=== PATIENT | female | born 1945 | race Caucasian/White ===

== ENCOUNTER 2017-08-01 16:00 | Inpatient (IN) | payer MEDICARE, BC ==
[2017-08-01 16:59] LABS: PCO2 Arterial 38 mmHg (35-45)
[2017-08-01] MEDS ORDERED: Ondansetron TAB* 4 MG PO PRN (17:02)
[2017-08-01] MEDS ORDERED: Ciprofloxacin 400MG IVPREMIX(* 400 MG/200 ML BAG IVPB SCH (17:30)
[2017-08-01 17:34] LABS: Hematocrit 32 % (35-47); Hemoglobin 10.4 g/dl (12.0-16.0); Mean Corpuscular HGB Conc 33 g/dl (31-36); Mean Corpuscular Hemoglobin 29 pg (27-31); Mean Corpuscular Volume 89 fL (80-97); Mean Platelet Volume 9 um3 (7.4-10.4); Red Blood Count 3.53 10^6/ul (4.0-5.4); Red Cell Distribution Width 15 % (10.5-15); White Blood Count 15.6 10^3/ul (3.5-10.8)
[2017-08-01] MEDS: NS 0.9% 1000 ML* 2,000 ML IV ONE ×2 (17:49→21:55)
[2017-08-01 17:51] LABS: BUN/Creatinine Ratio 33.1 (8-20); EGFR African American 20.6 (>60); Magnesium 1.6 mg/dL (1.9-2.7); Phosphorus 3.4 mg/dL (2.5-5.0); Potassium 3.4 mmol/L (3.5-5.0)
[2017-08-01 17:52] LABS: Troponin I 0.03 ng/mL (<0.04)
[2017-08-01 18:11] LABS: TSH (Thyroid Stimulating Horm) 3.56 mcIU/mL (0.34-5.60)
--- NOTE | 2017-08-01 18:12 | RAD ---
Indication: Outside institution CT remarkable for low density lesions at the liver. Comparison: No prior exams available on the [facility] [place] for comparison. Technique: RIGHT upper quadrant ultrasound. Report: Appropriate direction flow documented in the portal and hepatic veins. 22 cm liver is mildly heterogeneous in echogenicity. Several focal hepatic lesions are visualized with dominant 4.7 x 4.6 x 5.4 cm lesion at the LEFT hepatic lobe with suggestion of a fluid fluid level. The smaller lesions appear solid and hyperechoic. No significant marginal vascularity evident on Doppler. The lesion demonstrates irregular margins. Negative for intrahepatic biliary dilatation. 11 mm common bile duct. Post cholecystectomy. The pancreatic tail is partially obscured due to bowel gas with the visualized pancreas unremarkable. Negative for ascites. 11.0 x 4.7 x 4.4 cm RIGHT kidney is remarkable for mild cortical atrophy. IMPRESSION: 1. Noted hepatic lesions may represent metastasis or potentially septic emboli with the dominant lesion at the LEFT hepatic lobe demonstrating central cavitation with probable fluid fluid level. Correlate with clinical assessment. Consider multiphasic contrast-enhanced CT for further assessment. 2. Post cholecystectomy. 3. Mild prominence of the common bile duct may be normal in setting of prior cholecystectomy. Negative for intrahepatic biliary dilatation. 4. Mild cortical atrophy of the RIGHT kidney. Negative for hydronephrosis. 5. Negative for ascites.
[2017-08-01] MEDS ORDERED: metroNIDAZOLE IV 500 MG/100ML* 500 MG/100 ML BAG IVPB SCH (18:30)
[2017-08-01] MEDS ORDERED: Magnesium Sulf 4 GM/100 ML IV* 4,000 MG/100 ML BAG IVPB ONE (19:05)
--- NOTE | 2017-08-01 19:31 | RAD ---
Indication: Altered mental status. Comparison: No relevant prior exams available on the [facility] [place] for comparison. Technique: Noncontrast CT vertex of skull through foramen magnum. Report: Mild prominence of the cerebral sulci and cerebellar fissures reflecting involutional change. Unremarkable basal cisterns. Gonzalez matter white matter differentiation is preserved without evidence for edema. No intra or extra axial hemorrhage, mass, or fluid collection detected. Unremarkable visualized orbital contents. Indolent thickening at the junction of the inner table of the LEFT frontal and temporal bones. No suspicious focal osseous lesions evident. Unremarkable scalp. The visualized paranasal sinuses and mastoid air spaces are clear. IMPRESSION: 1. No acute intracranial process evident. 2. Mild involutional change.
--- NOTE | 2017-08-01 19:36 | RAD ---
INDICATION: Assess for pulmonary nodules. Sepsis. COMPARISON: RIGHT upper quadrant ultrasound August 01, 2017. TECHNIQUE: Multidetector CT images were obtained from the lung apices to the upper abdomen. Evaluation of the viscera is limited without IV contrast. REPORT: Significant respiratory motion artifact limits image quality. Small dependent LEFT pleural effusion with associated basilar atelectasis. Mild nonspecific airspace consolidation with air bronchograms at the inferior lingula which may represent atelectasis or pneumonia. No suspicious focal pulmonary lesions. Negative for thoracic lymphadenopathy. Cardiomegaly. Negative for pericardial effusion. Limited images through the upper abdomen are remarkable for a 3.2 x 3.4 cm hypodense but denser than water lesion at the dome of the LEFT medial hepatic segment. Corresponding with complex cystic lesion on ultrasound of the same date. Negative for suspicious focal osseous lesions. IMPRESSION: 1. Consolidation at the inferior lingula which may represent atelectasis or pneumonia. Small dependent LEFT pleural effusion. 2. Cardiomegaly. Negative for pericardial effusion. 3. Complex cystic lesion at the dome of the LEFT medial hepatic segment suspicious for abscess given clinical context of sepsis.
[2017-08-01] MEDS ORDERED: Vancomycin(*) 1,500 MG in NS 0.9% 250 ML* 250 ML IVPB ONE (20:00)
--- NOTE | 2017-08-01 20:16 | PN ---
Critical Care Services: [facility] progress note 08/01/17 Pt was transferred this evening from [facility] for possible sepsis, renal failure, DKA. Pt was hemodynamically stable, alert and oriented upon arrival. Pt had non- contrast abdominal CT done at [facility] that showed multiple hepatic lesions wiht largest lesion in left lobe. She was given 2L IVF and 2o units total of Insulin prior to transfer. She was given Cipro and Flagyl as she was PCN allergic for possible GI source. These abx are continued and was Vancomycin was added for possible Staph abscess. See previously dictated H& P for further details. Pt underwent liver U/S that showed multiple hepatic lesions with dominant lesion in Left lobe of liver with central cavitation and air fluid levels. She continued to have elevated blood sugars and was started on Insulin drip for management of blood sugars in setting of sepsis. She was also continued with IVF boluses, potassium and magnesium were repleted. Her lactate remains elevated at 2.7, to be rpt in 4 hrs. She also has acute on chronic renal failure due to dehydration and possible sepsis. She has marginal UO currently. She had normal LFTs in January of 2017, LFTs done at [place] earlier today showed elevated AST, ALT. Brain CT was done as she was slow to answer questions eventhough she was alert and oriented, it was read as normal, ? metabolic/ septic encephalopathy. Ct chest showed left basal consolidation, small rt effusion. She is having PICC line placed, she has 2 peripheral IV lines. EKG at [place] showed no acute changes, troponin was slightly elevated Vital Signs: Temp Pulse Resp BP SpO2 FiO2 97.4 F 63 21 116/65 97 08/01/17 18:52 08/01/17 19:00 08/01/17 19:00 08/01/17 19:00 08/01/17 19:00 Physical Exam: Gen: Alert, oriented x3, answers appropriately, slow to respond and seems forgetful HEENT:PERRLA, No JVD Lungs: Diminished breath sounds at bases, No wheeze Cardiac: S1, S2+, no murmer Abdomen: Obese, BS+ Extremities: Non-pitting edema Neuro: No focal defecits Fluid Balance (Past 24 Hours): Intake & Output 07/30/17 07/31/17 08/01/17 08/02/17 06:59 06:59 06:59 06:59 Weight 226 lb 9.6 oz Labs: Laboratory Results - last 24 hr 08/01/17 08/01/17 08/01/17 16:45 16:50 17:23 WBC RBC Hgb Hct MCV MCH MCHC RDW Plt Count MPV Neut % (Auto) Lymph % (Auto) Calloway % (Auto) Eos % (Auto) Baso % (Auto) Absolute Neuts (auto) Absolute Lymphs (auto) Absolute Monos (auto) Absolute Eos (auto) Absolute Basos (auto) Absolute Nucleated RBC Nucleated RBC % INR (Anticoag Therapy) APTT ABG pH 7.36 ABG pCO2 38 ABG pO2 82 ABG HCO3 22.1 ABG O2 Saturation 98.2 H ABG Base Excess -3.6 L Sodium Potassium Chloride Carbon Dioxide Anion Gap BUN Creatinine Est GFR ( Amer) Est GFR (Non-Af Amer) BUN/Creatinine Ratio Glucose 437 H Hemoglobin A1c 7.9 H Lactic Acid Calcium Ionized Calcium Phosphorus Magnesium Troponin I TSH 08/01/17 08/01/17 08/01/17 17:23 17:23 17:23 WBC RBC Hgb Hct MCV MCH MCHC RDW Plt Count MPV Neut % (Auto) Lymph % (Auto) Calloway % (Auto) Eos % (Auto) Baso % (Auto) Absolute Neuts (auto) Absolute Lymphs (auto) Absolute Monos (auto) Absolute Eos (auto) Absolute Basos (auto) Absolute Nucleated RBC Nucleated RBC % INR (Anticoag Therapy) 1.34 H APTT 21.7 L ABG pH ABG pCO2 ABG pO2 ABG HCO3 ABG O2 Saturation ABG Base Excess Sodium 131 L Potassium 3.4 L Chloride 98 L Carbon Dioxide 23 Anion Gap 10 BUN 96 H Creatinine 2.90 H Est GFR ( Amer) 20.6 Est GFR (Non-Af Amer) 16.0 BUN/Creatinine Ratio 33.1 H Glucose 421 H Hemoglobin A1c Lactic Acid 2.7 H* Calcium 8.0 L Ionized Calcium Phosphorus 3.4 Magnesium 1.6 L Troponin I 0.03 TSH 3.56 08/01/17 08/01/17 08/01/17 17:23 17:58 18:44 WBC 15.6 H RBC 3.53 L Hgb 10.4 L Hct 32 L MCV 89 MCH 29 MCHC 33 RDW 15 Plt Count 153 MPV 9 Neut % (Auto) 90.0 H Lymph % (Auto) 4.0 L Calloway % (Auto) 5.7 Eos % (Auto) 0.1 Baso % (Auto) 0.2 Absolute Neuts (auto) 14.0 H Absolute Lymphs (auto) 0.6 L Absolute Monos (auto) 0.9 H Absolute Eos (auto) 0 Absolute Basos (auto) 0 Absolute Nucleated RBC 0 Nucleated RBC % 0 INR (Anticoag Therapy) APTT ABG pH ABG pCO2 ABG pO2 ABG HCO3 ABG O2 Saturation ABG Base Excess Sodium Potassium Chloride Carbon Dioxide Anion Gap BUN Creatinine Est GFR ( Amer) Est GFR (Non-Af Amer) BUN/Creatinine Ratio Glucose 500 H Hemoglobin A1c Lactic Acid Calcium Ionized Calcium 4.58 L Phosphorus Magnesium Troponin I TSH Impression: 1. Sepsis likely hepatic abscess 2.Possible hepatocellular carcinoma 3.? Septic emboli to liver, ? primary source 4. Acute on chronic renal failure 5. Non-ketotic hyperosmolar state 6. Leucocytosis 7. Electrolyte abnormalities 8. Encephalopathy due to sepsis versus hyperosmolar state Plan: Close monitoring in ICU C/w abx C/w Insulin drip C/w IVF, start pressors if hypotensive inspite of fluids D/w Radiology application packager Dr Lopez regarding drainage of dominant lesion in liver , IR Dr Greenberg will assess pt tomorrow Monitor electrolytes closely, replete as needed D/w Dr Moore, DIRECTOR OF COMMUNITY EDUCATION Prognosis guarded to poor Family at bedside
[2017-08-01 20:40] LABS: BUN/Creatinine Ratio 34.1 (8-20); C Reactive Protein 219.81 mg/L (< 5.00); Calcium 7.8 mg/dL (8.6-10.3); EGFR African American 20.8 (>60); EGFR Non-African American 16.2 (>60); Potassium 3.4 mmol/L (3.5-5.0)
[2017-08-01 20:42] LABS: Troponin I 0.03 ng/mL (<0.04)
[2017-08-01] MEDS: KCL 20 MEQ/100 ML IVPREMIX* 20 MEQ/100 ML BAG IV SCH ×2 (20:51→23:18)
[2017-08-01 20:58] LABS: Direct Bilirubin 0.9 mg/dL (0.03-0.18); Globulin 3.3 g/dL (2-4); Indirect Bilirubin 0.4 mg/dL (0.3-1.0); Magnesium 1.6 mg/dL (1.9-2.7); Total Bilirubin 1.3 mg/dL (0.2-1.0); Total Protein 5.3 g/dL (6.4-8.9)
[2017-08-01] MEDS: Heparin VIAL(*) 5000 UNITS/ML VIAL (FIVE THOUSAND) SUBCUT SCH (21:56)
--- NOTE | 2017-08-01 23:23 | HP ---
HISTORY AND PHYSICAL: DATE OF ADMISSION: 08/01/17. PRIMARY CARE PROVIDER: Dr. Eliel Vu. REASON FOR ADMISSION: Transferred from [place] ED for possible sepsis versus DKA. CHIEF COMPLAINT: Nausea, vomiting, abdominal pain, left shoulder pain. HISTORY OF PRESENT ILLNESS: 72-year-old female with history of diabetes, stage 2 chronic kidney disease, obesity, who was evaluated in [place] [facility] today for GI symptoms and left shoulder pain. The patient has no oral intake over the past 3 days. The patient has been taking care of her sick recently, has been in the hospital attending to her . The patient's recently had an MA and she has been in the hospital a lot this week.The patient had onset of nausea, vomiting, and abdominal pain, going on for the past few days. Symptoms have worsened gradually.Given shoulder pain and h/o DM EKG and troponins were done in [place]. EKG was negative for acute ST-T wave changes. Troponins were mildly elevated. The patient was hemodynamically stable in [place] [facility]. She was noted to have elevated lactate. The patient also noted to have significantly elevated BUN and creatinine. Her sodium has been low. The patient had developed worsening diarrhea over the past week, also had nausea and lack of appetite without vomiting. She had mild left lower quadrant abdominal tenderness worse after an episode of diarrhea. She also reported stool being foul smelling, however denied dark stools. The patient denied fevers, shortness of breath. She had denied dysuria or back pain. She has been having small amounts of dark urine. The patient also denied headache, dizziness, admitted to malaise and weakness. The patient has received 20 units of insulin, blood sugar last checked was still above 450. The patient was given 3 L of IV fluids. The patient had minimal urine output since this morning. She also received 8 mg of Zofran, 4 mg of morphine for her shoulder pain. PAST MEDICAL HISTORY: 1. Diabetes type 2. 2. Hypertension. 3. Chronic kidney disease. 4. Lupus. 5. Gout. 6. Raynaud's. PAST SURGICAL HISTORY: Cholecystectomy. ALLERGIES: PENICILLIN. FAMILY HISTORY: No history of MA or sudden cardiac event, family history was reviewed. 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 No alcohol or drug abuse. REVIEW OF SYSTEMS: All 14 systems reviewed and as per the HPI. Pertinent positives and negatives as per HPI. PHYSICAL EXAMINATION GENERAL: Patient lying in bed, in no apparent distress, alert, awake, and oriented. VITAL SIGNS: Temperature 95.4, pulse 72 beats per minute, respiratory rate 18 per minute, blood pressure 135/70, O2 sat 96% on room air, BMI of 38. HEENT: Pupils, equal, reactive to light. Mucous membranes moist, Mallampati class 4 airway. RESPIRATORY: Lungs clear to auscultation bilaterally, decreased breath sounds in the right base. No wheeze or crackles. CARDIOVASCULAR: S1, S2 present, regular. No murmurs, gallops or rubs. GASTROINTESTINAL: Obese. Bowel sounds present, tenderness over left lower quadrant. BACK: No CVA tenderness. No vertebral tenderness. MUSCULOSKELETAL: Normal range of motion, 2+ edema of lower extremities. NEUROLOGIC: Alert, awake, oriented x3. No focal deficits. SKIN: No rash or bruises. LYMPHATIC: No palpable cervical or supraclavicular adenopathy. DIAGNOSTIC STUDIES/LABORATORY DATA: EKG: No acute ST-T wave changes CT of abdomen and pelvis was done without contrast, which showed abnormal appearance of the liver with multiple lesions concerning for malignancy. Developing abscess also in the differential. Chest x-ray showed small right pleural effusion. Shoulder x-ray to be reviewed. ASSESSMENT AND PLAN: 1. Infectious Disease/GI: The patient with abdominal symptoms of unclear nature. Liver abscess in differential, Diverticulosis versus colitis also in differential. The patient with abnormal attenuation throughout the entire left lobe of liver and low attenuation lesions throughout the right hepatic lobe, largest measuring 4 cm concerning for metastatic process versus abscess in left lobe of liver. Will obtain ultrasound of liver for further evaluation. Renal function is elevated and CT with contrast is deferred. Patient started on Flagyl and Rocephin for enteric coverage as she is pencillin allergic. Will also dose Vancomycin as per levels. Will f/u lactate, procalcitonin, CRP. 2. Neuro: The patient is alert, awake, and oriented and in no apparent distress. She is slightly delirious. She also received Morphine for pain while at [place], might be having long half life in setting of liver and renal failure. 3. Endocrine: The patient with hyperglycemia and increased AG. Will start Insulin drip given sepsis and need for close monitoring. HbA1C is elevated. Blood gas showed mild metabolic acidosis. Will monitor electrolytes and anion gap closely. Will c/w IV fluids. 4. Renal: The patient with acute on chronic renal failure likely secondary to dehydration and prerenal failure. No evidence of hyperkalemia. Magnesium and potassium repleted. Patient had jerome placed. Will start the patient on fluids. Monitor electrolytes closely. 5. Respiratory: Stable, saturating well on room air. Not tachypneic. CT chest showed consolidation in left base and small rt effusion, no suspicious nodules or masses noted 6. Heme/Onc: Patient with leukocytosis secondary to sepsis. Lactate is also elevated. CT of the abdomen concerning for hepatic abscess versus malignancy, will order ultrasound for further evaluation, will also obtain CT of the chest. 7. Cardiovascular: The patient is hemodynamically stable currently. Will monitor hemodynamic status closely. Troponins were elevated, likely secondary to underlying renal failure. Will follow trend. Echocardiogram is ordered and is pending 8. Musculoskeletal: The patient with lower extremity non-pitting edema, likely secondary to obesity, will check TSH Supportive and preventive care as ordered. The patient is closely being monitored in the ICU for possible sepsis, DKA, and renal failure. TIME SPENT: More than 60 minutes spent and most of the time spent [id number] with the patient towards history and physical. [id number]/[facility] #: [id number] CARLOS
[2017-08-01] MEDS: NS 0.9% 1000 ML* 1,000 ML IV SCH (23:45)
[2017-08-02 00:29] LABS: BUN/Creatinine Ratio 35.9 (8-20); Calcium 7.4 mg/dL (8.6-10.3); EGFR African American 23.1 (>60); Potassium 3.7 mmol/L (3.5-5.0)
[2017-08-02] MEDS: Acetaminophen SUPP* 650 MG SUPP PR PRN ×2 (02:17→21:34)
[2017-08-02] MEDS ORDERED: Insulin GLARGINE(*) 1 UNITS UNIT SUBCUT ONE (03:00)
[2017-08-02] MEDS: metroNIDAZOLE IV 500 MG/100ML* 500 MG/100 ML BAG IVPB SCH ×3 (04:30→20:27)
[2017-08-02 04:36] LABS: Calcium 7.7 mg/dL (8.6-10.3); EGFR African American 22.6 (>60); EGFR Non-African American 17.6 (>60); Potassium 3.7 mmol/L (3.5-5.0)
[2017-08-02] MEDS ORDERED: Dextrose 50% Syringe 50 ML* 25 GM/50 ML SYRINGE IV PUSH PRN (05:31)
[2017-08-02 05:55] LABS: Add Diff/Slide Review? Slide Review Added; Comments Flag Yes; Hematocrit 35 % (35-47); Hemoglobin 11.6 g/dl (12.0-16.0); Mean Corpuscular HGB Conc 33 g/dl (31-36); Mean Corpuscular Hemoglobin 29 pg (27-31); Mean Corpuscular Volume 89 fL (80-97); Mean Platelet Volume 9 um3 (7.4-10.4); Red Blood Count 3.95 10^6/ul (4.0-5.4); Red Cell Distribution Width 15 % (10.5-15); White Blood Count 10.6 10^3/ul (3.5-10.8)
[2017-08-02] MEDS: Heparin VIAL(*) 5000 UNITS/ML VIAL (FIVE THOUSAND) SUBCUT SCH ×3 (06:13→21:55)
[2017-08-02] MEDS: Omeprazole CAP* 20 MG PO SCH (06:14)
[2017-08-02] MEDS: NS 0.9% 1000 ML* 1,000 ML IV SCH ×2 (07:35→18:34)
[2017-08-02] MEDS: Insulin LISPRO* 1 UNITS UNIT SUBCUT SCH ×4 (08:39→21:06)
[2017-08-02] MEDS: Insulin GLARGINE(*) 1 UNITS UNIT SUBCUT SCH (09:00)
[2017-08-02] MEDS ORDERED: Vancomycin(*) 1,500 MG in NS 0.9% 250 ML* 250 ML IVPB ONE (09:30)
--- NOTE | 2017-08-02 09:37 | PN ---
Progress Note - Progress Note Date of Service: 08/02/17 - [facility] progress note Note: In error. Pls see CCM progress note.
--- NOTE | 2017-08-02 09:44 | PN ---
Critical Care Services: [facility] progress note Date of service 08/02/17, Time: 9:30 am Pt seen and examined at bedside. Pt is 72 y o obese f with h/o DM, lupus, CRF who was seen in [facility] ED for GI symptoms, CT abdomen without contrast showed multiple hepatic lesions concerning for abscess versus malignancy. She was transferred for management of sepsis, possible DKA, acute on chronic renal failure. She has remained hypotensive overnight, responding to fluids. She is afebrile, not tachycardic. Leucocytosis, renal function improving. Has been off Insulin drip and received long acting Insulin. Mental status improved this am. Vital Signs: Temp Pulse Resp BP SpO2 FiO2 96.2 F 58 19 89/57 98 08/02/17 08:00 08/02/17 06:01 08/02/17 08:00 08/02/17 06:00 08/02/17 08:00 Physical Exam: Gen: Obese female, lying in bed in NAD HEENT: PERRLA, No JVD Lungs: Diminished air entry at bases Cardiac: S1, S2+, regular Abdomen: Obese, BS+, diminished, tenderness to palpation, no rebound Extremities: Normal ROM, non-pitting edema Neuro: Slight improvement in mental status this am, alert, oriented Fluid Balance (Past 24 Hours): Q=4768 O= 200 Net +4153 Intake & Output 07/31/17 08/01/17 08/02/17 08/03/17 06:59 06:59 06:59 06:59 Intake Total 4353 100 Output Total 200 Balance 4153 100 Weight 246 lb 7.629 oz Intake: IV Fluids 3518 Antibiotics 1524 NS (0.9%) 275 Normal Saline 1719 IVPB 393 ABX - VANCOMYCIN 121 Antibiotics 101 NS (0.9%) 62 Normal Saline 109 Medicated IV 342 CC - Insulin 98 KCl 134 Magnesium Sulfate 110 Oral 100 100 Output: Jerome 200 Other: Estimated Void Small Labs: Laboratory Results - last 24 hr 08/01/17 08/01/17 08/01/17 16:41 16:45 16:50 WBC RBC Hgb Hct MCV MCH MCHC RDW Plt Count MPV Neut % (Auto) Lymph % (Auto) [place] % (Auto) Eos % (Auto) Baso % (Auto) Absolute Neuts (auto) Absolute Lymphs (auto) Absolute Monos (auto) Absolute Eos (auto) Absolute Basos (auto) Absolute Nucleated RBC Nucleated RBC % INR (Anticoag Therapy) APTT ABG pH 7.36 ABG pCO2 38 ABG pO2 82 ABG HCO3 22.1 ABG O2 Saturation 98.2 H ABG Base Excess -3.6 L Sodium Potassium Chloride Carbon Dioxide Anion Gap BUN Creatinine Est GFR ( Amer) Est GFR (Non-Af Amer) BUN/Creatinine Ratio Glucose 437 H POC Glucose (mg/dL) > 444 H* Hemoglobin A1c Lactic Acid Calcium Ionized Calcium Phosphorus Magnesium Total Bilirubin Direct Bilirubin Indirect Bilirubin AST ALT Alkaline Phosphatase Troponin I C-Reactive Protein Total Protein Albumin Globulin Albumin/Globulin Ratio Procalcitonin TSH Urine Acetone 08/01/17 08/01/17 08/01/17 17:23 17:23 17:23 WBC RBC Hgb Hct MCV MCH MCHC RDW Plt Count MPV Neut % (Auto) Lymph % (Auto) [place] % (Auto) Eos % (Auto) Baso % (Auto) Absolute Neuts (auto) Absolute Lymphs (auto) Absolute Monos (auto) Absolute Eos (auto) Absolute Basos (auto) Absolute Nucleated RBC Nucleated RBC % INR (Anticoag Therapy) APTT ABG pH ABG pCO2 ABG pO2 ABG HCO3 ABG O2 Saturation ABG Base Excess Sodium 131 L Potassium 3.4 L Chloride 98 L Carbon Dioxide 23 Anion Gap 10 BUN 96 H Creatinine 2.90 H Est GFR ( Amer) 20.6 Est GFR (Non-Af Amer) 16.0 BUN/Creatinine Ratio 33.1 H Glucose 421 H POC Glucose (mg/dL) Hemoglobin A1c 7.9 H Lactic Acid 2.7 H* Calcium 8.0 L Ionized Calcium Phosphorus 3.4 Magnesium 1.6 L Total Bilirubin Direct Bilirubin Indirect Bilirubin AST ALT Alkaline Phosphatase Troponin I 0.03 C-Reactive Protein Total Protein Albumin Globulin Albumin/Globulin Ratio Procalcitonin TSH 3.56 Urine Acetone 08/01/17 08/01/17 08/01/17 17:23 17:23 17:58 WBC 15.6 H RBC 3.53 L Hgb 10.4 L Hct 32 L MCV 89 MCH 29 MCHC 33 RDW 15 Plt Count 153 MPV 9 Neut % (Auto) 90.0 H Lymph % (Auto) 4.0 L [place] % (Auto) 5.7 Eos % (Auto) 0.1 Baso % (Auto) 0.2 Absolute Neuts (auto) 14.0 H Absolute Lymphs (auto) 0.6 L Absolute Monos (auto) 0.9 H Absolute Eos (auto) 0 Absolute Basos (auto) 0 Absolute Nucleated RBC 0 Nucleated RBC % 0 INR (Anticoag Therapy) 1.34 H APTT 21.7 L ABG pH ABG pCO2 ABG pO2 ABG HCO3 ABG O2 Saturation ABG Base Excess Sodium Potassium Chloride Carbon Dioxide Anion Gap BUN Creatinine Est GFR ( Amer) Est GFR (Non-Af Amer) BUN/Creatinine Ratio Glucose POC Glucose (mg/dL) Hemoglobin A1c Lactic Acid Calcium Ionized Calcium 4.58 L Phosphorus Magnesium Total Bilirubin Direct Bilirubin Indirect Bilirubin AST ALT Alkaline Phosphatase Troponin I C-Reactive Protein Total Protein Albumin Globulin Albumin/Globulin Ratio Procalcitonin TSH Urine Acetone 08/01/17 08/01/17 08/01/17 18:34 18:44 20:05 WBC RBC Hgb Hct MCV MCH MCHC RDW Plt Count MPV Neut % (Auto) Lymph % (Auto) [place] % (Auto) Eos % (Auto) Baso % (Auto) Absolute Neuts (auto) Absolute Lymphs (auto) Absolute Monos (auto) Absolute Eos (auto) Absolute Basos (auto) Absolute Nucleated RBC Nucleated RBC % INR (Anticoag Therapy) APTT ABG pH ABG pCO2 ABG pO2 ABG HCO3 ABG O2 Saturation ABG Base Excess Sodium 132 L Potassium 3.4 L Chloride 99 L Carbon Dioxide 23 Anion Gap 10 BUN 98 H Creatinine 2.87 H Est GFR ( Amer) 20.8 Est GFR (Non-Af Amer) 16.2 BUN/Creatinine Ratio 34.1 H Glucose 500 H 392 H POC Glucose (mg/dL) > 444 H* Hemoglobin A1c Lactic Acid Calcium 7.8 L Ionized Calcium Phosphorus Magnesium 1.6 L Total Bilirubin 1.30 H Direct Bilirubin 0.90 H Indirect Bilirubin 0.4 AST 206 H ALT 92 H Alkaline Phosphatase 70 Troponin I 0.03 C-Reactive Protein 219.81 H Total Protein 5.3 L Albumin 2.0 L Globulin 3.3 Albumin/Globulin Ratio 0.6 L Procalcitonin TSH Urine Acetone 08/01/17 08/01/17 08/01/17 20:05 20:05 22:00 WBC RBC Hgb Hct MCV MCH MCHC RDW Plt Count MPV Neut % (Auto) Lymph % (Auto) [place] % (Auto) Eos % (Auto) Baso % (Auto) Absolute Neuts (auto) Absolute Lymphs (auto) Absolute Monos (auto) Absolute Eos (auto) Absolute Basos (auto) Absolute Nucleated RBC Nucleated RBC % INR (Anticoag Therapy) APTT ABG pH ABG pCO2 ABG pO2 ABG HCO3 ABG O2 Saturation ABG Base Excess Sodium Potassium Chloride Carbon Dioxide Anion Gap BUN Creatinine Est GFR ( Amer) Est GFR (Non-Af Amer) BUN/Creatinine Ratio Glucose POC Glucose (mg/dL) 380 H Hemoglobin A1c Lactic Acid 3.2 H* Calcium Ionized Calcium Phosphorus Magnesium Total Bilirubin Direct Bilirubin Indirect Bilirubin AST ALT Alkaline Phosphatase Troponin I C-Reactive Protein Total Protein Albumin Globulin Albumin/Globulin Ratio Procalcitonin 12.6 H TSH Urine Acetone 08/01/17 08/02/17 08/02/17 23:00 00:00 00:00 WBC RBC Hgb Hct MCV MCH MCHC RDW Plt Count MPV Neut % (Auto) Lymph % (Auto) [place] % (Auto) Eos % (Auto) Baso % (Auto) Absolute Neuts (auto) Absolute Lymphs (auto) Absolute Monos (auto) Absolute Eos (auto) Absolute Basos (auto) Absolute Nucleated RBC Nucleated RBC % INR (Anticoag Therapy) APTT ABG pH ABG pCO2 ABG pO2 ABG HCO3 ABG O2 Saturation ABG Base Excess Sodium 132 L Potassium 3.7 Chloride 103 Carbon Dioxide 21 L Anion Gap 8 BUN 94 H Creatinine 2.62 H Est GFR ( Amer) 23.1 Est GFR (Non-Af Amer) 18.0 BUN/Creatinine Ratio 35.9 H Glucose 292 H POC Glucose (mg/dL) 349 H Hemoglobin A1c Lactic Acid 2.3 H* Calcium 7.4 L Ionized Calcium Phosphorus Magnesium Total Bilirubin Direct Bilirubin Indirect Bilirubin AST ALT Alkaline Phosphatase Troponin I C-Reactive Protein Total Protein Albumin Globulin Albumin/Globulin Ratio Procalcitonin TSH Urine Acetone 08/02/17 08/02/17 08/02/17 00:07 01:00 02:14 WBC RBC Hgb Hct MCV MCH MCHC RDW Plt Count MPV Neut % (Auto) Lymph % (Auto) [place] % (Auto) Eos % (Auto) Baso % (Auto) Absolute Neuts (auto) Absolute Lymphs (auto) Absolute Monos (auto) Absolute Eos (auto) Absolute Basos (auto) Absolute Nucleated RBC Nucleated RBC % INR (Anticoag Therapy) APTT ABG pH ABG pCO2 ABG pO2 ABG HCO3 ABG O2 Saturation ABG Base Excess Sodium Potassium Chloride Carbon Dioxide Anion Gap BUN Creatinine Est GFR ( Amer) Est GFR (Non-Af Amer) BUN/Creatinine Ratio Glucose POC Glucose (mg/dL) 319 H 282 H 241 H Hemoglobin A1c Lactic Acid Calcium Ionized Calcium Phosphorus Magnesium Total Bilirubin Direct Bilirubin Indirect Bilirubin AST ALT Alkaline Phosphatase Troponin I C-Reactive Protein Total Protein Albumin Globulin Albumin/Globulin Ratio Procalcitonin TSH Urine Acetone 08/02/17 08/02/17 08/02/17 03:00 03:03 04:00 WBC RBC Hgb Hct MCV MCH MCHC RDW Plt Count MPV Neut % (Auto) Lymph % (Auto) [place] % (Auto) Eos % (Auto) Baso % (Auto) Absolute Neuts (auto) Absolute Lymphs (auto) Absolute Monos (auto) Absolute Eos (auto) Absolute Basos (auto) Absolute Nucleated RBC Nucleated RBC % INR (Anticoag Therapy) APTT ABG pH ABG pCO2 ABG pO2 ABG HCO3 ABG O2 Saturation ABG Base Excess Sodium 134 Potassium 3.7 Chloride 105 Carbon Dioxide 20 L Anion Gap 9 BUN 96 H Creatinine 2.67 H Est GFR ( Amer) 22.6 Est GFR (Non-Af Amer) 17.6 BUN/Creatinine Ratio 36.0 H Glucose 195 H POC Glucose (mg/dL) 221 H Hemoglobin A1c Lactic Acid Calcium 7.7 L Ionized Calcium Phosphorus Magnesium Total Bilirubin Direct Bilirubin Indirect Bilirubin AST ALT Alkaline Phosphatase Troponin I C-Reactive Protein Total Protein Albumin Globulin Albumin/Globulin Ratio Procalcitonin TSH Urine Acetone Negative 08/02/17 08/02/17 08/02/17 04:00 04:06 05:05 WBC 10.6 RBC 3.95 L Hgb 11.6 L Hct 35 MCV 89 MCH 29 MCHC 33 RDW 15 Plt Count 167 MPV 9 Neut % (Auto) 89.6 H Lymph % (Auto) 5.0 L [place] % (Auto) 4.9 Eos % (Auto) 0.4 Baso % (Auto) 0.1 Absolute Neuts (auto) 9.5 H Absolute Lymphs (auto) 0.5 L Absolute Monos (auto) 0.5 Absolute Eos (auto) 0 Absolute Basos (auto) 0 Absolute Nucleated RBC 0 Nucleated RBC % 0 INR (Anticoag Therapy) APTT ABG pH ABG pCO2 ABG pO2 ABG HCO3 ABG O2 Saturation ABG Base Excess Sodium Potassium Chloride Carbon Dioxide Anion Gap BUN Creatinine Est GFR ( Amer) Est GFR (Non-Af Amer) BUN/Creatinine Ratio Glucose POC Glucose (mg/dL) 192 H 157 H Hemoglobin A1c Lactic Acid Calcium Ionized Calcium Phosphorus Magnesium Total Bilirubin Direct Bilirubin Indirect Bilirubin AST ALT Alkaline Phosphatase Troponin I C-Reactive Protein Total Protein Albumin Globulin Albumin/Globulin Ratio Procalcitonin TSH Urine Acetone 08/02/17 08:19 WBC RBC Hgb Hct MCV MCH MCHC RDW Plt Count MPV Neut % (Auto) Lymph % (Auto) [place] % (Auto) Eos % (Auto) Baso % (Auto) Absolute Neuts (auto) Absolute Lymphs (auto) Absolute Monos (auto) Absolute Eos (auto) Absolute Basos (auto) Absolute Nucleated RBC Nucleated RBC % INR (Anticoag Therapy) APTT ABG pH ABG pCO2 ABG pO2 ABG HCO3 ABG O2 Saturation ABG Base Excess Sodium Potassium Chloride Carbon Dioxide Anion Gap BUN Creatinine Est GFR ( Amer) Est GFR (Non-Af Amer) BUN/Creatinine Ratio Glucose POC Glucose (mg/dL) 101 H Hemoglobin A1c Lactic Acid Calcium Ionized Calcium Phosphorus Magnesium Total Bilirubin Direct Bilirubin Indirect Bilirubin AST ALT Alkaline Phosphatase Troponin I C-Reactive Protein Total Protein Albumin Globulin Albumin/Globulin Ratio Procalcitonin TSH Urine Acetone Studies: U/S liver: Multiple hepatic lesions, dominant lesion in Left lobe with central cavitation and densities CT chest: Small rt pleural effusion, basal atelectasis on left base, no mass or nodules CT brain: No acute findings CT abdomen at outside facility: No acute abdomen, multiple hepatic lesions Nutrition: Minimal oral intake Impression: 1. Sepsis likely from hepatic abscess 2.Suspected hepatocellular carcinoma 3.? Septic emboli to liver, ? primary source 4. Acute on chronic renal failure 5. DM type-2 6. Leucocytosis- improving 7. Electrolyte abnormalities being repleted 8. Encephalopathy due to sepsis , slightly better this am 9. Lactic acidosis- not worsening 10. Hypotension secondary to sepsis, not requiring pressors 11. Sinus bradycardia Plan: 1. Infectious Disease/GI: The patient with abdominal symptoms of unclear nature. Liver abscess in differential, Diverticulosis versus colitis less likely. Bacterial source versus fungal, letitia and aspergillus possible given poorly controlled DM at baseline. The patient with abnormal attenuation throughout the entire left lobe of liver and low attenuation lesions throughout the right hepatic lobe, largest measuring 4 cm concerning for metastatic process versus abscess in left lobe of liver. Discussed with Dr Greenberg, patient to undergo ultrasound guided drainage of largest lesion for diagnostic and therapeutic benefit. Patient started on Flagyl and Rocephin for enteric coverage as she is pencillin allergic. Will dose Vancomycin as per levels. Will f/u lactate, procalcitonin, CRP. Bl cx from [facility] showed gram positive bacteria in clusters-? Staph 2. Neuro: The patient is alert, awake, and oriented and in no apparent distress. Mental status is slightly better this am. Is able to protect airway 3. Endocrine: The patient with hyperglycemia and increased AG, was on Insulin drip which was stopped this am. She has received long acting Insulin. Will monitor electrolytes and anion gap closely. Will c/w IV fluids and sliding scale insulin. 4. Renal: The patient with acute on chronic renal failure likely secondary to dehydration and prerenal failure. No evidence of hyperkalemia. Magnesium and potassium repleted. Patient had jerome placed. C/w IV fluids. Monitor electrolytes closely. renal output remains low 5. Respiratory: Stable, on 2L O2. Not tachypneic. CT chest showed consolidation in left base and small rt effusion, no suspicious nodules or masses noted. No need to drain Rt effusion 6. Heme/Onc: Patient with leukocytosis secondary to sepsis. Lactate is also elevated, will f/u today. 7. Cardiovascular: Remains hypotensive, not tachycardic. Responding to fluid boluses this time. Will monitor hemodynamic status closely. Troponins are within normal limits. Echocardiogram is ordered and is pending. Had PICC line palced, will start pressors if needed. I think she is still intravascularly depleted. 8. Musculoskeletal: The patient with lower extremity non-pitting edema, likely secondary to obesity, TSH within normal limits IV access: Rt forearm 20 gauge, Lt PICC line Supportive and preventive care as ordered. Psycho/Social: at bedside and was updated on patients condition SUP: on PPI VTE prophylaxis: Heparin sq Jerome catheter given critical illness, monitoring needs for accurate assessment of NENO and KDIGO criteria for critically ill patients and to avoid potential harms of urinary retention, skin breakdown/ulcers. Critical Care Time: 45 min
[2017-08-02 11:03] LABS: BUN/Creatinine Ratio 34.8 (8-20); EGFR African American 21.5 (>60); EGFR Non-African American 16.7 (>60); Potassium 3.8 mmol/L (3.5-5.0)
[2017-08-02] MEDS ORDERED: NS 0.9% 1000 ML* 1,000 ML IV ONE (12:07)
[2017-08-02] MEDS ORDERED: fentaNYL* 50 MCG/ML 2 ML VIAL (100 MCG VIAL) IV ONE (14:00)
[2017-08-02] MEDS ORDERED: fentaNYL* 50 MCG/ML 2 ML VIAL (100 MCG VIAL) IV SLOW PU ONE (14:00)
[2017-08-02] MEDS ORDERED: fentaNYL* 50 MCG/ML 5 ML VIAL (250 MCG VIAL) ONE (14:00)
[2017-08-02] MEDS ORDERED: Cefepime(*) 2 GM in NS 0.9% 50 ML* 50 ML IVPB SCH (15:00)
--- NOTE | 2017-08-02 15:19 | PN ---
Progress Note - Progress Note Date of Service: 08/02/17 - [facility] note Note: Pt had U/S guided drainage of liver abscess and drain placement by Dr Greenberg at bed side in ICU. Patient with drainage of thick creamy white fluid. Drain left in place. 60cc fluid was sent to lab for cultures, gram stain, cytology. Blood cx positive for gram positive cocci, resembling Strep, final cx pending. Will d/ c Cipro. Will order Cefepime(pt had allergy to PCN- rash, no anaphylaxis. She was treated with Rocephin in the past with no side effects) and c/w Flagyl and Vanco per levels. UO remains minimal. Has received another 1L bolus earlier today and is on maintainance fluid of 125mL/hr. Has not needed vasopressors. Will also start stress dose steroids. Drain to remain in place, to be flushed every 8 hrs with sterile saline. Will obtain surgical consult for possible laproscopic drainage of liver abscess as she has multiple other foci throughout the liver.
--- NOTE | 2017-08-02 16:15 | RAD ---
CPT II Codes: 6100F INDICATION: Left lobe liver abscess in a septic patient. COMPARISON: CT of the chest and liver ultrasound both dated August 01, 2017 ANESTHESIA: 1% lidocaine injected locally. The patient received intravenous fentanyl. Cardiopulmonary status was monitored by Dr. Greenberg and the ICU nurse. PROCEDURE NOTE: The following procedure was performed at the bedside in the intensive care unit with a portable ultrasound imaging machine. The benefits and risks of procedure explained to the patient and the patient signed informed consent. Multiple images of the left lobe of the liver including the left lobe heterogeneous fluid collection were obtained. The abscess in question was identified and a percutaneous tract was determined. A time out was performed before beginning the procedure. The patient was prepped and draped in the usual sterile fashion. The skin, subcutaneous tissue and perihepatic capsule overlying the left lateral liver abscess were anesthetized with 1% lidocaine. Percutaneously, a 10 Australian pigtail drain was inserted into the collection under sonographic guidance according to the trocar technique. A "pursestring" suture was tied around the tube exit site, the tube was then secured to the skin with a "Ino sandal" suture and the area was finally dressed with sterile gauze and Tegaderm. The tube was attached to a three-way stopcock valves and drainage bag. Immediately 60 mL of purulent fluid was aspirated and sent to the laboratory for analysis. The post procedure ultrasound demonstrates the drain in appropriate position and no evidence for hematoma. The patient tolerated procedure well without incident. IMPRESSION: Uncomplicated bedside ultrasound-guided placement of a 10 Australian pigtail drainage catheter into a left lobe liver abscess.
[2017-08-03] MEDS: metroNIDAZOLE IV 500 MG/100ML* 500 MG/100 ML BAG IVPB SCH ×3 (04:28→19:46)
[2017-08-03] MEDS ORDERED: Vancomycin Random Level* NOTE FOLLOW UP ONE (05:30)
[2017-08-03] MEDS: Heparin VIAL(*) 5000 UNITS/ML VIAL (FIVE THOUSAND) SUBCUT SCH (05:52)
[2017-08-03] MEDS: Omeprazole CAP* 20 MG PO SCH (05:52)
[2017-08-03] MEDS ORDERED: Diltiazem DRIP* 100 MG/100 ML ADDV.BAG IVPB ONE ×2 (08:06→08:07)
[2017-08-03] MEDS: NS 0.9% 1000 ML* 1,000 ML IV ONE ×2 (08:30→09:06)
[2017-08-03] MEDS: Insulin GLARGINE(*) 1 UNITS UNIT SUBCUT SCH (08:46)
[2017-08-03] MEDS: Insulin LISPRO* 1 UNITS UNIT SUBCUT SCH ×4 (08:46→21:21)
[2017-08-03] MEDS ORDERED: Perflutren Lipid Microsphere* 3 ML VIAL ONE (08:51)
--- NOTE | 2017-08-03 10:45 | ECHO ---
Patient: TALIA PACKER [facility] [place] Rec#: [id number] : 1945 Date: 08/03/2017 Age: 72y Height: 162.56 cm / 64.0 in Weight: 109.77 kg / 241.9 lbs Sex: F BSA: 2.12 Room#: ICU 1 Admit Date#: 08/01/2017 Type: Inpatient Referring: KEO SANTOS Reading: Sonia Grove MD [employer] Supervisor: Opal ZunigaRDCS,RDMS Transthoracic Echocardiogram Indication: Bacteremia, Hypotension, Afib BP: 102/62 HR: 147 Rhythm: A-Fib Findings History: DM, CKD, HTN, lupus, liver abscess Technical Comments: The study is technically limited due to poor acoustic windows. Completed 09 Left Ventricle: The left ventricular chamber size is decreased. Moderate concentric left ventricular hypertrophy is observed. The left ventricle appears hyperdynamic. The estimated ejection fraction is greater than 65%. The assessment of diastolic function is non-diagnostic. Left Atrium: The left atrial chamber size is normal. Right Ventricle: The right ventricle wall thickness is mildly increased. The right ventricular cavity size is normal. Right Atrium: The right atrium is slightly dilated. Aortic Valve: The aortic valve is trileaflet. There is no evidence of aortic valve thickening. Systolic excursion of the aortic valve is normal. There is no evidence of aortic regurgitation. There is no evidence of aortic stenosis. Mitral Valve: There is posterior mitral annular calcification. The mitral valve leaflets do not appear thickened. There is no evidence of mitral regurgitation. There is no evidence of mitral stenosis. Tricuspid Valve: The tricuspid valve leaflets are normal. There is trace tricuspid regurgitation. Unable to estimate the right ventricular systolic pressure. Pulmonic Valve: There is no evidence of pulmonic valve thickening. There is trace to mild pulmonic regurgitation. Pericardium: There is no significant pericardial effusion. Aorta: The aortic root appears normal. There is no dilatation of the aortic arch. Pulmonary Artery: The main pulmonary artery appears normal. Venous: The inferior vena cava is not visualized. Contrast: Definity was used to optimize study. A total of 3 ml was given by [employer]. Summary: There was not any prior study for comparison. Conclusions TDS. pt is a fib The left ventricular chamber size is decreased. Moderate concentric left ventricular hypertrophy is observed. The left ventricle appears hyperdynamic. The estimated ejection fraction is greater than 65%. The endocardium is not well visualized. The assessment of diastolic function is non-diagnostic. There is trace tricuspid regurgitation. Unable to estimate the right ventricular systolic pressure. There is trace to mild pulmonic regurgitation. No obvious masses or vegetation but the study is difficult and limited. If clinically indicated, JENS might be of further help in evaluation. Measurements Name Value Normal Range RVIDd (AP) 2D 1.8 cm (0.9 - 2.6) RAd ISD 4CH 5 cm (3.4 - 4.9) IVSd (2D) 1.5 cm (0.6 - 1) LVPWd (2D) 1.6 cm (0.6 - 1) LVIDd (2D) 2.8 cm (3.6 - 5.4) LVIDs (2D) 2 cm - LV FS (2D) 26 % (25 - 45) Aortic Annulus 1.8 cm (1.4 - 2.6) Ao root diameter (2D) 2.6 cm (2.1 - 3.5) Ascending Ao 2.9 cm (2.1 - 3.4) Aortic arch 3 cm (1.8 - 3.4) LA dimension (AP) 2D 3.8 cm (2.3 - 3.8) LAd ISD 4CH 5.1 cm (2.9 - 5.3) LA ISD 4CH W 4.9 cm (2.5 - 4.5) Name Value Normal Range LA ESV SP 4CH (A/L) 69.86 ml - LA ESV SP 2CH (A/L) 33.76 ml - LA ESV BP (A/L) 54.98 ml - LA ESV BP (A/L) index 26 ml/m2 - LA ESV SP 4CH (MOD) 66.36 ml - LA ESV SP 2CH (MOD) 32.52 ml - Name Value Normal Range MV E-wave Vmax 0.7 m/sec - MV deceleration time 133 msec - LV lateral e' Vmax 0.09 m/sec - LV E:e' lateral ratio 8 ratio - Name Value Normal Range AV Vmax 0.9 m/sec - AV peak gradient 3.2 mmHg - LVOT Vmax 0.8 m/sec - LVOT peak gradient 2.6 mmHg - Name Value Normal Range RAP 8 mmHg - Name Value Normal Range PV Vmax 0.8 m/sec - PV peak gradient 2.6 mmHg -
[2017-08-03 10:52] LABS: Comments Flag Yes; Hematocrit 34 % (35-47); Hemoglobin 10.9 g/dl (12.0-16.0); Mean Corpuscular HGB Conc 32 g/dl (31-36); Mean Corpuscular Hemoglobin 29 pg (27-31); Mean Corpuscular Volume 90 fL (80-97); Mean Platelet Volume 9 um3 (7.4-10.4); Red Blood Count 3.76 10^6/ul (4.0-5.4); Red Cell Distribution Width 16 % (10.5-15); White Blood Count 16.8 10^3/ul (3.5-10.8)
[2017-08-03 10:53] LABS: Add Diff/Slide Review? Slide Review Added
[2017-08-03 11:03] LABS: Albumin 1.5 g/dL (3.2-5.2); BUN/Creatinine Ratio 32.3 (8-20); Calcium 7.1 mg/dL (8.6-10.3); EGFR African American 18.4 (>60); EGFR Non-African American 14.3 (>60); Globulin 2.8 g/dL (2-4); Magnesium 2.4 mg/dL (1.9-2.7); Phosphorus 5.4 mg/dL (2.5-5.0); Potassium 3.8 mmol/L (3.5-5.0); Total Bilirubin 1.5 mg/dL (0.2-1.0); Total Protein 4.3 g/dL (6.4-8.9)
[2017-08-03] MEDS: Diltiazem DRIP* 100 MG/100 ML ADDV.BAG IVPB SCH ×2 (11:16→20:32)
--- NOTE | 2017-08-03 11:18 | PN ---
Progress Note - Progress Note Date of Service: 08/03/17 - Procedure note Note: Right Femoral Central Venous Catheter Placement Date: 08/03/17 Time: 11:00 am Indication: Intravenous access Procedure performed by:Galina Upton MD A time-out was completed verifying correct patient, procedure, site, positioning , and equipment. Strict aseptic precautions and necessary barrier techniques were utilized. The patient was placed in a dependent position appropriate for central line placement. The patients right groin was prepped and draped in sterile fashion. 1% Lidocaine was used to anesthetize the surrounding skin area. A triple lumen catheter was introduced into the right common femoral vein using the Seldinger technique and under ultrasound guidance. The catheter was threaded smoothly over the guide wire and appropriate blood return was obtained. Each lumen of the catheter was evacuated of air and flushed with sterile saline. The catheter was then sutured in place to the skin and a sterile dressing applied. Perfusion to the extremity distal to the point of catheter insertion was checked and found to be adequate. Estimated Blood Loss: minimal The patient tolerated the procedure well and there were no complications.
--- NOTE | 2017-08-03 11:21 | PN ---
Progress Note - Progress Note Date of Service: 08/03/17 - Left radial femoral line palcement Note: LEFT ARTERIAL LINE (A-Line) PLACEMENT Date: 08/03/17 Time: 11:10 am Indication: Hemodynamic monitoring Performed by: Gailna Upton MD A time-out was completed verifying correct patient, procedure, site, positioning , and equipment . Strict aseptic precautions and necessary barrier techniques were utilized. Allens test was performed to ensure adequate perfusion. The patients left wrist was prepped and draped in sterile fashion. 1% Lidocaine was used to anesthetize the area. An Arrow arterial line was introduced into the left radial artery. The catheter was threaded over the guide wire and the needle was removed with appropriate pulsatile blood return. The catheter was then sutured in place to the skin and a sterile dressing applied. Perfusion to the extremity distal to the point of catheter insertion was checked and found to be adequate. Estimated Blood Loss: Minimal The patient tolerated the procedure well and there were no complications.
[2017-08-03] MEDS ORDERED: Heparin DRIP 25,000 UNITS(*) 25,000 UNITS/500 ML BAG IV SCH (11:30)
--- NOTE | 2017-08-03 11:33 | PN ---
Critical Care Services: [facility] progress note Date of service 08/03/17 Time: 11:20 am Pt was seen and examined at bedside. Pt has remained stable overnight. Had onset of A.fib with RVR this am, started on Cardizem drip, she concerted to sinus rhythm however continues to drip back to A.fib. Has received 4L IVF so far. Urine output has been low. Mental status is much improved. Drain was placed into hepatic abscess in left lobe of liver yesterday, has put out 60+50+ 20 cc so far. Scheduled for rpt U/S today. She had maintained BP yesterday however has been more hypotensive this am. She has received fluid boluses. EKG showed A.Fib and she is currently on Cardizem drip. Heparin drip was also started. Vital Signs: Temp Pulse Resp BP SpO2 FiO2 97.4 F 83 28 80/64 96 08/03/17 04:00 08/03/17 10:45 08/03/17 10:45 08/03/17 10:45 08/03/17 10:45 Physical Exam: Gen:Pt in NAD, alert, awake HEENT:PERRLA, No JVD, mucus membranes dry Lungs:Diminished air entry at bases Cardiac: S1, S2+, irregular, tachycardic Abdomen:Obese, BS+, abd drain in place Extremities: Normal ROM Neuro: No focal defecits Fluid Balance (Past 24 Hours): I= 5140 O=350 Net 4790 Intake & Output 08/01/17 08/02/17 08/03/17 08/04/17 06:59 06:59 06:59 06:59 Intake Total 4353 5140 Output Total 200 350 Balance 4153 4790 Weight 246 lb 7.629 oz 242 lb 11.663 oz Intake: IV Fluids 3518 1954 Antibiotics 1524 296 NS (0.9%) 275 Normal Saline 1719 1658 IVPB 393 2606 ABX - VANCOMYCIN 121 250 Antibiotics 101 2356 NS (0.9%) 62 Normal Saline 109 Medicated IV 342 CC - Insulin 98 KCl 134 Magnesium Sulfate 110 Oral 100 560 Pigtail Drain 20 Output: Pigtail Drain 70 Jerome 200 220 Other 60 Other: Estimated Void Small Other Amount Description Hepatic drain Labs: Laboratory Results - last 24 hr 08/02/17 08/02/17 08/02/17 12:25 12:40 16:58 WBC RBC Hgb Hct MCV MCH MCHC RDW Plt Count MPV Neut % (Auto) Lymph % (Auto) Dubois % (Auto) Eos % (Auto) Baso % (Auto) Absolute Neuts (auto) Absolute Lymphs (auto) Absolute Monos (auto) Absolute Eos (auto) Absolute Basos (auto) Absolute Nucleated RBC Nucleated RBC % Sodium Potassium Chloride Carbon Dioxide Anion Gap BUN Creatinine Est GFR ( Amer) Est GFR (Non-Af Amer) BUN/Creatinine Ratio Glucose POC Glucose (mg/dL) 115 H 93 Lactic Acid 2.0 Calcium Phosphorus Magnesium Total Bilirubin AST ALT Alkaline Phosphatase Total Protein Albumin Globulin Albumin/Globulin Ratio Random Vancomycin 08/02/17 08/03/17 08/03/17 20:59 06:00 08:34 WBC RBC Hgb Hct MCV MCH MCHC RDW Plt Count MPV Neut % (Auto) Lymph % (Auto) Dubois % (Auto) Eos % (Auto) Baso % (Auto) Absolute Neuts (auto) Absolute Lymphs (auto) Absolute Monos (auto) Absolute Eos (auto) Absolute Basos (auto) Absolute Nucleated RBC Nucleated RBC % Sodium Potassium Chloride Carbon Dioxide Anion Gap BUN Creatinine Est GFR ( Amer) Est GFR (Non-Af Amer) BUN/Creatinine Ratio Glucose POC Glucose (mg/dL) 132 H 191 H Lactic Acid Calcium Phosphorus Magnesium Total Bilirubin AST ALT Alkaline Phosphatase Total Protein Albumin Globulin Albumin/Globulin Ratio Random Vancomycin 18.3 08/03/17 08/03/17 10:20 10:20 WBC 16.8 H RBC 3.76 L Hgb 10.9 L Hct 34 L MCV 90 MCH 29 MCHC 32 RDW 16 H Plt Count 178 MPV 9 Neut % (Auto) 93.6 H Lymph % (Auto) 3.5 L Dubois % (Auto) 2.7 Eos % (Auto) 0.1 Baso % (Auto) 0.1 Absolute Neuts (auto) 15.7 H Absolute Lymphs (auto) 0.6 L Absolute Monos (auto) 0.5 Absolute Eos (auto) 0 Absolute Basos (auto) 0 Absolute Nucleated RBC 0.01 Nucleated RBC % 0 Sodium 134 Potassium 3.8 Chloride 109 Carbon Dioxide 15 L Anion Gap 10 BUN 103 H Creatinine 3.19 H Est GFR ( Amer) 18.4 Est GFR (Non-Af Amer) 14.3 BUN/Creatinine Ratio 32.3 H Glucose 171 H POC Glucose (mg/dL) Lactic Acid Calcium 7.1 L Phosphorus 5.4 H Magnesium 2.4 Total Bilirubin 1.50 H AST 107 H ALT 62 H Alkaline Phosphatase 48 Total Protein 4.3 L Albumin 1.5 L Globulin 2.8 Albumin/Globulin Ratio 0.5 L Random Vancomycin Studies: U/S liver: Multiple hepatic lesions, dominant lesion in Left lobe with central cavitation and densities CT chest: Small rt pleural effusion, basal atelectasis on left base, no mass or nodules CT brain: No acute findings CT abdomen at outside facility: No acute abdomen, multiple hepatic lesions ECHO; Done, reprot pending Nutrition: Oral feeds- diabetic diet Impression: Impression: 1. Sepsis and septic shock from hepatic abscess with Strep intermedius 2. Bactremia with Strep intermedius 3. New onset A.fib due to sepsis 4. Acute on chronic renal failure 5. DM type-2 6. Leucocytosis 7. Hepatic abscess s/p drain placement 8. Encephalopathy due to sepsis , resolved 9. Lactic acidosis- resolved 10. Morbid obesity Plan: 1. Infectious Disease/GI: Bacteremia and hepatic abscess from Strep intermedius. Has multiple abscesses in liver, s/p drain placement in larger abscess in left lobe of liver. Patient had dental procedure recently, she has been having periodentitis and abscess. She was treated with Clindamycin in April. Dental source for hepatic abscess. Patient is currently on Flagyl and Rocephin as she is pencillin allergic. D/c Vancomycin. Will c/w Flagyl for now until abdominal drain could be removed and susceptibilities are back. Will f/u procalcitonin, CRP. ECHO negative for endocarditis and no murmer was noted. Might consider JENS tomorrow 2. Neuro: The patient is alert, awake, and oriented and in no apparent distress. Mental status is improving. Is able to protect airway. Has not been needing pain meds 3. Endocrine: The patient with hyperglycemia and increased AG, was on Insulin drip which was stopped. She has received long acting Insulin and is on SS insulin. She was started on stress dose steroids for septic shock. Will monitor Bl sugars closely 4. Renal: The patient with acute on chronic renal failure likely secondary to dehydration and prerenal failure. No evidence of hyperkalemia. Magnesium and potassium repleted. Patient had jerome placed. C/w IV fluids. Monitor electrolytes closely. Renal output remains low, likely secondary to decreased perfusion in setting of septic shock 5. Respiratory: Stable, on 2L O2. Not tachypneic. CT chest showed consolidation in left base and small rt effusion, no suspicious nodules or masses noted. No need to drain Rt effusion. Watch closely for fluid overload 6. Heme/Onc: Patient with leukocytosis secondary to sepsis. Albumin low, repleted. Anemia of chronic disease, stable 7. Cardiovascular: Septic shock responding to fluid boluses. Had A-line and CVC placed. Will consider pressors if remains hypotensive. Will monitor hemodynamic status closely. Troponins are within normal limits. Echocardiogram showed no vegetations however was limited study. Cardiology consult appreciated. Started on cardizem drip for new onset A.fib in setting of sepsis. I think she is still intravascularly depleted and will c/w IVF. 8. Musculoskeletal: The patient with lower extremity non-pitting edema, likely secondary to obesity, TSH within normal limits IV access: Rt forearm 20 gauge, Lt PICC line, Rt femoral line 08/03/17, Lt radial A-line 08/03/17 Supportive and preventive care as ordered. Psycho/Social: and daughter at bedside and was updated on patients condition SUP: on PPI VTE prophylaxis: On Heparin drip for A.fib, will d/c heparin Sq Jerome catheter given critical illness, monitoring needs for accurate assessment of NENO and KDIGO criteria for critically ill patients and to avoid potential harms of urinary retention, skin breakdown/ulcers. Critical Care Time: 60 min excluding procedures
[2017-08-03] MEDS: Hydrocortisone INJ* 100 MG VIAL IV SCH ×2 (11:40→16:18)
[2017-08-03] MEDS ORDERED: Heparin VIAL(*) 5000 UNITS/ML VIAL (FIVE THOUSAND) IV SCH ×2 (12:00→15:00)
[2017-08-03] MEDS ORDERED: Albumin Human 25%* 100 ML in PREMIX* 0 ML IV SCH (12:00)
[2017-08-03] MEDS ORDERED: Albumin Human 25%* 100 ML in PREMIX* 0 ML IV ONE (12:15)
[2017-08-03] MEDS: NS 0.9% 1000 ML* 2,000 ML IV ONE ×2 (12:43→14:12)
--- NOTE | 2017-08-03 12:59 | RAD ---
Indication: Follow-up abscess drainage site at the LEFT hepatic lobe from August 02, 2017. Comparison: August 02, [address] Technique: Ultrasound of the LEFT hepatic lobe. REPORT AND IMPRESSION: Trace fluid and gas visualized at the site of the pigtail of the percutaneous drain. No new adjacent abscess collection or parenchymal hematoma evident. No perihepatic ascites visualized within the [id number].
[2017-08-03] MEDS ORDERED: NS 0.9% 1000 ML* 1,000 ML IV SCH (14:44)
[2017-08-03] MEDS: Simethicone TAB* 80 MG TAB.CHEW PO PRN (16:18)
[2017-08-03] MEDS ORDERED: Furosemide IV* 10 MG/ML VIAL (40 MG) IV SLOW PU ONE (16:27)
--- NOTE | 2017-08-03 16:51 | CONS ---
CC: Dr. Upton; Dr. Grove; Dr. Eliel Vu CARDIOLOGY CONSULTATION: DATE OF CONSULT: 08/03/17 HISTORY OF PRESENT ILLNESS: I was asked by Dr. Upton to see this 72-year-old female patient, who w as transferred from [facility] on 08/01/17 with nausea, vomiting, abdominal pain, and left sh oulder pain. Apparently, the patient was found to have liver abscess and she had a drainage. I was called because of rapid atrial fibrillation. She goes in and out of atrial fibrillation. She conv erts on her own to normal sinus rhythm and then she goes into AFib with heart rate about 120. The lexii evans is currently in the ICU, room 1 for IV antibiotics treatment and fluid. An echocardiogram wa s done today, and showed the patient to have hyperdynamic left ventricle systolic function with EF a bout 65%. There is no obvious vegetations and there is no obvious valvular disease, although the te st was limited and technically difficult study. I have discussed this with Dr. Upton today. The lexii evans is currently awake, alert, and oriented. She gives no symptoms of chest pain. No orthopnea. No PNDs. She does have history of diabetes mellitus and hypertension on medical treatment, histor y of lupus, gout disease, Raynaud's, chronic kidney disease. She follows up for her medical conditi ons with Dr. Vu. She gives no fever, no chills. No orthopnea is appreciated. She gives no histor y of congestive heart failure. No history of atrial fibrillation and no history of myocardial infar ction in the past. PAST MEDICAL HISTORY: Includes systemic arterial hypertension, chronic kidney disease, lupus, gout, Raynaud's, and diabetes mellitus. PAST SURGICAL HISTORY: Cholecystectomy. MEDICATIONS: Her medications as an inpatient include: 1. Tylenol 650 mg p.o. q.6 hours p.r.n. for fever. 2. She is on albumin solution. 3. She is on ceftriaxone 2 g IV piggyback q.24 hours. 4. She is on diltiazem IV 5 mL per hour for rate control. 5. She is on heparin adjusted to her PTT as per protocol. 6. She is also on Solu-Cortef 100 mg IV q.8 hours. 7. Lantus insulin coverage. 8. She is on Flagyl 500 mg IV piggyback as directed by Dr. Upton. 9. Prilosec 20 mg p.o. daily. 10. Zofran 4 mg p.o. q.4 hours p.r.n. for nausea. ALLERGIES: She is allergic to PENICILLIN. FAMILY HISTORY: No family history of coronary artery disease. SOCIAL HISTORY: No history of smoking, drinking, or illicit drug use. REVIEW OF SYSTEMS: Her review of all other systems is essentially negative. PHYSICAL EXAM: On exam, she is awake, alert, and oriented. She had no symptoms of chest pain. Her vitals, blood pressure is 88/55, pulse goes from sinus in the 70s to rapid AFib to 120. Her temper ature is 97.4 at 4 o'clock this morning, respiratory rate 20. Head and Neck Exam: Normocephalic an d atraumatic head. Ears, Nose, and Throat: Essentially benign. Neck: Supple. JVP is not elevated . No carotid bruits. No masses in the neck is appreciated. Chest: Diminished air entry bilaterall y. No rales, no wheezes. Heart: Normal S1, S2. No added sounds. No gallops, no rubs. Abdomen: Obese. Positive bowel sounds. Extremities: No edema, no cyanosis, no clubbing. Skin exam is norm al. Psych: Normal affect and mood. RADIO FREQUENCY ENGINEER: No focal deficits are appreciated. DIAGNOSTIC STUDIES/LAB DATA: Her labs showed her white blood cells 16.8, hemoglobin 10.9, hematocri t 34, and platelets 178. Chemistry, sodium 134, potassium 3.8, chloride 109, total CO2 15, BUN 103, creatinine is 3.19, glucose 171, calcium 7.1. AST 107, ALT 62. Her echo as described above. Her EKG from today at 8 o'clock this morning showed the patient to be in rapid atrial fibrillation with the heart rate 169 beats per minute, nonspecific T abnormality. OTHER RADIOLOGY: CT, liver ultrasound, showed the patient to have hepatic lesions may represent met astasis. Her brain CT, no acute intracranial process. Her CT of the chest, consolidation in the in ferior lingula, possible atelectasis or pneumonia. IMPRESSION: The patient is a 72-year-old female who was transferred from [facility] with: 1. Liver abscess, source possibilities as discussed with Dr. Upton. 2. Rapid atrial fibrillation paroxysmal, converted to sinus rhythm, probably related to her current situation of sepsis. 3. Systemic arterial hypertension. 4. Obesity. 5. Diabetes mellitus. 6. Hyperdynamic left ventricle systolic function. 7. No obvious vegetations on the transthoracic echo done today, although the study was limited and technically difficult study. 8. Abnormal EKG as described. PLAN: I have discussed this patient with Dr. Upton. At the present time, I agree with rate contro l as they already initiating Cardizem treatment, keep a very close eye on her electrolytes, kidney f unction, she does have a history of chronic renal insufficiency with significantly elevated BUN and creatinine and follow up this as per Dr. Upton. She is not in heart failure on physical exam and gage galindo does not suggest that. I think her atrial fibrillation is a secondary response to her renal krysta lure and her sepsis. Especially, she goes in and out of atrial fibrillation. If clinically indicate d, a transesophageal echocardiography will be helpful to evaluate her valvular disease for any evide nce of vegetations or clots in the left atrium or in the atrial appendage. I agree with the IV hydr ation and IV antibiotics treatment as you already doing. I answered all their concerns and question s up to their satisfaction. TIME SPENT: More than half of at least 30 to 35 plus minutes was on the education and counseling mo de [id number] explaining this to the patient and the family and discussing care further with Dr. Daisy melendrez. [id number]/[facility] #: [id number]
[2017-08-03] MEDS ORDERED: Metoprolol Tartrate IV* 1 MG/ML 5 ML VIAL IV ONE (20:00)
[2017-08-04] MEDS: Hydrocortisone INJ* 100 MG VIAL IV SCH ×2 (01:26→08:19)
[2017-08-04 04:10] LABS: Hematocrit 33 % (35-47); Hemoglobin 10.7 g/dl (12.0-16.0); Mean Corpuscular HGB Conc 33 g/dl (31-36); Mean Corpuscular Hemoglobin 29 pg (27-31); Mean Corpuscular Volume 89 fL (80-97); Mean Platelet Volume 9 um3 (7.4-10.4); Red Blood Count 3.66 10^6/ul (4.0-5.4); Red Cell Distribution Width 16 % (10.5-15)
[2017-08-04 04:11] LABS: Add Diff/Slide Review? Slide Review Added; Comments Flag Yes
[2017-08-04] MEDS: Omeprazole CAP* 20 MG PO SCH (05:00)
[2017-08-04] MEDS: metroNIDAZOLE IV 500 MG/100ML* 500 MG/100 ML BAG IVPB SCH ×3 (05:12→21:05)
[2017-08-04] MEDS ORDERED: Digoxin IV* 0.5 MG/2 ML AMP (0.25 MG/ML) ONE (08:13)
[2017-08-04] MEDS: Insulin GLARGINE(*) 1 UNITS UNIT SUBCUT SCH (08:19)
[2017-08-04] MEDS: Insulin LISPRO* 1 UNITS UNIT SUBCUT SCH ×4 (08:19→21:02)
[2017-08-04] MEDS ORDERED: Digoxin IV* 0.5 MG/2 ML AMP (0.25 MG/ML) IV ONE (09:00)
[2017-08-04] MEDS ORDERED: Amiodarone 150 MG IVPREMIX* 150 MG/100 ML BAG IV ONE (09:29)
[2017-08-04] MEDS ORDERED: Amiodarone IV VIAL* 0 ML ONE (09:33)
[2017-08-04] MEDS ORDERED: Albumin Human 5%* 250 ML BTL IV ONE (10:06)
[2017-08-04] MEDS ORDERED: Insulin GLARGINE(*) 1 UNITS UNIT SUBCUT ONE (10:43)
[2017-08-04 11:03] LABS: BUN/Creatinine Ratio 34.5 (8-20); Calcium 7.8 mg/dL (8.6-10.3); EGFR African American 19.3 (>60); Potassium 4.3 mmol/L (3.5-5.0)
[2017-08-04] MEDS: Heparin DRIP 25,000 UNITS(*) 25,000 UNITS/500 ML BAG IV SCH (11:21)
[2017-08-04] MEDS: Amiodarone TAB* 400 MG PO SCH ×2 (11:21→21:03)
--- NOTE | 2017-08-04 11:41 | PN ---
Progress Note - Progress Note Date of Service: 08/04/17 Note: CRITICAL CARE MEDICINE Date: 08/04/17 Time: 1010 SUBJECTIVE: Patient seen and examined. pleasant, states she knows she is mildly "off" but she then tells me she is weird at baseline and is a talker. 48 years. Her mother passed of liver ca at 72years. has had recent heart issues. PHYSICAL EXAM: Vital Signs: Reviewed. Neurologic: nonfocal HEENT: pupils equal. Sclera anicteric. Trachea midline. Cardiovascular: S1 S2 Respiratory: clear but slightly rapid and shallow Abdomen: Soft, obese, drain, less tender per her. Extremities: Warm. 3+ edema Access: right femoral cvc intact, left radial jacob intact LABS: Reviewed. IMAGING: Reviewed. MEDICATIONS: Reviewed. ASSESSMENT: 72 F Severe sepsis sec to liver abscess strept intermedius Acute hypoxic resp failure sec to above Mild septic encephalopathy Acute on chronic renal failure Afib with RVR Uncontrolled DM Moderate malnutrition PLAN: Neurologic: tolerable and improving. pain is dissipated per pt. prns. Cardiovascular: Perfusing but metabolics still high. Intravasc a bit low and still on Ebb curve; interstial overload. see if colloid loading can augment towards flow phase and fluid mobilization. Likely becoming diuretics dependent but can wait on diuretics until better flow phase. p afib with rvr not helping and driven but catecholamines. amio bolus and po load for a bit to improve status with NSR maintained. hold off on ccb and bb combo. echo ok. no need for manoj at this juncture. Respiratory: tolerating but again metabolic demands up and will increase flow to dec wob and allow better flow states. could have some micro-ali but tolerable and avoid further inflamm insults. is. Gastrointestinal: tolerating some diet. IR f/u drain. may need repeat imaging at some point to re-define. sup. Renal/Metabolic: acute on chronic. buffer today and ensure intravasc vol. see if able to mobilize and then may need diuretics. ask nephro to f/u. Infectious Disease: on C3 and flagyl. strept intermedius post drainage. ask ID to follow up rather then start adjustments now. low innoculum of ecoli in urine cx but did see a ua nor sx but concomitantly covered anyway. Hematology: on hep gtt for paf. see if she can maintain nsr today. may be able to dc soon as this is sepsis/catechlamine induced afib with relatively normal structure. given her dm she can remain on asa. Endocrine: received stress dose steroids and glu remain high. dc steroids. inc long acting today and see if she can vome down in time. renal dysfx should help insulin linger. ssi. Musculoskeletal: oob today but can take it easy today. would anticipate pushing her more tomorrow. Psych/Social: pt otherwise expresses understanding and appreciation. Supportive and preventative care as ordered. SUP: on ppi VTE prophylaxis: on heparin Corona catheter given critical illness, monitoring needs for accurate assessment of NENO and KDIGO criteria for critically ill patients and to avoid potential harms of urinary retention, skin breakdown/ulcers. Disposition: ICU Code Status: Full Critical Care Time: 45min Sg Hernandez DO
[2017-08-04] MEDS ORDERED: Metoprolol Tartrate TAB* 25 MG PO ONE (14:29)
[2017-08-04] MEDS: Simethicone TAB* 80 MG TAB.CHEW PO PRN (14:42)
[2017-08-04] MEDS: Sodium Citrate/Citric Acid* 15 ML UDC PO SCH ×2 (14:42→21:03)
[2017-08-04] MEDS: Albumin Human 25%* 100 ML in PREMIX* 0 ML IV SCH ×2 (16:11→21:03)
[2017-08-04] MEDS ORDERED: Insulin REGULAR(*) 1 UNITS UNIT SUBCUT ONE (17:22)
[2017-08-04] MEDS ORDERED: Insulin REGULAR(*) 1 UNITS UNIT IV PUSH ONE (17:22)
[2017-08-04] MEDS ORDERED: Insulin REGULAR(*) 1 UNITS UNIT ONE (18:11)
[2017-08-04] MEDS ORDERED: Albumin Human 25%* 25 GM/100 ML IV ONE ×2 (18:30)
[2017-08-04] MEDS: Acetaminophen SUPP* 650 MG SUPP PR PRN (19:58)
[2017-08-04] MEDS ORDERED: PREMIX* 0 ML ONE (20:58)
[2017-08-04] MEDS: Metoprolol Tartrate TAB* 50 mg PO SCH (21:03)
[2017-08-05] MEDS ORDERED: PREMIX* 0 ML ONE (04:12)
[2017-08-05] MEDS: Albumin Human 25%* 100 ML in PREMIX* 0 ML IV SCH ×2 (04:15→09:59)
[2017-08-05] MEDS: metroNIDAZOLE IV 500 MG/100ML* 500 MG/100 ML BAG IVPB SCH ×3 (04:17→21:28)
[2017-08-05] MEDS: Heparin DRIP 25,000 UNITS(*) 25,000 UNITS/500 ML BAG IV SCH (04:24)
[2017-08-05] MEDS: Omeprazole CAP* 20 MG PO SCH (05:57)
[2017-08-05 06:32] LABS: Add Diff/Slide Review? Slide Review Added; Comments Flag Yes; Hematocrit 26 % (35-47); Hemoglobin 8.4 g/dl (12.0-16.0); Mean Corpuscular HGB Conc 33 g/dl (31-36); Mean Corpuscular Hemoglobin 29 pg (27-31); Mean Corpuscular Volume 89 fL (80-97); Mean Platelet Volume 8 um3 (7.4-10.4); Red Blood Count 2.92 10^6/ul (4.0-5.4); Red Cell Distribution Width 16 % (10.5-15); White Blood Count 12.9 10^3/ul (3.5-10.8)
[2017-08-05 06:46] LABS: Albumin 3.3 g/dL (3.2-5.2); BUN/Creatinine Ratio 37.2 (8-20); Calcium 8.3 mg/dL (8.6-10.3); EGFR African American 20.1 (>60); EGFR Non-African American 15.6 (>60); Globulin 2.1 g/dL (2-4); Magnesium 2.8 mg/dL (1.9-2.7); Potassium 3.7 mmol/L (3.5-5.0); Total Bilirubin 0.9 mg/dL (0.2-1.0); Total Protein 5.4 g/dL (6.4-8.9)
[2017-08-05] MEDS ORDERED: Insulin GLARGINE(*) 1 UNITS UNIT SUBCUT SCH (09:13)
[2017-08-05] MEDS: Amiodarone TAB* 400 MG PO SCH ×2 (09:20→21:29)
[2017-08-05] MEDS: Metoprolol Tartrate TAB* 50 mg PO SCH ×2 (09:21→21:29)
[2017-08-05] MEDS ORDERED: Furosemide IV* 10 MG/ML 10 ML VIAL (100 MG) IV ONE (09:25)
[2017-08-05] MEDS ORDERED: Insulin LISPRO* 1 UNITS UNIT SUBCUT ONE (09:26)
[2017-08-05] MEDS: Insulin LISPRO* 1 UNITS UNIT SUBCUT SCH ×4 (09:35→21:18)
[2017-08-05] MEDS: Sodium Citrate/Citric Acid* 15 ML UDC PO SCH ×3 (09:39→21:29)
--- NOTE | 2017-08-05 09:43 | PN ---
Progress Note - Progress Note Date of Service: 08/05/17 Note: CRITICAL CARE MEDICINE Date: 08/05/17 Time: 910 SUBJECTIVE: Patient seen and examined. slept. PHYSICAL EXAM: Vital Signs: Reviewed. NSR >24hr Neurologic: nonfocal, communicating; less delirium/enceph HEENT: pupils equal. Sclera anicteric. Trachea midline. Cardiovascular: S1 S2 reg Respiratory: clear but dec at bases Abdomen: Soft, obese, drain intact Extremities: Warm. 3+ edema Access: midline LABS: Reviewed. IMAGING: Reviewed. MEDICATIONS: Reviewed. ASSESSMENT: 72 F Severe sepsis sec to liver abscess strept intermedius Acute hypoxic resp failure sec to above Mild septic encephalopathy Acute on chronic renal failure Afib with RVR Uncontrolled DM Moderate malnutrition PLAN: Neurologic: tstable. Cardiovascular: Perfusing better. intravasc vol stable. interstial remains up. can try to spur mobility with one dose diuretic otherwise watchful waiting. back on bb. off hctz/arb home combo Respiratory: tolerating on 10L and use IS, and can wean O2 today slowly. oob Gastrointestinal: tolerating diet and inc appetite. IR f/u drain and ID eval today and consider need for repeat imaging. Renal/Metabolic: acute on chronic but still with poor clearance. see if she can mobilize today. bicitrate buffer. albumin loading completing. ask nephro to f/ u. Infectious Disease: on C3 and flagyl for strept intermedius. Adjustments per ID today. Hematology: dc hep gtt as afib sec to sepsis and good strucutre. needs asa daily. hsq Endocrine: off steroids. adjust lantus and ssi continued. Musculoskeletal: oob today and pt eval. inc activity Psych/Social: pt expresses understanding. Supportive and preventative care as ordered. SUP: on ppi from outpt regimen VTE prophylaxis: hsq Corona catheter given critical illness, monitoring needs for accurate assessment of NENO and KDIGO criteria for critically ill patients and to avoid potential harms of urinary retention, skin breakdown/ulcers. Disposition: ICU likely today but almost floor ready Code Status: Full Critical Care Time: 35min Sg Hernandez DO
[2017-08-05] MEDS: Aspirin EC Low Dose* 81 MG TAB.EC PO SCH (10:34)
[2017-08-05] MEDS: Insulin GLARGINE(*) 1 UNITS UNIT SUBCUT SCH ×2 (10:37→18:30)
[2017-08-05] MEDS: Heparin VIAL(*) 5000 UNITS/ML VIAL (FIVE THOUSAND) SUBCUT SCH ×2 (14:17→21:28)
[2017-08-05] MEDS: Calcium Acetate CAP* 667 MG PO SCH ×2 (14:17→21:29)
--- NOTE | 2017-08-05 17:08 | CONS ---
CONSULTATION REPORT: DATE OF CONSULT: 08/05/17 REQUESTING PHYSICIAN: Dr. Hernandez. REASON FOR CONSULT: Liver abscess. IMPRESSION: 1. Sepsis due to a left lobe of the liver abscess, status post IR drain placement. The fluid is growing strep intermedius. Two of four blood culture bottles growing the same organism, bravo sensitive. 2. Obesity. 3. Type 2 diabetes. 4. Chronic kidney disease. 5. Lupus. RECOMMENDATIONS: Agree with ceftriaxone 2 g daily. We will eventually change her over to Flagyl 500 mg twice daily by mouth instead of IV Flagyl. Will plan on 6 weeks of IV antibiotics and a followup CT scan to ensure resolution. HISTORY OF PRESENT ILLNESS: This is a 72-year-old diabetic woman admitted with nausea, loose stools, seen by Dr. Vu and then made her way to the ER here on 08/01/17 after seeing him. She had had loose stools and nausea as well as some left shoulder pain. She was in the ER at [place], had a cardiac workup but had an elevated lactate and elevated creatinine. She was transferred to [facility]. She was admitted on the . She had a white count at that time of 15,000. A CT scan was done that showed left lobe of the liver lesion which was 5 x 5 x 5 cm with a fluid level. She had an IR-guided drain placed on 08/02/17, 60 cc of purulent fluid removed. Gram stain showed gram-positive cocci with strong strep intermedius. Two of the four blood culture bottles grew strep intermedius as well. She had a transthoracic echocardiogram on admission, showed no vegetation. She had some left shoulder pain that is resolved. She has had no other joint pain. No spine pain. She has no prosthetic material present. PAST MEDICAL HISTORY: 1. Lupus. 2. Chronic kidney disease. 3. Type 2 diabetes. 4. Hypertension. 5. Gout. 6. Raynaud's. 7. Status post cholecystectomy. MEDICATIONS: 1. Amiodarone. 2. Aspirin. 3. Escitalopram. 4. Insulin glargine. 5. Insulin regular. 6. Metoprolol. 7. Omeprazole. 8. Ceftriaxone 2 g a day. 9. Flagyl 500 mg IV every 8 hours. ALLERGIES: PENICILLIN. FAMILY HISTORY: No recurrent infections. SOCIAL HISTORY: She lives with her . She is a nurse practitioner. She has no travel or sick contacts. REVIEW OF SYSTEMS: All negative to full review of systems except as noted above. PHYSICAL EXAM: Vital Signs: Temperature 37, heart rate 65, respiratory rate 20 , blood pressure 116/42, O2 sat 97% on 10 L. General: She is awake, not in distress. Neurological: She is oriented x3. Follows all commands. Moves all 4 extremities. HEENT: There is no conjunctival hemorrhage. Oropharynx without lesions. Neck is supple without nuchal rigidity. Lymph Nodes: There is no inguinal, axillary, or epitrochlear lymphadenopathy. Heart: Regular rate and rhythm without murmurs, rubs or gallops. Lungs: Decreased breath sounds at the left base without wheeze, rales, or rhonchi. Abdomen: Soft, nontender, nondistended. There are bowel sounds present. There is a mid upper abdominal drain with some serous fluid. Musculoskeletal: There is no spine tenderness to palpation or joint synovitis. DIAGNOSTIC STUDIES/LAB DATA: White blood cell count 12.9, hemoglobin 8, platelets 149,000. Creatinine 3, down from 3.2 on the 10th. C-reactive protein was 220 on the 8th. Please see impressions and recommendations outlined above, which I have discussed with Dr. Hernandez. Also of note, her procalcitonin was 12.6. Thanks for asking me to see Ms. Marshall in consultation. [id number]/[facility] #: [id number] MTDD
[2017-08-05] MEDS: CMC:Escitalopram (NF) 10 MG TAB PO SCH (21:29)
[2017-08-06] MEDS: Simethicone TAB* 80 MG TAB.CHEW PO PRN (02:35)
[2017-08-06] MEDS: Acetaminophen TAB* 325 MG PO PRN (02:35)
[2017-08-06] MEDS: metroNIDAZOLE IV 500 MG/100ML* 500 MG/100 ML BAG IVPB SCH (04:41)
[2017-08-06] MEDS: Omeprazole CAP* 20 MG PO SCH (05:15)
[2017-08-06] MEDS: Heparin VIAL(*) 5000 UNITS/ML VIAL (FIVE THOUSAND) SUBCUT SCH ×3 (05:15→21:07)
[2017-08-06 05:55] LABS: Hematocrit 30 % (35-47); Hemoglobin 9.8 g/dl (12.0-16.0); Mean Corpuscular HGB Conc 33 g/dl (31-36); Mean Corpuscular Hemoglobin 29 pg (27-31); Mean Corpuscular Volume 87 fL (80-97); Mean Platelet Volume 9 um3 (7.4-10.4); Red Blood Count 3.38 10^6/ul (4.0-5.4); Red Cell Distribution Width 16 % (10.5-15); White Blood Count 11.6 10^3/ul (3.5-10.8)
[2017-08-06 08:56] LABS: BUN/Creatinine Ratio 41.7 (8-20); Blood Urea Nitrogen 105 mg/dL (6-24); CO2 Carbon Dioxide 18 mmol/L (22-32); Calcium 8.3 mg/dL (8.6-10.3); Chloride 112 mmol/L (101-111); EGFR African American 24.2 (>60); EGFR Non-African American 18.8 (>60); Glucose 59 mg/dL (70-100); Magnesium 2.3 mg/dL (1.9-2.7); Phosphorus 5.4 mg/dL (2.5-5.0); Sodium 140 mmol/L (133-145)
[2017-08-06 09:16] LABS: Anion Gap 10 mmol/L (2-11)
[2017-08-06] MEDS ORDERED: Furosemide IV* 10 MG/ML VIAL (40 MG) IV SLOW PU ONE (09:27)
[2017-08-06] MEDS: Metoprolol Tartrate TAB* 50 mg PO SCH ×2 (09:33→21:07)
[2017-08-06] MEDS: Sodium Citrate/Citric Acid* 15 ML UDC PO SCH ×3 (09:34→21:07)
[2017-08-06] MEDS: Calcium Acetate CAP* 667 MG PO SCH ×3 (09:34→21:07)
[2017-08-06] MEDS: Insulin LISPRO* 1 UNITS UNIT SUBCUT SCH ×4 (09:34→21:09)
[2017-08-06] MEDS: Aspirin EC Low Dose* 81 MG TAB.EC PO SCH (09:36)
[2017-08-06] MEDS: Amiodarone TAB* 400 MG PO SCH (09:36)
[2017-08-06] MEDS: Insulin GLARGINE(*) 1 UNITS UNIT SUBCUT SCH ×2 (09:45→09:47)
--- NOTE | 2017-08-06 09:57 | PN ---
Progress Note - Progress Note Date of Service: 08/06/17 Note: CRITICAL CARE MEDICINE Date: 08/06/17 Time: 910 SUBJECTIVE: Patient seen and examined. PHYSICAL EXAM: Vital Signs: Reviewed. NSR Neurologic: communicating; @ baseline. HEENT: pupils equal. Sclera anicteric. Trachea midline. Cardiovascular: S1 S2 reg Respiratory: clear but few rales at bases Abdomen: Soft, obese, drain intact with minimal out Extremities: Warm. 3+ edema Access: midline LABS: Reviewed. IMAGING: Reviewed. MEDICATIONS: Reviewed. ASSESSMENT: 72 F Severe sepsis sec to liver abscess strept intermedius Acute hypoxic resp failure sec to above Mild septic encephalopathy Acute on chronic renal failure Afib with RVR Uncontrolled DM Moderate malnutrition PLAN: Neurologic: stable. Cardiovascular: Perfusing. intravasc vol stable, interstial remains up but mobilized yesterday. juancarlosix antione today and then allow her some time to see if diuretic dependant. on bb. Respiratory: wean O2. Now 4L. IS. Gastrointestinal: tolerating diet and encourage water intake. IR f/u for dc drain timing. Renal/Metabolic: acute on chronic and improving. diuretics today. Na may inc further and may need to keep up with water losses or promote Na clearance with thiazide. Infectious Disease: C3 and po flagyl. ID following. IR can dc drain at their discretion. Hematology: asa daily. hsq Endocrine: dec lantus, ssi continued. Musculoskeletal: oob today and pt. inc activity Psych/Social: pt expresses understanding. Supportive and preventative care as ordered. SUP: on ppi from outpt regimen VTE prophylaxis: hsq Corona catheter given critical illness but look to dc in another day or so if well. Disposition: to floor with tele Code Status: Full Critical Care Time: 25min Sg Hernandez DO
--- NOTE | 2017-08-06 13:54 | PN ---
Progress Note - Progress Note Date of Service: 08/06/17 Note: CRITICAL CARE MEDICINE Date: 08/06/17 Time: 1345 D/w radiology, and ok with pulling drain. suture cut, drain cut and removed otherwise intact. Tegaderm cover. Pt tolerated well. Critical Care Time: 5min FMello Hernandez DO
[2017-08-06] MEDS: metroNIDAZOLE TAB* 250 MG PO SCH (21:07)
[2017-08-06] MEDS: CMC:Escitalopram (NF) 10 MG TAB PO SCH (21:10)
[2017-08-07 04:32] LABS: Calcium 8.7 mg/dL (8.6-10.3); EGFR African American 29.7 (>60); EGFR Non-African American 23.1 (>60); Potassium 3.3 mmol/L (3.5-5.0)
[2017-08-07] MEDS: Omeprazole CAP* 20 MG PO SCH (05:58)
[2017-08-07] MEDS: Heparin VIAL(*) 5000 UNITS/ML VIAL (FIVE THOUSAND) SUBCUT SCH ×3 (05:58→21:36)
[2017-08-07] MEDS: Insulin LISPRO* 1 UNITS UNIT SUBCUT SCH ×4 (09:05→21:38)
[2017-08-07] MEDS: Aspirin EC Low Dose* 81 MG TAB.EC PO SCH (09:14)
[2017-08-07] MEDS: Metoprolol Tartrate TAB* 50 mg PO SCH ×2 (09:14→21:38)
[2017-08-07] MEDS: metroNIDAZOLE TAB* 250 MG PO SCH ×2 (09:15→21:37)
[2017-08-07] MEDS: Insulin GLARGINE(*) 1 UNITS UNIT SUBCUT SCH (09:15)
[2017-08-07] MEDS: Sodium Citrate/Citric Acid* 15 ML UDC PO SCH (09:16)
--- NOTE | 2017-08-07 10:26 | PN ---
Progress Note - Progress Note Date of Service: 08/07/17 SOAP: Subjective: CC: liver abscess HPI: 72 year old woman admitted with sepsis and abd pain, CT showed left lobe liver abscess IR placed drain; removed 08/06. Abd pain improved, no fever, rash , diarrhea, or nausea. Objective: [] Vital Signs Temp 36.9 C 08/07/17 08:03 Pulse 67 08/07/17 08:03 Resp 20 08/07/17 00:13 BP 161/71 08/07/17 08:03 Pulse Ox 98 08/07/17 08:03 Intake & Output 08/06/17 08/07/17 08/07/17 18:59 06:59 18:59 Intake Total 965.3 400 Output Total 860 1350 Balance 105.3 -950 Intake: IV Fluids 61.3 NS and IV ABX 61.3 IVPB 214 NS and IV ABX 214 Oral 690 400 Output: Corona 860 1350 Other: Date of Last Bowel [id number] Movement # Bowel Movements 1 0 Estimated Stool Amount Small Medium Gen:awake, no distress HEENT:PERRL, MMM Neck:Supple Heart:RRR no murmur Lungs:CTA BL Abd:+BS NTND soft Skin: no rash MSK: no spine tenderness; BL LE edema Laboratory Results - last 24 hr 08/06/17 08/06/17 08/06/17 09:06 12:16 18:06 Sodium Potassium Chloride Carbon Dioxide Anion Gap BUN Creatinine Est GFR ( Amer) Est GFR (Non-Af Amer) BUN/Creatinine Ratio Glucose POC Glucose (mg/dL) 92 124 H 144 H Calcium 08/06/17 08/07/17 08/07/17 20:31 04:07 08:19 Sodium 142 Potassium 3.3 L Chloride 112 H Carbon Dioxide 23 Anion Gap 7 BUN 95 H Creatinine 2.11 H Est GFR ( Amer) 29.7 Est GFR (Non-Af Amer) 23.1 BUN/Creatinine Ratio 45.0 H Glucose 81 POC Glucose (mg/dL) 119 H 88 Calcium 8.7 Assessment: 1. Strep intermedius liver abscess, partial drainage 2. Hyponatremia and acidosis, improving 3. diabetes 4. CKD 5. lupus Plan: 1. Day ceftriaxone 2 gm daily and flagyl 500 mg PO BID; CT near end of treatment 2. Will discuss Na citrate with Dr Hernandez 35 minutes floor time >50% face to face discussing next steps in antibiotic treatment, all questions answered.
[2017-08-07] MEDS: Acetaminophen TAB* 325 MG PO PRN (16:50)
--- NOTE | 2017-08-07 18:07 | PN ---
Subjective Date of Service: 08/07/17 Interval History: Fair appetite. Mild pain, doesn't need any analgesics. Objective Active Medications: Acetaminophen (Tylenol Tab*) 650 mg PO Q6H PRN PRN Reason: FEVER/PAIN Last Admin: 08/07/17 16:50 Dose: 650 mg Aspirin (Aspirin Ec Low Dose*) 81 mg PO DAILY [facility] Last Admin: 08/07/17 09:14 Dose: 81 mg Dextrose (D50w Syringe 50 Ml*) 12.5 gm IV PUSH .FOR FS < 60 - SS PRN PRN Reason: FS < 60 Escitalopram Oxalate (Lexapro (Nf)) 10 mg PO BEDTIME [facility] Last Admin: 08/06/17 21:10 Dose: 10 mg Heparin Sodium (Porcine) (Heparin Flush Picc/Ml/Cvc(*)) 1 - 3 ml FLUSH 0600, 1800 [facility] PRN Reason: Protocol Last Admin: 08/07/17 17:41 Dose: 1 ml Heparin Sodium (Porcine) (Heparin Vial(*)) 5,000 units SUBCUT Q8HR [facility] Last Admin: 08/07/17 13:53 Dose: 5,000 units Ceftriaxone Sodium 2 gm/ (Sodium Chloride) 100 mls @ 200 mls/hr IVPB Q24H [facility] Last Admin: 08/07/17 09:34 Dose: 200 mls/hr Insulin Glargine (Lantus(*)) 34 units SUBCUT 0900 [facility] Insulin Human Lispro (Humalog*) 0 units SUBCUT ACHS [facility] PRN Reason: Protocol Last Admin: 08/07/17 16:58 Dose: Not Given Metoprolol Tartrate (Lopressor Tab*) 50 mg PO Q12HR [facility] Last Admin: 08/07/17 09:14 Dose: 50 mg Metronidazole (Flagyl Tab*) 500 mg PO BID [facility] Last Admin: 08/07/17 09:15 Dose: 500 mg Ondansetron HCl (Zofran Tab*) 4 mg PO Q8H PRN PRN Reason: NAUSEA Simethicone (Mylicon*) 80 mg PO Q6H PRN PRN Reason: INDIGESTION Last Admin: 08/06/17 02:35 Dose: 80 mg Vital Signs 08/06/17 08/06/17 08/06/17 18:51 19:57 20:02 Temperature 97.4 F 98.2 F Pulse Rate 62 64 Respiratory 18 18 22 Rate Blood Pressure 129/47 160/63 (mmHg) O2 Sat by Pulse 99 99 98 Oximetry 08/07/17 08/07/17 08/07/17 00:13 03:40 08:00 Temperature 97.6 F Pulse Rate 69 68 Respiratory 20 22 Rate Blood Pressure 155/64 163/59 (mmHg) O2 Sat by Pulse 98 Oximetry 08/07/17 08/07/17 08/07/17 08:03 08:10 11:36 Temperature 98.4 F 97.4 F Pulse Rate 67 66 Respiratory 22 20 Rate Blood Pressure 161/71 151/62 (mmHg) O2 Sat by Pulse 98 99 Oximetry 08/07/17 15:27 Temperature 97.4 F Pulse Rate 63 Respiratory 22 Rate Blood Pressure 150/62 (mmHg) O2 Sat by Pulse 100 Oximetry Oxygen Devices in Use Now: None Appearance: Alert, slightly up in bed. In good spirits. Looks comfortable but weak. Eyes: No Scleral Icterus Neck: NL Appearance and Movements; NL JVP, No Thyroid Enlargement, Masses Respiratory: Symmetrical Chest Expansion and Respiratory Effort, Clear to Auscultation, Clear to Percussion Cardiovascular: NL Sounds; No Murmurs; No JVD, RRR, No Edema, - Extremities: No Edema, No Clubbing, Cyanosis, - Skin: No Rash or Ulcers, No Nodules or Sclerosis, - Neurological: Alert and Oriented x 3, NL Sensation Result Diagrams: 08/06/17 05:45 08/07/17 04:07 Microbiology and Other Data: Microbiology 08/02/17 12:34 Aerobic Blood Culture - Final Blood Venous No Growth Day 5 Anaerobic Blood Culture - Final No Growth Day 5 Blood Culture - Final 08/03/17 14:30 Skin and Soft Tissue MRSA/MSSA (PCR - Final Misc Source (See Comment) - Abscess Mrsa Negative S.aureus Negative Gram Stain - Final Wound Culture - Final Streptococcus Intermedius 08/02/17 13:40 Urine Culture - Final Urine Escherichia Coli 08/01/17 17:58 Aerobic Blood Culture - Final Blood Venous Streptococcus Intermedius Anaerobic Blood Culture - Final Streptococcus Intermedius Blood Culture - Final 08/01/17 16:45 Nasal Screen MRSA (PCR)(MILES) - Final Nasal Mrsa Negative Assess/Plan/Problems-Billing Assessment: - Patient Problems (1) Liver abscess Current Visit: Yes Status: Acute Code(s): K75.0 - ABSCESS OF LIVER SNOMED Code(s): 82780153 Comment: With strep bacteremia. Continue ceftriaxone and metro. Plan long course antibiotics per Dr. Rudolph. (2) Diabetes Current Visit: Yes Status: Acute Code(s): E11.9 - TYPE 2 DIABETES MELLITUS WITHOUT COMPLICATIONS SNOMED Code(s): 63652101 Comment: Reduce Lantus to 34 U start 9 AM 08/08. Only used 26-20 at home. (3) Atrial fibrillation Current Visit: Yes Status: Acute Code(s): I48.91 - UNSPECIFIED ATRIAL FIBRILLATION SNOMED Code(s): 40531444 Comment: PAF, likely related to sepsis, can be monitored as outpt to see if it recurs. (4) CKD (chronic kidney disease) Current Visit: Yes Status: Acute Code(s): N18.9 - CHRONIC KIDNEY DISEASE, UNSPECIFIED SNOMED Code(s): 832283462 Comment: Improved as of 08/07. Re-check in a few days. 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
[2017-08-07] MEDS: CMC:Escitalopram (NF) 10 MG TAB PO SCH (21:37)
[2017-08-08] MEDS: Heparin VIAL(*) 5000 UNITS/ML VIAL (FIVE THOUSAND) SUBCUT SCH ×3 (05:45→22:14)
[2017-08-08] MEDS: Insulin LISPRO* 1 UNITS UNIT SUBCUT SCH ×4 (07:52→22:13)
[2017-08-08] MEDS: Aspirin EC Low Dose* 81 MG TAB.EC PO SCH (07:58)
[2017-08-08] MEDS: Metoprolol Tartrate TAB* 50 mg PO SCH ×2 (07:58→22:11)
[2017-08-08] MEDS: metroNIDAZOLE TAB* 250 MG PO SCH ×2 (07:58→22:10)
[2017-08-08] MEDS: Insulin GLARGINE(*) 1 UNITS UNIT SUBCUT SCH (07:58)
--- NOTE | 2017-08-08 11:08 | PN ---
Progress Note - Progress Note Date of Service: 08/08/17 SOAP: Subjective: CC: liver abscess HPI: 72 year old woman admitted with sepsis and abd pain, CT showed left lobe liver abscess IR placed drain; removed 08/06. Abd pain continues to improve, no fever, rash, diarrhea, or nausea. No problems with LUE access. Objective: [] Vital Signs Temp 36.6 C 08/08/17 07:36 Pulse 67 08/08/17 07:36 Resp 24 08/08/17 08:00 BP 153/61 08/08/17 07:36 Pulse Ox 99 08/08/17 07:36 Intake & Output 08/07/17 08/08/17 08/08/17 18:59 06:59 18:59 Intake Total 260 550 Output Total 775 1450 Balance -515 -900 Intake: Oral 260 550 Output: Corona 775 1450 Other: # Bowel Movements 1 0 Estimated Stool Amount Medium Small HEENT:PERRL, MMM Neck:Supple Heart:RRR no murmur Lungs:CTA BL Abd:+BS NTND soft Skin: no rash MSK: no spine tenderness; BL LE edema Assessment: 1. Strep intermedius liver abscess, partial drainage 2. diabetes 3. CKD 4. obesity 5. lupus Plan: 1. Day ceftriaxone 2 gm daily and flagyl 500 mg PO BID; CT near end of treatment PICC for home 35 minutes floor time >50% face to face discussing next steps in antibiotic treatment, all questions answered.
[2017-08-08] MEDS: Simethicone TAB* 80 MG TAB.CHEW PO PRN ×2 (13:22→19:52)
--- NOTE | 2017-08-08 13:37 | PN ---
Subjective Date of Service: 08/08/17 Interval History: No new c/o. Still depressed appetite. Ate some yogurt and some fruit for lunch today. Objective Active Medications: Acetaminophen (Tylenol Tab*) 650 mg PO Q6H PRN PRN Reason: FEVER/PAIN Last Admin: 08/07/17 16:50 Dose: 650 mg Aspirin (Aspirin Ec Low Dose*) 81 mg PO DAILY [facility] Last Admin: 08/08/17 07:58 Dose: 81 mg Dextrose (D50w Syringe 50 Ml*) 12.5 gm IV PUSH .FOR FS < 60 - SS PRN PRN Reason: FS < 60 Escitalopram Oxalate (Lexapro (Nf)) 10 mg PO BEDTIME [facility] Last Admin: 08/07/17 21:37 Dose: 10 mg Heparin Sodium (Porcine) (Heparin Flush Picc/Ml/Cvc(*)) 1 - 3 ml FLUSH 0600, 1800 [facility] PRN Reason: Protocol Last Admin: 08/08/17 05:47 Dose: 1 ml Heparin Sodium (Porcine) (Heparin Vial(*)) 5,000 units SUBCUT Q8HR [facility] Last Admin: 08/08/17 13:22 Dose: 5,000 units Ceftriaxone Sodium 2 gm/ (Sodium Chloride) 100 mls @ 200 mls/hr IVPB Q24H [facility] Last Admin: 08/08/17 07:59 Dose: 200 mls/hr Insulin Glargine (Lantus(*)) 34 units SUBCUT 0900 [facility] Last Admin: 08/08/17 07:58 Dose: 34 units Insulin Human Lispro (Humalog*) 0 units SUBCUT ACHS [facility] PRN Reason: Protocol Last Admin: 08/08/17 11:46 Dose: 3 units Metoprolol Tartrate (Lopressor Tab*) 50 mg PO Q12HR [facility] Last Admin: 08/08/17 07:58 Dose: 50 mg Metronidazole (Flagyl Tab*) 500 mg PO BID [facility] Last Admin: 08/08/17 07:58 Dose: 500 mg Ondansetron HCl (Zofran Tab*) 4 mg PO Q8H PRN PRN Reason: NAUSEA Simethicone (Mylicon*) 80 mg PO Q6H PRN PRN Reason: INDIGESTION Last Admin: 08/08/17 13:22 Dose: 80 mg Vital Signs 08/07/17 08/07/1708/07/17 15:27 19:41 20:00 Temperature 97.4 F 97.5 F Pulse Rate 63 65 Respiratory 22 20 20 Rate Blood Pressure 150/62 143/61 (mmHg) O2 Sat by Pulse 100 99 99 Oximetry 08/07/17 08/08/17 08/08/17 23:54 02:44 07:36 Temperature 97.6 F 97.7 F 97.8 F Pulse Rate 69 71 67 Respiratory 16 18 24 Rate Blood Pressure 145/58 154/58 153/61 (mmHg) O2 Sat by Pulse 99 100 99 Oximetry 08/08/17 08:00 Temperature Pulse Rate Respiratory 24 Rate Blood Pressure (mmHg) O2 Sat by Pulse Oximetry Oxygen Devices in Use Now: Nasal Cannula Appearance: Alert, partly up in bed. In good spirits. Looks comfortable but weak. Extremities: No Edema, No Clubbing, Cyanosis, - Skin: No Rash or Ulcers, No Nodules or Sclerosis, - Neurological: Alert and Oriented x 3, NL Sensation Result Diagrams: 08/06/17 05:45 08/07/17 04:07 Microbiology and Other Data: Microbiology 08/02/17 12:34 Aerobic Blood Culture - Final Blood Venous No Growth Day 5 Anaerobic Blood Culture - Final No Growth Day 5 Blood Culture - Final 08/03/17 14:30 Skin and Soft Tissue MRSA/MSSA (PCR - Final Misc Source (See Comment) - Abscess Mrsa Negative S.aureus Negative Gram Stain - Final Wound Culture - Final Streptococcus Intermedius 08/02/17 13:40 Urine Culture - Final Urine Escherichia Coli 08/01/17 17:58 Aerobic Blood Culture - Final Blood Venous Streptococcus Intermedius Anaerobic Blood Culture - Final Streptococcus Intermedius Blood Culture - Final 08/01/17 16:45 Nasal Screen MRSA (PCR)(MILES) - Final Nasal Mrsa Negative Assess/Plan/Problems-Billing Assessment: - Patient Problems (1) Liver abscess Current Visit: Yes Status: Acute Code(s): K75.0 - ABSCESS OF LIVER SNOMED Code(s): 97708130 Comment: With strep bacteremia. Continue ceftriaxone and metro. Plan long course ceftriaxone and metro per Dr. Rudolph. (2) Diabetes Current Visit: Yes Status: Acute Code(s): E11.9 - TYPE 2 DIABETES MELLITUS WITHOUT COMPLICATIONS SNOMED Code(s): 41673487 Comment: Good glycemic control as of 08/08. Continue Lantus to 34 U started 9 AM 08/08. Only used 16-20 units at home. (3) Atrial fibrillation Current Visit: Yes Status: Acute Code(s): I48.91 - UNSPECIFIED ATRIAL FIBRILLATION SNOMED Code(s): 20095590 Comment: PAF, likely related to sepsis, can be monitored as outpt to see if it recurs. Still in NSR as of 08/08. (4) CKD (chronic kidney disease) Current Visit: Yes Status: Acute Code(s): N18.9 - CHRONIC KIDNEY DISEASE, UNSPECIFIED SNOMED Code(s): 010135293 Comment: Improved as of 08/07. Re-check 08/09. (5) Intensive care (ICU) myopathy Current Visit: Yes Status: Acute Code(s): G72.81 - CRITICAL ILLNESS MYOPATHY SNOMED Code(s): 447254830 Comment: [facility], rehab eval.
[2017-08-08] MEDS: CMC:Escitalopram (NF) 10 MG TAB PO SCH (22:11)
[2017-08-08] MEDS: Acetaminophen TAB* 325 MG PO PRN (22:19)
[2017-08-09] MEDS: Heparin VIAL(*) 5000 UNITS/ML VIAL (FIVE THOUSAND) SUBCUT SCH ×3 (05:51→21:03)
[2017-08-09] MEDS: Insulin LISPRO* 1 UNITS UNIT SUBCUT SCH ×4 (09:55→21:01)
[2017-08-09] MEDS: metroNIDAZOLE TAB* 250 MG PO SCH ×2 (10:17→21:04)
[2017-08-09] MEDS: Aspirin EC Low Dose* 81 MG TAB.EC PO SCH (10:17)
[2017-08-09] MEDS: Insulin GLARGINE(*) 1 UNITS UNIT SUBCUT SCH (10:18)
[2017-08-09] MEDS: Metoprolol Tartrate TAB* 50 mg PO SCH ×2 (10:18→21:03)
[2017-08-09] MEDS: Simethicone TAB* 80 MG TAB.CHEW PO PRN ×2 (10:36→21:04)
[2017-08-09 11:48] LABS: BUN/Creatinine Ratio 52.9 (8-20); Calcium 8.2 mg/dL (8.6-10.3); EGFR African American 57.5 (>60); EGFR Non-African American 44.7 (>60); Potassium 3.6 mmol/L (3.5-5.0)
--- NOTE | 2017-08-09 16:21 | PN ---
Subjective Date of Service: 08/09/17 Interval History: Little subj change, somewhat better today. No new c/o. Objective Active Medications: Acetaminophen (Tylenol Tab*) 650 mg PO Q6H PRN PRN Reason: FEVER/PAIN Last Admin: 08/08/17 22:19 Dose: 650 mg Aspirin (Aspirin Ec Low Dose*) 81 mg PO DAILY [facility] Last Admin: 08/09/17 10:17 Dose: 81 mg Dextrose (D50w Syringe 50 Ml*) 12.5 gm IV PUSH .FOR FS < 60 - SS PRN PRN Reason: FS < 60 Escitalopram Oxalate (Lexapro (Nf)) 10 mg PO BEDTIME [facility] Last Admin: 08/08/17 22:11 Dose: 10 mg Heparin Sodium (Porcine) (Heparin Flush Picc/Ml/Cvc(*)) 1 - 3 ml FLUSH 0600, 1800 [facility] PRN Reason: Protocol Last Admin: 08/09/17 05:52 Dose: 1 ml Heparin Sodium (Porcine) (Heparin Vial(*)) 5,000 units SUBCUT Q8HR [facility] Last Admin: 08/09/17 14:13 Dose: 5,000 units Ceftriaxone Sodium 2 gm/ (Sodium Chloride) 100 mls @ 200 mls/hr IVPB Q24H [facility] Last Admin: 08/09/17 10:27 Dose: 200 mls/hr Insulin Glargine (Lantus(*)) 34 units SUBCUT 0900 [facility] Last Admin: 08/09/17 10:18 Dose: 34 units Insulin Human Lispro (Humalog*) 0 units SUBCUT ACHS [facility] PRN Reason: Protocol Last Admin: 08/09/17 12:18 Dose: Not Given Metoprolol Tartrate (Lopressor Tab*) 50 mg PO Q12HR [facility] Last Admin: 08/09/17 10:18 Dose: 50 mg Metronidazole (Flagyl Tab*) 500 mg PO BID [facility] Last Admin: 08/09/17 10:17 Dose: 500 mg Ondansetron HCl (Zofran Tab*) 4 mg PO Q8H PRN PRN Reason: NAUSEA Vital Signs 08/08/17 08/08/17 08/08/17 20:00 21:00 23:28 Temperature 98.1 F Pulse Rate 68 66 Respiratory 18 18 Rate Blood Pressure 165/71 171/66 (mmHg) O2 Sat by Pulse 100 99 Oximetry 08/08/17 08/08/17 08/08/17 23:43 23:45 23:48 Temperature 98.1 F Pulse Rate 56 66 Respiratory 18 18 Rate Blood Pressure 158/72 171/66 (mmHg) O2 Sat by Pulse 99 Oximetry 08/09/17 08/09/17 08/09/17 04:10 04:12 08:00 Temperature 97.4 F Pulse Rate 63 Respiratory 16 18 Rate Blood Pressure 158/65 (mmHg) O2 Sat by Pulse 99 100 96 Oximetry 08/09/17 08/09/17 08/09/17 08:01 11:21 15:43 Temperature 98.1 F 98.6 F Pulse Rate 64 68 66 Respiratory 18 16 16 Rate Blood Pressure 157/57 146/51 150/63 (mmHg) O2 Sat by Pulse 99 96 99 Oximetry Oxygen Devices in Use Now: Nasal Cannula Appearance: Alert, supine in bed. In good spirits. Looks comfortable. Eyes: No Scleral Icterus Neurological: Alert and Oriented x 3, NL Sensation Result Diagrams: 08/06/17 05:45 08/09/17 11:15 Microbiology and Other Data: Microbiology 08/02/17 12:34 Aerobic Blood Culture - Final Blood Venous No Growth Day 5 Anaerobic Blood Culture - Final No Growth Day 5 Blood Culture - Final 08/03/17 14:30 Skin and Soft Tissue MRSA/MSSA (PCR - Final Misc Source (See Comment) - Abscess Mrsa Negative S.aureus Negative Gram Stain - Final Wound Culture - Final Streptococcus Intermedius 08/02/17 13:40 Urine Culture - Final Urine Escherichia Coli 08/01/17 17:58 Aerobic Blood Culture - Final Blood Venous Streptococcus Intermedius Anaerobic Blood Culture - Final Streptococcus Intermedius Blood Culture - Final 08/01/17 16:45 Nasal Screen MRSA (PCR)(MILES) - Final Nasal Mrsa Negative Assess/Plan/Problems-Billing Assessment: - Patient Problems (1) Liver abscess Current Visit: Yes Status: Acute Code(s): K75.0 - ABSCESS OF LIVER SNOMED Code(s): 28953563 Comment: With strep bacteremia. Continue ceftriaxone and metro. Plan long course ceftriaxone and metro per Dr. Rudolph. (2) Diabetes Current Visit: Yes Status: Acute Code(s): E11.9 - TYPE 2 DIABETES MELLITUS WITHOUT COMPLICATIONS SNOMED Code(s): 16296903 Comment: Good glycemic control as of 08/09. Continue Lantus to 34 U started 9 AM 08/08. Only used 16-20 units at home. (3) Atrial fibrillation Current Visit: Yes Status: Acute Code(s): I48.91 - UNSPECIFIED ATRIAL FIBRILLATION SNOMED Code(s): 25863009 Comment: PAF, likely related to sepsis, can be monitored as outpt to see if it recurs. Still in NSR as of 08/08. (4) CKD (chronic kidney disease) Current Visit: Yes Status: Acute Code(s): N18.9 - CHRONIC KIDNEY DISEASE, UNSPECIFIED SNOMED Code(s): 542480352 Comment: Creatinine 1.19 on 08/09. (5) Intensive care (ICU) myopathy Current Visit: Yes Status: Acute Code(s): G72.81 - CRITICAL ILLNESS MYOPATHY SNOMED Code(s): 869734254 Comment: [facility] accepted her. Plan transfer 08/10.
[2017-08-09] MEDS: Acetaminophen TAB* 325 MG PO PRN (21:04)
[2017-08-09] MEDS: CMC:Escitalopram (NF) 10 MG TAB PO SCH (21:04)
[2017-08-10] MEDS: Heparin VIAL(*) 5000 UNITS/ML VIAL (FIVE THOUSAND) SUBCUT SCH (06:02)
[2017-08-10] MEDS: Insulin LISPRO* 1 UNITS UNIT SUBCUT SCH ×2 (08:06→12:09)
--- NOTE | 2017-08-10 08:33 | DCNOTE ---
Subjective Date of Service: 08/10/17 Interval History: Appetite a little better today. No new c/o. Objective Active Medications: Acetaminophen (Tylenol Tab*) 650 mg PO Q6H PRN PRN Reason: FEVER/PAIN Last Admin: 08/09/17 21:04 Dose: 650 mg Aspirin (Aspirin Ec Low Dose*) 81 mg PO DAILY [facility] Last Admin: 08/09/17 10:17 Dose: 81 mg Dextrose (D50w Syringe 50 Ml*) 12.5 gm IV PUSH .FOR FS < 60 - SS PRN PRN Reason: FS < 60 Escitalopram Oxalate (Lexapro (Nf)) 10 mg PO BEDTIME [facility] Last Admin: 08/09/17 21:04 Dose: 10 mg Heparin Sodium (Porcine) (Heparin Flush Picc/Ml/Cvc(*)) 1 - 3 ml FLUSH 0600, 1800 [facility] PRN Reason: Protocol Last Admin: 08/10/17 06:05 Dose: 1 ml Heparin Sodium (Porcine) (Heparin Vial(*)) 5,000 units SUBCUT Q8HR [facility] Last Admin: 08/10/17 06:02 Dose: 5,000 units Ceftriaxone Sodium 2 gm/ (Sodium Chloride) 100 mls @ 200 mls/hr IVPB Q24H [facility] Last Admin: 08/09/17 10:27 Dose: 200 mls/hr Insulin Glargine (Lantus(*)) 34 units SUBCUT 0900 [facility] Last Admin: 08/09/17 10:18 Dose: 34 units Insulin Human Lispro (Humalog*) 0 units SUBCUT ACHS [facility] PRN Reason: Protocol Last Admin: 08/10/17 08:06 Dose: Not Given Metoprolol Tartrate (Lopressor Tab*) 50 mg PO Q12HR [facility] Last Admin: 08/09/17 21:03 Dose: 50 mg Metronidazole (Flagyl Tab*) 500 mg PO BID [facility] Last Admin: 08/09/17 21:04 Dose: 500 mg Ondansetron HCl (Zofran Tab*) 4 mg PO Q8H PRN PRN Reason: NAUSEA Simethicone (Mylicon*) 80 mg PO Q4H PRN PRN Reason: INDIGESTION Last Admin: 08/09/17 21:04 Dose: 80 mg Vital Signs 08/09/17 08/09/17 08/09/17 11:21 15:43 20:09 Temperature 98.1 F 98.6 F 98.4 F Pulse Rate 68 66 69 Respiratory 16 16 18 Rate Blood Pressure 146/51 150/63 159/62 (mmHg) O2 Sat by Pulse 96 99 99 Oximetry 08/09/17 08/10/17 08/10/17 23:09 03:31 07:30 Temperature 98.2 F 97.7 F 97.9 F Pulse Rate 70 63 66 Respiratory 16 16 26 Rate Blood Pressure 160/74 175/65 173/64 (mmHg) O2 Sat by Pulse 97 96 97 Oximetry Oxygen Devices in Use Now: None Appearance: Alert, supine in bed. In good spirits. Looks comfortable. Eyes: No Scleral Icterus Neck: NL Appearance and Movements; NL JVP, No Thyroid Enlargement, Masses Extremities: No Clubbing, Cyanosis, - - 1-2+ pedal edema BL Skin: No Rash or Ulcers, No Nodules or Sclerosis Neurological: Alert and Oriented x 3, NL Sensation Result Diagrams: 08/06/17 05:45 08/09/17 11:15 Microbiology and Other Data: Microbiology 08/02/17 12:34 Aerobic Blood Culture - Final Blood Venous No Growth Day 5 Anaerobic Blood Culture - Final No Growth Day 5 Blood Culture - Final 08/03/17 14:30 Skin and Soft Tissue MRSA/MSSA (PCR - Final Misc Source (See Comment) - Abscess Mrsa Negative S.aureus Negative Gram Stain - Final Wound Culture - Final Streptococcus Intermedius 08/02/17 13:40 Urine Culture - Final Urine Escherichia Coli 08/01/17 17:58 Aerobic Blood Culture - Final Blood Venous Streptococcus Intermedius Anaerobic Blood Culture - Final Streptococcus Intermedius Blood Culture - Final 08/01/17 16:45 Nasal Screen MRSA (PCR)(MILES) - Final Nasal Mrsa Negative Assess/Plan/Problems-Billing Assessment: - Patient Problems (1) Liver abscess Current Visit: Yes Status: Acute Code(s): K75.0 - ABSCESS OF LIVER SNOMED Code(s): 65189154 Comment: With strep bacteremia. Continue ceftriaxone and metro. Plan long course ceftriaxone and metro per Dr. Rudolph. (2) Diabetes Current Visit: Yes Status: Acute Code(s): E11.9 - TYPE 2 DIABETES MELLITUS WITHOUT COMPLICATIONS SNOMED Code(s): 22525463 Comment: Good glycemic control as of 08/10. Continue Lantus to 34 U started 9 AM 08/08. Only used 16-20 units at home. (3) Atrial fibrillation Current Visit: Yes Status: Acute Code(s): I48.91 - UNSPECIFIED ATRIAL FIBRILLATION SNOMED Code(s): 82094680 Comment: PAF, likely related to sepsis, can be monitored as outpt to see if it recurs. Still in NSR as of 08/08. (4) CKD (chronic kidney disease) Current Visit: Yes Status: Acute Code(s): N18.9 - CHRONIC KIDNEY DISEASE, UNSPECIFIED SNOMED Code(s): 000960169 Comment: Creatinine 1.19 on 08/09. BMP 08/11. (5) Intensive care (ICU) myopathy Current Visit: Yes Status: Acute Code(s): G72.81 - CRITICAL ILLNESS MYOPATHY SNOMED Code(s): 686571800 Comment: [facility] accepted her. Transfer 08/10. (6) Anemia Current Visit: Yes Status: Acute Code(s): D64.9 - ANEMIA, UNSPECIFIED SNOMED Code(s): 200512365 Comment: CBC 08/11. Status and Disposition: Discharge to [facility]
--- NOTE | 2017-08-10 08:38 | PN ---
Progress Note - Progress Note Date of Service: 08/10/17 Note: Time spent on discharge 40 minutes.
[2017-08-10] MEDS: Insulin GLARGINE(*) 1 UNITS UNIT SUBCUT SCH (09:01)
[2017-08-10] MEDS: metroNIDAZOLE TAB* 250 MG PO SCH (09:02)
[2017-08-10] MEDS: Aspirin EC Low Dose* 81 MG TAB.EC PO SCH (09:02)
[2017-08-10] MEDS: Metoprolol Tartrate TAB* 50 mg PO SCH (09:02)
[2017-08-10] MEDS: Simethicone TAB* 80 MG TAB.CHEW PO PRN (09:13)
--- NOTE | 2017-08-10 12:18 | TRS ---
TRANSFER SUMMARY: DATE OF ADMISSION: 08/01/17 DATE OF TRANSFER: 08/10/17 HOSPITAL COURSE: This 72-year-old woman was admitted with nausea, vomiting, abdominal pain, left shoulder pain. The patient was found to have a liver abscess. She had percutaneous drainage of her liver abscess. Six bottles of blood cultures in 3 sets, all grew out Streptococcus intermedius. The drainage fluid also grew out the same organism. She was MRSA negative. Currently, her antibiotic regimen is metronidazole and ceftriaxone. She had acute kidney injury, which is nearly completely resolved as of this time. She does have some residual edema from the IV fluids used during her intensive care stay. Her diabetes is well regulated with Lantus and lispro by sliding scale. The patient is transferred to the [facility]. FINAL DIAGNOSES: 1. Liver abscess with Streptococcal bacteremia. 2. Diabetes. 3. Paroxysmal atrial fibrillation, resolved. 4. Chronic kidney disease. 5. Intensive care myopathy. DISCHARGE MEDICATIONS: 1. Acetaminophen 650 mg every 6 hours p.r.n. 2. Aspirin 81 mg daily. 3. Escitalopram 10 mg h.s. 4. Heparin 5000 units subcu every 8 hours. 5. Glargine insulin 34 units daily at 9 a.m. 6. Lispro insulin a.c. and h.s. by sliding scale. 7. Metoprolol tartrate 50 mg every 12 hours. 8. Ceftriaxone 2 g every 24 hours IV. 9. Metronidazole 500 mg p.o. b.i.d. 10. Simethicone 80 mg every 4 hours p.r.n. [id number]/[facility] #: [id number] [facility]
[2017-08-10 13:01] VITALS: BP 159/66
== END 2017-08-10 13:04 | DRG 871 ==
LOC: ICU 16:38 → MEDTELE 08-06 15:34 → SSU 08-08 23:21 → PMRU 08-10 13:10
PROVIDERS: ADMIT Internal Medicine; ATTEND Internal Medicine
PROC: 06HM33Z Insertion of Infusion Device into Right Femoral Vein, Percutaneous Approach (ICD-10-PCS; principal; 2017-08-03)
PROC: 03HY32Z Insertion of Monitoring Device into Upper Artery, Percutaneous Approach (ICD-10-PCS; 2017-08-03)
DX: A41.9 Sepsis, unspecified organism (principal); K75.0 Abscess of liver; J96.01 Acute respiratory failure with hypoxia; R65.21 Severe sepsis with septic shock; E11.00 Type 2 diabetes mellitus with hyperosmolarity without nonketotic hyperglycemic-hyperosmolar coma (NKHHC); G93.41 Metabolic encephalopathy; G72.81 Critical illness myopathy; N17.9 Acute kidney failure, unspecified; E87.2 Acidosis; M32.9 Systemic lupus erythematosus, unspecified; E87.1 Hypo-osmolality and hyponatremia; E44.0 Moderate protein-calorie malnutrition; Z68.41 Body mass index [BMI] 40.0-44.9, adult; E11.22 Type 2 diabetes mellitus with diabetic chronic kidney disease; E11.65 Type 2 diabetes mellitus with hyperglycemia; E86.0 Dehydration; D64.9 Anemia, unspecified; N18.2 Chronic kidney disease, stage 2 (mild); M10.9 Gout, unspecified; Z88.0 Allergy status to penicillin; R00.1 Bradycardia, unspecified; I48.0 Paroxysmal atrial fibrillation; Z79.82 Long term (current) use of aspirin; Z79.4 Long term (current) use of insulin; E66.01 Morbid (severe) obesity due to excess calories
CPT/HCPCS: 36415; 36600; 49406; 70450; 71250; 76705; 80048; 80053; 80076; 80202; 82009; 82105; 82330; 82803; 82947; 83036; 83605; 83735; 84100; 84145; 84443; 84484; 85025; 85027; 85610; 85730; 86140; 87040; 87070; 87077; 87086; 87102; 87186; 87205; 87640; 87641; 88112; 93005; 93306; 94760; A9270-GY; C8929; J0282; J0692; J0696; J0744; J1160; J1644; J1720; J1940; J3010; J3370; J3475; J3480; P9045; P9047

== ENCOUNTER 2017-08-01 16:38 | Inpatient (IN) | payer MEDICARE, BC ==
[2017-08-10] MEDS ORDERED: Senna TAB PO PRN (15:18)
[2017-08-10] MEDS ORDERED: Docusate CAP* 100 MG PO PRN (15:18)
[2017-08-10] MEDS ORDERED: Dextrose 50% Syringe 50 ML* 25 GM/50 ML SYRINGE IV PUSH PRN (15:26)
[2017-08-10] MEDS: Insulin LISPRO* 1 UNITS UNIT SUBCUT SCH ×2 (16:40→21:59)
[2017-08-10] MEDS: Nystatin SUSPENSION* 100000 UNITS/ML 5 ML UDC PO SCH ×2 (16:55→22:03)
[2017-08-10] MEDS ORDERED: Simethicone TAB* 80 MG TAB.CHEW PO PRN (17:30)
--- NOTE | 2017-08-10 18:34 | HP ---
ADMISSION HISTORY AND PHYSICAL: DATE OF ADMISSION: 08/10/17 REASON FOR ADMISSION: Critical care myopathy. HISTORY OF PRESENT ILLNESS: Chrissie Marshall is a 72-year-old female. She has a medical history significant for lupus and diabetes mellitus. She never took any medications for her lupus; however. Normally, she would take metformin as well as Januvia for her diabetes. The patient did not feel well in July. By 08/01/17, she had significant GI symptoms and left shoulder pain. She had not been eating over 3 days prior to that because of her GI symptoms. Prior to that, she had been taking care of her , who was getting over a myocardial infarct. The patient was feeling exceedingly weak. She was brought to see Dr. Vu, who sent her to the emergency room at [facility]. In [place] [facility], it was notable that she had slightly elevated troponins. Her EKG was at baseline and she was hemodynamically stable. She was put on IV fluids and given 20 units of insulin because her blood sugar was over 450. The patient had a CAT scan of her abdomen done at [facility], which showed abnormal appearance of the liver with multiple lesions. She was transferred to [facility]. At [facility], she was admitted. She had a liver ultrasound done. It was felt that she had multiple hepatic lesions, which might represent septic emboli or metastatic cancer or perhaps infectious causes. She also had a CAT scan of her brain, CAT scan of her chest and echocardiogram. Echo showed that she was in atrial fibrillation with an ejection fraction of 65%. CAT scan of her brain was unrevealing. CAT scan of her chest showed a small dependent left pleural effusion. She had a cystic lesion in her left liver, suspicious for an abscess. The patient was admitted to the intensive care unit. She was also noted to have acute on chronic renal failure. That was felt to be due to the dehydration. With Interventional Radiology, she had ultrasound-guided drainage of her abscess. She received a lot of IV fluids. Initial fluid was positive for gram-positive cocci resembling strep. Her Cipro was discontinued and she was put on cefepime. The patient went back into rapid AFib, but converted back to sinus with a Cardizem drip. Her mental status slowly improved. She was seen by Dr. Grove from Cardiology as well as Dr. Rudolph from Infectious Disease. Dr. Grove felt that her AFib was secondary to renal failure and sepsis. He did not feel like she needed to be anticoagulated at the present time. Dr. Rudolph evaluated the patient. He agreed with changing her to ceftriaxone 2 g daily and Flagyl 500 mg twice a day. He said eventually she could be changed over to oral Flagyl. The patient slowly improved. The patient was evaluated by Physical Therapy and Occupational Therapy and was noted to be profoundly weak. It was felt that she had critical care myopathy. The patient was felt to have physical therapy and occupational therapy needs. She is now being admitted for inpatient rehab so that she might return to independent living. PAST MEDICAL HISTORY: Significant for the aforementioned diabetes as well as sepsis. In addition, she has a history of hypertension, chronic kidney disease, and gout. CURRENT MEDICATIONS: Include: 1. Baby aspirin once a day. 2. She is on ceftriaxone as well as Flagyl. 3. She is on heparin for DVT prophylaxis. 4. Lexapro. 5. Lantus insulin. 6. Lopressor. 7. Flagyl. 8. Zofran. ALLERGIES: PENICILLIN. SOCIAL HISTORY: She is a nonsmoker, nondrinker. Lives with her in a 2 - sonia house but stays largely in the first floor. She has 1 step to enter. She is a retired nurse. REVIEW OF SYSTEMS: The patient reports some difficulty with diarrhea and lack of appetite. PHYSICAL EXAMINATION VITAL SIGNS: The patient's temperature is 98.0, blood pressure is 159/66, pulse is 66, respirations 18. HEENT: Her extraocular movements are intact. Tongue is midline. NECK: Supple with no left lymphadenopathy. LUNGS: Sound clear to auscultation bilaterally. HEART: Sounds are regular. S1 and S2 audible. ABDOMEN: Soft and nontender. EXTREMITIES: Her feet have 2+ edema. Peripheral pulses are intact. No contractures are noted. NEUROLOGIC: She is awake, alert and oriented. Muscle strength is about 4/5 in her upper extremities and 4-/5 in her lower extremities. Her sensation appears to be intact. FUNCTIONAL EXAM: The patient transfers with minimum amount of assistance. ASSESSMENT: Critical care myopathy. PLAN: We are going to integrate her into a comprehensive and therapeutic rehab program with the following goals: 1. Physical Therapy will work with the patient, they are going to work on functional transfer training, ambulation training with a walker. 2. Occupational Therapy will see the patient and work on her activities of daily living including toileting and toilet transfers. 3. Heparin for DVT prophylaxis. 4. For her diabetes, we will do fingersticks 4 times a day with appropriate insulin coverage. We will continue her on Lantus 34 units a day. 5. The patient appears to have thrush in her mouth. We are going to add nystatin swish and swallow. 6. For her diarrhea, we are going to add a probiotic, Culturelle twice a day. 7. Adequate analgesia. 8. Family training as appropriate. 9. technical services assistant will be closely involved to make sure that any services and equipment the patient requires are in place prior to discharge. 10. Advance directives: The patient is a full code. Her is her surrogate discussion maker. ESTIMATED LENGTH OF STAY: 10 to 14 days. [id number]/[facility] #: [id number] [facility]
[2017-08-10] MEDS: Metoprolol Tartrate TAB* 50 mg PO SCH (21:57)
[2017-08-10] MEDS: CMC:Escitalopram (NF) 10 MG TAB PO SCH (21:57)
[2017-08-10] MEDS: Lactobacillus Acidophilu (GG)* 1 CAP CAP PO SCH (21:57)
[2017-08-10] MEDS: metroNIDAZOLE TAB* 250 MG PO SCH (21:58)
[2017-08-10] MEDS: Acetaminophen TAB* 325 MG PO PRN (21:58)
[2017-08-10] MEDS: Heparin VIAL(*) 5000 UNITS/ML VIAL (FIVE THOUSAND) SUBCUT SCH (22:01)
[2017-08-10] MEDS: Simethicone TAB* 80 MG TAB.CHEW PO PRN (22:46)
[2017-08-11] MEDS: Heparin VIAL(*) 5000 UNITS/ML VIAL (FIVE THOUSAND) SUBCUT SCH ×3 (06:05→21:22)
[2017-08-11 08:03] LABS: Hematocrit 29 % (35-47); Hemoglobin 9.5 g/dl (12.0-16.0); Mean Corpuscular HGB Conc 33 g/dl (31-36); Mean Corpuscular Hemoglobin 29 pg (27-31); Mean Corpuscular Volume 88 fL (80-97); Mean Platelet Volume 8 um3 (7.4-10.4); Red Cell Distribution Width 15 % (10.5-15); White Blood Count 13.1 10^3/ul (3.5-10.8)
[2017-08-11 08:32] LABS: Albumin 2.1 g/dL (3.2-5.2); BUN/Creatinine Ratio 48.6 (8-20); Calcium 8.8 mg/dL (8.6-10.3); EGFR African American 63.6 (>60); EGFR Non-African American 49.5 (>60); Globulin 3.3 g/dL (2-4); Potassium 3.8 mmol/L (3.5-5.0); Total Bilirubin 0.6 mg/dL (0.2-1.0); Total Protein 5.4 g/dL (6.4-8.9)
[2017-08-11] MEDS: Lactobacillus Acidophilu (GG)* 1 CAP CAP PO SCH ×2 (09:45→21:13)
[2017-08-11] MEDS: metroNIDAZOLE TAB* 250 MG PO SCH ×2 (09:45→21:13)
[2017-08-11] MEDS: Simethicone TAB* 80 MG TAB.CHEW PO PRN ×3 (09:45→21:10)
[2017-08-11] MEDS: Aspirin EC Low Dose* 81 MG TAB.EC PO SCH (09:45)
[2017-08-11] MEDS: Metoprolol Tartrate TAB* 50 mg PO SCH ×2 (09:45→21:12)
[2017-08-11] MEDS: Insulin GLARGINE(*) 1 UNITS UNIT SUBCUT SCH (09:48)
[2017-08-11] MEDS: Insulin LISPRO* 1 UNITS UNIT SUBCUT SCH ×4 (09:49→21:15)
[2017-08-11] MEDS: cefTRIAXone(*) 2 GM in NS 0.9% 100 ML* 100 ML IVPB SCH (09:56)
[2017-08-11] MEDS: Nystatin SUSPENSION* 100000 UNITS/ML 5 ML UDC PO SCH ×4 (10:00→21:18)
[2017-08-11] MEDS: Acetaminophen TAB* 325 MG PO PRN ×2 (10:02→21:12)
[2017-08-11] MEDS ORDERED: Furosemide TAB* 40 MG PO ONE (12:28)
[2017-08-11] MEDS: CMC:Escitalopram (NF) 10 MG TAB PO SCH (21:13)
[2017-08-12] MEDS: Heparin VIAL(*) 5000 UNITS/ML VIAL (FIVE THOUSAND) SUBCUT SCH ×3 (06:12→22:01)
[2017-08-12] MEDS: metroNIDAZOLE TAB* 250 MG PO SCH ×2 (08:14→19:56)
[2017-08-12] MEDS: Furosemide TAB* 20 MG PO SCH (08:14)
[2017-08-12] MEDS: Lactobacillus Acidophilu (GG)* 1 CAP CAP PO SCH ×2 (08:14→19:57)
[2017-08-12] MEDS: Aspirin EC Low Dose* 81 MG TAB.EC PO SCH (08:14)
[2017-08-12] MEDS: Metoprolol Tartrate TAB* 50 mg PO SCH ×2 (08:14→20:04)
[2017-08-12] MEDS: Insulin GLARGINE(*) 1 UNITS UNIT SUBCUT SCH (08:16)
[2017-08-12] MEDS: Insulin LISPRO* 1 UNITS UNIT SUBCUT SCH ×4 (08:18→21:08)
[2017-08-12] MEDS: Nystatin SUSPENSION* 100000 UNITS/ML 5 ML UDC PO SCH ×5 (10:18→23:27)
--- NOTE | 2017-08-12 12:38 | PMRUTEAM ---
PMRU: Goals Current Status: Nursing: Current Status Skin Deviations [Bilateral Arm Bruise ] Skin Deviations [Bilateral Other Buttocks] Skin Deviations [Midline Previous Access Point Abdomen] Skin Deviations [Right Groin] Previous Access Point Skin Deviation Description [ from blood draws; especially to right AC Bilateral Arm] Skin Deviation Description [ red and excoriated, protective cream applied, pt Bilateral Buttocks] denies itchy feeling Skin Deviation Description [ s/p abscess drain removal Midline Abdomen] Skin Deviation Description [ healed Right Groin] Physical Therapy: Current Status Bed Mobility Assistance Min Assist,Mod Assist Transfer Moblility Assistance Supervision,Contact Guard Assist Transfer/Bed Mobility Rolling Walker Recommended Devices Ambulation Assistance Contact Guard Assist Ambulation Assistive Devices Rolling Walker Number of Feet Patient 10' Ambulated Stairs Assistance Not Tested Stairs Recommended Devices Two Rails Number of Stairs 3 Occupational Therapy: Current Status Upper Body Dressing Min Assist Lower Body Dressing Total Assist Bathing Mod Assist Toileting Total Assist Toilet Transfer Contact Guard Assist,2 Person Assist Eating Ind with Adaptive Equip Social Work: Current Status Discharge Plan return home with home care svs and family support Potential for Family Training pt's is involved and supportive Anticipated Discharge Home Destination Discharge With home care svs and family support Nutrition: Current Status Monitoring new adm. Hx DM2; consistent carb diet. Ate 100% dinner last evening, but appetite fluctuates. Gassy, achey stomach distress w/liquid BMs. Full assessment to follow 08/14. Goals: Physical Therapy: Initial Goals Bed Mobility Assistance Independent Transfer Mobility Assistance Independent Transfer/Bed Mobility Rolling Walker Recommended Devices Ambulation Independent Ambulation Recommended Devices Rolling Walker Ambulation Distance 125 Stair Recommended Devices One Rail,Two Rails Number of Stairs 3 Physical Therapy: Updated Goals Bed Mobility Assistance Independent Transfer Mobility Assistance Independent Transfer/Bed Mobility Rolling Walker,Railings Recommended Devices Ambulation Assistance Independent Ambulation Assistive Devices Rolling Walker Ambulation Distance (ft) 125 Stairs Assistance Independent Stairs Recommended Devices One Rail,Two Rails Number of Stairs 3 Home Exercise Program Independent Assistance Occupational Therapy: Initial Goals Goals to be Completed in (Days 7-14 ) Upper Body Bathing Routine Independent Lower Body Bathing Routine Modified Independent with Upper Body Dressing Routine Independent Lower Body Dressing Routine Modified Independent with Toilet Hygeine and Clothing Modified Independent with Management Routine Toilet Transfer Routine Modified Independent with Tub Transfer Routine Modified Independent with Functional Transfers for ADL Modified Independent with Grooming Routine Independent Feeding Routine Modified Independent with Nutrition: Goals Intervention Goals TBD Social Work: Goals Discharge Plan return home with home care svs and family support Potential for Family Training pt's is involved and supportive Anticipated Discharge Home Destination Discharge With home care svs and family support Care Plan: Care Plan Cardiovascular- Improve/Maintain Start: 08/10/17 18:40 Freq: QSHIFT Status: Active Target: Activity Type Activity Date Activity User E-Sign Co-Sign Detail Recorded Client Recorded Date Recorded By Document 08/12/17 11:53 [id number] 08/12/17 11:53 [id number] 08/12/17 11:53 PMRU Outcome: Cardiovascular Vital Signs q Shift for 48hrs Then BID Yes Daily Weight Ordered No Current Cardiovascular Outcome/Goal Maintain/ Achieve Baseline HR, BP , Perfusion Improve HR Within Prescribed Parameters Maintain/ Improve Perfusion Maintain/ Achieve Hemodynamic Stability Progression Toward Outcome/Goal Progressing DVT Prophylaxis- Improve/Maintain Start: 08/10/17 18:40 Freq: QSHIFT Status: Active Target: Activity Type Activity Date Activity User E-Sign Co-Sign Detail Recorded Client Recorded Date Recorded By Document 08/12/17 11:53 [id number] 08/12/17 11:53 [id number] 08/12/17 11:53 PMRU Outcome: DVT Prophylaxis Outcome/Goals Remains Free of DVT Free of complications from current DVT TEDS Stockings on Every AM, Off at HS Progression Toward Outcome/Goals Progressing Discharge Planning - Improve/Maintain Start: 08/10/17 18:40 Freq: QSHIFT Status: Active Target: Activity Type Activity Date Activity User E-Sign Co-Sign Detail Recorded Client Recorded Date Recorded By Document 08/12/17 11:53 [id number] 08/12/17 11:53 [id number] 08/12/17 11:53 PMRU Outcome: Discharge Planning Identify Patient Needs yes Update Patient Family No Outcome/Goals Demonstrates Understanding of Discharge Plan Progression Toward Outcome/Goals Progressing /GI-Improve/Maintain Start: 08/10/17 18:40 Freq: QSHIFT Status: Active Target: Activity Type Activity Date Activity User E-Sign Co-Sign Detail Recorded Client Recorded Date Recorded By Document 08/12/17 11:53 [id number] 08/12/17 11:53 [id number] 08/12/17 11:53 PMRU Outcome: Genitourinary/ Gastrointestinal Genitourinary- Outcome/Goals Maintain/ Achieve Urinary Continence Maintain/ Achieve Adequate Urinary Output Remain Free of Hospital- Acquired UTI Gastrointestinal-Outcome/Goals Maintain/ Achieve Bowel Regularity in Accordance with Pt's Baseline Remain Free of Emesis Bowel Program Progression Toward Outcome/Goals - Not Progressing Progression Toward Outcome/Goals - GI Not Progressing Metabolic Status- Improve/Maintain Start: 08/10/17 18:40 Freq: QSHIFT Status: Active Target: Activity Type Activity Date Activity User E-Sign Co-Sign Detail Recorded Client Recorded Date Recorded By Document 08/12/17 11:53 [id number] 08/12/17 11:53 [id number] 08/12/17 11:53 PMRU Outcome: Metabolic Status Have Fingersticks Been Ordered Yes Fingerstick Order Frequency AC & HS Outcome/Goals Maintain/ Improve Metabolic Status Demonstrate Knowledge of Prevention/ Treatment of Metabolic Imbalances Progression Toward Outcome/Goals Progressing Safety- Improve/Maintain Start: 08/10/17 18:40 Freq: QSHIFT Status: Active Target: Activity Type Activity Date Activity User E-Sign Co-Sign Detail Recorded Client Recorded Date Recorded By Document 08/12/17 11:53 [id number] 08/12/17 11:53 [id number] 08/12/17 11:53 PMRU Outcome: Safety Outcome/Goals Remain Free of Injury or Harm Cooperates with Safety Measures for Least Restrictive Environment Prevent Falls/ Injury Progression Toward Outcome/Goals Progressing Skin- Improve/Maintain Start: 08/10/17 18:40 Freq: QSHIFT Status: Active Target: Activity Type Activity Date Activity User E-Sign Co-Sign Detail Recorded Client Recorded Date Recorded By Document 08/12/17 11:53 [id number] 08/12/17 11:53 [id number] 08/12/17 11:53 PMRU Outcome: Skin Skin Risk Level Medium Skin Orders Air Mattress Turn/Position q2hr While in Bed Outcome/Goals Maintain/ Improve Skin Intergrity Progression Toward Outcome/Goals Progressing Medicine Note: Length of Stay: 2 weeks Anticipated Discharge Destination: Home Tentative Discharge Date: 08/26/17 Discharged to: home
[2017-08-12] MEDS: cefTRIAXone(*) 2 GM in NS 0.9% 100 ML* 100 ML IVPB SCH (13:17)
[2017-08-12] MEDS: Acetaminophen TAB* 325 MG PO PRN ×2 (13:23→20:04)
[2017-08-12] MEDS: Simethicone TAB* 80 MG TAB.CHEW PO PRN ×2 (13:26→19:56)
--- NOTE | 2017-08-12 16:14 | PN ---
Progress Note - Progress Note Date of Service: 08/12/17 SOAP: Subjective: CC: liver abscess HPI: 72 year old woman with liver abscess s/p IR drain, on IV abx. PT going well. Still wiped out. No fever, rash or diarrhea. Had PICC placed. Objective: [] Vital Signs Temp 36.7 C 08/12/17 06:10 Pulse 68 08/12/17 06:10 Resp 24 08/12/17 06:10 BP 176/65 08/12/17 06:10 Pulse Ox 97 08/12/17 08:40 Intake & Output 08/11/17 08/12/17 08/12/17 18:59 06:59 18:59 Intake Total 470 480 Output Total 350 525 450 Balance 120 -45 -450 Intake: Oral 470 480 Output: [place] 350 525 450 Other: Estimated Void Small # Bowel Movements 1 Estimated Stool Amount Small # Voids 1 Gen:awake, no distress HEENT:PERRL, MMM Neck:Supple Heart:RRR no murmur Lungs:CTA BL Abd:+BS NTND soft Skin: No rash MSK: no spine tenderness; RUE PICC Laboratory Results - last 24 hr 08/11/17 08/11/17 08/11/17 11:57 16:22 20:23 POC Glucose (mg/dL) 204 H 261 H 203 H 08/12/17 08/12/17 07:39 12:02 POC Glucose (mg/dL) 159 H 204 H Assessment: 1. Strep liver abscess 2. senior living abx 3. diabetes 4. PCN allergy Plan: 1. ceftriaxone/flagyl day with weekly cbc, cmp, crp and CT abd near end of treatment to ensure resolution. 35 minutes floor time>50% face to face in counseling regarding antibiotic plans.
[2017-08-12] MEDS: CMC:Escitalopram (NF) 10 MG TAB PO SCH (19:57)
[2017-08-13] MEDS: Heparin VIAL(*) 5000 UNITS/ML VIAL (FIVE THOUSAND) SUBCUT SCH ×3 (05:54→21:13)
[2017-08-13 06:33] LABS: BUN/Creatinine Ratio 48.9 (8-20); Calcium 8.4 mg/dL (8.6-10.3); EGFR African American 81.5 (>60); EGFR Non-African American 63.3 (>60); Potassium 3.4 mmol/L (3.5-5.0)
[2017-08-13] MEDS: Insulin LISPRO* 1 UNITS UNIT SUBCUT SCH ×4 (07:34→21:11)
[2017-08-13] MEDS: Metoprolol Tartrate TAB* 50 mg PO SCH ×2 (08:20→21:09)
[2017-08-13] MEDS: Aspirin EC Low Dose* 81 MG TAB.EC PO SCH (08:20)
[2017-08-13] MEDS: Lactobacillus Acidophilu (GG)* 1 CAP CAP PO SCH ×2 (08:20→21:08)
[2017-08-13] MEDS: Furosemide TAB* 20 MG PO SCH (08:20)
[2017-08-13] MEDS: metroNIDAZOLE TAB* 250 MG PO SCH ×2 (08:20→21:08)
[2017-08-13] MEDS: Insulin GLARGINE(*) 1 UNITS UNIT SUBCUT SCH (08:21)
[2017-08-13] MEDS: Nystatin SUSPENSION* 100000 UNITS/ML 5 ML UDC PO SCH ×4 (11:05→21:09)
[2017-08-13] MEDS: cefTRIAXone(*) 2 GM in NS 0.9% 100 ML* 100 ML IVPB SCH (12:04)
[2017-08-13] MEDS: Simethicone TAB* 80 MG TAB.CHEW PO PRN ×2 (12:58→18:18)
[2017-08-13] MEDS: Acetaminophen TAB* 325 MG PO PRN (21:09)
[2017-08-13] MEDS: CMC:Escitalopram (NF) 10 MG TAB PO SCH (21:16)
[2017-08-14] MEDS: Heparin VIAL(*) 5000 UNITS/ML VIAL (FIVE THOUSAND) SUBCUT SCH ×3 (04:57→21:25)
[2017-08-14] MEDS: Furosemide TAB* 20 MG PO SCH (08:15)
[2017-08-14] MEDS: metroNIDAZOLE TAB* 250 MG PO SCH ×2 (08:51→20:12)
[2017-08-14] MEDS: Metoprolol Tartrate TAB* 50 mg PO SCH ×2 (08:51→20:12)
[2017-08-14] MEDS: Aspirin EC Low Dose* 81 MG TAB.EC PO SCH (08:51)
[2017-08-14] MEDS: Potassium Chlor TAB* 20 MEQ TAB.ER PO SCH (08:51)
[2017-08-14] MEDS: Lactobacillus Acidophilu (GG)* 1 CAP CAP PO SCH ×2 (08:51→20:12)
[2017-08-14] MEDS: Insulin LISPRO* 1 UNITS UNIT SUBCUT SCH ×4 (08:52→21:25)
[2017-08-14] MEDS: Insulin GLARGINE(*) 1 UNITS UNIT SUBCUT SCH (08:53)
[2017-08-14] MEDS: Nystatin SUSPENSION* 100000 UNITS/ML 5 ML UDC PO SCH ×4 (08:54→21:27)
[2017-08-14] MEDS: cefTRIAXone(*) 2 GM in NS 0.9% 100 ML* 100 ML IVPB SCH (09:31)
[2017-08-14] MEDS: Ibuprofen TAB* 400 MG PO PRN (13:07)
[2017-08-14] MEDS: Simethicone TAB* 80 MG TAB.CHEW PO PRN ×2 (16:55→20:12)
[2017-08-14] MEDS: CMC:Escitalopram (NF) 10 MG TAB PO SCH (20:11)
[2017-08-15] MEDS: Ibuprofen TAB* 400 MG PO PRN (01:09)
[2017-08-15] MEDS: Heparin VIAL(*) 5000 UNITS/ML VIAL (FIVE THOUSAND) SUBCUT SCH ×3 (06:37→20:54)
[2017-08-15 07:40] LABS: BUN/Creatinine Ratio 38.7 (8-20); Calcium 8.2 mg/dL (8.6-10.3); EGFR African American 76.4 (>60); EGFR Non-African American 59.4 (>60); Potassium 3.5 mmol/L (3.5-5.0)
[2017-08-15] MEDS: Insulin GLARGINE(*) 1 UNITS UNIT SUBCUT SCH (09:30)
[2017-08-15] MEDS: Simethicone TAB* 80 MG TAB.CHEW PO PRN (09:31)
[2017-08-15] MEDS: Lactobacillus Acidophilu (GG)* 1 CAP CAP PO SCH ×2 (09:31→20:47)
[2017-08-15] MEDS: Furosemide TAB* 20 MG PO SCH (09:31)
[2017-08-15] MEDS: metroNIDAZOLE TAB* 250 MG PO SCH ×2 (09:32→20:48)
[2017-08-15] MEDS: Aspirin EC Low Dose* 81 MG TAB.EC PO SCH (09:32)
[2017-08-15] MEDS: Metoprolol Tartrate TAB* 50 mg PO SCH ×2 (09:32→20:47)
[2017-08-15] MEDS: Insulin LISPRO* 1 UNITS UNIT SUBCUT SCH ×4 (09:33→21:22)
[2017-08-15] MEDS: Nystatin SUSPENSION* 100000 UNITS/ML 5 ML UDC PO SCH ×4 (09:34→20:54)
[2017-08-15] MEDS: cefTRIAXone(*) 2 GM in NS 0.9% 100 ML* 100 ML IVPB SCH (10:06)
[2017-08-15] MEDS: Potassium Chlor TAB* 20 MEQ TAB.ER PO SCH (11:59)
[2017-08-15] MEDS: Omeprazole CAP* 20 MG PO SCH (11:59)
[2017-08-15] MEDS: CMC:Escitalopram (NF) 10 MG TAB PO SCH (20:47)
[2017-08-16] MEDS: Omeprazole CAP* 20 MG PO SCH (06:16)
[2017-08-16] MEDS: Heparin VIAL(*) 5000 UNITS/ML VIAL (FIVE THOUSAND) SUBCUT SCH ×3 (06:16→21:43)
[2017-08-16] MEDS: Insulin LISPRO* 1 UNITS UNIT SUBCUT SCH ×4 (08:06→21:43)
[2017-08-16] MEDS: Metoprolol Tartrate TAB* 50 mg PO SCH ×2 (09:12→21:44)
[2017-08-16] MEDS: Aspirin EC Low Dose* 81 MG TAB.EC PO SCH (09:12)
[2017-08-16] MEDS: Furosemide TAB* 20 MG PO SCH (09:12)
[2017-08-16] MEDS: Lactobacillus Acidophilu (GG)* 1 CAP CAP PO SCH ×2 (09:12→21:44)
[2017-08-16] MEDS: metroNIDAZOLE TAB* 250 MG PO SCH ×2 (09:12→21:44)
[2017-08-16] MEDS: Insulin GLARGINE(*) 1 UNITS UNIT SUBCUT SCH (09:13)
[2017-08-16] MEDS: cefTRIAXone(*) 2 GM in NS 0.9% 100 ML* 100 ML IVPB SCH (09:17)
[2017-08-16] MEDS: Losartan TAB* 25 MG PO SCH (10:17)
[2017-08-16] MEDS: Potassium Chlor TAB* 20 MEQ TAB.ER PO SCH (12:20)
[2017-08-16] MEDS: Nystatin SUSPENSION* 100000 UNITS/ML 5 ML UDC PO SCH ×4 (12:21→21:44)
[2017-08-16] MEDS: Simethicone TAB* 80 MG TAB.CHEW PO PRN (18:54)
[2017-08-16] MEDS: CMC:Escitalopram (NF) 10 MG TAB PO SCH (21:44)
[2017-08-17] MEDS: Omeprazole CAP* 20 MG PO SCH (05:42)
[2017-08-17] MEDS: Heparin VIAL(*) 5000 UNITS/ML VIAL (FIVE THOUSAND) SUBCUT SCH ×3 (05:43→21:41)
[2017-08-17] MEDS: Insulin LISPRO* 1 UNITS UNIT SUBCUT SCH ×4 (07:47→21:40)
[2017-08-17] MEDS: Nystatin SUSPENSION* 100000 UNITS/ML 5 ML UDC PO SCH ×2 (08:55→11:38)
[2017-08-17] MEDS: Aspirin EC Low Dose* 81 MG TAB.EC PO SCH (08:57)
[2017-08-17] MEDS: Metoprolol Tartrate TAB* 50 mg PO SCH ×2 (08:57→21:41)
[2017-08-17] MEDS: Losartan TAB* 25 MG PO SCH (08:57)
[2017-08-17] MEDS: Furosemide TAB* 20 MG PO SCH (08:57)
[2017-08-17] MEDS: metroNIDAZOLE TAB* 250 MG PO SCH ×2 (08:57→21:41)
[2017-08-17] MEDS: Lactobacillus Acidophilu (GG)* 1 CAP CAP PO SCH ×2 (08:57→21:41)
[2017-08-17] MEDS: Insulin GLARGINE(*) 1 UNITS UNIT SUBCUT SCH (08:59)
[2017-08-17] MEDS: cefTRIAXone(*) 2 GM in NS 0.9% 100 ML* 100 ML IVPB SCH (09:00)
[2017-08-17] MEDS: Potassium Chlor TAB* 20 MEQ TAB.ER PO SCH (11:39)
[2017-08-17] MEDS: Simethicone TAB* 80 MG TAB.CHEW PO PRN (17:01)
[2017-08-17] MEDS: CMC:Escitalopram (NF) 10 MG TAB PO SCH (21:41)
[2017-08-18] MEDS: Heparin VIAL(*) 5000 UNITS/ML VIAL (FIVE THOUSAND) SUBCUT SCH ×3 (06:26→22:13)
[2017-08-18] MEDS: Omeprazole CAP* 20 MG PO SCH (06:28)
[2017-08-18 07:07] LABS: Hematocrit 24 % (35-47); Mean Corpuscular HGB Conc 33 g/dl (31-36); Mean Corpuscular Hemoglobin 30 pg (27-31); Mean Corpuscular Volume 89 fL (80-97); Mean Platelet Volume 7 um3 (7.4-10.4); Red Blood Count 2.73 10^6/ul (4.0-5.4); Red Cell Distribution Width 16 % (10.5-15); White Blood Count 8.4 10^3/ul (3.5-10.8)
[2017-08-18 07:17] LABS: Albumin 1.9 g/dL (3.2-5.2); BUN/Creatinine Ratio 29.1 (8-20); Calcium 7.9 mg/dL (8.6-10.3); EGFR African American 83.7 (>60); Globulin 3.2 g/dL (2-4); Potassium 3.6 mmol/L (3.5-5.0); Total Bilirubin 0.4 mg/dL (0.2-1.0); Total Protein 5.1 g/dL (6.4-8.9)
[2017-08-18] MEDS ORDERED: diPHENhydraMINE PO* 25 MG PO PRN (08:41)
[2017-08-18] MEDS: Insulin GLARGINE(*) 1 UNITS UNIT SUBCUT SCH (09:14)
[2017-08-18] MEDS: Aspirin EC Low Dose* 81 MG TAB.EC PO SCH (09:15)
[2017-08-18] MEDS: Losartan TAB* 25 MG PO SCH (09:16)
[2017-08-18] MEDS: Potassium Chlor TAB* 20 MEQ TAB.ER PO SCH (09:16)
[2017-08-18] MEDS: Metoprolol Tartrate TAB* 50 mg PO SCH ×2 (09:16→22:11)
[2017-08-18] MEDS: Furosemide TAB* 20 MG PO SCH (09:16)
[2017-08-18] MEDS: Lactobacillus Acidophilu (GG)* 1 CAP CAP PO SCH ×2 (09:16→22:10)
[2017-08-18] MEDS: metroNIDAZOLE TAB* 250 MG PO SCH ×2 (09:19→22:10)
[2017-08-18] MEDS: cefTRIAXone(*) 2 GM in NS 0.9% 100 ML* 100 ML IVPB SCH (09:22)
[2017-08-18] MEDS: Insulin LISPRO* 1 UNITS UNIT SUBCUT SCH ×4 (09:28→21:03)
[2017-08-18] MEDS: Hydrocortisone 1% CREAM* 30 GM TUBE TOPICAL SCH ×3 (09:30→21:52)
[2017-08-18] MEDS: Simethicone TAB* 80 MG TAB.CHEW PO PRN ×2 (17:20→21:22)
--- NOTE | 2017-08-18 17:28 | PN ---
Progress Note - Progress Note Date of Service: 08/18/17 SOAP: Subjective: CC: liver abscess HPI: 72 year old woman with liver abscess s/p IR drain, on IV abx. No fever or diarrhea. Rash developed yesterday on arms and trunk, itchy, has resolved with benadryl. Objective: [] Vital Signs Temp 36.8 C 08/18/17 16:17 Pulse 89 08/18/17 16:17 Resp 22 08/18/17 16:17 BP 160/64 08/18/17 16:17 Pulse Ox 100 08/18/17 17:24 Intake & Output 08/17/17 08/18/17 08/18/17 18:59 06:59 18:59 Intake Total 596.2 100 400 Output Total 303 51 100 Balance 293.2 49 300 Weight 242 lb 14.4 oz Intake: IV Fluids 20.2 NS (0.9%) 20.2 IVPB 96 ABX - CEFTRIAXONE 96 Oral 480 100 400 Output: Urine 200 50 100 Liquid Stool 100 # Incontinent Voids 3 1 Other: Estimated Void Large Medium Medium # Bowel Movements 1 1 Estimated Stool Amount Large Small # Voids 2 3 1 Gen:awake, no distress HEENT:PERRL, MMM Neck:Supple Heart:RRR no murmur Lungs:CTA BL Abd:+BS NTND soft Skin: No rash MSK: no spine tenderness; RUE PICC Laboratory Results - last 24 hr 08/17/17 08/18/17 08/18/17 20:13 06:25 06:25 WBC 8.4 RBC 2.73 L Hgb 8.0 L Hct 24 L MCV 89 MCH 30 MCHC 33 RDW 16 H Plt Count 419 MPV 7 L Neut % (Auto) 72.0 Lymph % (Auto) 15.1 L Rhea % (Auto) 9.7 H Eos % (Auto) 2.7 Baso % (Auto) 0.5 Absolute Neuts (auto) 6.1 Absolute Lymphs (auto) 1.3 Absolute Monos (auto) 0.8 Absolute Eos (auto) 0.2 Absolute Basos (auto) 0 Absolute Nucleated RBC 0 Nucleated RBC % 0 Sodium 139 Potassium 3.6 Chloride 106 Carbon Dioxide 28 Anion Gap 5 BUN 25 H Creatinine 0.86 Est GFR ( Amer) 83.7 Est GFR (Non-Af Amer) 65.0 BUN/Creatinine Ratio 29.1 H Glucose 115 H POC Glucose (mg/dL) 189 H Calcium 7.9 L Total Bilirubin 0.40 AST 13 ALT 9 Alkaline Phosphatase 88 Total Protein 5.1 L Albumin 1.9 L Globulin 3.2 Albumin/Globulin Ratio 0.6 L 08/18/17 08/18/17 08/18/17 07:39 11:32 16:38 WBC RBC Hgb Hct MCV MCH MCHC RDW Plt Count MPV Neut % (Auto) Lymph % (Auto) Rhea % (Auto) Eos % (Auto) Baso % (Auto) Absolute Neuts (auto) Absolute Lymphs (auto) Absolute Monos (auto) Absolute Eos (auto) Absolute Basos (auto) Absolute Nucleated RBC Nucleated RBC % Sodium Potassium Chloride Carbon Dioxide Anion Gap BUN Creatinine Est GFR ( Amer) Est GFR (Non-Af Amer) BUN/Creatinine Ratio Glucose POC Glucose (mg/dL) 127 H 132 H 112 H Calcium Total Bilirubin AST ALT Alkaline Phosphatase Total Protein Albumin Globulin Albumin/Globulin Ratio Assessment: 1. Strep liver abscess 2. senior care abx 3. diabetes 4. PCN allergy 5. rash, resolved ?drug rash including ceftriaxone though unusual to have such a quick response to benadryl Plan: 1. ceftriaxone/flagyl day with weekly cbc, cmp, crp and CT abd near end of treatment to ensure resolution. She prefers to continue ceftriaxone, will monitor for further rash, can use levaquin if it returns. 35 minutes floor time>50% face to face in counseling regarding antibiotic plans in setting of rash.
[2017-08-18] MEDS: CMC:Escitalopram (NF) 10 MG TAB PO SCH (22:14)
[2017-08-19] MEDS: Omeprazole CAP* 20 MG PO SCH (06:25)
[2017-08-19] MEDS: Heparin VIAL(*) 5000 UNITS/ML VIAL (FIVE THOUSAND) SUBCUT SCH ×3 (06:26→21:29)
[2017-08-19] MEDS: Furosemide TAB* 20 MG PO SCH (09:09)
[2017-08-19] MEDS: Potassium Chlor TAB* 20 MEQ TAB.ER PO SCH (09:09)
[2017-08-19] MEDS: Lactobacillus Acidophilu (GG)* 1 CAP CAP PO SCH ×2 (09:09→21:25)
[2017-08-19] MEDS: Aspirin EC Low Dose* 81 MG TAB.EC PO SCH (09:09)
[2017-08-19] MEDS: Metoprolol Tartrate TAB* 50 mg PO SCH ×2 (09:09→21:25)
[2017-08-19] MEDS: Losartan TAB* 25 MG PO SCH (09:09)
[2017-08-19] MEDS: Hydrocortisone 1% CREAM* 30 GM TUBE TOPICAL SCH ×3 (09:10→21:29)
[2017-08-19] MEDS: Insulin LISPRO* 1 UNITS UNIT SUBCUT SCH ×4 (09:10→21:28)
[2017-08-19] MEDS: metroNIDAZOLE TAB* 250 MG PO SCH ×2 (09:11→21:27)
[2017-08-19] MEDS: Insulin GLARGINE(*) 1 UNITS UNIT SUBCUT SCH (09:12)
[2017-08-19] MEDS: cefTRIAXone(*) 2 GM in NS 0.9% 100 ML* 100 ML IVPB SCH (09:20)
--- NOTE | 2017-08-19 12:41 | PMRUTEAM ---
PMRU: Goals Current Status: Nursing: Current Status Skin Deviations [Bilateral Rash Axilla] Skin Deviations [Bilateral Arm Bruise ] Skin Deviations [Bilateral Other Buttocks] Skin Deviations [Midline Previous Access Point Abdomen] Skin Deviations [Right Groin] Other Skin Deviation Description [ rash improved to upper torso Bilateral Axilla] Skin Deviation Description [ healing Bilateral Arm] Skin Deviation Description [ red Bilateral Buttocks] Skin Deviation Description [ healed Midline Abdomen] Skin Deviation Description [ red, excoriated Right Groin] Bladder Current Status voids, also incontinent. needs to be encouraged to wipe herself Bowel Current Status loose bm. Nutrition Current Status appetite good Medication Current Status declined to take flagyl this am Physical Therapy: Current Status Bed Mobility Assistance Mod Assist Transfer Moblility Assistance Supervision Transfer/Bed Mobility Rolling Walker Recommended Devices Ambulation Assistance Supervision Ambulation Assistive Devices Rolling Walker Number of Feet Patient 1210' Ambulated Stairs Assistance Contact Guard Assist Stairs Recommended Devices Two Rails Number of Stairs 3 Occupational Therapy: Current Status Upper Body Dressing Supervision Upper Body Dressing Progress setupA Lower Body Dressing Contact Guard Assist,Min Assist Lower Body Dressing Progress min assist to hike pants 2* fatigue, CGA for balance in standing Bathing Contact Guard Assist,Min Assist Bathing Progress assist for lower legs/feet, CGA for balance in standing Toileting Contact Guard Assist Toileting Progress CGA for balance in standing Toilet Transfer Supervision,Contact Guard Assist Toilet Transfer Progress +OTC, gait belt, FWW Shower Transfer Contact Guard Assist Shower Transfer Progress SPT w/c to/from shower bench +grab bar/gait belt Eating Independent Rec Therapy: Current Status Summary of Assessment and RT assessment complete and pt. is aware of Clinical Impression services. Pt. has visitors during RT time but is open to visits. Treatment Goals Pt. will engage in leisure activities while on the unit. Treatment Plan Provide RT services and encourage involvement. Social Work: Current Status Discharge Plan return home with home care svs and family support Potential for Family Training pt's is attentive and involved Anticipated Discharge Home Destination Discharge With home care svs and family support Nutrition: Current Status Monitoring appetite continues to fluctuate; avg intake approx 60% of meals. Adequate to meet est needs and allow for some wt control (BMI 41). Glucerna Shakes offered, but pt is not wanting them anymore , so d/c'd. Day for IV abx; having daily BMs, some loose (and somtimes incontinent). FS controlled 112-132. Goals: Physical Therapy: Initial Goals Bed Mobility Assistance Independent Transfer Mobility Assistance Independent Transfer/Bed Mobility Rolling Walker Recommended Devices Ambulation Independent Ambulation Recommended Devices Rolling Walker Ambulation Distance 125 Stair Recommended Devices One Rail,Two Rails Number of Stairs 3 Home Exercise Program Not Tested Assistance Physical Therapy: Updated Goals Bed Mobility Assistance Independent Transfer Mobility Assistance Independent Transfer/Bed Mobility Rolling Walker,Railings Recommended Devices Ambulation Assistance Independent Ambulation Assistive Devices Rolling Walker Ambulation Distance (ft) 125 Stairs Assistance Independent Stairs Recommended Devices One Rail,Two Rails Number of Stairs 3 Home Exercise Program Independent Assistance Occupational Therapy: Initial Goals Goals to be Completed in (Days 7-14 ) Upper Body Bathing Routine Independent Lower Body Bathing Routine Modified Independent with Upper Body Dressing Routine Independent Lower Body Dressing Routine Modified Independent with Toilet Hygeine and Clothing Modified Independent with Management Routine Toilet Transfer Routine Modified Independent with Tub Transfer Routine Modified Independent with Functional Transfers for ADL Modified Independent with Grooming Routine Independent Feeding Routine Modified Independent with Nursing: Goals Bladder Goal independent Bowel Goal independent Nutrition Goal 100% of all meals eaten Medication Goal independent Nutrition: Goals Intervention Goals 1. Intake will remain adequate to meet needs to preserve lean body mass 2. BG will be adequately controlled without s/sx hypo- or hyperglycemia 3. Pt will maintain regular bowel pattern Social Work: Goals Discharge Plan return home with home care svs and family support Potential for Family Training pt's is attentive and involved Anticipated Discharge Home Destination Discharge With home care svs and family support Care Plan: Care Plan ADL's - Improve/Maintain Start: 08/10/17 18:40 Freq: DAILY Status: Active Target: Activity Type Activity Date Activity User E-Sign Co-Sign Detail Recorded Client Recorded Date Recorded By Document 08/18/17 14:44 [id number] 08/18/17 14:44 [id number] 08/18/17 14:44 PMRU Outcome: ADL's/ADL Transfers Orders/Interventions Occupational Therapy Evaluation & Treatment Communication Tool in Patient Room Device Yes Address Deficits Secondary To: critical care myopathy Patient to receive OT 5x/wk for 60-120 Therex min/day Self Care Management Group Therapy UE/LE ADL's with Assist Yes: May ADL Transfers with Assist Yes: May Toileting: Transfers,Clothing Management Yes: May ,Hygeine w/Assist Light Kitchen/Laundry w/Assist No Progression Toward Outcome/Goals Progressing Outcome/Goals Met Pt continues to require pacing of activities 2* fatigue, but slowly improving. Cardiovascular- Improve/Maintain Start: 08/10/17 18:40 Freq: DAILY Status: Active Target: Activity Type Activity Date Activity User E-Sign Co-Sign Detail Recorded Client Recorded Date Recorded By Document 08/19/17 07:41 [id number] 08/19/17 07:42 [id number] 08/19/17 07:41 PMRU Outcome: Cardiovascular Vital Signs q Shift for 48hrs Then BID Yes Daily Weight Ordered No Current Cardiovascular Outcome/Goal Maintain/ Achieve Baseline HR, BP , Perfusion Improve HR Within Prescribed Parameters Maintain/ Improve Perfusion Maintain/ Achieve Hemodynamic Stability Progression Toward Outcome/Goal Progressing Outcome/Goals Met Comment compliant with cardiac meds DVT Prophylaxis- Improve/Maintain Start: 08/10/17 18:40 Freq: DAILY Status: Active Target: Activity Type Activity Date Activity User E-Sign Co-Sign Detail Recorded Client Recorded Date Recorded By Document 08/19/17 07:41 [id number] 08/19/17 07:42 [id number] 08/19/17 07:41 PMRU Outcome: DVT Prophylaxis Outcome/Goals Remains Free of DVT Complies with DVT Prophylaxis /Treatment Demonstrates Knowledge of DVT Prevention/ Treatment TEDS Stockings on Every AM, Off at HS Progression Toward Outcome/Goals Progressing Outcome/Goals Met Complies with DVT Prophylaxis /Treatment Outcome/Goals Met Comment wolf wraps bilaterally Discharge Planning - Improve/Maintain Start: 08/10/17 18:40 Freq: DAILY Status: Active Target: Activity Type Activity Date Activity User E-Sign Co-Sign Detail Recorded Client Recorded Date Recorded By Document 08/19/17 02:53 [id number] 08/19/17 02:53 [id number] 08/19/17 02:53 PMRU Outcome: Discharge Planning Identify Patient Needs yes Update Patient Family No Outcome/Goals Demonstrates Understanding of Discharge Plan Progression Toward Outcome/Goals Progressing /GI-Improve/Maintain Start: 08/10/17 18:40 Freq: DAILY Status: Active Target: Activity Type Activity Date Activity User E-Sign Co-Sign Detail Recorded Client Recorded Date Recorded By Document 08/19/17 07:41 [id number] [email or web address] 08/19/17 07:42 [id number] 08/19/17 07:41 PMRU Outcome: Genitourinary/ Gastrointestinal Genitourinary- Outcome/Goals Maintain/ Achieve Urinary Continence Maintain/ Achieve Adequate Urinary Output Remain Free of Hospital- Acquired UTI Gastrointestinal-Outcome/Goals Maintain/ Achieve Bowel Regularity in Accordance with Pt's Baseline Remain Free of Emesis Bowel Program Progression Toward Outcome/Goals - Not Progressing Progression Toward Outcome/Goals - GI Progressing Metabolic Status- Improve/Maintain Start: 08/10/17 18:40 Freq: DAILY Status: Active Target: Activity Type Activity Date Activity User E-Sign Co-Sign Detail Recorded Client Recorded Date Recorded By Document 08/19/17 07:41 [id number] [email or web address]-C14 08/19/17 07:42 [id number] 08/19/17 07:41 PMRU Outcome: Metabolic Status Have Fingersticks Been Ordered Yes Fingerstick Order Frequency AC & HS Outcome/Goals Maintain/ Improve Metabolic Status Demonstrate Knowledge of Prevention/ Treatment of Metabolic Imbalances Progression Toward Outcome/Goals Progressing Mobility- Improve/Maintain Start: 08/10/17 18:40 Freq: DAILY Status: Active Target: Activity Type Activity Date Activity User E-Sign Co-Sign Detail Recorded Client Recorded Date Recorded By Document 08/18/17 12:12 [id number] 08/18/17 12:12 [id number] 08/18/17 12:12 PMRU Outcome: Mobility Physical Therapy Evaluation and Yes Treatment Activity OOB with Assistance Yes WBAT Yes Device Yes Assistance Yes Patient to be seen 5x/wk for 60-120 min/ Therex day for: Mobility Training Gait Training Outcome/Goals Maintain/ Achieve Baseline Mobility Status Improve Mobility Status Demonstrates Proper Use of Assistive Devices Progression Toward Outcome/Goals Progressing Bed Mobility Yes Transfers Yes Gait x ft Yes Up/Down Stairs Yes With HEP No Safety- Improve/Maintain Start: 08/10/17 18:40 Freq: DAILY Status: Active Target: Activity Type Activity Date Activity User E-Sign Co-Sign Detail Recorded Client Recorded Date Recorded By Document 08/19/17 07:41 [id number] [facility]-C14 08/19/17 07:42 [id number] 08/19/17 07:41 PMRU Outcome: Safety Outcome/Goals Remain Free of Injury or Harm Cooperates with Safety Measures for Least Restrictive Environment Prevent Falls/ Injury Progression Toward Outcome/Goals Progressing Outcome/Goals Met Cooperates with Safety Measures for Least Restrictive Environment Skin- Improve/Maintain Start: 08/10/17 18:40 Freq: DAILY Status: Active Target: Activity Type Activity Date Activity User E-Sign Co-Sign Detail Recorded Client Recorded Date Recorded By Document 08/19/17 07:41 [id number] 08/19/17 07:42 [id number] 08/19/17 07:41 PMRU Outcome: Skin Skin Risk Level Medium Skin Orders Air Mattress Turn/Position q2hr While in Bed Outcome/Goals Maintain/ Improve Skin Intergrity Outcome/Goals Comment rash to upper torso this am improved Progression Toward Outcome/Goals Progressing Medicine Note: Length of Stay: 1 week Anticipated Discharge Destination: Home Tentative Discharge Date: 08/26/17 Discharged to: Home
[2017-08-19] MEDS: Simethicone TAB* 80 MG TAB.CHEW PO PRN (17:54)
[2017-08-19 18:47] LABS: Hematocrit 26 % (35-47); Hemoglobin 8.7 g/dl (12.0-16.0); Mean Corpuscular HGB Conc 34 g/dl (31-36); Mean Corpuscular Hemoglobin 30 pg (27-31); Mean Corpuscular Volume 89 fL (80-97); Mean Platelet Volume 7 um3 (7.4-10.4); Red Blood Count 2.94 10^6/ul (4.0-5.4); Red Cell Distribution Width 16 % (10.5-15); White Blood Count 7.4 10^3/ul (3.5-10.8)
[2017-08-19 19:03] LABS: BUN/Creatinine Ratio 22.4 (8-20); Calcium 8.3 mg/dL (8.6-10.3); EGFR African American 71.9 (>60); EGFR Non-African American 55.9 (>60); Potassium 3.5 mmol/L (3.5-5.0)
[2017-08-19] MEDS: CMC:Escitalopram (NF) 10 MG TAB PO SCH (21:25)
[2017-08-20] MEDS: Omeprazole CAP* 20 MG PO SCH (06:00)
[2017-08-20] MEDS: Heparin VIAL(*) 5000 UNITS/ML VIAL (FIVE THOUSAND) SUBCUT SCH ×3 (06:04→20:55)
[2017-08-20 06:30] LABS: Hematocrit 26 % (35-47); Hemoglobin 8.6 g/dl (12.0-16.0); Mean Corpuscular HGB Conc 33 g/dl (31-36); Mean Corpuscular Hemoglobin 29 pg (27-31); Mean Corpuscular Volume 88 fL (80-97); Mean Platelet Volume 7 um3 (7.4-10.4); Red Blood Count 2.92 10^6/ul (4.0-5.4); Red Cell Distribution Width 16 % (10.5-15); White Blood Count 7.6 10^3/ul (3.5-10.8)
[2017-08-20] MEDS: Insulin LISPRO* 1 UNITS UNIT SUBCUT SCH ×4 (08:01→20:54)
[2017-08-20] MEDS: Aspirin EC Low Dose* 81 MG TAB.EC PO SCH (09:14)
[2017-08-20] MEDS: metroNIDAZOLE TAB* 250 MG PO SCH ×2 (09:14→20:01)
[2017-08-20] MEDS: Lactobacillus Acidophilu (GG)* 1 CAP CAP PO SCH ×2 (09:14→20:48)
[2017-08-20] MEDS: Losartan TAB* 25 MG PO SCH (09:14)
[2017-08-20] MEDS: Metoprolol Tartrate TAB* 50 mg PO SCH ×2 (09:14→20:48)
[2017-08-20] MEDS: Furosemide TAB* 20 MG PO SCH (09:14)
[2017-08-20] MEDS: Hydrocortisone 1% CREAM* 30 GM TUBE TOPICAL SCH ×3 (09:16→20:48)
[2017-08-20] MEDS: Insulin GLARGINE(*) 1 UNITS UNIT SUBCUT SCH (09:17)
[2017-08-20] MEDS: cefTRIAXone(*) 2 GM in NS 0.9% 100 ML* 100 ML IVPB SCH (09:17)
[2017-08-20] MEDS: Potassium Chlor TAB* 20 MEQ TAB.ER PO SCH (12:16)
[2017-08-20] MEDS: Loperamide CAP* 2 MG PO PRN (19:12)
[2017-08-20] MEDS: CMC:Escitalopram (NF) 10 MG TAB PO SCH (20:48)
[2017-08-21] MEDS: Heparin VIAL(*) 5000 UNITS/ML VIAL (FIVE THOUSAND) SUBCUT SCH ×2 (05:08→12:21)
[2017-08-21] MEDS: Omeprazole CAP* 20 MG PO SCH (05:10)
[2017-08-21] MEDS: Insulin LISPRO* 1 UNITS UNIT SUBCUT SCH ×4 (07:37→22:16)
[2017-08-21] MEDS: Aspirin EC Low Dose* 81 MG TAB.EC PO SCH (08:05)
[2017-08-21] MEDS: Losartan TAB* 25 MG PO SCH (08:05)
[2017-08-21] MEDS: Furosemide TAB* 20 MG PO SCH (08:05)
[2017-08-21] MEDS: Lactobacillus Acidophilu (GG)* 1 CAP CAP PO SCH ×2 (08:05→22:09)
[2017-08-21] MEDS: Metoprolol Tartrate TAB* 50 mg PO SCH ×2 (08:06→21:01)
[2017-08-21] MEDS: Insulin GLARGINE(*) 1 UNITS UNIT SUBCUT SCH (08:09)
[2017-08-21] MEDS: cefTRIAXone(*) 2 GM in NS 0.9% 100 ML* 100 ML IVPB SCH (08:11)
[2017-08-21] MEDS: Hydrocortisone 1% CREAM* 30 GM TUBE TOPICAL SCH ×3 (08:14→22:15)
[2017-08-21] MEDS: metroNIDAZOLE TAB* 250 MG PO SCH ×2 (08:14→22:10)
[2017-08-21] MEDS: Potassium Chlor TAB* 20 MEQ TAB.ER PO SCH (12:19)
[2017-08-21] MEDS: Loperamide CAP* 2 MG PO PRN (16:14)
[2017-08-21] MEDS: Simethicone TAB* 80 MG TAB.CHEW PO PRN (19:49)
[2017-08-21] MEDS ORDERED: Enoxaparin(*) 80 MG/0.8 ML SYR SUBCUT SCH (22:00)
[2017-08-21] MEDS ORDERED: Rivaroxaban TAB(*) 20 MG TAB PO SCH (23:00)
[2017-08-21] MEDS: CMC:Escitalopram (NF) 10 MG TAB PO SCH (23:25)
--- NOTE | 2017-08-22 00:21 | CONS ---
CC: Dr. Garcia* MEDICAL CONSULTATION: DATE OF CONSULT: 08/21/2017. PRIMARY CARE PROVIDER: Not listed. REQUESTING PROVIDER: Dr. Jose Garcia. CONSULTING PROVIDER: ERENDIRA Longoria SUPERVISING PHYSICIAN: Dr. Cayden Moore. CHIEF COMPLAINT: Palpitations with rapid AFib. HISTORY OF PRESENT ILLNESS: This is a 72-year-old female, who is currently in our inpatient rehab unit recovering from a liver abscess and strep bacteremia, who the hospitalist group was asked to evaluate this evening due to complaints of palpitations and rapid atrial fibrillation that was seen on EKG. At the time of evaluation, the patient states that her palpitations have resolved and she denies any complaints of chest pain, shortness of breath, abdominal pain, nausea, or vomiting. The patient noted that she started feeling a few palpitations at dinner. She denied any chest pain or shortness of breath at that time. She had a similar sensation a couple of days ago and her symptoms resolved spontaneously. This evening, her palpitations lasted approximately 30 minutes and on EKG, atrial fibrillation with a rate of 180 beats per minute was captured. The patient has not run any recent fevers. She denies any worsening abdominal pain, nausea, or vomiting. She has had frequent bouts of diarrhea ever since her acute illness has started and is being diuresed with Lasix and is still very much fluid positive after her ICU stay. She states that her strength has been improving and her ambulatory status is improving on a daily basis. She denies any other acute complaints. The patient did experience paroxysmal atrial fibrillation during her recent hospitalization, this was in the setting of sepsis and she spontaneously converted back to a sinus rhythm and remained in sinus the remainder of her hospital stay. Anticoagulation was not recommended at that time as she was acutely ill and spontaneously converted. PAST MEDICAL HISTORY: 1. Insulin-dependent diabetes. 2. Lupus. 3. Recent hospitalization for a liver abscess and strep septicemia. 4. Paroxysmal atrial fibrillation in the setting of sepsis. CURRENT MEDICATIONS: 1. Acetaminophen 650 mg p.o. q.6 hours as needed for pain or fever. 2. Aspirin 81 mg p.o. daily. 3. Ceftriaxone 2 g q.24 hours. 4. Diphenhydramine 25 mg p.o. q.6 hours as needed for itching. 5. Colace 100 mg p.o. twice daily as needed for constipation. 6. Lexapro 10 mg p.o. at bedtime. 7. Lasix 40 mg p.o. daily. 8. Hydrocortisone cream 1% applied topically 3 times daily. 9. Ibuprofen 400 mg p.o. q.8 hours as needed for pain. 10. Lantus 34 units subcu daily. 11. Humalog on a sliding scale with meal time as needed for hyperglycemia. 12. Lactobacillus 1 capsule p.o. twice daily. 13. Imodium 2 mg p.o. daily as needed for diarrhea. 14. Losartan 100 mg p.o. daily. 15. Metoprolol 50 mg p.o. twice daily. 16. Flagyl 500 mg p.o. twice daily. 17. Omeprazole 20 mg p.o. daily. 18. Potassium chloride 20 mEq p.o. daily. 19. Senna 2 tablets p.o. at bedtime as needed for constipation. 20. Simethicone 80 mg p.o. q.4 hours as needed for indigestion. SOCIAL HISTORY: The patient has no history of smoking, no regular alcohol consumption. 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 REVIEW OF SYSTEMS: As listed above in the HPI. All other systems reviewed and otherwise negative. PHYSICAL EXAM: Vitals from 8 o'clock this evening showed a heart rate of 112 beats per minute, manual heart rate check was at 124; respiratory rate of 18; oxygen saturation 98% on room air; blood pressure 131/70 mmHg. Repeat vitals from 10:30 this evening shows a pulse of 88 beats per minute, respiratory rate 22, oxygen saturation 99% on room air, and a blood pressure of 127/58 mmHg. General: This is a pleasant, obese female lying in her hospital bed, in no acute distress. She is able to provide an accurate history. HEENT: Head is normocephalic, atraumatic. Mucous membranes are pink and moist. Cardiovascular : Heart has a regular rate and rhythm without murmurs, rubs, or gallops. Respiratory: Lungs are clear to auscultation without wheezes, crackles, or rhonchi. Abdomen: Abdomen is soft and nontender to palpation. Extremities: The patient has 2 to 3+ pitting edema at her feet and lower legs bilaterally. DIAGNOSTIC STUDIES/LAB DATA: Recent labs: CBC from 08/20/17 shows a white blood cell count of 7600, hemoglobin of 8.6 g/dL, and a platelet count of 491, 000. Basic metabolic panel from 08/19/17 shows a sodium of 137, potassium 3.5 mmol/L , serum bicarb of 26, BUN 22, creatinine of 0.98, and random glucose of 132 mg/ dL. Imaging: EKG shows atrial fibrillation with a rate of about 180 beats per minute. ASSESSMENT AND PLAN: This is a 72-year-old female and a current patient of [facility] recovering from hospitalization for a liver abscess and streptococcus septicemia with paroxysmal atrial fibrillation, who experienced palpitations this evening, was noted to be in rapid atrial fibrillation. Hospitalist group has been asked to evaluate. 1. Rapid atrial fibrillation - based on physical exam, the patient seems to have spontaneously converted. I will plan to repeat an EKG at this point to confirm that she is back to a sinus rhythm, but she gives a history of similar symptoms a couple of days ago. She has no signs of other acute illness that would potentially increase the likelihood of her reentering atrial fibrillation and due to the recurrent nature of this anticoagulation, it is recommended at this time. Discussed risks and benefits of various anticoagulant medications and the patient decided to start the Xarelto. We will plan to repeat labs at this time including a basic metabolic panel and magnesium. She is being diuresed with Lasix and also reports frequent diarrhea and hypokalemia or hypomagnesemia may be contributing to her atrial fibrillation. We will also increase her metoprolol to 100 mg twice a day for additional AV block in hopes of preventing further rapid rate from occurring. The patient is agreeable with this plan. 2. Insulin-dependent diabetes. 3. Lupus. 4. Streptococcus septicemia with liver abscess. 5. Morbid obesity with a BMI of 44. 6. Edema. 7. Code status. The patient is a full code. 8. DVT prophylaxis. As mentioned above, she will be started on Xarelto. DISPOSITION: Hospitalist group will plan to follow up with this patient tomorrow and on an as needed basis. There is no need for transfer at this time. ERENDIRA LONGORIA [id number]/[facility] #: [id number] [facility]ENTER[facility]ain
[2017-08-22 00:32] LABS: BUN/Creatinine Ratio 22.2 (8-20); EGFR African American 79.4 (>60); EGFR Non-African American 61.7 (>60); Magnesium 1.4 mg/dL (1.9-2.7); Potassium 3.5 mmol/L (3.5-5.0)
[2017-08-22] MEDS ORDERED: Potassium Chlor TAB* 20 MEQ TAB.ER PO ONE (01:09)
[2017-08-22] MEDS ORDERED: Magnesium Sulfate IV* 3 GM in NS 0.9% 100 ML* 100 ML IVPB ONE (01:10)
[2017-08-22] MEDS: Omeprazole CAP* 20 MG PO SCH (05:26)
[2017-08-22 06:43] LABS: BUN/Creatinine Ratio 22.4 (8-20); Calcium 8.1 mg/dL (8.6-10.3); EGFR African American 84.8 (>60); EGFR Non-African American 65.9 (>60); Magnesium 1.9 mg/dL (1.9-2.7); Potassium 3.8 mmol/L (3.5-5.0)
[2017-08-22] MEDS: Insulin LISPRO* 1 UNITS UNIT SUBCUT SCH ×4 (08:15→20:30)
[2017-08-22] MEDS: cefTRIAXone(*) 2 GM in NS 0.9% 100 ML* 100 ML IVPB SCH (08:27)
[2017-08-22] MEDS: Aspirin EC Low Dose* 81 MG TAB.EC PO SCH (08:44)
[2017-08-22] MEDS: Potassium Chlor TAB* 20 MEQ TAB.ER PO SCH (08:44)
[2017-08-22] MEDS: Lactobacillus Acidophilu (GG)* 1 CAP CAP PO SCH ×2 (08:44→21:31)
[2017-08-22] MEDS: Furosemide TAB* 20 MG PO SCH (08:44)
[2017-08-22] MEDS: Losartan TAB* 25 MG PO SCH (08:45)
[2017-08-22] MEDS: Metoprolol Tartrate TAB* 100 MG TAB PO SCH ×2 (08:45→21:30)
[2017-08-22] MEDS: Insulin GLARGINE(*) 1 UNITS UNIT SUBCUT SCH (08:48)
[2017-08-22] MEDS: metroNIDAZOLE TAB* 250 MG PO SCH ×2 (08:52→21:28)
[2017-08-22] MEDS: Hydrocortisone 1% CREAM* 30 GM TUBE TOPICAL SCH ×3 (10:15→21:32)
[2017-08-22] MEDS: Loperamide CAP* 2 MG PO PRN (16:35)
--- NOTE | 2017-08-22 16:59 | PN ---
Hospitalist Progress Note HOSPITALIST BRIEF FOLLOW-UP. Patient has been in regular rhythm today and electrolytes repleted. Plan: Maintain KCl > 4.0 and Mg > 2.0. Continue Xarelto; Hospitalists will sign off; Please call with further questions. Crys Martinez NP
[2017-08-22] MEDS: CMC:Escitalopram (NF) 10 MG TAB PO SCH (21:30)
[2017-08-22] MEDS: Simethicone TAB* 80 MG TAB.CHEW PO PRN (21:30)
[2017-08-22] MEDS: Rivaroxaban TAB(*) 20 MG TAB PO SCH (21:30)
[2017-08-23] MEDS: Omeprazole CAP* 20 MG PO SCH (06:29)
[2017-08-23] MEDS: metroNIDAZOLE TAB* 250 MG PO SCH ×2 (07:50→21:31)
[2017-08-23] MEDS: Furosemide TAB* 20 MG PO SCH (08:19)
[2017-08-23] MEDS: Losartan TAB* 25 MG PO SCH (08:19)
[2017-08-23] MEDS: Metoprolol Tartrate TAB* 100 MG TAB PO SCH ×2 (08:19→21:33)
[2017-08-23] MEDS: Aspirin EC Low Dose* 81 MG TAB.EC PO SCH (08:19)
[2017-08-23] MEDS: Potassium Chlor TAB* 20 MEQ TAB.ER PO SCH (08:20)
[2017-08-23] MEDS: Lactobacillus Acidophilu (GG)* 1 CAP CAP PO SCH ×2 (08:21→21:33)
[2017-08-23] MEDS: Insulin LISPRO* 1 UNITS UNIT SUBCUT SCH ×4 (08:22→22:18)
[2017-08-23] MEDS: Insulin GLARGINE(*) 1 UNITS UNIT SUBCUT SCH (08:23)
[2017-08-23] MEDS: cefTRIAXone(*) 2 GM in NS 0.9% 100 ML* 100 ML IVPB SCH (08:34)
[2017-08-23] MEDS: Loperamide CAP* 2 MG PO PRN (09:40)
[2017-08-23] MEDS: Hydrocortisone 1% CREAM* 30 GM TUBE TOPICAL SCH ×3 (10:57→21:35)
[2017-08-23] MEDS: CMC:Escitalopram (NF) 10 MG TAB PO SCH (21:33)
[2017-08-23] MEDS: Rivaroxaban TAB(*) 20 MG TAB PO SCH (21:33)
[2017-08-24] MEDS: Loperamide CAP* 2 MG PO PRN ×3 (02:07→10:11)
[2017-08-24] MEDS: Omeprazole CAP* 20 MG PO SCH (05:55)
[2017-08-24] MEDS: Insulin LISPRO* 1 UNITS UNIT SUBCUT SCH ×4 (07:33→21:06)
[2017-08-24] MEDS ORDERED: Insulin GLARGINE(*) 1 UNITS UNIT SUBCUT SCH (09:00)
[2017-08-24] MEDS: cefTRIAXone(*) 2 GM in NS 0.9% 100 ML* 100 ML IVPB SCH (09:19)
[2017-08-24] MEDS: Potassium Chlor TAB* 20 MEQ TAB.ER PO SCH (09:21)
[2017-08-24] MEDS: Aspirin EC Low Dose* 81 MG TAB.EC PO SCH (09:22)
[2017-08-24] MEDS: Furosemide TAB* 20 MG PO SCH (09:22)
[2017-08-24] MEDS: Metoprolol Tartrate TAB* 100 MG TAB PO SCH ×2 (09:22→20:26)
[2017-08-24] MEDS: Losartan TAB* 25 MG PO SCH (09:22)
[2017-08-24] MEDS: Lactobacillus Acidophilu (GG)* 1 CAP CAP PO SCH ×2 (09:23→20:26)
[2017-08-24] MEDS: metroNIDAZOLE TAB* 250 MG PO SCH ×2 (09:23→21:04)
[2017-08-24] MEDS: Hydrocortisone 1% CREAM* 30 GM TUBE TOPICAL SCH ×3 (10:16→21:04)
[2017-08-24] MEDS: Rivaroxaban TAB(*) 20 MG TAB PO SCH (20:26)
[2017-08-24] MEDS: CMC:Escitalopram (NF) 10 MG TAB PO SCH (20:26)
[2017-08-24] MEDS: Acetaminophen TAB* 325 MG PO PRN (20:26)
[2017-08-25] MEDS: Loperamide CAP* 2 MG PO PRN ×4 (01:21→23:32)
[2017-08-25] MEDS: Omeprazole CAP* 20 MG PO SCH (06:17)
[2017-08-25 06:42] LABS: Hematocrit 28 % (35-47); Hemoglobin 9.2 g/dl (12.0-16.0); Mean Corpuscular HGB Conc 33 g/dl (31-36); Mean Corpuscular Hemoglobin 30 pg (27-31); Mean Corpuscular Volume 88 fL (80-97); Mean Platelet Volume 6 um3 (7.4-10.4); Red Blood Count 3.12 10^6/ul (4.0-5.4); Red Cell Distribution Width 16 % (10.5-15); White Blood Count 16.3 10^3/ul (3.5-10.8)
[2017-08-25 06:58] LABS: BUN/Creatinine Ratio 22.2 (8-20); Calcium 8.4 mg/dL (8.6-10.3); EGFR African American 64.3 (>60); Globulin 3.8 g/dL (2-4); Potassium 4.3 mmol/L (3.5-5.0); Total Bilirubin 0.6 mg/dL (0.2-1.0); Total Protein 5.8 g/dL (6.4-8.9)
[2017-08-25] MEDS: cefTRIAXone(*) 2 GM in NS 0.9% 100 ML* 100 ML IVPB SCH (08:10)
[2017-08-25] MEDS: Insulin LISPRO* 1 UNITS UNIT SUBCUT SCH ×4 (08:29→21:23)
[2017-08-25] MEDS: Insulin GLARGINE(*) 1 UNITS UNIT SUBCUT SCH (08:31)
[2017-08-25] MEDS: Hydrocortisone 1% CREAM* 30 GM TUBE TOPICAL SCH ×3 (09:00→21:22)
[2017-08-25] MEDS ORDERED: Metoprolol Tartrate TAB* 50 mg PO ONE (09:00)
[2017-08-25] MEDS: Losartan TAB* 25 MG PO SCH (09:28)
[2017-08-25] MEDS: Metoprolol Tartrate TAB* 100 MG TAB PO SCH ×2 (09:28→21:23)
[2017-08-25] MEDS: Furosemide TAB* 20 MG PO SCH (12:21)
[2017-08-25] MEDS: Aspirin EC Low Dose* 81 MG TAB.EC PO SCH (12:21)
[2017-08-25] MEDS: Lactobacillus Acidophilu (GG)* 1 CAP CAP PO SCH ×2 (12:21→21:23)
[2017-08-25] MEDS: metFORMIN* 500 MG TAB PO SCH ×2 (12:22→17:53)
[2017-08-25] MEDS: Potassium Chlor TAB* 20 MEQ TAB.ER PO SCH (12:22)
--- NOTE | 2017-08-25 12:22 | PN ---
Progress Note - Progress Note Date of Service: 08/25/17 SOAP: Subjective: CC: leukocytosis HPI: 72 year old woman with liver abscess s/p IR drain, on IV abx. Afib with RVR overnight. Sweats no chills or fever. Using imodium, soft stools. No cough, abd pain, dysuria or frequency, no problems with PICC. RLQ pain relieved with bowel movement. Objective: [] Vital Signs Temp 36.7 C 08/25/17 09:49 Pulse 161 08/25/17 09:49 Resp 18 08/25/17 09:49 BP 112/59 08/25/17 09:49 Pulse Ox 98 08/25/17 09:49 Intake & Output 08/24/17 08/25/17 08/25/17 18:59 06:59 18:59 Intake Total 440 240 Output Total 1 Balance 440 -1 240 Weight 245 lb 12.8 oz Intake: Oral 440 240 Output: # Incontinent Voids 1 Other: Estimated Void Medium Medium Medium # Bowel Movements 1 1 Estimated Stool Amount Medium Medium Small # Voids 1 1 Gen:awake, no distress HEENT:PERRL, MMM Neck:Supple Heart:RRR no murmur Lungs:CTA BL Abd:decr BS NTND soft, no RLQ tenderness Skin: No rash MSK: no spine tenderness; RUE PICC Laboratory Results - last 24 hr 08/24/17 08/24/17 08/25/17 16:24 20:16 06:25 WBC 16.3 H RBC 3.12 L Hgb 9.2 L Hct 28 L MCV 88 MCH 30 MCHC 33 RDW 16 H Plt Count 637 H D MPV 6 L Neut % (Auto) 75.0 Lymph % (Auto) 14.2 L Nelson % (Auto) 9.3 H Eos % (Auto) 1.0 Baso % (Auto) 0.5 Absolute Neuts (auto) 12.2 H Absolute Lymphs (auto) 2.3 Absolute Monos (auto) 1.5 H Absolute Eos (auto) 0.2 Absolute Basos (auto) 0.1 Absolute Nucleated RBC 0.01 Nucleated RBC % 0 Sodium Potassium Chloride Carbon Dioxide Anion Gap BUN Creatinine Est GFR ( Amer) Est GFR (Non-Af Amer) BUN/Creatinine Ratio Glucose POC Glucose (mg/dL) 137 H 195 H Calcium Total Bilirubin AST ALT Alkaline Phosphatase Total Protein Albumin Globulin Albumin/Globulin Ratio 08/25/17 08/25/17 06:25 07:31 WBC RBC Hgb Hct MCV MCH MCHC RDW Plt Count MPV Neut % (Auto) Lymph % (Auto) Nelson % (Auto) Eos % (Auto) Baso % (Auto) Absolute Neuts (auto) Absolute Lymphs (auto) Absolute Monos (auto) Absolute Eos (auto) Absolute Basos (auto) Absolute Nucleated RBC Nucleated RBC % Sodium 136 Potassium 4.3 Chloride 102 Carbon Dioxide 28 Anion Gap 6 BUN 24 Creatinine 1.08 H Est GFR ( Amer) 64.3 Est GFR (Non-Af Amer) 50.0 BUN/Creatinine Ratio 22.2 H Glucose 139 H POC Glucose (mg/dL) 178 H Calcium 8.4 L Total Bilirubin 0.60 AST 24 ALT 11 Alkaline Phosphatase 375 H Total Protein 5.8 L Albumin 2.0 L Globulin 3.8 Albumin/Globulin Ratio 0.5 L Assessment: 1. Strep liver abscess 2. longterm abx 3. diabetes 4. PCN allergy 5. leukocytosis; w sweats 6. atrial fibrillation Plan: 1. ceftriaxone/flagyl day 2. BC, UC, CXR, KUB; follow symptoms and temp Discussed with Dr Garcia 35 minutes floor time>50% face to face in counseling regarding workup for sweats and malaise
[2017-08-25] MEDS: metroNIDAZOLE TAB* 250 MG PO SCH ×2 (12:23→21:23)
--- NOTE | 2017-08-25 14:53 | RAD ---
HISTORY: ELEVATED WHITE BLOOD CELL COUNT, COUGH COMPARISONS: NONE VIEWS: 4: FRONTAL DUAL-ENERGY AND LATERAL VIEWS OF THE CHEST. FINDINGS: CARDIOMEDIASTINAL SILHOUETTE: THE CARDIOMEDIASTINAL SILHOUETTE IS NORMAL. EMERSON: THE EMERSON ARE NORMAL. PLEURA: THE COSTOPHRENIC ANGLES ARE SHARP. NO PLEURAL ABNORMALITIES ARE NOTED. LUNG PARENCHYMA: THERE IS ELEVATION LEFT HEMIDIAPHRAGM. ABDOMEN: THE UPPER ABDOMEN IS CLEAR. THERE IS NO SUBPHRENIC GAS. BONES AND SOFT TISSUES: NO BONE OR SOFT TISSUE ABNORMALITIES ARE NOTED. OTHER: NONE. IMPRESSION: LIMITATION OF THE LEFT HEMIDIAPHRAGM. NO ACTIVE CARDIOPULMONARY DISEASE.
--- NOTE | 2017-08-25 14:59 | RAD ---
INDICATION: History of liver abscess. COMPARISON: CT August 01, 2017 TECHNIQUE: Erect and supine views of the abdomen are submitted. FINDINGS: Bones: There are no acute bony findings. Soft tissues: The psoas margins are not well delineated. Bowel gas pattern: There is an abnormal bowel gas pattern with a prominent gas in left upper quadrant. The location of this gas cannot be ascertained. This could be extraluminal. There is a paucity of gas within the visualized portions of the colon which is decompressed. There are several mildly prominent loops of small bowel with scattered air-fluid levels suggesting a partial obstructive process. CT imaging is recommended. Calcifications: There are no abnormal calcifications. Other: None IMPRESSION: ABNORMAL BOWEL GAS PATTERN. SUGGEST CT IMAGING. FINDINGS CALLED TO REFERRING CLINICIANS OFFICE AT 2:55 PM ON AUGUST 25, 2017.
[2017-08-25] MEDS ORDERED: Iodixanol* (CONTRAST) 320 MG/ML 100 ML SDV IV ONE (16:11)
--- NOTE | 2017-08-25 17:28 | RAD ---
CLINICAL HISTORY: Abdominal pain. Suspicion of free air on radiograph. COMPARISON: CT abdomen pelvis dated August 01, 2017 TECHNIQUE: Contrast enhanced CT examination of the abdomen and pelvis from the lung bases through the initial tuberosities. The patient received 127 mL Visipaque 320 intravenously prior to imaging.The patient received oral contrast as well prior to imaging. FINDINGS: VISUALIZED LUNG BASES: The visualized lung bases are grossly clear. There is no pleural effusion. ABDOMEN AND PELVIS: Within the liver there are 3 fluid density collections, one in the left lobe measuring 3.6 cm and 2 and the right measuring 2.7 and 1.8 cm in maximum dimension. There is varying degrees of hypoattenuation surrounding these fluid density collections in the liver. Along the lateral margin of the spleen there is fluid that appears to be contained within the splenic capsule exhibiting air-fluid levels. This extends inferiorly into a large peritoneal abscess containing air-fluid levels. At its maximum axial dimension this measures 13.6 x 23.5 cm. The pancreas and adrenal glands are grossly normal in appearance. The gallbladder is surgically absent. The kidneys are normal in appearance without focal mass, calcification or signs of hydronephrosis. The oral contrast has progressed as far as the transverse colon. There are air-fluid levels throughout the small bowel and colon. There is no gross retroperitoneal or mesenteric lymphadenopathy. The abdominal aorta and iliac arteries are normal in course and diameter. Degenerative changes include multilevel loss of intervertebral disc height involving the lower thoracic and lumbar spine.There are no sinister bone lesions. IMPRESSION: 1. Multifocal lesions in the liver are similar in appearance to the August 01, 2017 CT examination. 2. New since the prior CT examination is a peritoneal abscess that extends from the lateral margin of the spleen inferiorly into a large air-fluid collection in the peritoneal cavity. 3. Additional chronic and degenerative changes described in body the report.
[2017-08-25] MEDS: Rivaroxaban TAB(*) 20 MG TAB PO SCH (21:23)
[2017-08-25] MEDS: CMC:Escitalopram (NF) 10 MG TAB PO SCH (21:23)
[2017-08-26] MEDS: Omeprazole CAP* 20 MG PO SCH (05:22)
[2017-08-26 05:30] VITALS: BP 144/49
[2017-08-26 05:46] LABS: Budding Yeast Present (Absent); Urine Bacteria Absent (Absent); Urine Bilirubin Negative (Negative); Urine Glucose Negative (Negative); Urine Nitrite Negative (Negative)
[2017-08-26] MEDS: Insulin LISPRO* 1 UNITS UNIT SUBCUT SCH ×2 (07:29→12:08)
[2017-08-26] MEDS: cefTRIAXone(*) 2 GM in NS 0.9% 100 ML* 100 ML IVPB SCH (08:22)
[2017-08-26] MEDS: Hydrocortisone 1% CREAM* 30 GM TUBE TOPICAL SCH (08:22)
[2017-08-26] MEDS: Furosemide TAB* 20 MG PO SCH (08:23)
[2017-08-26] MEDS: metroNIDAZOLE TAB* 250 MG PO SCH (08:23)
[2017-08-26] MEDS: Metoprolol Tartrate TAB* 100 MG TAB PO SCH (08:23)
[2017-08-26] MEDS: metFORMIN* 500 MG TAB PO SCH (08:23)
[2017-08-26] MEDS: Potassium Chlor TAB* 20 MEQ TAB.ER PO SCH (08:23)
[2017-08-26] MEDS: Lactobacillus Acidophilu (GG)* 1 CAP CAP PO SCH (08:23)
[2017-08-26] MEDS: Aspirin EC Low Dose* 81 MG TAB.EC PO SCH (08:23)
[2017-08-26] MEDS ORDERED: Losartan TAB* 25 MG PO SCH (09:00)
[2017-08-26] MEDS: Insulin GLARGINE(*) 1 UNITS UNIT SUBCUT SCH (09:00)
[2017-08-26] MEDS ORDERED: Meropenem(*) 2 GM in NS 0.9% 100 ML* 100 ML IVPB SCH (14:00)
--- NOTE | 2017-08-30 00:45 | DS ---
DISCHARGE SUMMARY: DATE OF ADMISSION: 08/10/17 DATE OF DISCHARGE: 08/26/17 DISCHARGE DIAGNOSES: 1. Intraperitoneal abscess. 2. Hepatic abscess. 3. Lupus. 4. Diabetes mellitus. 5. Sepsis. 6. Hypertension. 7. Chronic kidney disease. 8. Volume overload. 9. Atrial fibrillation. HISTORY OF PRESENT ILLNESS AND HOSPITAL COURSE: For complete history of the events leading up to her rehab stay, please see the history and physical dictated by me on 08/10/17. While on the rehab unit, the patient was seen in follow up by Dr. Chip Rudolph from Infectious Disease services. She was continued on IV ceftriaxone and oral Flagyl. Her blood work appeared stable. The patient was noted to be anemic, but this seemed to be chronic. The patient was gently diuresed with oral Lasix. As she lost some of her fluid rate, the patient was gradually becoming more mobile. On 08/21/17 at 8 o'clock at night the patient felt clammy and her heart rate was irregular. An EKG was done, which showed atrial fibrillation with a rapid ventricular response. I ordered a dose of metoprolol to be given early. When I came into the hospital to see her at 8:50, she had converted back to normal sinus rhythm. I ordered Lovenox and asked the hospitalist to consult. The hospitalist changed her to Xarelto and increased her metoprolol dose. They also gave her 1 dose of IV magnesium. The patient's BUN and creatinine had normalized. She was started back on oral metformin for her diabetes. On the morning of 07/26/17, her white blood cell count was elevated to 16,000 on a routine blood draw. She was largely asymptomatic, but her abdomen was distended and somewhat tender. After consulting with her Infectious Disease doctor, we ordered an abdominal x-ray and a chest x-ray. The chest x-ray was benign, but the abdominal x-ray suggested there might be free air. It was suggested to get a CAT scan. The CAT scan of the spine was ordered and showed a large intraperitoneal abscess starting at the level of the spleen and then entering into the midline. It was recommended that the patient see Surgery and Interventional Radiology to see if the abscess could be drained. The patient was discharged to the acute medical service on August 26 to the hospitalist service, so that the medical workup could go on and the patient could be taken to Surgery as needed. Please note while on the rehab unit, the patient did receive physical therapy and occupational therapy gains. She was making gains with both disciplines and becoming more mobile. DISCHARGE DIET: Consistent carbohydrate. DISCHARGE MEDICATIONS: Included: 1. Aspirin 81 mg daily. 2. Lexapro 10 mg daily. 3. Lasix 40 mg daily. 4. Lantus insulin 20 units every 24 hours in the morning. 5. Lispro 0 to 10 units as needed before meals. 6. She was on Culturelle 1 capsule twice daily. 7. Imodium 2 mg every 4 hours as needed. 8. Cozaar 100 mg daily. 9. Lopressor 100 mg twice daily. 10. Omeprazole 20 mg daily. 11. Potassium chloride 40 mEq daily. 12. Xarelto 20 mg daily. 13. Mylicon 80 mg every 4 hours as needed. 14. Her metformin had just been resumed prior to her being discharged. The patient was transferred to the acute medical service under the care of Dr. Marquez. This case was discussed with Dr. Marquez. [id number]/[facility] #: [id number] [facility]ENTERIain
== END 2017-08-26 13:45 | disposition short-term general hospital (02) | DRG 91 ==
LOC: UNDOADMIN 16:38 → PMRU 16:38 → UNDOADMIN 08-10 13:05 → PMRU 08-10 15:18 → UNDODISIN 08-26 13:45
PROVIDERS: ADMIT Physical Medicine & Rehabilitation; ATTEND Physical Medicine & Rehabilitation
PROC: F07Z5ZZ Bed Mobility Treatment (ICD-10-PCS; principal; 2017-08-10)
PROC: F07Z8ZZ Transfer Training Treatment (ICD-10-PCS; 2017-08-10)
PROC: F07Z9ZZ Gait Training/Functional Ambulation Treatment (ICD-10-PCS; 2017-08-10)
PROC: F08Z0ZZ Bathing/Showering Techniques Treatment (ICD-10-PCS; 2017-08-10)
PROC: F08Z1ZZ Dressing Techniques Treatment (ICD-10-PCS; 2017-08-10)
PROC: F08Z3ZZ Feeding/Eating Treatment (ICD-10-PCS; 2017-08-10)
PROC: 02HV33Z Insertion of Infusion Device into Superior Vena Cava, Percutaneous Approach (ICD-10-PCS; 2017-08-10)
DX: G72.89 Other specified myopathies (principal); K75.0 Abscess of liver; B37.0 Candidal stomatitis; I48.91 Unspecified atrial fibrillation; E11.22 Type 2 diabetes mellitus with diabetic chronic kidney disease; K52.1 Toxic gastroenteritis and colitis; I12.9 Hypertensive chronic kidney disease with stage 1 through stage 4 chronic kidney disease, or unspecified chronic kidney disease; N18.9 Chronic kidney disease, unspecified; M10.9 Gout, unspecified; D72.829 Elevated white blood cell count, unspecified; R60.9 Edema, unspecified; T37.3X5A Adverse effect of other antiprotozoal drugs, initial encounter; Y92.239 Unspecified place in hospital as the place of occurrence of the external cause; X58.XXXA Exposure to other specified factors, initial encounter; L27.1 Localized skin eruption due to drugs and medicaments taken internally; Z88.0 Allergy status to penicillin; Z79.4 Long term (current) use of insulin; Z79.899 Other long term (current) drug therapy; Z79.84 Long term (current) use of oral hypoglycemic drugs; Z79.82 Long term (current) use of aspirin
CPT/HCPCS: 36415; 36600; 49406; 70450; 71020; 71250; 74020; 74177; 76705; 80048; 80053; 80076; 80202; 81003; 81015; 82009; 82105; 82330; 82803; 82947; 83036; 83605; 83735; 84100; 84145; 84443; 84484; 85025; 85027; 85610; 85730; 86140; 87040; 87070; 87077; 87086; 87102; 87106; 87186; 87205; 87640; 87641; 88112; 93005; 93306; 94760; A9270-GY; C1751; C8929; J0282; J0692; J0696; J0744; J1160; J1644; J1720; J1815; J1940; J2270; J3010; J3370; J3475; J3480; J3490; P9045; P9047; Q9967

== ENCOUNTER 2018-07-09 07:43 | Inpatient (IN) | payer MEDICARE, BC ==
--- NOTE | 2018-07-02 21:31 | HP ---
CC: Dr. Eliel Vu; Dr. Chip Rudolph * ADMISSION HISTORY AND PHYSICAL: DATE OF ADMISSION: 07/09/18 ATTENDING SURGEON: Dr. Roger Moeller.* (DICTATED BY ERENDIRA NEVAREZ) CHIEF COMPLAINT: Chronic draining abdominal wound. HISTORY OF PRESENT ILLNESS: This is a 73-year-old female with a somewhat complicated history. She was first admitted to [facility] in early July 2017, at which time she was treated with IV antibiotics for what appeared to be multiple liver abscesses. She then progressed to develop a large intraabdominal abscess and was taken to the OR on 08/28/[address] Moeller for drainage. Drainage tubes were left in place. She also underwent percutaneous drainage of a parasplenic collection by IR during that admission. She completed a course of IV antibiotics. Eventually, drainage tubes were removed and she states that the wounds had actually closed and healed. However, approximately 6 weeks later, she experienced significant drainage from the right side of her abdomen (from a former drainage tube site). Since that time, she has had intermittent and/or ongoing drainage of cloudy foul-smelling material. She generally denies pain or fevers, chills, though she does feel "fluish." She has had intervals where there has been no drainage, but within a week or 2, drainage will again commence. Her last course of antibiotics she finished in early May. She also complains of generalized anorexia and weakness , though she has regained the weight that she had lost during her hospital stay last year. She did have a CT scan in March and then a repeat scan more recently in May. The scan from March indicated a large left lower quadrant collection with air fluid level measuring 8 x 3 x 12 cm. In addition was a collection lateral to the spleen measuring 7.7 x 1.1 x 9.4 cm, which was in communication with the larger collection. Also, noted in the report was right lateral pelvic ostomy postsurgical changes. She has known diverticular disease, but no history of diverticulitis per se. She has been followed regularly by both her PCP (Dr. Vu) and Dr. Moeller. Most recently, she was seen by Dr. Moeller on . His exam at that time showed 2 openings in the right mid abdomen, each about a centimeter across with granulation tissue. He probed these, but was unable to find a direct communication into the abdominal cavity. She was nontender in the left abdomen. He had reviewed her most recent CT (from [facility] around 06/02/18) (that study is not immediately available to me). Dr. Moeller discussed with her his recommendations. She understands the indications for surgery, the risks, benefits, and alternatives and would like to proceed as scheduled with exploration of abdominal wound. The patient has never undergone colonoscopy and has refused recommendation for same. Plans also will potentially include interventional radiology drainage of parasplenic collection. PAST MEDICAL HISTORY: Type 2 diabetes, hypertension, hyperlipidemia, chronic kidney disease (her history includes anywhere from stage 2 to stage 4 kidney disease. She has lab work pending from today), gout, Raynaud's disease, lupus ( versus other connective tissue disorder). She did have atrial fibrillation during her last hospital stay, but this has apparently resolved and she is not currently under any anticoagulation. She has no history of inflammatory bowel disease. PAST SURGICAL HISTORY: Previous surgeries include the aforementioned laparotomy with drainage of intraabdominal abscess and repair of umbilical hernia. She has also undergone prior open cholecystectomy via upper midline incision and tubal ligation. CURRENT MEDICATIONS: 1. Metoprolol succinate 50 mg once daily. 2. Metformin 500 mg b.i.d. 3. Lantus 5 units subcutaneously q.p.m. 4. Omeprazole 20 mg q. day. 5. Januvia 50 mg once daily. 6. Losartan 100 mg once daily. 7. Lexapro 100 mg once daily. 8. Fenofibrate 160 mg once daily. 9. Aleve 2 tablets once daily. 10. CoQ10 of 100 mg once daily. 11. Multivitamin once daily. DRUG ALLERGIES: PENICILLIN (rash and swelling) (she has tolerated cephalosporins and meropenem), FLAGYL (diarrhea), TAPE (local reaction; she prefers microderm tape). FAMILY HISTORY: Noncontributory in terms of anesthesia problems, bleeding, or clotting disorders. SOCIAL HISTORY: The patient is . She is a retired RN. She denies use of tobacco, alcohol, or other recreational drugs. REVIEW OF SYSTEMS: General: No recent constitutional symptoms or other acute illnesses other than described in the HPI. Eyes, Ears, Nose, Throat: No recent problems reported. Cardiovascular: No chest pain, palpitations, history of PA or angina. Respiratory: No history of asthma, chronic cough, or shortness of breath. GI: As above per HPI. She states that stools have been normal of late. : No problems reported. MILK PICKUP DRIVER: Her last pelvic exam and Pap smear were approximately 3 years ago and normal by report with no further recommended screening. Breast exam and mammogram have been within the last 1 to 2 years and normal by her report. Endocrine: No thyroid dysfunction. Her fingersticks typically run well below 150 and her most recent A1c was 6.2. Neuro/Psych: She takes Lexapro primarily for anxiety and anger management. PHYSICAL EXAMINATION GENERAL: Well-nourished, obese female, in no acute distress. VITAL SIGNS: Height 65 inches, weight 200 pounds. Temperature 96.9, blood pressure 152/80, pulse 92, respirations 16. HEENT: Pupils equal and round, reactive. EOMs intact. Conjunctivae, mild pallor. Oropharynx: No intraoral lesions. Mucous membranes are moist. Teeth in fairly good repair. NECK: No thyromegaly or masses. She does have some asymmetry of the heads of the clavicles bilaterally, but she states that this is a chronic finding. LUNGS: Clear to auscultation. No rales or wheezes. HEART: Regular rate and rhythm. No murmur appreciated. BREASTS: Not examined. ABDOMEN: Well-healed midline incision. She has a dressing placed over the right- sided draining wounds as described by Dr. Moeller. Abdomen is soft without significant tenderness. No palpable masses or organomegaly, though exam is limited. GENITALIA: Not done. RECTAL: Not done. BACK: No spinous process or CVA tenderness. EXTREMITIES: She does have some swelling of the right lower extremity versus the left. No tenderness. No pitting edema. She states that the swelling is chronic and unchanged. NEUROLOGICAL: Grossly intact. SKIN: Warm and dry. No suspicious rashes or lesions noted other than the draining wounds in the right abdomen. IMPRESSION: Chronic draining abdominal wound. PLAN: Exploration of abdominal wound. ERENDIRA NEVAREZ [id number]/[facility] #: [id number] [facility]PITALIain
[~2018-07-09 07:43] MED LIST: Buffered Lidocaine 0.9% SYRIN* 5 ML/SYR SYRINGE INTRADERM ONE; DiMENhydriNATE IV* 50 MG/ML VIAL IV PUSH ONE; DiMENhydriNATE IV* 50 MG/ML VIAL IV PUSH PRN; Famotidine IV* 10 MG/ML 2 ML (20 mg) IV ONE; Gentamicin ADULT (*) 300 MG in NS 0.9% 250 ML* 250 ML IVPB ONE; Morphine INJ* 2 MG/ML 1 ML SYRINGE (TWO MG - NEW SYRINGE VERSION) IV PRN; Naloxone* 0.4 MG/ML 1 ML VIAL IV PRN; Ondansetron TAB* 4 MG PO ONE; PROCHLORPERAZINE INJ 5 MG/ML 2 ML VIAL IV PRN; fentaNYL* 50 MCG/ML 2 ML VIAL (100 MCG VIAL) IV PRN; oxyCODONE/Acetamin 5/325 MG* TAB PO PRN
[2018-07-09] MEDS ORDERED: Famotidine IV* 10 MG/ML 2 ML (20 mg) ONE (08:11)
[2018-07-09] MEDS ORDERED: DiMENhydriNATE IV* 50 MG/ML VIAL ONE (08:11)
[2018-07-09] MEDS ORDERED: Clindamycin 900 MG IVPREMIX(* 900 MG/50 ML SDV IV ONE (08:11)
[2018-07-09] MEDS ORDERED: Heparin VIAL(*) 5000 UNITS/ML VIAL (FIVE THOUSAND) ONE (08:11)
[2018-07-09] MEDS ORDERED: Ondansetron ODT TAB* 4 MG ONE (08:11)
[2018-07-09] MEDS ORDERED: Insulin REGULAR(*) 1 UNITS UNIT ONE (09:22)
[2018-07-09] MEDS ORDERED: Atracurium* 10 MG/ML 10 ML VIAL ONE (09:43)
[2018-07-09] MEDS ORDERED: fentaNYL* 50 MCG/ML 2 ML VIAL (100 MCG VIAL) ONE (09:43)
[2018-07-09] MEDS ORDERED: Midazolam* 1 MG/ML 5 ML VIAL (5 MG) ONE (09:43)
[2018-07-09] MEDS ORDERED: KETAMINE HCL* 50 MG/ML 10 ML VIAL ONE (09:43)
[2018-07-09] MEDS ORDERED: Lidocaine 1% INJ* 10 MG/ML 30 ML SDV ONE (11:07)
[2018-07-09] MEDS ORDERED: PROCHLORPERAZINE INJ 5 MG/ML 2 ML VIAL ONE (11:57)
[2018-07-09] MEDS ORDERED: Glycopyrrolate IV* 0.2 MG/ML 1 ML VIAL ONE (11:57)
[2018-07-09] MEDS ORDERED: Propofol* 10 MG/ML 20 ML BTL IV PUSH ONE (11:57)
[2018-07-09] MEDS ORDERED: Morphine VIAL* 10 MG/ML 1 ML VIAL ONE (12:08)
[2018-07-09] MEDS ORDERED: HYDROmorphone INJ* 0.5 MG/0.5 ML SYRINGE IV PRN (13:17)
[2018-07-09] MEDS ORDERED: Ondansetron INJ* 2 MG/ML VIAL IV PRN (13:17)
[2018-07-09] MEDS ORDERED: Morphine INJ* 2 MG/ML 1 ML SYRINGE (TWO MG - NEW SYRINGE VERSION) ONE (13:59)
[2018-07-09 14:08] LABS: Urine Appearance Cloudy; Urine Blood 1+ (Negative); Urine Color Yellow; Urine Ketones Negative (Negative); Urine Protein 1+(30 mg/dL) (Negative); Urine Red Blood Cell 3+(>10/hpf) (Absent); Urine Specific Gravity 1.039 (1.010-1.030); Urine Urobilinogen Negative (Negative); Urine White Blood Cell 3+(>20/hpf) (Absent)
[2018-07-09] MEDS: NS 0.9% 1000 ML* 1,000 ML IV SCH ×2 (15:11→23:18)
[2018-07-09] MEDS ORDERED: Dextrose 50% Syringe 50 ML* 25 GM/50 ML SYRINGE IV PUSH PRN (15:44)
[2018-07-09] MEDS: Heparin VIAL(*) 5000 UNITS/ML VIAL (FIVE THOUSAND) SUBCUT SCH ×2 (16:36→21:38)
[2018-07-09] MEDS: Insulin LISPRO* 1 UNITS UNIT SUBCUT SCH ×2 (17:26→21:37)
[2018-07-09] MEDS: Insulin GLARGINE(*) 1 UNITS UNIT SUBCUT SCH (17:50)
[2018-07-09] MEDS: Meropenem(*) 2 GM in NS 0.9% 100 ML* 100 ML IVPB SCH (18:15)
[2018-07-09] MEDS: Acetaminophen TAB* 325 MG PO PRN (18:29)
--- NOTE | 2018-07-09 20:18 | CONS ---
CC: Dr. Moeller; Dr. Vu; Dr. Rudolph* CONSULTATION REPORT: DATE OF CONSULT: 07/09/18 PATIENT OF: Dr. Roger Moeller. REFERRED TO: Dr. Nick Quintana. CHIEF COMPLAINT: Chronic draining abdominal wound. PRIMARY CARE PHYSICIAN: Dr. Eliel Vu. REASON FOR CONSULT: Medical co-management. HISTORY OF PRESENT ILLNESS: Ms. Marshall is a pleasant 73-year-old female with past medical history significant for hypertension, hyperlipidemia, chronic kidney disease, type 2 diabetes mellitus as well as history of gout and remotely history of connective tissue disorder as well as atrial fibrillation for which she was briefly on Xarelto years ago, who was taken to the operating room earlier today by Dr. Moeller for abdominal exploration of a chronic drainage from an abdominal wound. The patient has been dealing with multiple intraabdominal abscesses on and off for the past 10 months. She was initially seen in July of last year and was treated with IV antibiotics for what appeared to be multiple liver abscesses. She progressed to develop a large intraabdominal abscess and was taken to the OR back in August of last year for abdominal drainage and irrigation. Drainage tubes were left in place and then the patient underwent percutaneous drainage of parasplenic collection during the same admission in August. She completed multiple courses of IV antibiotics ; however, she continued to have recurrent abdominal abscesses with drainage from abdominal wound for which she was seen multiple times by her primary care physician and her surgeon for further evaluation. The patient also had multiple CT scans, most recently last May prior to seeing Dr. Moeller with a prominent parasplenic collection for which she was taken to the operating room today for exploration and evacuation of abscess. Given her multiple medical histories aside, we were asked to see the patient to consider medical co- management of her hypertension and diabetes. The patient was seen in consultation at her room in surgical stay unit. She reports minimal abdominal discomfort at her incision site, but denied any chest pain, shortness of breath , or any associated symptoms. PAST MEDICAL HISTORY: Significant for: 1. Hypertension. 2. Type 2 insulin-dependent diabetes mellitus. 3. Hyperlipidemia. 4. Chronic kidney disease ranging from stage 2 to stage 4 per the patient. 5. Gout. 6. Raynaud's disease. 7. History of lupus remotely versus unknown connective tissue disorder. 8. History of atrial fibrillation with no current use of any anticoagulation. 9. Anxiety and depression. 10. GERD. PAST SURGICAL HISTORY: Include, laparotomy with drainage of intraabdominal abscess and repair of umbilical hernia in August of last year. She also has a history of open cholecystectomy and tubal ligation. CURRENT MEDICATIONS: Her medications at home include: 1. Triglide 160 mg p.o. q. day. 2. Insulin Lantus 5 units subcu q.p.m. 3. Probiotic 1 tablet p.o. daily. 4. Losartan 100 mg p.o. daily. 5. Metformin 500 mg p.o. b.i.d. 6. Metoprolol 50 mg p.o. daily. 7. Multivitamins 1 tablet daily. 8. Aleve 220 mg capsules p.o. q.6 hours as needed for pain. 9. Omeprazole 20 mg p.o. daily. 10. Januvia 50 mg p.o. b.i.d. 11. CoQ10 100 mg p.o. daily. 12. Lexapro 10 mg p.o. daily. 13. Mylicon 80 mg p.o. q.4 hours. ALLERGIES: Include PENICILLIN and METRONIDAZOLE. FAMILY HISTORY: She denies any family history of diabetes or hypertension. SOCIAL HISTORY: The patient is a nonsmoker who denies drinking alcohol. 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 REVIEW OF SYSTEMS: See HPI; otherwise, 14-point review of systems was examined and was essentially negative. PHYSICAL EXAM: General: She is a pleasant, obese, older female, appears comfortable and in no acute distress or discomfort at the time of consultation. Vitals revealed temperature of 97.3, blood pressure of 113/42, pulse of 75, respirations of 16 with O2 sat of 97% on room air. HEENT: Head is normocephalic, atraumatic. Sclerae anicteric. PERRLA. EOMs intact. Oropharynx is dry. Neck: Supple. Trachea midline. No cervical adenopathy or thyromegaly. Lungs: Clear to auscultation bilaterally. Heart: Regular rate and rhythm. Normal S1 and S2 without rubs, murmurs, or gallops. Back: With normal curvature and no CVA tenderness. Breast Exam: Deferred at this time. Abdomen: Soft and nondistended. There is a large dressing over her mid abdomen , which appears to be clean and dry and there are 2 ENEDINA drains noted with minimal serosanguineous fluid in place. Extremities: Without cyanosis, clubbing , or edema. Neurologic: Grossly intact. Rectal Exam: Deferred at this time. LABORATORY DATA: Urinalysis done after a placement of her Corona shows 3+ leukocytes and 3+ white blood cells. We will await culture findings, more than likely a contaminated specimen in the setting of absence of any symptoms. Her glucose checked was 216 fasting and 130 immediately postop. IMPRESSION: A 73-year-old female with multiple medical comorbidities including hypertension, insulin-dependent diabetes as well as history of multiple intraabdominal abscesses, who is postop day #0 status post exploration of abdominal wound and drainage of parasplenic abscess, who is clinically stable. ASSESSMENT AND PLAN: 1. Chronic draining abdominal wound, status post exploration of abdominal wound and intraabdominal abscess. Management is per Surgery. The patient appears to be well controlled for her pain. We will continue to monitor her pain status as well as her drain output. There are multiple pending cultures for swabs performed around her wound and intraabdominal abscesses. Right now, she is covered per Surgery with broad-spectrum antibiotics and we will await the finalized culture and sensitivity for any needed adjustment. 2. Hypertension. We will continue her losartan and metoprolol. Her blood pressure appears to be under control. 3. Type 2 diabetes mellitus. We will continue covering her Lantus every night as well as sliding scale coverage with Humalog. The patient's diet will be per surgical team, will be carbohydrate consistent diet given her history of diabetes. 4. Acid reflux disease. We will continue her PPI coverage with omeprazole. 5. History of lupus versus other connective tissue disease, appears to be remote history. The patient denies any recent use of prednisone or any immunosuppressant medication. 6. Anxiety and depression. We will continue her Lexapro. 7. DVT prophylaxis. She is high risk and will continue her subcu heparin. 8. Code status. She is a full code. TIME SPENT: Approximately 50 minutes was spent for consultation with this patient with greater than 50% on getting history and performing physical exam. I went on and discussed the case with my attending, Dr. Quintana, who agreed to the plan of care. ERENDIRA GARCIA [id number]/[facility] #: [id number] CARLOS
[2018-07-09] MEDS: Docusate CAP* 100 MG PO SCH (21:22)
[2018-07-09] MEDS: Citalopram TAB* 20 MG PO SCH (21:37)
[2018-07-09] MEDS ORDERED: NS 0.9% 500 ML* 500 ML IV ONE (23:42)
--- NOTE | 2018-07-10 02:12 | OP ---
CC: Dr. Marcelino Vu; Dr. Roger Moeller OPERATIVE REPORT: DATE OF OPERATION: 07/09/18 DATE OF : 47 SURGEON: Dr. Moeller. CAR GROOMER: Amaris. ANESTHESIOLOGIST: Dr. Centeno. ANESTHESIA: General anesthetic. PRE-OP DIAGNOSES: Abdominal abscesses, one with a draining sinus tract as well as left pleural effusion. POST-OP DIAGNOSES: Abdominal abscesses, one with a draining sinus tract as well as left pleural effusion. OPERATIVE PROCEDURE: Left posterior thoracentesis and drainage of abdominal abscesses. DESCRIPTION OF PROCEDURE: The patient was placed on the operative table. After adequate intravenous sedation, she was placed in the sitting position leaning over the bedside table. Left posterior chest is examined and prepped with antiseptic and draped in a sterile fashion. Local infiltrative anesthesia was administered and approximately the 9th interspace was entered using a skinny needle, which identified clear fluid. Suction bottle was then utilized and just about a liter of fluid was obtained. The fluid was sent for Gram stain and fungal cultures. The catheter was removed. Band-Aid was placed. She was returned to the supine position and general anesthetic was administered. She had compression stockings, Nathalia Hugger warmer, Corona catheterization and the abdomen was then prepped with antiseptic and draped in a sterile fashion. The left mid abdomen was addressed. First a transverse incision of approximately 8 to 10 cm length was created and dissection carried down to the musculature, which was entered gradually until the abscess cavity was identified. The opening of the muscularis expanded to about 4 cm and the cavity was well irrigated out. A suction trap was used to collect sample of the purulent drainage for the laboratory. Irrigation and suctioning was carried out. There was a communication between this left mid abdominal collection and the left perisplenic collection. I was able to slide the Yankauer suction up into the upper collection and irrigate that out as well. Red rubber catheter was placed up there for irrigation. Then, a 20-Maltese chest tube was tunnelled in through the sidewall and up in to the upper collection and sutured at the skin with Prolene. A ENEDINA drain was brought out through an inferior stab wound and placed in the midabdominal cavity and sutured to the skin with Prolene. The muscle was closed en devorah using interrupted [id number] sutures of #1 Vicryl and the adipose was irrigated. Skin was loosely approximated with just a couple of stitches and then packing gauze was placed between each of the stitches. Attention was turned to the right abdomen with a chronic draining sinus tract at 2 openings. These were opened up and connected to each other creating an opening that was may be 4 cm across and a probe was used to identify the abscess cavity and again trap was used to obtain some of the purulent fluid for culture. This was then irrigated out and 2 [place] drains were placed, 1 extending medially and 1 extending laterally from the site and these were sutured to the skin using Prolene. Gauze dressing was placed. She was awakened, extubated and brought to Recovery in good condition. There are no complications. Drains as enumerated above. Sponge and instrument counts correct. Multiple cultures were taken of the abscess cavity and of the pleural fluid and of the urine. [id number]/[facility] #: [id number] CARLOS
[2018-07-10] MEDS: Meropenem(*) 2 GM in NS 0.9% 100 ML* 100 ML IVPB SCH ×2 (05:25→17:43)
[2018-07-10] MEDS: Heparin VIAL(*) 5000 UNITS/ML VIAL (FIVE THOUSAND) SUBCUT SCH ×3 (05:29→21:50)
[2018-07-10 05:45] LABS: ABS Basophils 0 10^3/ul (0-0.2); ABS Eosinophils 0.1 10^3/ul (0-0.6); ABS Lymphocytes 0.7 10^3/ul (1.0-4.8); ABS Neutrophils 9.3 10^3/ul (1.5-7.7); ABS Nucleated RBC 0 10^3/ul; Hematocrit 25 % (35-47); Hemoglobin 7.9 g/dl (12.0-16.0); Mean Corpuscular HGB Conc 32 g/dl (31-36); Mean Corpuscular Hemoglobin 27 pg (27-31); Mean Corpuscular Volume 84 fL (80-97); Mean Platelet Volume 6.3 um3 (7.4-10.4); Nucleated Red Blood Cells % 0; Platelet Count 354 10^3/ul (150-450); Red Blood Count 2.94 10^6/ul (4.00-5.40); Red Cell Distribution Width 15 % (10.5-15); White Blood Count 11.1 10^3/ul (3.5-10.8)
[2018-07-10 06:02] LABS: EGFR Non-African American 35.2 (>60)
[2018-07-10] MEDS ORDERED: NS 0.9% 500 ML* 500 ML IV ONE (08:09)
--- NOTE | 2018-07-10 08:19 | PN ---
Progress Note - Progress Note Date of Service: 07/10/18 Note: POD#1 drainage mult abscesses Afeb, VS noted Mild pain, doing OK w/ pain meds UO 125 ENEDINA moderate, S/S Penroses-purulent drng Abd obese, soft, sore Packing changed LUQ tube flushed with 30 ml NS Bill's placed right side Impr: s/p absces drainage On merepenem, await Dr Rudolph's input Change left side packing daily Flush left upper drain 30 ml NS daily med management per hospitalist
[2018-07-10] MEDS ORDERED: CMC:Fenofibrate(NF) 160 MG TAB PO SCH (09:00)
[2018-07-10] MEDS: Docusate CAP* 100 MG PO SCH ×2 (09:26→21:00)
[2018-07-10] MEDS: Omeprazole CAP* 20 MG PO SCH (09:27)
[2018-07-10] MEDS: oxyCODONE/Acetamin 5/325 MG* TAB PO PRN ×4 (09:27→21:54)
[2018-07-10] MEDS: Metoprolol Succinate XL TAB* 50 MG PO SCH (09:28)
[2018-07-10] MEDS: Losartan TAB* 25 MG PO SCH (09:28)
[2018-07-10] MEDS: Insulin LISPRO* 1 UNITS UNIT SUBCUT SCH ×4 (09:29→21:01)
[2018-07-10] MEDS ORDERED: Potassium Chlor TAB* 20 MEQ TAB.ER PO ONE (15:57)
--- NOTE | 2018-07-10 16:18 | PN ---
Subjective Date of Service: 07/10/18 Interval History: Mrs. Marshall reports doing very well today. Denies chest pain, palpitations or SOB. Reports occasional abdominal pain, tolerated with narcotics. Tolerating diet, denies nausea or vomiting. No fever or chills. Ambulatory. No flatus yet. Family History: Unchanged from Admission Social History: Unchanged from Admission Past Medical History: Unchanged from Admission Objective Active Medications: Acetaminophen (Tylenol Tab*) 650 mg PO Q4H PRN PRN Reason: Pain Or Temperature >101 F Last Admin: 07/09/18 18:29 Dose: 650 mg Citalopram Hydrobromide (Celexa Tab*) 20 mg PO BEDTIME [facility] Last Admin: 07/09/18 21:37 Dose: 20 mg Dextrose (D50w Syringe 50 Ml*) 12.5 gm IV PUSH .FOR FS < 60 - SS PRN PRN Reason: FS < 60 Docusate Sodium (Colace Cap*) 100 mg PO BID [facility] Last Admin: 07/10/18 09:26 Dose: Not Given Fenofibrate (Tricor(Nf)) 160 mg PO QAM [facility] Heparin Sodium (Porcine) (Heparin Vial(*)) 5,000 units SUBCUT Q8HR [facility] Last Admin: 07/10/18 13:33 Dose: 5,000 units Hydromorphone HCl (Dilaudid Inj*) 0.5 mg IV Q1H PRN PRN Reason: Pain - severe Last Admin: 07/09/18 23:23 Dose: 0.5 mg Sodium Chloride (Ns 0.9% 1000 Ml*) 1,000 mls @ 125 mls/hr IV PER RATE [facility] Last Admin: 07/09/18 23:18 Dose: 125 mls/hr Meropenem 2 gm/ Sodium (Chloride) 140 mls @ 280 mls/hr IVPB Q12H [facility] Last Admin: 07/10/18 05:25 Dose: 280 mls/hr Insulin Glargine (Lantus(*)) 5 units SUBCUT QPM [facility] Last Admin: 07/09/18 17:50 Dose: Not Given Insulin Human Lispro (Humalog*) 0 units SUBCUT ACHS [facility]; Protocol Last Admin: 07/10/18 13:34 Dose: 6 unit Losartan Potassium (Cozaar Tab*) 100 mg PO QAM [facility] Last Admin: 07/10/18 09:28 Dose: 100 mg Metoprolol Succinate (Toprol Xl Tab*) 50 mg PO QAM [facility] Last Admin: 07/10/18 09:28 Dose: 50 mg Omeprazole (Prilosec Cap*) 20 mg PO QAM [facility] Last Admin: 07/10/18 09:27 Dose: 20 mg Ondansetron HCl (Zofran Inj*) 4 mg IV Q4H PRN PRN Reason: NAUSEA/VOMITING Oxycodone/Acetaminophen (Percocet 5/325 Tab*) 1 tab PO Q4H PRN PRN Reason: PAIN Last Admin: 07/10/18 13:32 Dose: 1 tab Vital Signs - 8 hr 07/10/18 07/10/18 07/10/18 09:27 09:40 11:30 Temperature Pulse Rate Respiratory 16 16 20 Rate Blood Pressure (mmHg) O2 Sat by Pulse Oximetry 07/10/18 07/10/18 11:45 13:32 Temperature 96.9 F Pulse Rate 90 Respiratory 18 16 Rate Blood Pressure 114/52 (mmHg) O2 Sat by Pulse 98 Oximetry Oxygen Devices in Use Now: None Appearance: Appears comfortable in her bed, eating lunch, in NAD. Eyes: No Scleral Icterus, PERRLA Ears/Nose/Mouth/Throat: Clear Oropharnyx, Mucous Membranes Moist Neck: NL Appearance and Movements; NL JVP, Trachea Midline Respiratory: Symmetrical Chest Expansion and Respiratory Effort, Clear to Auscultation Cardiovascular: NL Sounds; No Murmurs; No JVD, RRR Abdominal: NL Sounds; No Tenderness; No Distention, - - Dressing clean and dry. J-vac drains with gtts derous output. Extremities: No Edema Neurological: Alert and Oriented x 3 Nutrition: Taking PO's Result Diagrams: 07/10/18 05:03 07/10/18 05:03 Additional Lab and Data: . Microbiology and Other Data: Microbiology 07/09/18 11:21 Sterile Body Fluid Culture - Preliminary Pleural Fluid No Growth Day 1 Sterile Body Fluid Culture - Preliminary No Growth Day 1 07/09/18 12:45 Gram Stain - Final Misc Fluid (See Comment) - Abscess Body Fluid Culture - Preliminary Escherichia Coli Proteus Mirabilis Enterococcus Faecalis Bacteroides Ovatus 07/09/18 12:01 Gram Stain - Final Misc Fluid (See Comment) - Abscess Body Fluid Culture - Preliminary Escherichia Coli Proteus Mirabilis Enterococcus Faecalis Bacteroides Ovatus 07/09/18 11:35 Urine Culture - Preliminary Urine Escherichia Coli 07/09/18 11:21 Gram Stain - Final Body Fluid - Pleura Diagnostic Imaging: . EKG Data: . Assess/Plan/Problems-Billing Assessment: A 73 y/o female with PMH of HTN, DM and multiple intra-abdominal abscesses, who is POD#1 s/p left posterior thoracocentesis with drainage of intra-abdominal abscess, clinically stable. - Patient Problems (1) Intra-abdominal abscess Current Visit: No Status: Acute Comment: - Management per surgery - Continue borad spectrum antibiotics, await sensitivity report - Ambulate as tolerated - Continue diet, bowel regimen (2) Diabetes Current Visit: No Status: Acute Comment: - Will resume evening Lantus dose (5 units) - Continue Lispro per SS (3) HTN (hypertension) Current Visit: No Status: Acute Comment: - Continue Losartan and Metoprolol (4) GERD (gastroesophageal reflux disease) Current Visit: Yes Status: Acute Comment: - Continue PPI coverage with Omeprazole (5) Anxiety Current Visit: Yes Status: Acute Comment: - Continue Lexapro (6) DVT prophylaxis Current Visit: No Status: Acute Comment: - SQ Heparin (7) Full code status Current Visit: Yes Status: Acute Status and Disposition: Inpatient. Anticipate discharge when medically stable.
[2018-07-10] MEDS: Insulin GLARGINE(*) 1 UNITS UNIT SUBCUT SCH (17:46)
[2018-07-10] MEDS: Citalopram TAB* 20 MG PO SCH (20:29)
[2018-07-10] MEDS: NS 0.9% 1000 ML* 1,000 ML IV SCH (22:59)
[2018-07-11] MEDS: Heparin VIAL(*) 5000 UNITS/ML VIAL (FIVE THOUSAND) SUBCUT SCH ×3 (05:41→21:57)
[2018-07-11] MEDS: Meropenem(*) 2 GM in NS 0.9% 100 ML* 100 ML IVPB SCH ×2 (05:42→18:15)
[2018-07-11 06:03] LABS: Hematocrit 25 % (35-47); Hemoglobin 8.2 g/dl (12.0-16.0); Mean Corpuscular HGB Conc 33 g/dl (31-36); Mean Corpuscular Hemoglobin 28 pg (27-31); Mean Corpuscular Volume 84 fL (80-97); Mean Platelet Volume 6.6 um3 (7.4-10.4); Platelet Count 352 10^3/ul (150-450); Red Blood Count 2.92 10^6/ul (4.00-5.40); Red Cell Distribution Width 15 % (10.5-15); White Blood Count 10.6 10^3/ul (3.5-10.8)
[2018-07-11 06:20] LABS: EGFR Non-African American 36.4 (>60)
[2018-07-11] MEDS: NS 0.9% 1000 ML* 1,000 ML IV SCH (07:55)
[2018-07-11] MEDS: oxyCODONE/Acetamin 5/325 MG* TAB PO PRN ×3 (08:23→18:15)
[2018-07-11] MEDS: Insulin LISPRO* 1 UNITS UNIT SUBCUT SCH ×4 (08:33→21:58)
[2018-07-11] MEDS: Docusate CAP* 100 MG PO SCH ×2 (09:08→21:57)
[2018-07-11] MEDS: Losartan TAB* 25 MG PO SCH (09:08)
[2018-07-11] MEDS: Omeprazole CAP* 20 MG PO SCH (09:08)
[2018-07-11] MEDS: Metoprolol Succinate XL TAB* 50 MG PO SCH (09:08)
[2018-07-11] MEDS: FENOFIBRATE 160 MG PO SCH (09:09)
--- NOTE | 2018-07-11 09:39 | PN ---
Progress Note - Progress Note Date of Service: 07/11/18 Note: Surgery Ms. Marshall says she feels much better. She still has some pain in the abd., but says it is manageable. She is tolerating diet and ambulating with a walker. Vital Signs 07/10/18 07/10/18 07/10/18 09:40 11:30 11:45 Temperature 96.9 F Pulse Rate 90 Respiratory 16 20 18 Rate Blood Pressure 114/52 (mmHg) O2 Sat by Pulse 98 Oximetry 07/10/18 07/10/18 07/10/18 13:32 16:29 16:36 Temperature 97.9 F Pulse Rate 85 Respiratory 16 16 18 Rate Blood Pressure 137/51 (mmHg) O2 Sat by Pulse 95 Oximetry 07/10/18 07/10/18 07/10/18 17:09 17:45 19:37 Temperature 97.9 F Pulse Rate 85 Respiratory 18 16 17 Rate Blood Pressure 137/51 (mmHg) O2 Sat by Pulse 95 Oximetry 07/10/18 07/10/18 07/10/18 20:01 20:21 21:54 Temperature Pulse Rate 87 Respiratory 16 17 16 Rate Blood Pressure 133/58 (mmHg) O2 Sat by Pulse 100 Oximetry 07/10/18 07/11/18 07/11/18 23:41 00:06 04:14 Temperature 97.3 F 97.8 F Pulse Rate 85 82 Respiratory 16 16 16 Rate Blood Pressure 124/49 139/56 (mmHg) O2 Sat by Pulse 97 98 Oximetry 07/11/18 07/11/18 07:27 08:23 Temperature 97.2 F Pulse Rate 79 Respiratory 20 16 Rate Blood Pressure 143/46 (mmHg) O2 Sat by Pulse 97 Oximetry Abd: soft, tender near drainage sites; some excoriation of skin around ant abd. carla drain area. The carla drains have creamy tapia drainage. The ENEDINA bulbs have serous drainage. I flushed the superior left flank drain with 40 cc sterile saline and there was immediate increase in the drainage from the inferior left flank drain. Intake & Output 07/10/18 07/11/18 07/11/18 22:59 06:59 14:59 Intake Total 360 980 720 Output Total 240 335 Balance 120 645 720 Intake: IV Fluids 980 NS 980 Oral 360 720 Output: ENEDINA #1 20 15 ENEDINA #2 20 20 Jerome 200 300 Other: # Bowel Movements 0 Laboratory Results - last 24 hr 07/09/18 07/10/18 07/10/18 21:21 12:28 16:31 WBC RBC Hgb Hct MCV MCH MCHC RDW Plt Count MPV Sodium Potassium Chloride Carbon Dioxide Anion Gap BUN Creatinine Est GFR ( Amer) Est GFR (Non-Af Amer) BUN/Creatinine Ratio Glucose POC Glucose (mg/dL) 208 H 229 H 232 H Calcium 07/11/18 07/11/18 05:04 05:04 WBC 10.6 RBC 2.92 L Hgb 8.2 L Hct 25 L MCV 84 MCH 28 MCHC 33 RDW 15 Plt Count 352 MPV 6.6 L Sodium 139 Potassium 3.4 L Chloride 109 Carbon Dioxide 25 Anion Gap 5 BUN 23 Creatinine 1.42 H Est GFR ( Amer) 44.0 Est GFR (Non-Af Amer) 36.4 BUN/Creatinine Ratio 16.2 Glucose 105 H POC Glucose (mg/dL) Calcium 7.5 L A/P: Improving. Will d/c jerome today; encourage increased activity. Will replete potassium. CLFoster
[2018-07-11] MEDS ORDERED: NS 0.9% 1000 ML* 1,000 ML IV SCH (13:09)
--- NOTE | 2018-07-11 13:17 | PN ---
Subjective Date of Service: 07/11/18 Interval History: Patient was seen and examined at bedside. Reports feeling better, abdominal pain relieved with pain meds. Ambulatory, denies weakness, chest pain or SOB. Tolerating diet, denies nausea or vomiting. Family History: Unchanged from Admission Social History: Unchanged from Admission Past Medical History: Unchanged from Admission Objective Active Medications: Acetaminophen (Tylenol Tab*) 650 mg PO Q4H PRN PRN Reason: Pain Or Temperature >101 F Last Admin: 07/09/18 18:29 Dose: 650 mg Citalopram Hydrobromide (Celexa Tab*) 20 mg PO BEDTIME [facility] Last Admin: 07/10/18 20:29 Dose: 20 mg Dextrose (D50w Syringe 50 Ml*) 12.5 gm IV PUSH .FOR FS < 60 - SS PRN PRN Reason: FS < 60 Docusate Sodium (Colace Cap*) 100 mg PO BID [facility] Last Admin: 07/11/18 09:08 Dose: 100 mg Fenofibrate (Tricor(Nf)) [facility] Last Admin: 07/11/18 09:09 Dose: 160 mg Heparin Sodium (Porcine) (Heparin Vial(*)) 5,000 units SUBCUT Q8HR [facility] Last Admin: 07/11/18 05:41 Dose: 5,000 units Hydromorphone HCl (Dilaudid Inj*) 0.5 mg IV Q1H PRN PRN Reason: Pain - severe Last Admin: 07/09/18 23:23 Dose: 0.5 mg Meropenem 2 gm/ Sodium (Chloride) 140 mls @ 280 mls/hr IVPB Q12H [facility] Last Admin: 07/11/18 05:42 Dose: 280 mls/hr Insulin Glargine (Lantus(*)) 5 units SUBCUT QPM [facility] Last Admin: 07/10/18 17:46 Dose: 5 unit Insulin Human Lispro (Humalog*) 0 units SUBCUT ACHS [facility]; Protocol Last Admin: 07/11/18 12:49 Dose: 15 unit Losartan Potassium (Cozaar Tab*) 100 mg PO QAM [facility] Last Admin: 07/11/18 09:08 Dose: 100 mg Metoprolol Succinate (Toprol Xl Tab*) [facility] Last Admin: 07/11/18 09:08 Dose: 50 mg Omeprazole (Prilosec Cap*) 20 mg PO QAM [facility] Last Admin: 07/11/18 09:08 Dose: 20 mg Ondansetron HCl (Zofran Inj*) 4 mg IV Q4H PRN PRN Reason: NAUSEA/VOMITING Oxycodone/Acetaminophen (Percocet 5/325 Tab*) 1 tab PO Q4H PRN PRN Reason: PAIN Last Admin: 07/11/18 08:23 Dose: 1 tab Potassium Chloride (Klor Con Er Tab*) 20 meq PO BID [facility] Vital Signs - 8 hr 07/11/18 07/11/18 07/11/18 07:27 08:00 08:23 Temperature 97.2 F Pulse Rate 79 Respiratory 20 18 16 Rate Blood Pressure 143/46 (mmHg) O2 Sat by Pulse 97 Oximetry 07/11/18 07/11/18 07/11/18 11:40 12:07 12:54 Temperature Pulse Rate 83 Respiratory 16 18 16 Rate Blood Pressure 134/60 (mmHg) O2 Sat by Pulse 99 Oximetry 07/11/18 13:06 Temperature 97.2 F Pulse Rate Respiratory Rate Blood Pressure (mmHg) O2 Sat by Pulse Oximetry Oxygen Devices in Use Now: None Appearance: Sitting on her chair, eating lunch. Appears comfortable and in NAD Eyes: No Scleral Icterus, PERRLA Ears/Nose/Mouth/Throat: Clear Oropharnyx, Mucous Membranes Moist Neck: NL Appearance and Movements; NL JVP, Trachea Midline Respiratory: Symmetrical Chest Expansion and Respiratory Effort, Clear to Auscultation Cardiovascular: NL Sounds; No Murmurs; No JVD, RRR Abdominal: NL Sounds; No Tenderness; No Distention Extremities: - - 1+ lower extremities edema bilat. Skin: No Rash or Ulcers Neurological: Alert and Oriented x 3 Nutrition: Taking PO's Result Diagrams: 07/11/18 05:04 07/11/18 05:04 Additional Lab and Data: . Microbiology and Other Data: Microbiology 07/09/18 11:21 Sterile Body Fluid Culture - Preliminary Pleural Fluid No Growth Day 1 Sterile Body Fluid Culture - Preliminary No Growth Day 1 07/09/18 12:45 Gram Stain - Final Misc Fluid (See Comment) - Abscess Body Fluid Culture - Preliminary Escherichia Coli Proteus Mirabilis Enterococcus Faecalis Bacteroides Ovatus 07/09/18 12:01 Gram Stain - Final Misc Fluid (See Comment) - Abscess Body Fluid Culture - Preliminary Escherichia Coli Proteus Mirabilis Enterococcus Faecalis Bacteroides Ovatus 07/09/18 11:35 Urine Culture - Preliminary Urine Escherichia Coli 07/09/18 11:21 Gram Stain - Final Body Fluid - Pleura Diagnostic Imaging: . EKG Data: . Assess/Plan/Problems-Billing Assessment: A 73 y/o female with PMH of HTN, DM and multiple intra-abdominal abscesses, who is POD#1 s/p left posterior thoracocentesis with drainage of intra-abdominal abscess, clinically stable. - Patient Problems (1) Intra-abdominal abscess Current Visit: No Status: Acute Comment: - Management per surgery - Continue borad spectrum antibiotics, C&S reviewed, appropriate coverage with Meropenem - Ambulate as tolerated - Continue diet, bowel regimen (2) Diabetes Current Visit: No Status: Acute Comment: - Will resume evening Lantus dose (5 units) - Continue Lispro per SS (3) HTN (hypertension) Current Visit: No Status: Acute Comment: - Continue Losartan and Metoprolol (4) GERD (gastroesophageal reflux disease) Current Visit: Yes Status: Acute Comment: - Continue PPI coverage with Omeprazole (5) Anxiety Current Visit: Yes Status: Acute Comment: - Continue Lexapro (6) DVT prophylaxis Current Visit: No Status: Acute Comment: - SQ Heparin (7) Full code status Current Visit: Yes Status: Acute Status and Disposition: Inpatient. Anticipate discharge when medically stable.
--- NOTE | 2018-07-11 17:30 | PN ---
Progress Note - Progress Note Date of Service: 07/11/18 Note: Surgery 22 guage IV catheter placed in left volar forearm after 2 other attempts. Pt. tolerated procedure well. Catheter flushes without difficulty. CLFoster
[2018-07-11] MEDS: Insulin GLARGINE(*) 1 UNITS UNIT SUBCUT SCH ×2 (18:24→21:58)
[2018-07-11] MEDS: Citalopram TAB* 20 MG PO SCH (21:57)
[2018-07-11] MEDS: Potassium Chlor TAB* 20 MEQ TAB.ER PO SCH (21:57)
[2018-07-12] MEDS: Meropenem(*) 2 GM in NS 0.9% 100 ML* 100 ML IVPB SCH ×2 (05:21→17:37)
[2018-07-12] MEDS: Heparin VIAL(*) 5000 UNITS/ML VIAL (FIVE THOUSAND) SUBCUT SCH ×3 (05:22→21:48)
[2018-07-12] MEDS: oxyCODONE/Acetamin 5/325 MG* TAB PO PRN ×3 (05:22→15:35)
[2018-07-12 05:56] LABS: Hematocrit 25 % (35-47); Hemoglobin 7.9 g/dl (12.0-16.0); Mean Corpuscular HGB Conc 32 g/dl (31-36); Mean Corpuscular Hemoglobin 27 pg (27-31); Mean Corpuscular Volume 84 fL (80-97); Mean Platelet Volume 6.2 um3 (7.4-10.4); Platelet Count 375 10^3/ul (150-450); Red Blood Count 2.93 10^6/ul (4.00-5.40); Red Cell Distribution Width 15 % (10.5-15); White Blood Count 7.9 10^3/ul (3.5-10.8)
[2018-07-12 06:09] LABS: EGFR Non-African American 42.1 (>60)
[2018-07-12 06:16] LABS: ABS Basophils 0 10^3/ul (0-0.2); ABS Eosinophils 0.2 10^3/ul (0-0.6); ABS Lymphocytes 1.4 10^3/ul (1.0-4.8); ABS Monocytes 1.1 10^3/ul (0-0.8); ABS Neutrophils 5.4 10^3/ul (1.5-7.7); ABS Nucleated RBC 0 10^3/ul
[2018-07-12 06:55] LABS: Lymphocyte % 16.8 % (25-47); Nucleated Red Blood Cells % 0.4
[2018-07-12] MEDS: Insulin LISPRO* 1 UNITS UNIT SUBCUT SCH ×4 (07:49→21:49)
[2018-07-12] MEDS: Metoprolol Succinate XL TAB* 50 MG PO SCH (08:59)
[2018-07-12] MEDS: FENOFIBRATE 160 MG PO SCH (08:59)
[2018-07-12] MEDS: Omeprazole CAP* 20 MG PO SCH (08:59)
[2018-07-12] MEDS: Losartan TAB* 25 MG PO SCH (08:59)
[2018-07-12] MEDS: Potassium Chlor TAB* 20 MEQ TAB.ER PO SCH ×2 (08:59→21:48)
[2018-07-12] MEDS: Docusate CAP* 100 MG PO SCH ×2 (09:00→21:47)
[2018-07-12] MEDS: HYDROmorphone INJ1* 1 MG/ML SYRINGE IV PRN ×2 (10:12→22:02)
--- NOTE | 2018-07-12 13:45 | PN ---
Progress Note - Progress Note Date of Service: 07/12/18 Note: Surgery Ms Rolando noticed some pain at the CT site today and subsequently noticed some purulent drainage from the other left side drain, the ENEDINA, She says there is less from the mid abdominal drains (carla). Vital Signs - On Arrival Temp Pulse Resp BP Pulse Ox 98.6 F 80 16 127/72 98 07/02/18 16:09 07/02/18 16:09 07/02/18 16:09 07/02/18 16:09 07/02/18 16:09 Vital Signs - Most Recent Temp Pulse Resp BP Pulse Ox 98.4 F 77 18 131/60 98 07/12/18 11:37 07/12/18 11:37 07/12/18 12:59 07/12/18 11:37 07/12/18 11:[address] is flushed it no longer emerges from the ENEDINA. The ENEDINA drainage is tapia and creamy. The CT drainage is serous; the dressing over the mid abd wound is intact. Intake & Output 07/11/18 07/12/18 07/12/18 22:59 06:59 14:59 Intake Total 2400 280 Output Total 165 220 500 Balance 2235 -220 -220 Intake: IV Fluids 1140 NS 1140 IVPB 140 meropenem 140 Oral 1120 280 Output: ENEDINA #1 10 ENEDINA #2 5 Urine 150 220 500 A/P: Shifting communications between the collections, but still adequate drainage. Continue current management. CLFoster Laboratory Results - last 24 hr 07/10/18 07/11/18 07/11/18 20:32 08:29 11:55 WBC RBC Hgb Hct MCV MCH MCHC RDW Plt Count MPV Neut % (Auto) Lymph % (Auto) Childress % (Auto) Eos % (Auto) Baso % (Auto) Absolute Neuts (auto) Absolute Lymphs (auto) Absolute Monos (auto) Absolute Eos (auto) Absolute Basos (auto) Absolute Nucleated RBC Nucleated RBC % Sodium Potassium Chloride Carbon Dioxide Anion Gap BUN Creatinine Est GFR ( Amer) Est GFR (Non-Af Amer) BUN/Creatinine Ratio Glucose POC Glucose (mg/dL) 186 H 120 H 342 H Calcium 07/11/18 07/11/18 07/12/18 16:34 21:38 05:42 WBC 7.9 RBC 2.93 L Hgb 7.9 L Hct 25 L MCV 84 MCH 27 MCHC 32 RDW 15 Plt Count 375 MPV 6.2 L Neut % (Auto) 66.1 Lymph % (Auto) 16.8 L Childress % (Auto) 13.7 H Eos % (Auto) 3.0 Baso % (Auto) 0.4 Absolute Neuts (auto) 5.4 Absolute Lymphs (auto) 1.4 Absolute Monos (auto) 1.1 H Absolute Eos (auto) 0.2 Absolute Basos (auto) 0 Absolute Nucleated RBC 0 Nucleated RBC % 0.4 Sodium Potassium Chloride Carbon Dioxide Anion Gap BUN Creatinine Est GFR ( Amer) Est GFR (Non-Af Amer) BUN/Creatinine Ratio Glucose POC Glucose (mg/dL) 198 H 210 H Calcium 07/12/18 07/12/18 05:42 11:31 WBC RBC Hgb Hct MCV MCH MCHC RDW Plt Count MPV Neut % (Auto) Lymph % (Auto) Childress % (Auto) Eos % (Auto) Baso % (Auto) Absolute Neuts (auto) Absolute Lymphs (auto) Absolute Monos (auto) Absolute Eos (auto) Absolute Basos (auto) Absolute Nucleated RBC Nucleated RBC % Sodium 140 Potassium 3.7 Chloride 108 Carbon Dioxide 26 Anion Gap 6 BUN 24 Creatinine 1.25 H Est GFR ( Amer) 51.0 Est GFR (Non-Af Amer) 42.1 BUN/Creatinine Ratio 19.2 Glucose 121 H POC Glucose (mg/dL) 213 H Calcium 7.8 L
--- NOTE | 2018-07-12 14:26 | PN ---
Subjective Date of Service: 07/12/18 Interval History: Patient was seen and examined at bedside. Report abdominal pain while in bathroom earlier today, then noticed increasing purulent discharge in her J-vac drain. Issue addressed with surgery, seen my Dr. Martinez today. Denies fever or chills. No chest pain, palpitations or SOB. Labs noted, potassium normalized. Family History: Unchanged from Admission Social History: Unchanged from Admission Past Medical History: Unchanged from Admission Objective Active Medications: Acetaminophen (Tylenol Tab*) 650 mg PO Q4H PRN PRN Reason: Pain Or Temperature >101 F Last Admin: 07/09/18 18:29 Dose: 650 mg Citalopram Hydrobromide (Celexa Tab*) 20 mg PO BEDTIME [facility] Last Admin: 07/11/18 21:57 Dose: 20 mg Dextrose (D50w Syringe 50 Ml*) 12.5 gm IV PUSH .FOR FS < 60 - SS PRN PRN Reason: FS < 60 Docusate Sodium (Colace Cap*) 100 mg PO BID [facility] Last Admin: 07/12/18 09:00 Dose: Not Given Fenofibrate (Tricor(Nf)) 160 mg PO QAM [facility] Last Admin: 07/12/18 08:59 Dose: 160 mg Heparin Sodium (Porcine) (Heparin Vial(*)) 5,000 units SUBCUT Q8HR [facility] Last Admin: 07/12/18 13:42 Dose: 5,000 units Hydromorphone HCl (Dilaudid Inj1s*) 0.5 mg IV Q1H PRN PRN Reason: Pain - severe Last Admin: 07/12/18 10:12 Dose: 0.5 mg Meropenem 2 gm/ Sodium (Chloride) 140 mls @ 280 mls/hr IVPB Q12H [facility] Last Admin: 07/12/18 05:21 Dose: 280 mls/hr Insulin Glargine (Lantus(*)) 5 units SUBCUT BEDTIME [facility] Last Admin: 07/11/18 21:58 Dose: 5 unit Insulin Human Lispro (Humalog*) 0 units SUBCUT ACHS [facility]; Protocol Last Admin: 07/12/18 12:32 Dose: 6 unit Losartan Potassium (Cozaar Tab*) 100 mg PO QAM [facility] Last Admin: 07/12/18 08:59 Dose: 100 mg Metoprolol Succinate (Toprol Xl Tab*) 50 mg PO QAM [facility] Last Admin: 07/12/18 08:59 Dose: 50 mg Omeprazole (Prilosec Cap*) 20 mg PO QAM [facility] Last Admin: 07/12/18 08:59 Dose: 20 mg Ondansetron HCl (Zofran Inj*) 4 mg IV Q4H PRN PRN Reason: NAUSEA/VOMITING Oxycodone/Acetaminophen (Percocet 5/325 Tab*) 1 tab PO Q4H PRN PRN Reason: PAIN Last Admin: 07/12/18 09:25 Dose: 1 tab Potassium Chloride (Klor Con Er Tab*) 20 meq PO BID [facility] Last Admin: 07/12/18 08:59 Dose: 20 meq Vital Signs - 8 hr 07/12/18 07/12/18 07/12/18 07:46 07:56 08:06 Temperature 98.0 F Pulse Rate 74 Respiratory 16 18 18 Rate Blood Pressure 145/66 (mmHg) O2 Sat by Pulse 100 Oximetry 07/12/18 07/12/18 07/12/18 09:25 10:12 11:37 Temperature 98.4 F Pulse Rate 77 Respiratory 16 18 16 Rate Blood Pressure 131/60 (mmHg) O2 Sat by Pulse 98 Oximetry 07/12/18 07/12/18 07/12/18 12:07 12:33 12:59 Temperature Pulse Rate Respiratory 18 16 18 Rate Blood Pressure (mmHg) O2 Sat by Pulse Oximetry Oxygen Devices in Use Now: None Appearance: Appears comfortable and in NAD Eyes: No Scleral Icterus, PERRLA Ears/Nose/Mouth/Throat: Clear Oropharnyx, Mucous Membranes Moist Neck: NL Appearance and Movements; NL JVP, Trachea Midline Respiratory: Symmetrical Chest Expansion and Respiratory Effort, Clear to Auscultation Cardiovascular: NL Sounds; No Murmurs; No JVD, RRR Abdominal: - - Abdomen soft and non-distended. ENEDINA drain with purulent discharge noted. Other drain with serosangious output. Extremities: No Edema Neurological: Alert and Oriented x 3 Nutrition: Taking PO's Result Diagrams: 07/12/18 05:42 07/12/18 05:42 Additional Lab and Data: . Microbiology and Other Data: Microbiology 07/09/18 11:21 Sterile Body Fluid Culture - Preliminary Pleural Fluid No Growth Day 1 Sterile Body Fluid Culture - Preliminary No Growth Day 1 07/09/18 12:45 Gram Stain - Final Misc Fluid (See Comment) - Abscess Body Fluid Culture - Preliminary Escherichia Coli Proteus Mirabilis Enterococcus Faecalis Bacteroides Ovatus 07/09/18 12:01 Gram Stain - Final Misc Fluid (See Comment) - Abscess Body Fluid Culture - Preliminary Escherichia Coli Proteus Mirabilis Enterococcus Faecalis Bacteroides Ovatus 07/09/18 11:35 Urine Culture - Preliminary Urine Escherichia Coli 07/09/18 11:21 Gram Stain - Final Body Fluid - Pleura Diagnostic Imaging: . EKG Data: . Assess/Plan/Problems-Billing Assessment: A 73 y/o female with PMH of HTN, DM and multiple intra-abdominal abscesses, who is POD#1 s/p left posterior thoracocentesis with drainage of intra-abdominal abscess, clinically stable. - Patient Problems (1) Intra-abdominal abscess Current Visit: No Status: Acute Comment: - Management per surgery - Continue borad spectrum antibiotics, C&S reviewed, appropriate coverage with Meropenem - Ambulate as tolerated - Continue diet, bowel regimen (2) Diabetes Current Visit: No Status: Acute Comment: - Will resume evening Lantus dose (5 units) - Continue Lispro per SS (3) HTN (hypertension) Current Visit: No Status: Acute Comment: - Continue Losartan and Metoprolol (4) GERD (gastroesophageal reflux disease) Current Visit: Yes Status: Acute Comment: - Continue PPI coverage with Omeprazole (5) Anxiety Current Visit: Yes Status: Acute Comment: - Continue Lexapro (6) DVT prophylaxis Current Visit: No Status: Acute Comment: - SQ Heparin (7) Full code status Current Visit: Yes Status: Acute Status and Disposition: Inpatient. Anticipate discharge when medically stable.
[2018-07-12] MEDS: Citalopram TAB* 20 MG PO SCH (21:48)
[2018-07-12] MEDS: Insulin GLARGINE(*) 1 UNITS UNIT SUBCUT SCH (21:49)
[2018-07-13] MEDS: Heparin VIAL(*) 5000 UNITS/ML VIAL (FIVE THOUSAND) SUBCUT SCH ×3 (05:32→21:18)
[2018-07-13] MEDS: Meropenem(*) 2 GM in NS 0.9% 100 ML* 100 ML IVPB SCH ×2 (05:33→18:02)
[2018-07-13 05:35] LABS: ABS Basophils 0.1 10^3/ul (0-0.2); ABS Eosinophils 0.2 10^3/ul (0-0.6); ABS Lymphocytes 1.5 10^3/ul (1.0-4.8); ABS Monocytes 0.9 10^3/ul (0-0.8); ABS Neutrophils 5.4 10^3/ul (1.5-7.7); ABS Nucleated RBC 0 10^3/ul; Hematocrit 25 % (35-47); Hemoglobin 8.2 g/dl (12.0-16.0); Lymphocyte % 18.3 % (25-47); Mean Corpuscular HGB Conc 33 g/dl (31-36); Mean Corpuscular Hemoglobin 27 pg (27-31); Mean Corpuscular Volume 83 fL (80-97); Mean Platelet Volume 6.5 um3 (7.4-10.4); Nucleated Red Blood Cells % 0.1; Platelet Count 367 10^3/ul (150-450); Red Blood Count 3.02 10^6/ul (4.00-5.40); Red Cell Distribution Width 15 % (10.5-15); White Blood Count 8.2 10^3/ul (3.5-10.8)
[2018-07-13] MEDS: Docusate CAP* 100 MG PO SCH ×2 (08:38→21:20)
[2018-07-13] MEDS: Insulin LISPRO* 1 UNITS UNIT SUBCUT SCH ×4 (08:38→21:39)
[2018-07-13] MEDS: FENOFIBRATE 160 MG PO SCH (08:41)
[2018-07-13] MEDS: Metoprolol Succinate XL TAB* 50 MG PO SCH (08:42)
[2018-07-13] MEDS: oxyCODONE/Acetamin 5/325 MG* TAB PO PRN ×3 (08:42→18:57)
[2018-07-13] MEDS: Omeprazole CAP* 20 MG PO SCH (08:43)
[2018-07-13] MEDS: Losartan TAB* 25 MG PO SCH (08:43)
[2018-07-13] MEDS: Potassium Chlor TAB* 20 MEQ TAB.ER PO SCH ×2 (08:43→21:17)
--- NOTE | 2018-07-13 12:12 | CONS ---
CONSULTATION REPORT: DATE OF CONSULT: 07/13/18. REQUESTING PHYSICIAN: Dr. Moeller. CONSULTING SERVICE: Infectious Disease. REASON FOR CONSULTATION: Intraabdominal abscess. IMPRESSION: 1. Large parasplenic and right lower quadrant abscess containing bowel liz. She had had multifocal abdominal abscess in fall 2016 as well. I am concerned for underlying enteric or colonic fistula. 2. Type 2 diabetes. 3. Chronic kidney disease. 4. Connective tissue disorder. RECOMMENDATION: I agree with meropenem. We will continue at 2 g every 12 hours as it is ordered currently. GFR continues to improve, but we may modify that. I told her we should plan on 4 to 6 weeks' of IV antibiotics and eventual colonoscopy consideration for further studies to evaluate for fistulous connection. HISTORY OF PRESENT ILLNESS: This is a 73-year-old woman with right lower quadrant abscess and parasplenic abscess both large seen on CT scan and is followed by Dr. Moeller as an outpatient, she had had surgical procedure and drainage with long course of antibiotics for both in July and August 2017 and then had done well until early 2017 when an area opened back up again. She had had intermittent drainage from the area with the few courses of oral antibiotics. Has the progression of pain, fever, sweats and persistent severe abscesses. She had open drainage on 07/09/18, of both collections. CT imaging at that time also showed a left pleural effusion. She denies cough or chest pain. Operative cultures are growing E. coli, proteus, enterococcus, bacteroides, strep mitis oralis. She is on meropenem, tolerating it well. She continued to have some serous drainage from each incision. She is not having fever, chills or sweats. She is feeling hungry from time to time. PAST MEDICAL HISTORY: 1. Multiple intraabdominal abscesses, drained July 2017. 2. Type 2 diabetes. 3. Hypertension. 4. Hyperlipidemia. 5. Chronic kidney disease. 6. Gout. 7. Raynaud's phenomenon. 8. Connective tissue disorder. 9. Atrial fibrillation. 10. Umbilical hernia repair. 11. Status post open cholecystectomy. ALLERGIES: PENICILLIN caused rash. FLAGYL caused diarrhea. TAPE caused local irritation. MEDICATIONS: 1. Tylenol. 2. Celexa. 3. Fenofibrate. 4. Heparin subcutaneous injection. 5. Dilaudid as needed. 6. Insulin glargine. 7. Losartan. 8. Metoprolol 500 mg every 12 hours. 9. Oxycodone. 10. Potassium. SOCIAL HISTORY: She lives in [place]. She is a retired nurse. FAMILY HISTORY: No current infections. REVIEW OF SYSTEMS: All negative to a 14-point of review of systems except as noted above in the history of present illness. PHYSICAL EXAM: Vital Signs: Temperature 36.6, heart rate 70, respiratory rate 16, blood pressure 150/60, oxygen saturation 99% on room air. In general, she is awake, not in any distress. Neurologic: She is oriented x3, follows all commands. HEENT: There is no thrush or oropharyngeal lesions. Neck is supple without mass. Lymph Nodes: There is no cervical, supraclavicular, inguinal, axillary or epitrochlear lymphadenopathy. Heart is regular rate and rhythm without murmurs, rubs, or gallops. Lungs: Clear to auscultation bilaterally. Abdomen: Soft, nontender, nondistended. Bowel sounds present. There is a right midline incision with some serous drainage. Left upper quadrant incision with serous drainage. No surrounding erythema. Skin: There are no rashes or splinter hemorrhages. Musculoskeletal: There is no spinal tenderness to palpation. LABORATORY DATA: White blood cell count 18, hemoglobin 8, platelet 367. Creatinine is 1.2. Please see impressions and recommendations outlined above. [id number]/[facility] #: [id number] MTDD
--- NOTE | 2018-07-13 13:44 | SURGPN ---
Subjective - Introduction -: Mrs. Marshall reports feeling better today. Pain has improved, no fever or chills. Seen by Dr. Draper for ID consult earlier today. Appetite improving, denies nausea or vomiting. She has no new complaints today. - Medications -: Active Medications Generic Name Dose Route Start Last Admin Trade Name Freq PRN Reason Stop Dose Admin Acetaminophen 650 mg 07/09/18 13:17 07/09/18 18:29 Tylenol Tab* PO 650 mg Q4H PRN Administration Pain Or Temperature >101 F Citalopram Hydrobromide 20 mg 07/09/18 21:00 07/12/18 21:48 Celexa Tab* PO 20 mg BEDTIME [facility]ERRY Administration Dextrose 12.5 gm 07/09/18 15:44 D50w Syringe 50 Ml* IV PUSH .FOR FS < 60 - SS PRN FS < 60 Docusate Sodium 100 mg 07/09/18 21:00 07/13/18 08:38 Colace Cap* PO Not Given BID CHERRY Fenofibrate 160 mg 07/11/18 09:00 07/13/18 08:41 Tricor(Nf) PO 160 mg QAM CH[facility]Y Administration Heparin Sodium (Porcine) 5,000 units 07/09/18 14:00 07/13/18 05:32 Heparin Vial(*) SUBCUT 5,000 units Q8HR [facility]Y Administration Hydromorphone HCl 0.5 mg 07/11/18 22:00 07/12/18 22:02 Dilaudid Inj1s* IV 0.5 mg Q1H PRN Administration Pain - severe Meropenem 2 gm/ Sodium 140 mls @ 280 mls/hr 07/09/18 18:00 07/13/18 05:33 Chloride IVPB 100 mls/hr Q12H CH[facility]Y Administration Insulin Glargine 5 units 07/11/18 21:00 07/12/18 21:49 Lantus(*) SUBCUT 5 unit BEDTIME CH[facility]Y Administration Insulin Human Lispro 0 units 07/09/18 16:30 07/13/18 08:38 Humalog* SUBCUT Not Given ACHS [facility] Protocol Losartan Potassium 100 mg 07/10/18 09:00 07/13/18 08:43 Cozaar Tab* PO 100 mg QAM CHERRY Administration Metoprolol Succinate 50 mg 07/10/18 09:00 07/13/18 08:42 Toprol Xl Tab* PO 50 mg QAM CHERRY Administration Omeprazole 20 mg 07/10/18 09:00 07/13/18 08:43 Prilosec Cap* PO 20 mg QAM CHERRY Administration Ondansetron HCl 4 mg 07/09/18 13:17 Zofran Inj* IV Q4H PRN NAUSEA/VOMITING Oxycodone/Acetaminophen 1 tab 07/09/18 13:17 07/13/18 08:42 Percocet 5/325 Tab* PO 1 tab Q4H PRN Administration PAIN Potassium Chloride 20 meq 07/11/18 21:00 07/13/18 08:43 Klor Con Er Tab* PO 20 meq BID CHERRY Administration - Comments Comments: . Objective - Objective -: Awake and alert, finishing her lunch, appears comfortable and in NAD - Intake and Output -: Intake & Output 07/11/18 07/12/18 07/13/18 07/14/18 06:59 06:59 06:59 06:59 Intake Total 2140 3600 1100 360 Output Total 073 516 7003 300 Balance 1275 2892 -125 60 Intake: IV Fluids 1480 1140 170 NS 1480 1140 30 meropenem 140 IVPB 140 meropenem 140 Oral 660 2320 930 360 Output: ENEDINA #1 100 33 107 ENEDINA #2 65 55 68 Urine 420 1050 300 [place] 700 200 Other: Estimated Void Small Small Date of Last Bowel 07/12/2018 Movement # Bowel Movements 0 1 Estimated Stool Amount Medium # Voids 1 Surgical Physical Exam - Comments -: Vitals reviewed, afebrile Lungs CTA bilat. Heart RRR, no murmurs Abdomen soft, NT and ND. Dressing changed. Wen drain at right abdomen intact , minimal discharge. 1/2 inch packing gauze removed, no bleeding or purulent drainage noted. ENEDINA drains with gtts purulent output. New packing inserted, new dressing applied. BS active in all quadrant. Ext. no edema Assessment and Plan - Assessment -: POD#4, doing well - Plan Additional Comments: Continue Abx Appreciate ID consult Patient refusing any ideas for short term rehab Ambulate Wound care GI and DVT prophylaxis, continue Heparin and PPI
--- NOTE | 2018-07-13 17:11 | PN ---
Subjective Date of Service: 07/13/18 Interval History: Patient seen and examined at bedside. Denies fever, shortness of breath, chest discomfort, N/V/D. Pt states that her appetite is improving. Pt reports chills. ABD pain is improving. Pt states that she is feeling much better since she has moved her bowels. She reports passing flatus. Family History: Unchanged from Admission Social History: Unchanged from Admission Past Medical History: Unchanged from Admission Objective Active Medications: Acetaminophen (Tylenol Tab*) 650 mg PO Q4H PRN Reason: Pain Or Temperature > 101 F Citalopram Hydrobromide (Celexa Tab*) 20 mg PO BEDTIME CHERRY Dextrose (D50w Syringe 50 Ml*) 12.5 gm IV PUSH .FOR FS < 60 - SS PRN Reason: FS < 60 Docusate Sodium (Colace Cap*) 100 mg PO BID CHERRY Fenofibrate (Tricor(Nf)) 160 mg PO QAM [facility] Heparin Sodium (Porcine) (Heparin Vial(*)) 5,000 units SUBCUT Q8HR [facility]Y Hydromorphone HCl (Dilaudid Inj1s*) 0.5 mg IV Q1H PRN Reason: Pain - severe Meropenem 2 gm/ Sodium (Chloride) 140 mls @ 280 mls/hr IVPB Q12H [facility]Y Insulin Glargine (Lantus(*)) 5 units SUBCUT BEDTIME [facility]Y Insulin Human Lispro (Humalog*) 0 units SUBCUT ACHS [facility]Y; Protocol Losartan Potassium (Cozaar Tab*) 100 mg PO QAM CH[facility]Y Metoprolol Succinate (Toprol Xl Tab*) 50 mg PO QAM [facility] Omeprazole (Prilosec Cap*) 20 mg PO QAM [facility] Ondansetron HCl (Zofran Inj*) 4 mg IV Q4H PRN Reason: NAUSEA/VOMITING Oxycodone/Acetaminophen (Percocet 5/325 Tab*) 1 tab PO Q4H PRN Reason: PAIN Potassium Chloride (Klor Con Er Tab*) 20 meq PO BID [facility] Vital Signs - 8 hr 07/13/18 07/13/18 07/13/18 11:23 11:27 13:50 Temperature 98.1 F Pulse Rate 80 Respiratory 16 18 18 Rate Blood Pressure 114/46 (mmHg) O2 Sat by Pulse 98 Oximetry 07/13/18 07/13/18 14:02 16:57 Temperature Pulse Rate Respiratory 20 18 Rate Blood Pressure (mmHg) O2 Sat by Pulse Oximetry Oxygen Devices in Use Now: None Appearance: NAD, laying in bed Ears/Nose/Mouth/Throat: Mucous Membranes Moist Respiratory: Symmetrical Chest Expansion and Respiratory Effort, Clear to Auscultation Cardiovascular: NL Sounds; No Murmurs; No JVD, RRR Abdominal: NL Sounds; No Tenderness; No Distention Extremities: No Edema Skin: - - Dressing to ABD clean and intact Neurological: Alert and Oriented x 3, NL Muscle Strength and Tone Lines/Tubes/Other Access: Clean, Dry and Intact PICC Line - site benign, Clean, Dry and Intact Other Access - ENEDINA x 2 to left ABD Nutrition: Taking PO's Result Diagrams: 07/13/18 05:08 07/12/18 05:42 Additional Lab and Data: . Microbiology and Other Data: Microbiology 07/09/18 11:21 Sterile Body Fluid Culture - Preliminary Pleural Fluid No Growth Day 1 Sterile Body Fluid Culture - Preliminary No Growth Day 1 07/09/18 12:45 Gram Stain - Final Misc Fluid (See Comment) - Abscess Body Fluid Culture - Preliminary Escherichia Coli Proteus Mirabilis Enterococcus Faecalis Bacteroides Ovatus 07/09/18 12:01 Gram Stain - Final Misc Fluid (See Comment) - Abscess Body Fluid Culture - Preliminary Escherichia Coli Proteus Mirabilis Enterococcus Faecalis Bacteroides Ovatus 07/09/18 11:35 Urine Culture - Preliminary Urine Escherichia Coli 07/09/18 11:21 Gram Stain - Final Body Fluid - Pleura Diagnostic Imaging: . EKG Data: . Assess/Plan/Problems-Billing Assessment: Ms. Marshall is a 73 y/o female with PMH of HTN, DM and multiple intra-abdominal abscesses, who is POD#1 s/p left posterior thoracocentesis with drainage of intra-abdominal abscess, clinically stable. - Patient Problems (1) Intra-abdominal abscess Code(s): K65.1 - PERITONEAL ABSCESS SNOMED Code(s): 62003403 Comment: - Afebrile and no leukocytosis - Management per surgery - ID consult, input appreciated - Continue Meropenem, diet as tolerated and bowel regimen (2) Anxiety Code(s): F41.9 - ANXIETY DISORDER, UNSPECIFIED SNOMED Code(s): 80263197 Comment: - Continue Lexapro (3) Anemia Current Visit: No Status: Acute Code(s): D64.9 - ANEMIA, UNSPECIFIED SNOMED Code(s): 220348146 Comment: - Chronic, consistent with ACD (4) GERD (gastroesophageal reflux disease) Code(s): K21.9 - GASTRO-ESOPHAGEAL REFLUX DISEASE WITHOUT ESOPHAGITIS SNOMED Code(s): 748366156 Comment: - Continue PPI coverage with Omeprazole (5) Atrial fibrillation Code(s): I48.91 - UNSPECIFIED ATRIAL FIBRILLATION SNOMED Code(s): 25301936 Comment: - PAF (in setting of these recent infection, no prior hx) , NSR now on exam - Continue Metoprolol - Previously on Xarelto (CHADSVASC 4), not currently anticoagulated (6) Diabetes Code(s): E11.9 - TYPE 2 DIABETES MELLITUS WITHOUT COMPLICATIONS SNOMED Code(s) : 13647481 Comment: - Glucose 110-220's - Continue Lispro per SS and Lantus - Continue hold home oral agents, resume at discharge (7) HTN (hypertension) Current Visit: No Status: Acute Code(s): I10 - ESSENTIAL (PRIMARY) HYPERTENSION SNOMED Code(s): 89608332 Comment: - Mostly normotensive, SBP 110-150's - Continue Losartan and Metoprolol (8) DVT prophylaxis Code(s): FOC4142 - SNOMED Code(s): 778762824 Comment: - SQ heparin (9) Full code status Code(s): Z78.9 - OTHER SPECIFIED HEALTH STATUS SNOMED Code(s): 921557714 Status and Disposition: Inpatient. Disposition per General Surgery. Thank you for this consultation, we will continue to follow along. Attending: Simone Quintana
[2018-07-13] MEDS: Citalopram TAB* 20 MG PO SCH (21:17)
[2018-07-13] MEDS: Insulin GLARGINE(*) 1 UNITS UNIT SUBCUT SCH (21:39)
[2018-07-14] MEDS: oxyCODONE/Acetamin 5/325 MG* TAB PO PRN ×5 (01:27→21:44)
[2018-07-14] MEDS: Heparin VIAL(*) 5000 UNITS/ML VIAL (FIVE THOUSAND) SUBCUT SCH ×3 (05:28→21:47)
[2018-07-14] MEDS: Meropenem(*) 2 GM in NS 0.9% 100 ML* 100 ML IVPB SCH ×2 (05:32→17:45)
[2018-07-14] MEDS: Insulin LISPRO* 1 UNITS UNIT SUBCUT SCH ×4 (07:47→21:46)
[2018-07-14] MEDS: FENOFIBRATE 160 MG PO SCH (08:27)
[2018-07-14] MEDS: Omeprazole CAP* 20 MG PO SCH (08:27)
[2018-07-14] MEDS: Potassium Chlor TAB* 20 MEQ TAB.ER PO SCH ×2 (08:27→21:44)
[2018-07-14] MEDS: Losartan TAB* 25 MG PO SCH (08:27)
[2018-07-14] MEDS: Metoprolol Succinate XL TAB* 50 MG PO SCH (08:27)
[2018-07-14] MEDS: Docusate CAP* 100 MG PO SCH ×2 (08:27→21:49)
--- NOTE | 2018-07-14 08:37 | PN ---
Progress Note - Progress Note Date of Service: 07/14/18 Note: POD#5 s/p drainage abd abscesses Afeb, VS OK Voiding Gina po's Pain better Dressings changed Re-packed Drain flushed Abd benign Discharge home on abx (per Dr Rudolph) when medically able wont wound care and drains Nutrition
--- NOTE | 2018-07-14 17:18 | PN ---
Subjective Date of Service: 07/14/18 Interval History: Patient seen and examined at bedside. Denies fever, chills, shortness of breath , chest discomfort, N/V/D. Pt states that she continues to pass flatus. She is eating ok and feels like she is progressing well. Family History: Unchanged from Admission Social History: Unchanged from Admission Past Medical History: Unchanged from Admission Objective Active Medications: Acetaminophen (Tylenol Tab*) 650 mg PO Q4H PRN Reason: Pain Or Temperature > 101 F Citalopram Hydrobromide (Celexa Tab*) 20 mg PO BEDTIME CHERRY Dextrose (D50w Syringe 50 Ml*) 12.5 gm IV PUSH .FOR FS < 60 - SS PRN Reason: FS < 60 Docusate Sodium (Colace Cap*) 100 mg PO BID CH[facility]Y Fenofibrate (Tricor(Nf)) 160 mg PO QAM [facility] Heparin Sodium (Porcine) (Heparin Vial(*)) 5,000 units SUBCUT Q8HR [facility] Heparin Sodium (Porcine) (Heparin Flush Picc/Ml/Cvc(*)) 0 ml IV FLUSH 0600, 1800 CH[facility]Y; Protocol Hydromorphone HCl (Dilaudid Inj1s*) 0.5 mg IV Q1H PRN Reason: Pain - severe Meropenem 2 gm/ Sodium (Chloride) 140 mls @ 280 mls/hr IVPB Q12H [facility]Y Insulin Glargine (Lantus(*)) 5 units SUBCUT BEDTIME CH[facility]Y Insulin Human Lispro (Humalog*) 0 units SUBCUT ACHS CH[facility]Y; Protocol Losartan Potassium (Cozaar Tab*) 100 mg PO QAM [facility]Y Metoprolol Succinate (Toprol Xl Tab*) 50 mg PO QAM [facility] Omeprazole (Prilosec Cap*) 20 mg PO QAM [facility]Y Ondansetron HCl (Zofran Inj*) 4 mg IV Q4H PRN Reason: NAUSEA/VOMITING Oxycodone/Acetaminophen (Percocet 5/325 Tab*) 1 tab PO Q4H PRN Reason: PAIN Potassium Chloride (Klor Con Er Tab*) 20 meq PO BID [facility] Vital Signs - 8 hr 07/14/18 07/14/18 07/14/18 11:36 11:55 14:09 Temperature 97.5 F Pulse Rate 77 Respiratory 16 18 20 Rate Blood Pressure 148/68 (mmHg) O2 Sat by Pulse 98 Oximetry 07/14/18 07/14/18 15:35 16:00 Temperature 98.2 F Pulse Rate 81 Respiratory Rate Blood Pressure 131/47 (mmHg) O2 Sat by Pulse 98 98 Oximetry Oxygen Devices in Use Now: None Result Diagrams: 07/13/18 05:08 07/12/18 05:42 Additional Lab and Data: . Microbiology and Other Data: Microbiology 07/09/18 11:21 Sterile Body Fluid Culture - Preliminary Pleural Fluid No Growth Day 1 Sterile Body Fluid Culture - Preliminary No Growth Day 1 07/09/18 12:45 Gram Stain - Final Misc Fluid (See Comment) - Abscess Body Fluid Culture - Preliminary Escherichia Coli Proteus Mirabilis Enterococcus Faecalis Bacteroides Ovatus 07/09/18 12:01 Gram Stain - Final Misc Fluid (See Comment) - Abscess Body Fluid Culture - Preliminary Escherichia Coli Proteus Mirabilis Enterococcus Faecalis Bacteroides Ovatus 07/09/18 11:35 Urine Culture - Preliminary Urine Escherichia Coli 07/09/18 11:21 Gram Stain - Final Body Fluid - Pleura Diagnostic Imaging: . EKG Data: . Assess/Plan/Problems-Billing Assessment: Ms. Marshall is a 73 y/o female with PMH of HTN, DM and multiple intra-abdominal abscesses, who is POD#1 s/p left posterior thoracocentesis with drainage of intra-abdominal abscess, clinically stable. - Patient Problems (1) Intra-abdominal abscess Code(s): K65.1 - PERITONEAL ABSCESS SNOMED Code(s): 87571928 Comment: - Afebrile and no leukocytosis - Management per surgery - ID consult, input appreciated - Continue Meropenem, diet as tolerated and bowel regimen (2) Asymptomatic bacteriuria Code(s): R82.71 - BACTERIURIA SNOMED Code(s): 276336009 Comment: - E coli 50-75K - Suspect Pt is colonized - She has been on Meropenem, which the e coli is sensitive to (3) Anxiety Code(s): F41.9 - ANXIETY DISORDER, UNSPECIFIED SNOMED Code(s): 46001566 Comment: - Continue Lexapro (4) Anemia Current Visit: No Status: Acute Code(s): D64.9 - ANEMIA, UNSPECIFIED SNOMED Code(s): 825991915 Comment: - Chronic, consistent with ACD (5) GERD (gastroesophageal reflux disease) Code(s): K21.9 - GASTRO-ESOPHAGEAL REFLUX DISEASE WITHOUT ESOPHAGITIS SNOMED Code(s): 090090824 Comment: - Continue PPI coverage with Omeprazole (6) Atrial fibrillation Code(s): I48.91 - UNSPECIFIED ATRIAL FIBRILLATION SNOMED Code(s): 26494822 Comment: - PAF (in setting of these recent infection, no prior hx) , NSR now on exam - Continue Metoprolol - Previously on Xarelto (CHADSVASC 4), not currently anticoagulated (7) Diabetes Code(s): E11.9 - TYPE 2 DIABETES MELLITUS WITHOUT COMPLICATIONS SNOMED Code(s) : 77524501 Comment: - Glucose 110-220's - Continue Lispro per SS and Lantus - Continue hold home oral agents, resume at discharge (8) HTN (hypertension) Current Visit: No Status: Acute Code(s): I10 - ESSENTIAL (PRIMARY) HYPERTENSION SNOMED Code(s): 09228912 Comment: - Mostly normotensive, SBP 110-150's - Continue Losartan and Metoprolol (9) CKD (chronic kidney disease) Code(s): N18.9 - CHRONIC KIDNEY DISEASE, UNSPECIFIED SNOMED Code(s): 723569252 Comment: - Creatinine has been elevated since 10/2017 - Suspect stage 3 at baseline - Creatinine appears to be near baseline, continue to monitor (10) DVT prophylaxis Code(s): AJB1344 - SNOMED Code(s): 194267548 Comment: - SQ heparin (11) Full code status Code(s): Z78.9 - OTHER SPECIFIED HEALTH STATUS SNOMED Code(s): 691280580 Status and Disposition: Inpatient. Disposition per General Surgery. Thank you for this consultation, we will continue to follow along. Attending: Simone Quintana
[2018-07-14] MEDS: Citalopram TAB* 20 MG PO SCH (21:44)
[2018-07-14] MEDS: Insulin GLARGINE(*) 1 UNITS UNIT SUBCUT SCH (21:45)
[2018-07-15] MEDS: Meropenem(*) 2 GM in NS 0.9% 100 ML* 100 ML IVPB SCH ×2 (05:47→17:21)
[2018-07-15 06:05] LABS: Hematocrit 23 % (35-47); Hemoglobin 7.7 g/dl (12.0-16.0); Mean Corpuscular HGB Conc 33 g/dl (31-36); Mean Corpuscular Hemoglobin 28 pg (27-31); Mean Corpuscular Volume 83 fL (80-97); Mean Platelet Volume 6.2 um3 (7.4-10.4); Platelet Count 448 10^3/ul (150-450); Red Blood Count 2.79 10^6/ul (4.00-5.40); Red Cell Distribution Width 15 % (10.5-15); White Blood Count 6.8 10^3/ul (3.5-10.8)
[2018-07-15 06:21] LABS: EGFR Non-African American 47.8 (>60)
[2018-07-15 06:26] LABS: ABS Basophils 0 10^3/ul (0-0.2); ABS Eosinophils 0.4 10^3/ul (0-0.6); ABS Lymphocytes 1.7 10^3/ul (1.0-4.8); ABS Monocytes 0.9 10^3/ul (0-0.8); ABS Neutrophils 3.6 10^3/ul (1.5-7.7); ABS Nucleated RBC 0 10^3/ul; Eosinophil % 6.6 % (0-6); Lymphocyte % 25.9 % (25-47); Nucleated Red Blood Cells % 0.1
[2018-07-15] MEDS ORDERED: Meropenem 1 GM PREMIX(*) 1 GM/50 ML BAG IV SCH (06:30)
[2018-07-15] MEDS: Heparin VIAL(*) 5000 UNITS/ML VIAL (FIVE THOUSAND) SUBCUT SCH ×3 (06:34→21:50)
[2018-07-15] MEDS: Insulin LISPRO* 1 UNITS UNIT SUBCUT SCH ×4 (07:21→21:27)
[2018-07-15] MEDS: oxyCODONE/Acetamin 5/325 MG* TAB PO PRN ×3 (07:28→22:00)
[2018-07-15] MEDS: Docusate CAP* 100 MG PO SCH ×2 (07:29→21:30)
[2018-07-15] MEDS: Omeprazole CAP* 20 MG PO SCH (08:37)
[2018-07-15] MEDS: Losartan TAB* 25 MG PO SCH (08:37)
[2018-07-15] MEDS: Potassium Chlor TAB* 20 MEQ TAB.ER PO SCH ×2 (08:37→21:23)
[2018-07-15] MEDS: Metoprolol Succinate XL TAB* 50 MG PO SCH (08:37)
[2018-07-15] MEDS: FENOFIBRATE 160 MG PO SCH (08:38)
--- NOTE | 2018-07-15 10:24 | PN ---
Subjective Date of Service: 07/15/18 Interval History: Pt feels well, no pain . Plans to go home likely tomorrow Family History: Unchanged from Admission Social History: Unchanged from Admission Past Medical History: Unchanged from Admission Objective Active Medications: Acetaminophen (Tylenol Tab*) 650 mg PO Q4H PRN PRN Reason: Pain Or Temperature >101 F Last Admin: 07/09/18 18:29 Dose: 650 mg Citalopram Hydrobromide (Celexa Tab*) 20 mg PO BEDTIME [facility] Last Admin: 07/14/18 21:44 Dose: 20 mg Dextrose (D50w Syringe 50 Ml*) 12.5 gm IV PUSH .FOR FS < 60 - SS PRN PRN Reason: FS < 60 Docusate Sodium (Colace Cap*) 100 mg PO BID [facility] Last Admin: 07/15/18 07:29 Dose: Not Given Fenofibrate (Tricor(Nf)) 160 mg PO QAM [facility] Last Admin: 07/15/18 08:38 Dose: 160 mg Heparin Sodium (Porcine) (Heparin Vial(*)) 5,000 units SUBCUT Q8HR [facility] Last Admin: 07/15/18 06:34 Dose: 5,000 units Heparin Sodium (Porcine) (Heparin Flush Picc/Ml/Cvc(*)) 0 ml IV FLUSH 0600, 1800 [facility]; Protocol Last Admin: 07/15/18 06:39 Dose: 1 ml Hydromorphone HCl (Dilaudid Inj1s*) 0.5 mg IV Q1H PRN PRN Reason: Pain - severe Last Admin: 07/12/18 22:02 Dose: 0.5 mg Meropenem 2 gm/ Sodium (Chloride) 140 mls @ 280 mls/hr IVPB Q12H [facility] Last Admin: 07/15/18 05:47 Dose: 280 mls/hr Insulin Glargine (Lantus(*)) 5 units SUBCUT BEDTIME [facility] Last Admin: 07/14/18 21:45 Dose: 5 unit Insulin Human Lispro (Humalog*) 0 units SUBCUT ACHS [facility]; Protocol Last Admin: 07/15/18 07:21 Dose: Not Given Losartan Potassium (Cozaar Tab*) 100 mg PO QAM [facility] Last Admin: 07/15/18 08:37 Dose: 100 mg Metoprolol Succinate (Toprol Xl Tab*) 50 mg PO QAM [facility] Last Admin: 07/15/18 08:37 Dose: 50 mg Omeprazole (Prilosec Cap*) 20 mg PO QAM [facility] Last Admin: 07/15/18 08:37 Dose: 20 mg Ondansetron HCl (Zofran Inj*) 4 mg IV Q4H PRN PRN Reason: NAUSEA/VOMITING Oxycodone/Acetaminophen (Percocet 5/325 Tab*) 1 tab PO Q4H PRN PRN Reason: PAIN Last Admin: 07/15/18 07:28 Dose: 1 tab Potassium Chloride (Klor Con Er Tab*) 20 meq PO BID [facility] Last Admin: 07/15/18 08:37 Dose: 20 meq Vital Signs - 8 hr 07/15/18 07/15/18 07/15/18 04:00 06:47 07:28 Temperature 98.2 F Pulse Rate 75 Respiratory 16 20 18 Rate Blood Pressure 133/57 (mmHg) O2 Sat by Pulse 99 Oximetry 07/15/18 07/15/18 07/15/18 07:52 08:00 09:58 Temperature 97.8 F Pulse Rate 72 Respiratory 16 18 18 Rate Blood Pressure 151/58 (mmHg) O2 Sat by Pulse 99 99 Oximetry Oxygen Devices in Use Now: None Appearance: 73 yo F in nAD, aAOx3 Eyes: No Scleral Icterus, PERRLA Ears/Nose/Mouth/Throat: NL Teeth, Lips, Gums, Mucous Membranes Moist Neck: NL Appearance and Movements; NL JVP, Trachea Midline Respiratory: Symmetrical Chest Expansion and Respiratory Effort, Clear to Auscultation Cardiovascular: NL Sounds; No Murmurs; No JVD, RRR Abdominal: NL Sounds; No Tenderness; No Distention, - - obese, mid abd incision with packing in place, left upper abd incision with [address]x [address] dra[address] in place Lymphatic: No Cervical Adenopathy Extremities: No Clubbing, Cyanosis, - - trace nonpitting pedal edema b/l Skin: No Nodules or Sclerosis Neurological: Alert and Oriented x 3, NL Muscle Strength and Tone Result Diagrams: 07/15/18 05:45 07/15/18 05:45 Additional Lab and Data: . Microbiology and Other Data: Microbiology 07/09/18 11:21 Sterile Body Fluid Culture - Preliminary Pleural Fluid No Growth Day 1 Sterile Body Fluid Culture - Preliminary No Growth Day 1 07/09/18 12:45 Gram Stain - Final Misc Fluid (See Comment) - Abscess Body Fluid Culture - Preliminary Escherichia Coli Proteus Mirabilis Enterococcus Faecalis Bacteroides Ovatus 07/09/18 12:01 Gram Stain - Final Misc Fluid (See Comment) - Abscess Body Fluid Culture - Preliminary Escherichia Coli Proteus Mirabilis Enterococcus Faecalis Bacteroides Ovatus 07/09/18 11:35 Urine Culture - Preliminary Urine Escherichia Coli 07/09/18 11:21 Gram Stain - Final Body Fluid - Pleura Diagnostic Imaging: . EKG Data: . Assess/Plan/Problems-Billing Assessment: Ms. Marshall is a 73 y/o female with PMH of HTN, DM and multiple intra-abdominal abscesses, who is s/p left posterior thoracocentesis with drainage of intra- abdominal abscess, clinically stable. - Patient Problems (1) Intra-abdominal abscess Comment: - Afebrile and no leukocytosis - Management per surgery - ID consult, input appreciated - Continue Meropenem, diet as tolerated and bowel regimen (2) Asymptomatic bacteriuria Comment: - E coli 50-75K - Suspect Pt is colonized - She has been on Meropenem, which the e coli is sensitive to (3) Atrial fibrillation Comment: - PAF (in setting of these recent infection, no prior hx) , NSR now on exam - Continue Metoprolol - Previously on Xarelto (CHADSVASC 4), not currently anticoagulated (4) CKD (chronic kidney disease) Current Visit: Yes Comment: - Creatinine has been elevated since 10/2017 - Suspect stage 3 at baseline - Creatinine appears to be near baseline, continue to monitor (5) Diabetes Comment: - Glucose 110-220's - Continue Lispro per SS and Lantus - Continue hold home oral agents, resume at discharge (6) Normocytic anemia Comment: suspect due to post op blood loss, although pt's Hb appears to be 8-9 at baseline in the past 8 months or so. will get stool occult. Intraabdominal infection is contributing to anemia of chronic disease No symptoms of bleeding (7) DVT prophylaxis Comment: - SQ heparin Status and Disposition: Inpatient. Disposition per General Surgery. Thank you for this consultation, we will continue to follow along.
--- NOTE | 2018-07-15 13:44 | PN ---
Progress Note - Progress Note Date of Service: 07/15/18 Note: POD#6 s/p drainage abd abscesses Afeb, VS OK Voiding Gina po's Pain better Dressings changed Re-packed Drain flushed 30 ml NS Abd benign Discharge home on abx in 1-[address] Rudolph Cont wound care and drains Nutrition
[2018-07-15] MEDS: Citalopram TAB* 20 MG PO SCH (21:23)
[2018-07-15] MEDS: Insulin GLARGINE(*) 1 UNITS UNIT SUBCUT SCH (21:24)
[2018-07-16] MEDS ORDERED: Meropenem 1 GM PREMIX(*) 1 GM/50 ML BAG IV SCH ×2 (06:00→06:30)
[2018-07-16] MEDS: Heparin VIAL(*) 5000 UNITS/ML VIAL (FIVE THOUSAND) SUBCUT SCH ×2 (06:30→13:52)
[2018-07-16] MEDS: Losartan TAB* 25 MG PO SCH (07:52)
[2018-07-16] MEDS: Metoprolol Succinate XL TAB* 50 MG PO SCH (07:53)
[2018-07-16] MEDS: FENOFIBRATE 160 MG PO SCH (07:53)
[2018-07-16] MEDS: Omeprazole CAP* 20 MG PO SCH (07:53)
[2018-07-16] MEDS: Potassium Chlor TAB* 20 MEQ TAB.ER PO SCH ×2 (07:53→21:39)
[2018-07-16] MEDS: Acetaminophen TAB* 325 MG PO PRN (07:53)
[2018-07-16] MEDS: Docusate CAP* 100 MG PO SCH (07:53)
[2018-07-16] MEDS: Insulin LISPRO* 1 UNITS UNIT SUBCUT SCH (07:55)
--- NOTE | 2018-07-16 13:34 | PN ---
Progress Note - Progress Note Date of Service: 07/16/18 Note: S: POD #7. On Merepenem. Denies any significant pain. Tolerating diet; using protein powder supplement. Ambulating well. Moving bowels (TID). O: Vital Signs - 8 hr 07/16/18 07/16/18 07/16/18 05:35 06:34 08:00 Temperature Pulse Rate Respiratory 16 16 Rate Blood Pressure (mmHg) O2 Sat by Pulse 98 100 Oximetry 07/16/18 07/16/18 09:25 12:22 Temperature 97.5 F 97.6 F Pulse Rate 70 75 Respiratory 16 18 Rate Blood Pressure 146/57 138/55 (mmHg) O2 Sat by Pulse 100 100 Oximetry Intake and Output Last 24 Hours 07/14/18 07/15/18 07/16/18 07/17/18 06:59 06:59 06:59 06:59 Intake Total 1470 1428 2020 Output Total 841 042 8234 Balance 1099 1048 240 Intake: IV Fluids 170 338 NS 30 48 meropenem 140 290 Oral 1300 1090 2020 Output: ENEDINA #1 45 100 92 ENEDINA #2 26 30 38 Urine 239 072 1253 Other: Estimated Void Medium Medium Date of Last Bowel 07/15/18 07/15/18 Movement # Bowel Movements 1 2 Estimated Stool Amount Medium Medium Medium # Voids 1 1 PE: Gen: WN, obese; appears comfortable Heart: reg Lungs: clear Abd: +BS; Right abd wound clean around carla; dsg had just been changed; small areas of maceration under tape and body folds (Using barrier cream). Left wound clean w/ small amts of serous drainage; packing (1/2" plain) changed; soft , nontender; drains: standard ENEDINA w/ small amt of slightly tapia/serous drainage; larger drain: clear serosang. Extr: no edema labs: fs glucoses: 103-186 C&S from thoracentesis: no growth (patient informed) A: s/p drainage and exploration of chronically draining abd wound, doing well; on Merepenem P: PICC today; prob home on 4-6 wks IV abx per Dr. Rudolph; spoke w/ search planner
[2018-07-16] MEDS ORDERED: oxyCODONE/Acetamin 5/325 MG* TAB ONE (14:15)
[2018-07-16] MEDS: oxyCODONE/Acetamin 5/325 MG* TAB PO PRN ×2 (14:18→21:39)
--- NOTE | 2018-07-16 14:18 | PN ---
Subjective Date of Service: 07/16/18 Interval History: Pt feels well. Noted less drainage from abd drains. BM's are "normal", good appetite Family History: Unchanged from Admission Social History: Unchanged from Admission Past Medical History: Unchanged from Admission Objective Active Medications: Acetaminophen (Tylenol Tab*) 650 mg PO Q4H PRN PRN Reason: Pain Or Temperature >101 F Last Admin: 07/16/18 07:53 Dose: 650 mg Citalopram Hydrobromide (Celexa Tab*) 20 mg PO BEDTIME [facility] Last Admin: 07/15/18 21:23 Dose: 20 mg Dextrose (D50w Syringe 50 Ml*) 12.5 gm IV PUSH .FOR FS < 60 - SS PRN PRN Reason: FS < 60 Fenofibrate (Tricor(Nf)) 160 mg PO QAM [facility] Last Admin: 07/16/18 07:53 Dose: 160 mg Heparin Sodium (Porcine) (Heparin Vial(*)) 5,000 units SUBCUT Q8HR [facility] Last Admin: 07/16/18 13:52 Dose: 5,000 units Heparin Sodium (Porcine) (Heparin Flush Picc/Ml/Cvc(*)) 0 ml IV FLUSH 0600, 1800 CHERRY; Protocol Last Admin: 07/16/18 07:53 Dose: 1 ml Hydromorphone HCl (Dilaudid Inj1s*) 0.5 mg IV Q1H PRN PRN Reason: Pain - severe Last Admin: 07/12/18 22:02 Dose: 0.5 mg Meropenem (Merrem 1 Gm Premix(*)) 1 gm in 50 mls @ 100 mls/hr IV Q12H CHERRY Last Admin: 07/16/18 06:23 Dose: 100 mls/hr Meropenem (Merrem 1 Gm Premix(*)) 1 gm in 50 mls @ 100 mls/hr IV 0630,1830 [facility] Last Admin: 07/16/18 07:00 Dose: 100 mls/hr Insulin Glargine (Lantus(*)) 5 units SUBCUT BEDTIME [facility] Last Admin: 07/15/18 21:24 Dose: 5 unit Losartan Potassium (Cozaar Tab*) 100 mg PO QAM [facility] Last Admin: 07/16/18 07:52 Dose: 100 mg Metoprolol Succinate (Toprol Xl Tab*) 50 mg PO QAM [facility] Last Admin: 07/16/18 07:53 Dose: 50 mg Omeprazole (Prilosec Cap*) 20 mg PO QAM [facility] Last Admin: 07/16/18 07:53 Dose: 20 mg Ondansetron HCl (Zofran Inj*) 4 mg IV Q4H PRN PRN Reason: NAUSEA/VOMITING Oxycodone/Acetaminophen (Percocet 5/325 Tab*) 1 tab PO Q4H PRN PRN Reason: PAIN Potassium Chloride (Klor Con Er Tab*) 20 meq PO BID [facility] Last Admin: 07/16/18 07:53 Dose: 20 meq Vital Signs - 8 hr 07/16/18 07/16/18 07/16/18 06:34 08:00 09:25 Temperature 97.5 F Pulse Rate 70 Respiratory 16 16 16 Rate Blood Pressure 146/57 (mmHg) O2 Sat by Pulse 100 100 Oximetry 07/16/18 12:22 Temperature 97.6 F Pulse Rate 75 Respiratory 18 Rate Blood Pressure 138/55 (mmHg) O2 Sat by Pulse 100 Oximetry Oxygen Devices in Use Now: None Appearance: 73 yo F in nAD, aAOx3 Eyes: No Scleral Icterus, PERRLA Ears/Nose/Mouth/Throat: NL Teeth, Lips, Gums, Mucous Membranes Moist Neck: NL Appearance and Movements; NL JVP, Trachea Midline Respiratory: Symmetrical Chest Expansion and Respiratory Effort, Clear to Auscultation Cardiovascular: NL Sounds; No Murmurs; No JVD, RRR Abdominal: NL Sounds; No Tenderness; No Distention, - - incison -R lower abd with drain in place. LUQ incisions with [address] Lymphatic: No Cervical Adenopathy Extremities: No Clubbing, Cyanosis Skin: No Nodules or Sclerosis Neurological: Alert and Oriented x 3, NL Muscle Strength and Tone Result Diagrams: 07/15/18 05:45 07/15/18 05:45 Additional Lab and Data: . Microbiology and Other Data: Microbiology 07/09/18 11:21 Sterile Body Fluid Culture - Preliminary Pleural Fluid No Growth Day 1 Sterile Body Fluid Culture - Preliminary No Growth Day 1 07/09/18 12:45 Gram Stain - Final Misc Fluid (See Comment) - Abscess Body Fluid Culture - Preliminary Escherichia Coli Proteus Mirabilis Enterococcus Faecalis Bacteroides Ovatus 07/09/18 12:01 Gram Stain - Final Misc Fluid (See Comment) - Abscess Body Fluid Culture - Preliminary Escherichia Coli Proteus Mirabilis Enterococcus Faecalis Bacteroides Ovatus 07/09/18 11:35 Urine Culture - Preliminary Urine Escherichia Coli 07/09/18 11:21 Gram Stain - Final Body Fluid - Pleura Diagnostic Imaging: . EKG Data: . Assess/Plan/Problems-Billing Assessment: Ms. Marshall is a 73 y/o female with PMH of HTN, DM and multiple intra-abdominal abscesses, who is s/p left posterior thoracocentesis with drainage of intra- abdominal abscess, clinically stable. - Patient Problems (1) Intra-abdominal abscess Comment: - Afebrile and no leukocytosis - Management per surgery - ID consult, input appreciated - Continue Meropenem, diet as tolerated and bowel regimen (2) Asymptomatic bacteriuria Comment: - E coli 50-75K - Suspect Pt is colonized - She has been on Meropenem, which the e coli is sensitive to (3) Atrial fibrillation Comment: - PAF (in setting of these recent infection, no prior hx) , NSR now on exam - Continue Metoprolol - Previously on Xarelto (CHADSVASC 4), not currently anticoagulated (4) CKD (chronic kidney disease) Current Visit: Yes Comment: - Creatinine has been elevated since 10/2017 - Suspect stage 3 at baseline - Creatinine appears to be near baseline, continue to monitor (5) Diabetes Comment: - Glucose 110-220's - Continue Lispro per SS and Lantus - Continue hold home oral agents, resume at discharge (6) Normocytic anemia Comment: suspect due to post op blood loss, although pt's Hb appears to be 8-9 at baseline in the past 8 months or so. Stool occult positive and not grossly bloody or melanotic. Will d/x DR. Moeller re: GI consult Will start ferrous sulfate. Intraabdominal infection is contributing to anemia of chronic disease (7) DVT prophylaxis Comment: - SQ heparin will be d/c'd due to heme+ stool Status and Disposition: Inpatient. Disposition per General Surgery. Thank you for this consultation, we will continue to follow along.
[2018-07-16] MEDS: Meropenem(*) 2 GM in NS 0.9% 100 ML* 100 ML IVPB SCH (18:24)
[2018-07-16] MEDS: Ferrous Sulfate TAB* 325 MG PO SCH (21:39)
[2018-07-16] MEDS: Citalopram TAB* 20 MG PO SCH (21:41)
[2018-07-16] MEDS: Insulin GLARGINE(*) 1 UNITS UNIT SUBCUT SCH (21:42)
[2018-07-17] MEDS: Acetaminophen TAB* 325 MG PO PRN (03:42)
[2018-07-17] MEDS: Meropenem(*) 2 GM in NS 0.9% 100 ML* 100 ML IVPB SCH (05:59)
[2018-07-17 06:10] LABS: Hematocrit 23 % (35-47); Hemoglobin 7.5 g/dl (12.0-16.0); Mean Corpuscular HGB Conc 33 g/dl (31-36); Mean Corpuscular Hemoglobin 28 pg (27-31); Mean Corpuscular Volume 85 fL (80-97); Platelet Count 491 10^3/ul (150-450); Red Blood Count 2.71 10^6/ul (4.00-5.40); Red Cell Distribution Width 16 % (10.5-15); White Blood Count 6.9 10^3/ul (3.5-10.8)
[2018-07-17] MEDS: Ferrous Sulfate TAB* 325 MG PO SCH (09:43)
[2018-07-17] MEDS: Potassium Chlor TAB* 20 MEQ TAB.ER PO SCH (09:43)
[2018-07-17] MEDS: Metoprolol Succinate XL TAB* 50 MG PO SCH (09:43)
[2018-07-17] MEDS: Losartan TAB* 25 MG PO SCH (09:43)
[2018-07-17] MEDS: Omeprazole CAP* 20 MG PO SCH (09:43)
[2018-07-17] MEDS: FENOFIBRATE 160 MG PO SCH (09:44)
[2018-07-17] MEDS: oxyCODONE/Acetamin 5/325 MG* TAB PO PRN (09:49)
--- NOTE | 2018-07-17 10:04 | PN ---
Progress Note - Progress Note Date of Service: 07/17/18 Note: POD#8 Afeb, VS OK Voiding, arlene po's, passing BM's No pain issues ENEDINA's moderate drng. Still cloudy Drsgs changed, repacked, ENEDINA flushed Will disch on oral abx if home crae in place. Summary dictated
[2018-07-17 12:44] VITALS: BP 147/64
--- NOTE | 2018-07-17 21:10 | DS ---
CC: Dr. Moeller; Dr. Chip Rudolph; Dr. Marcelino Vu. DISCHARGE SUMMARY: DATE OF ADMISSION: 07/09/18 DATE OF DISCHARGE: 07/17/18 PRINCIPAL ADMITTING DIAGNOSIS: Intraabdominal abscesses. OPERATION IN THIS ADMISSION: Drainage of multiple intraabdominal abscesses. SECONDARY DIAGNOSES: Include: 1. Hypertension. 2. Type 2 diabetes. 3. Hyperlipidemia. 4. Chronic renal insufficiency. 5. History of gout. 6. History of atrial fibrillation. 7. History of anxiety and depression. 8. History of GERD and obesity. HOSPITAL COURSE: The patient came to the hospital, was taken to the operating room on 07/09/18, had drainage of intraabdominal abscesses with placement of drains. She was managed with drain care, intra venous antibiotics, and was seen in consultation by the hospitalist service to help manage her medica l needs, was seen in consultation by Dr. Rudolph to manage Infectious Disease needs. She had gradua l improvement in her pain control, her appetite, her bowel function, her energy and will be discharge d home with a PICC line for continued home intravenous antibiotics. At the time of discharge, her ite blood count is normal. She has chronic anemia, the hemoglobin of 7.5. Her cultures grew out man y organisms. Please see the detailed microbiology report. She will be discharged home with meropenem for home use. She will continue to follow with Dr. Rudolph for Infectious Disease and follow up [facility] Dr. Vu for her medical needs at home. [id number]/[facility] #: [id number]
== END 2018-07-17 13:35 | disposition home health service (06) | DRG 357 ==
LOC: OR 07:43 → SSU 15:35
PROVIDERS: ADMIT Surgery; ATTEND Surgery
PROC: 0W9B3ZZ Drainage of Left Pleural Cavity, Percutaneous Approach (ICD-10-PCS; 2018-07-09)
PROC: 0W9G00Z Drainage of Peritoneal Cavity with Drainage Device, Open Approach (ICD-10-PCS; principal; 2018-07-09 08:45)
DX: K65.1 Peritoneal abscess (principal); J90 Pleural effusion, not elsewhere classified; N18.4 Chronic kidney disease, stage 4 (severe); E11.9 Type 2 diabetes mellitus without complications; E78.5 Hyperlipidemia, unspecified; I12.9 Hypertensive chronic kidney disease with stage 1 through stage 4 chronic kidney disease, or unspecified chronic kidney disease; I73.00 Raynaud's syndrome without gangrene; M32.9 Systemic lupus erythematosus, unspecified; E66.9 Obesity, unspecified; K21.9 Gastro-esophageal reflux disease without esophagitis; F41.9 Anxiety disorder, unspecified; D63.1 Anemia in chronic kidney disease; I48.0 Paroxysmal atrial fibrillation; D73.3 Abscess of spleen; L94.9 Localized connective tissue disorder, unspecified; M10.9 Gout, unspecified; F41.8 Other specified anxiety disorders; R82.71 Bacteriuria; Z90.49 Acquired absence of other specified parts of digestive tract; Z98.51 Tubal ligation status; Z88.0 Allergy status to penicillin; Z88.1 Allergy status to other antibiotic agents; Z88.8 Allergy status to other drugs, medicaments and biological substances
CPT/HCPCS: 36415; 74177; 80048; 80053; 81003; 81015; 82272; 84134; 85025; 85027; 87040; 87070; 87076; 87077; 87086; 87102; 87186; 87205; A9270-GY; C1751; J0780; J1170; J1240; J1580; J1644; J2185; J2250; J2270; J2704; J3010; Q9967

== ENCOUNTER 2019-05-10 10:21 | Inpatient (IN) | payer MEDICARE, BC ==
--- NOTE | 2019-05-10 10:48 | ED ---
Abdominal Pain/Female - HPI Summary HPI Summary: A 73 y/o F presents to ED c/o RLQ abd draining onset two days ago. Pt has had multiple abd surgeries. Dr. Moeller did a surgery in Jun 2018, placing a chest tube drain, which has since been removed. She cleaned the location where the tube was with 10ccs nml saline, and says she could "see a tunnel of raw meat" that appears to be her liver. The area is draining with what appears to be water. Associated sx: severe R-sided abd pain. Patient is afebrile in ED. - History of Current Complaint Chief Complaint: EDAbdPain Stated Complaint: SEVERE ABD PAIN/LEAKING BOWEL PER PT Time Seen by Provider: 05/10/19 10:41 Hx Obtained From: Patient Onset/Duration: Lasting Days, Still Present Timing: Constant Severity Initially: Severe Severity Currently: Severe Pain Intensity: 8 Pain Scale Used: 0-10 Numeric Location: Discrete At: RLQ Associated Signs and Symptoms: Positive: Other: - pos: abd draining Allergies/Adverse Reactions: Allergies Allergy/AdvReac Type Severity Reaction Status Date / Time metronidazole [From Flagyl] Allergy SEVERE GI Verified 07/09/18 08:40 UPSET Penicillins Allergy Hives Verified 07/09/18 08:40 Home Medications: Home Medications Metoprolol Succinate XL TAB* [Toprol XL TAB*] 50 mg PO QAM 05/10/19 [History Confirmed 05/10/19] Naproxen Sodium [Naproxen 220 mg] 440 mg PO BEDTIME PRN 05/10/19 [History Confirmed 05/10/19] PMH/Surg Hx/FS Hx/Imm Hx Previously Healthy: No Endocrine/Hematology History: Reports: Hx Diabetes, Hx Systemic Lupus Erythematosus, Hx Anemia - 08/2017 Cardiovascular History: Reports: Hx Hypertension, Other Cardiovascular Problems/ Disorders - ATRIAL FIBRILLATION- DURING SEPSIS-08/2018 GI History: Reports: Hx Gall Bladder Disease - Removed in 1973, Hx Gastroesophageal Reflux Disease, Other GI Disorders - HX OF ABCESSES History: Reports: Other Problems/Disorders - Consulted with in past. Denies: Hx Renal Disease Musculoskeletal History: Reports: Hx Arthritis - Lupus Sensory History: Reports: Hx Contacts or Glasses Denies: Hx Hearing Aid Opthamlomology History: Reports: Hx Contacts or Glasses Psychiatric History: Reports: Hx Anxiety - INFREQUENT, Hx Depression - Surgical History Surgery Procedure, Year, and Place: Gall bladder removed. Tubes tied. Laparotomy with washout of intraabdominal collections, drains placed and umbilical hernia repair Hx Anesthesia Reactions: No Infectious Disease History: No Infectious Disease History: Denies: Traveled Outside the [place] in Last 30 Days - Family History Family History: neg: anaesthesia reaction - Social History Occupation: Retired Lives: With Family Alcohol Use: None Hx Substance Use: No Substance Use Type: Reports: None Hx Tobacco Use: Yes Smoking Status (MU): Former Smoker Type: Cigarettes Review of Systems Negative: Fever Positive: Abdominal Pain, Other - pos: abd draining All Other Systems Reviewed And Are Negative: Yes Physical Exam - Summary Physical Exam Summary: Appearance: The patient is well-nourished in no acute distress and in no acute pain. Skin: The skin is warm and dry and skin color reflects adequate perfusion. HEENT: The head is normocephalic and atraumatic. The pupils are equal and reactive. The conjunctivae are clear and without drainage. Nares are patent and without drainage. Mouth reveals moist mucous membranes and the throat is without erythema and exudate. The external ears are intact. The ear canals are patent and without drainage. The tympanic membranes are intact. Neck: the neck is supple with full range of motion and non-tender. There are no carotid bruits. There is no neck vein distension. Respiratory: Chest is non-tender. Lungs are clear to auscultation and breath sounds are symmetrical and equal. Cardiovascular: Heart is regular rate and rhythm. There is no murmur or rub auscultated. There is no peripheral edema and pulses are symmetrical and equal. Abdomen: The abdomen is soft. There is an open wound with malodorous brown discharge in the RLQ. There are normal bowel sounds heard in all four quadrants and there is no organomegaly palpated. Musculoskeletal: There is no back tenderness noted. Extremities are non-tender with full range of motion. There is good capillary refill. There is no peripheral edema or calf tenderness elicited. Neurological: Patient is alert and oriented to person, place and time. The patient has symmetrical motor strength in all four extremities. Cranial nerves are grossly intact. Deep tendon reflexes are symmetrical and equal in all four extremities. Psychiatric: The patient has an appropriate affect and does not exhibit any anxiety or depression. Triage Information Reviewed: Yes Vital Signs On Initial Exam: Initial Vitals Temp Pulse Resp BP Pulse Ox 97 F 87 20 136/67 99 05/10/19 10:23 05/10/19 10:23 05/10/19 10:23 05/10/19 10:23 05/10/19 10:23 Vital Signs Reviewed: Yes Diagnostics - Vital Signs Vital Signs Temp Pulse Resp BP Pulse Ox 05/10/19 10:23 97 F 87 20 136/67 99 - Laboratory Result Diagrams: 05/10/19 11:37 05/10/19 11:37 Lab Statement: Any lab studies that have been ordered have been reviewed, and results considered in the medical decision making process. Abdominal Pain Fem Course/Dx - Course Course Of Treatment: Ms. Marshall was diagnosed with diverticulitis about a week ago by Dr. Eliel Vu with CT scan. Antibiotics were apparently not started at that time because she has had a lot of problems including fistulas and he referred her to our surgeons. Over the weekend an old scar that she had from a drain and is draining a malodorous watery material. It is painful in the area. She was nontoxic in appearance with stable vitals and no signs of sepsis. Labs were obtained and were unremarkable. I spoke with Dr. Bourgeois who came to the department and evaluated her. He recommended admission to the hospitalist and CT scan to compare to the CT scan from a week ago. I spoke with Dr. Medina ; CT scan is pending at this time. - Diagnoses Provider Diagnoses: Abdominal abscess - Provider Notifications Discussed Care Of Patient With: Zbigniew Russell - surgery Time Discussed With Above Provider: 11:26 Instructed by Provider To: MD Will See In ED - Consulted again at 1315: Recommends CT, believes it's draining on its own, placed osteomy bag, recommends consult with Dr. Vu and dmission by hospitalist. Discharge - Sign-Out/Discharge Documenting (check all that apply): Patient Departure - ADMIT Patient Received Moderate/Deep Sedation with Procedure: No - Discharge Plan Condition: Stable Disposition: ADMITTED TO [facility] Referrals: Eliel Vu DO [Primary Care Provider] - - Billing Disposition and Condition Condition: STABLE Disposition: Admitted to [facility] - Attestation Statements Document Initiated by Scribe: Yes Documenting Scribe: Wolfgang Hicks Provider For Whom Scribe is Documenting (Include Credential): Dr. Sami Vogt MD Scribe Attestation: I, Wolfgang Hicks, scribed for Dr. Smai Vogt MD on 05/10/19 at 1503. Scribe Documentation Reviewed: Yes Provider Attestation: The documentation as recorded by the scribe, Wolfgang Hicks accurately reflects the service I personally performed and the decisions made by me, Dr. Sami Vogt MD Status of Scribe Document: Viewed Consult Consult: 1322: Consult with RN from Dr. Vu, [employer] Will send disk of prior CT for comparison 1430: Consult with Dr. Medina, hospitalist Will admit patient.
[2019-05-10 11:46] LABS: Hematocrit 31 % (35-47); Hemoglobin 10.1 g/dL (12.0-16.0); Mean Corpuscular HGB Conc 33 g/dL (31-36); Mean Corpuscular Hemoglobin 29 pg (27-31); Mean Corpuscular Volume 88 fL (80-97); Mean Platelet Volume 6.2 fL (7.4-10.4); Platelet Count 450 10^3/uL (150-450); Red Blood Count 3.45 10^6 /uL (3.70-4.87); Red Cell Distribution Width 14 % (10-15); White Blood Count 10.5 10^3/uL (3.5-10.8)
[2019-05-10 12:07] LABS: ALT 8 U/L (7-52); AST 17 U/L (13-39); Albumin 2.5 g/dL (3.2-5.2); Albumin/Globulin Ratio 0.7 (1-3); Alkaline Phosphatase 68 U/L (34-104); Anion Gap 10 mmol/L (2-11); Blood Urea Nitrogen 49 mg/dL (6-24); C Reactive Protein 191.02 mg/L (<8.01); CO2 Carbon Dioxide 22 mmol/L (22-32); Calcium 8.8 mg/dL (8.6-10.3); Chloride 110 mmol/L (101-111); EGFR African American 38.9 (>60); EGFR Non-African American 32.1 (>60); Globulin 3.7 g/dL (2-4); Glucose 179 mg/dL (70-100); Potassium 3.2 mmol/L (3.5-5.0); Sodium 142 mmol/L (135-145); Total Protein 6.2 g/dL (6.4-8.9)
[2019-05-10 12:26] LABS: ABS Eosinophils 0.1 10^3/ul (0-0.6); ABS Lymphocytes 0.5 10^3/ul (1.0-4.8); ABS Monocytes 0.8 10^3/ul (0-0.8); ABS Neutrophils 9.1 10^3/ul (1.5-7.7); Eosinophil % 0.9 %; Lymphocyte % 4.5 %
[2019-05-10] MEDS ORDERED: Morphine 4 MG/ML VIAL (1 ml) 4 MG/ML VIAL IV ONE (13:58)
[2019-05-10] MEDS ORDERED: Ondansetron INJ* 2 MG/ML VIAL IV PRN (15:25)
[2019-05-10] MEDS ORDERED: Simethicone TAB* 80 MG TAB.CHEW PO PRN (15:32)
[2019-05-10] MEDS ORDERED: Dextrose 50% Syringe 50 ML* 25 GM/50 ML SYRINGE IV PUSH PRN (15:33)
[2019-05-10 15:53] LABS: Urine Appearance Cloudy; Urine Bacteria 2+ (Absent); Urine Bilirubin Negative (Negative); Urine Blood Negative (Negative); Urine Color Amber; Urine Glucose Negative (Negative); Urine Ketones Negative (Negative); Urine Nitrite Negative (Negative); Urine Protein 1+(30 mg/dL) (Negative); Urine Red Blood Cell 1+(3-5/hpf) (Absent); Urine Specific Gravity 1.026 (1.010-1.030); Urine Squamous Epithelial Cell Present (Absent); Urine Urobilinogen Negative (Negative); Urine White Blood Cell 3+(>20/hpf) (Absent)
[2019-05-10] MEDS: Lactated Ringers 1000 ML Bag* 1,000 ML IV SCH (17:17)
--- NOTE | 2019-05-10 17:52 | HP ---
CC: Dr. Eliel Vu * ADMISSION HISTORY AND PHYSICAL: DATE OF ADMISSION: 05/10/19 PRIMARY CARE PROVIDER: Dr. Eliel Vu. MY ATTENDING WHILE IN THE HOSPITAL: Dr. Jodi Medina.* (DICTATED BY ERENDIRA SWEENEY) CHIEF COMPLAINT: Abdominal pain times approximately 10 days. HISTORY OF PRESENT ILLNESS: Ms. Marshall is a 73-year-old female with a past medical history significant for a complicated history related to multiple intraabdominal abscesses believed to be due to diverticulitis with numerous drains placed with previous colocutaneous fistulas which healed with wound care , who has been doing well recently without change in her medications or recent bowel issues when she has a spontaneous onset of left lower quadrant abdominal pain approximately 10 days ago. The patient went to see her primary care provider and had a CT of her abdomen, which showed an intraabdominal abscess associated with ruptured diverticulum. The patient was treated conservatively without antibiotics and the plan was for her to have a drain placed for this. The patient did not have any symptoms such as fevers or chills. The patient did have diarrhea associated with this. However, approximately 36 hours before she came to the hospital, she had developed an open wound on the right side of her abdomen with draining fecal matter at the site of a previous abdominal drain. The patient at this point did have some fevers and chills and some fatigue, but nothing too bad per her words. The patient had some nonbloody diarrhea, no nausea or vomiting, had preserved appetite. The patient had previously been evaluated by a specialist, colorectal surgeon in [place]. The patient believes that the abscesses on the left side of her abdomen are not associated with the right-sided fistula. The patient came into the emergency department and was evaluated by Dr. Zbigniew Russell, who recommended a repeat CT scan of the abdomen. The patient on her lab work had no elevated white blood cell count, had 18% bands. The patient had a severely elevated CRP at 191. The patient's creatinine was slightly elevated, but near her baseline. Due to concern for colocutaneous fistula, we were asked to evaluate the patient for admission to the hospital. PAST MEDICAL HISTORY: Undifferentiated connective tissue disease; diabetes mellitus type 2; atrial fibrillation, not on anticoagulation; chronic kidney disease; hypertension; gout associated with hydrochlorothiazide use; history of multiple liver abscesses, status post multiple drains and surgeries; Raynaud's phenomenon; anemia. PAST SURGICAL HISTORY: Cholecystectomy, multiple liver abscess drainages, splenic abscess drainage, tubal ligation. MEDICATIONS ON ADMISSION: 1. Lexapro 10 mg p.o. daily. 2. Simethicone 80 mg p.o. q.4 hours as needed. 3. Lactobacillus acidophilus 1 tab p.o. daily. 4. Fenofibrate 160 mg p.o. daily. 5. Metformin 500 mg p.o. b.i.d. with meal. 6. Januvia 50 mg p.o. b.i.d. 7. Prilosec 20 mg p.o. daily. 8. Cozaar 100 mg p.o. daily. 9. Insulin glargine 5 units subcutaneous q.p.m. 10. Metoprolol succinate 50 mg p.o. q.a.m. 11. Naproxen 440 mg p.o. at bedtime as needed. ALLERGIES: FLAGYL, PENICILLIN, ZYVOX. FAMILY HISTORY: The patient's father of aplastic anemia and possible transfusion reaction. The patient's mother of brain and lung cancer at age 72. The patient has 4 siblings, all of whom are , one of diabetes mellitus type 1, one of Hodgkin's lymphoma, and one of dementia. SOCIAL HISTORY: The patient never smoked, drank, or used illicit drugs. 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 The patient is and has 2 children. The patient's surrogate decision maker will be her , King Rolando. REVIEW OF SYSTEMS: A 14-point review of systems was reviewed and is negative except as above in the HPI. PHYSICAL EXAMINATION GENERAL: The patient is a 73-year-old female, who appears stated age and sitting comfortably in bed, in no acute distress. VITAL SIGNS: At the time of evaluation, temperature 97.0, pulse rate 87, respiratory rate 20, oxygen saturation 97% on room air, blood pressure 136/67. HEENT: Head: Normocephalic, atraumatic. Sclerae anicteric. No conjunctival injection. Nasal mucosa moist. Oral mucosa moist. No pharyngeal erythema, discharge, or exudate. NECK: Supple, nontender. No lymphadenopathy. No carotid bruits auscultated. No JVD. RESPIRATORY: Clear to auscultation bilaterally. No wheezes, rales, or rhonchi. Good air exchange bilaterally. CARDIAC: Regular rate and rhythm. No clicks, murmurs, gallops, or rubs. Pulses are 2+ in the bilateral dorsalis pedis, posterior tibialis, and radial areas. ABDOMEN: Soft, nondistended. Bowel sounds present and normoactive in all 4 quadrants. Tender to palpation throughout. Large open area with draining fecal matter in the right upper quadrant of the abdomen. No hepatosplenomegaly. No abdominal bruits auscultated. No hepatojugular reflux. GENITOURINARY: No suprapubic or CVA tenderness. SKIN: Fistula as above. DIAGNOSTIC STUDIES/LAB DATA: White blood cell count 10.5, hemoglobin 10.1, platelet count 450, bands 18%. Sodium 142, potassium 4.8, chloride 110, carbon dioxide 22, anion gap 10, BUN 49, creatinine 1.58, glucose 179, lactic acid 1.3 , calcium 8.8. Bilirubin 0.6, AST 17, ALT 8, alkaline phosphatase 68. CRP 191.02. Total protein 6.2, albumin 3.5, globulin 3.7. Lipase less than 10. Studies: CT of the abdomen and pelvis is pending. ASSESSMENT AND PLAN: Impression: Ms. Marshall is a 73-year-old female with past medical history significant for undifferentiated connective tissue disease , diabetes mellitus type 2, chronic kidney disease, hypertension, and complicated history of multiple intraabdominal abscesses, status post multiple drains, who developed a new diverticular abscess and draining colocutaneous fistula, who will be admitted to the hospital for IV antibiotics, surgical consultation and supportive care. 1. Colocutaneous fistula, intraabdominal abscess. There is a chance that this fistula developed from a previous drainage site spontaneously or that this may represent an abscess found on CT eroding to the skin. CT scan compared to previous exam will help to further clarify this. At this time, there has been wound management with a colostomy bag and the patient has no signs of inflammation around that. The patient will be started on meropenem given her above allergies, and her band cells which may represent impending worsening infection. The patient will be monitored closely with serial abdominal exams. The patient will be given fluids, though she is not hypotensive or tachycardic at this point. If the patient has a drainable abscess, this will be discussed with Interventional Radiology tomorrow. 2. Diabetes mellitus type 2. The patient is currently hyperglycemic. The patient will be made n.p.o. and her blood sugars will be controlled with sliding scale insulin. 3. Chronic kidney disease. This is slightly above baseline. Fluids as above. Avoid nephrotoxic medications. 4. Hypertension. Continue the patient's metoprolol. Hold the patient's ARB. 5. Anemia. The patient's anemia is at baseline. This is likely related to anemia of chronic disease. 6. DVT prophylaxis: Heparin subcu, has been cleared by Surgery. 7. FEN: The patient will be n.p.o. except for meds and have fluids as above. 8. Disposition: The patient will be admitted to the hospital inpatient. 9. Code status: Full code. TIME SPENT: Approximately 60 minutes was spent on the admission of this patient , 30 of which was spent [id number] with the patient obtaining history and physical and discussing treatment plan. This plan was discussed with my attending, Dr. Jodi Medina, and she is in agreement. ERENDIRA SWEENEY [id number]/[facility] #: [id number] CARLOS
[2019-05-10] MEDS: Insulin LISPRO* 1 UNITS UNIT SUBCUT SCH ×2 (17:57→23:26)
[2019-05-10] MEDS: Meropenem 1 GM PREMIX(*) 1 GM/50 ML BAG IV SCH (18:03)
[2019-05-10] MEDS: KCL 20 MEQ/100 ML IVPREMIX* 20 MEQ/100 ML BAG IV SCH ×2 (20:13→23:24)
[2019-05-10] MEDS: Heparin VIAL(*) 5000 UNITS/ML VIAL (FIVE THOUSAND) SUBCUT SCH (23:27)
[2019-05-10] MEDS: Morphine INJ* 2 MG/ML 1 ML SYRINGE (TWO MG - NEW SYRINGE VERSION) IV PRN (23:36)
--- NOTE | 2019-05-11 00:02 | CONS ---
CC: Eliel Vu DO; [facility] * SURGICAL CONSULTATION NOTE: DATE OF CONSULT: The patient was seen in the emergency room on 05/10/19. ATTENDING PHYSICIAN: I was contacted by the ER staff to evaluate Ms. Marshall, a 73- year-old female, known to our service after being treated for intraabdominal abscesses of unclear etiology in the past. The patient was last seen in our office by Dr. Moeller in late last year where the recommendation was for referral to a tertiary center for the possibility of exploratory laparotomy and takedown of fistula of unclear etiology. The patient was seen in [place] by a surgeon and worked up and according to the patient underwent barium testing and was thought to have a fistula to a portion of the sigmoid colon. This was according to the patient, these reports are not available to me. She was considered for surgery but overall healed her abdominal lesions. She had undergone drainage procedure on two occasions and these wounds ultimately healed and the surgeon felt that watchful watching would be reasonable under the circumstances and is with the patient chose. Again, none of these are available to me. Approximately 1 week ago, the patient suffered with lower abdominal pain similar to the onset last year. She had been good up until then. She saw her primary care physician, who sent her for a CAT scan. She underwent a CAT scan of the abdomen and pelvis at the [facility] and was showed to have a large fluid collection and a subcutaneous space. The impression was that this could possibly be amenable to drainage and a consultation to Interventional Radiology was done by patient's primary care doctor. The patient was scheduled for a possible intervention with Radiology Department at [facility] when she noted an open wound at the previous opening site at the mid right abdomen. In the emergency room, it was notable for stool and the patient was evaluated promptly and that is when the surgical service was called. Past medical problems and surgeries reviewed. Currently, the patient has severe abdominal pain, mostly at the site of the exit site for the stool, but the rest of her abdomen is only minimally painful. Her pain is worse with movement, alleviated with rest and narcotics. The patient has no appetite. Denies any fevers but has had chills. She is not on antibiotics. PAST MEDICAL HISTORY: Type 2 diabetes; atrial fibrillation, not on anticoagulation; chronic kidney disease; hypertension; gout; undifferentiated connective tissue disorder; anemia. PAST SURGICAL HISTORY: Cholecystectomy as well as mini laparotomy and abdominal drainage as well as tubal ligation. MEDICATIONS: Medication list reviewed, which includes 1. Metformin. 2. Insulin. 3. Januvia. She also takes Prilosec and Cozaar. ALLERGIES: FLAGYL, PENICILLIN, and ZYVOX. FAMILY HISTORY: Reviewed. SOCIAL HISTORY: Nonsmoker, nondrinker. Lives with family. She is a retired nurse. Her is in the room with her. REVIEW OF SYSTEMS: Chills. No fevers. No significant weight loss. Minimal reflux. Abdominal pain as described. Abdominal surgeries as described. The patient is passing flatus and had a bowel movement earlier this morning. It was nonbloody. PHYSICAL EXAM: In the emergency room, she has been afebrile. Vital signs are stable. Alert and oriented x3, in no apparent distress. Head, ears, eyes, and throat: Normocephalic, atraumatic. Sclerae anicteric. Mucous membranes are moist. Neck: No lymphadenopathy. Abdomen is soft. Nondistended. Tender in the left lower quadrant without rebound, without guarding. Open area at the right abdomen of approximately 3 x 4 cm, exposed underlying structures with subcutaneous fat. Obvious stool effluent is appreciated and a colostomy bag placed at this site. I did not probe this since the patient asked me not to because of significant pain. Rectal exam is not performed. Extremities within normal limits. DIAGNOSTIC STUDIES/LAB DATA: Labs show white count of 10.5 with left shift with immature granulocytes and bands of 18. Metabolic panel reviewed, which shows elevated CRP of 191, creatinine of 1.58 which is above her baseline, albumin of 2.5, and normal lipase. When I first saw patient, she has not undergone a CAT scan, though at the time of this dictation, both CAT from few days ago and now are reviewed. There is decrease in the subcutaneous air, as it appears in the right side on previous CAT scan that is consistent with positive drainage at this time of stool. She still does have a left lower quadrant fluid collection that appears consistent with abscess with additional stool, looks mostly unchanged from CAT scan of last week, thickening of both the descending and sigmoid colon, abdominal wall hernia. Physical exam is pathognomonic for a colocutaneous fistula. The patient's story is consistent with this and it appears to have re-occurred and will need surgical intervention. At this point, it seems that the patient is hemodynamically stable and would benefit from IV fluids, bowel rest, and antibiotics. It will be complicated to choose the antibiotics for her and Infectious Disease consultation is recommended. I discussed with the patient the need for us to mature this fistula and look towards intervention expectantly to look for best outcome but if the patient does not improve with conservative measures, a possible 2 or 3 stage procedure would be recommended with abdominal washout and colostomy. This may prove necessary on this admission, feel comfortable and then if this is necessary, we can perform this. It would be a concern with regards to patient's hernia and she would potentially have an open abdomen at the end of surgery. This is something we can manage and my recommendation at this point is additional drainage of additional abdominal collections along with maturation of what appears to be a colocutaneous fistula for management in time when the patient is stable. Currently, nutritional status is questionable and we should also get a pre- albumin as well as iron studies on her. Differential diagnosis does include colon cancer. We will need to obtain records from [place] where the patient saw the outside surgeon. I discussed with her that we could certainly send her to that surgeon if she would like or we could look towards management here. The patient would prefer management here but will discuss this with her family as well. We will follow the hospitalist service along closely and this case was discussed with both the ER physician and the hospitalist service. [id number]/[facility] #: [id number] CARLOS
[2019-05-11] MEDS: Meropenem 1 GM PREMIX(*) 1 GM/50 ML BAG IV SCH ×2 (03:46→16:00)
[2019-05-11] MEDS: Morphine INJ* 2 MG/ML 1 ML SYRINGE (TWO MG - NEW SYRINGE VERSION) IV PRN ×3 (05:14→22:33)
[2019-05-11] MEDS: Lactated Ringers 1000 ML Bag* 1,000 ML IV SCH (05:18)
[2019-05-11] MEDS: Heparin VIAL(*) 5000 UNITS/ML VIAL (FIVE THOUSAND) SUBCUT SCH ×3 (05:21→22:33)
[2019-05-11 06:51] LABS: ABS Eosinophils 0.1 10^3/ul (0-0.6); ABS Lymphocytes 0.6 10^3/ul (1.0-4.8); ABS Monocytes 0.7 10^3/ul (0-0.8); Eosinophil % 1.7 %; Hematocrit 28 % (35-47); Hemoglobin 9.7 g/dL (12.0-16.0); Lymphocyte % 9.3 %; Mean Corpuscular HGB Conc 34 g/dL (31-36); Mean Corpuscular Hemoglobin 30 pg (27-31); Mean Corpuscular Volume 87 fL (80-97); Mean Platelet Volume 6.3 fL (7.4-10.4); Platelet Count 379 10^3/uL (150-450); Red Blood Count 3.25 10^6 /uL (3.70-4.87); Red Cell Distribution Width 15 % (10-15); White Blood Count 6.4 10^3/uL (3.5-10.8)
[2019-05-11 07:12] LABS: Anion Gap 7 mmol/L (2-11); BUN/Creatinine Ratio 32.5 (8-20); Blood Urea Nitrogen 38 mg/dL (6-24); CO2 Carbon Dioxide 24 mmol/L (22-32); Calcium 8.6 mg/dL (8.6-10.3); Chloride 109 mmol/L (101-111); EGFR Non-African American 45.5 (>60); Glucose 149 mg/dL (70-100); Magnesium 1.1 mg/dL (1.9-2.7); Sodium 140 mmol/L (135-145)
[2019-05-11] MEDS ORDERED: Magnesium Sulf 4 GM/100 ML IV* 4,000 MG/100 ML BAG IVPB ONE (08:00)
[2019-05-11] MEDS: Insulin LISPRO* 1 UNITS UNIT SUBCUT SCH ×2 (08:03→22:34)
[2019-05-11] MEDS: Pantoprazole TAB * 40 MG TAB PO SCH (08:13)
[2019-05-11] MEDS: Metoprolol Succinate XL TAB* 50 MG PO SCH (08:13)
--- NOTE | 2019-05-11 09:26 | PN ---
Subjective Date of Service: 05/11/19 Interval History: Pt c/o abd pain around the opening of the abd fistula in RLQ. Has had loose BM's x 1 week. The abd pain and fistula opened 4 days ago. Currently pt has a colostomy bag in this area Objective Active Medications: Acetaminophen (Tylenol Tab*) 650 mg PO Q6H PRN PRN Reason: FEVER/PAIN Dextrose (D50w Syringe 50 Ml*) 12.5 gm IV PUSH .FOR FS < 60 - SS PRN PRN Reason: FS < 60 Heparin Sodium (Porcine) (Heparin Vial(*)) 5,000 units SUBCUT Q8HR [facility] Last Admin: 05/11/19 05:21 Dose: 5,000 units Meropenem (Merrem 1 Gm Premix(*)) 1 gm in 50 mls @ 100 mls/hr IV Q12H [facility]; Protocol Last Admin: 05/11/19 03:46 Dose: 100 mls/hr Lactated Ringer's (Lactated Ringers 1000 Ml Bag*) 1,000 mls @ 100 mls/hr IV PER RATE [facility] Last Admin: 05/11/19 05:18 Dose: 100 mls/hr Magnesium Sulfate (Magnesium Sulf 4 Gm/100 Ml Iv*) 4,000 mg in 100 mls @ 33.333 mls/hr IVPB ONCE ONE Stop: 05/11/19 10:59 Last Admin: 05/11/19 08:14 Dose: 33.333 mls/hr Insulin Human Lispro (Humalog*) 0 units SUBCUT Q6HR [facility]; Protocol Metoprolol Succinate (Toprol Xl Tab*) 50 mg PO [facility] Last Admin: 05/11/19 08:13 Dose: 50 mg Morphine Sulfate (Morphine Inj (Syringe))*) 2 mg IV Q2H PRN PRN Reason: PAIN Last Admin: 05/11/19 08:14 Dose: 2 mg Ondansetron HCl (Zofran Inj*) 4 mg IV Q6H PRN PRN Reason: NAUSEA Pantoprazole Sodium (Protonix Tab*) 40 mg PO QAM [facility] Last Admin: 05/11/19 08:13 Dose: 40 mg Simethicone (Mylicon Tab*) 80 mg PO Q4H PRN PRN Reason: DYSPEPSIA Vital Signs - 8 hr 05/11/19 05/11/19 05/11/19 03:38 05:14 06:23 Temperature 97.7 F Pulse Rate 73 Respiratory 16 18 16 Rate Blood Pressure 118/49 (mmHg) O2 Sat by Pulse 98 Oximetry 05/11/19 05/11/19 08:12 08:14 Temperature 97.7 F Pulse Rate 89 Respiratory 20 16 Rate Blood Pressure 145/60 (mmHg) O2 Sat by Pulse 100 Oximetry Oxygen Devices in Use Now: None Appearance: 73 yo Fin NAD, AAOx3 Eyes: No Scleral Icterus, PERRLA Ears/Nose/Mouth/Throat: NL Teeth, Lips, Gums, Mucous Membranes Moist Neck: NL Appearance and Movements; NL JVP Respiratory: Symmetrical Chest Expansion and Respiratory Effort, Clear to Auscultation Cardiovascular: NL Sounds; No Murmurs; No JVD, RRR Abdominal: - - soft, tendr in RLQ with an orfice of fitula of approx 4 cm in diam with colostomy bag in place draining fecal material. Mild LLQ tenderness , no rebound, no guarding, BS+ Lymphatic: No Cervical Adenopathy Extremities: - - +1 pedal edema b/l Skin: No Nodules or Sclerosis Neurological: Alert and Oriented x 3, NL Muscle Strength and Tone Result Diagrams: 05/11/19 06:37 05/11/19 06:37 Assess/Plan/Problems-Billing Assessment: 73 yo F with h/o HTN, DM, CKD stage 3 with multiple intraabd. abscesses in the past and surgeries for it (last one 06/2018 ) presents with R enterocutaneus fistula and LLQ abd abscess - Patient Problems (1) Intra-abdominal abscess Comment: - Afebrile and no leukocytosis, but 18% bands at admission - Management per surgery - ID consult placed -d/c / [facility] and request for LLQ abd abscess drain via US/CT guided placed- likely to be done today - Continue Meropenem (2) GERD (gastroesophageal reflux disease) Comment: - Continue PPI coverage (3) Atrial fibrillation Comment: - PAF (in setting of infection in 2017 ), NSR now on exam - Continue Metoprolol (4) CKD (chronic kidney disease) Comment: - Creatinine has been elevated since 10/2017 - Suspect stage 3 at baseline - Creatinine appears to be near baseline, continue to monitor (5) Diabetes Comment: - Continue Lispro per SS (6) Anemia Comment: - Chronic, consistent with ACD (7) DVT prophylaxis Comment: - SQ heparin Status and Disposition: inpatient
--- NOTE | 2019-05-11 09:58 | PN ---
Progress Note - Progress Note Date of Service: 05/11/19 SOAP: Subjective: Pt seen and examined. still with abdo pain- burning at fistula site; dull at LLQ Postitive appetite; npo for possible drainage Objective: Temp Pulse Resp BP Pulse Ox 97.7 F 89 16 145/60 100 05/11/19 08:12 05/11/19 08:12 05/11/19 08:14 05/11/19 08:12 05/11/19 08:12 a and o x3, nad abdo: soft/ ND/ tender at lower abdo; neg rebound colostomy bag in place with stool; wound unchanged from yesterday labs noted Assessment: perforated LB with intra abdo abscess and fistula to abdo wall; HD stable Plan: perc drainage of LLQ fluid collection with cultures manage fistula low residue diet abx for now will follow closely- may require ex lap, drainage and diverting colostomy, but wound care under these circumstances would be complicated and pt high risk for prolonged care; she is HD stabel at this time, and I recommend maturing fistula and planning surgery in future. this was d/w pt and her questions answered, and with hosp.
[2019-05-11] MEDS ORDERED: Insulin LISPRO* 1 UNITS UNIT SUBCUT SCH (12:00)
[2019-05-11] MEDS ORDERED: Dextrose 50% Syringe 50 ML* 25 GM/50 ML SYRINGE IV PUSH PRN (12:15)
[2019-05-11] MEDS: D5NS 0.9% 1000 ML BAG* 1,000 ML IV SCH (12:18)
[2019-05-11 13:30] LABS: INR 1.2 (0.82-1.09)
[2019-05-11 13:34] LABS: Prealbumin < 3 mg/dL (18-38)
[2019-05-11] MEDS ORDERED: fentaNYL* 50 MCG/ML 2 ML VIAL (100 MCG VIAL) ONE (15:27)
[2019-05-11] MEDS ORDERED: Naloxone* 0.4 MG/ML 1 ML VIAL ONE (15:27)
--- NOTE | 2019-05-11 15:27 | CONS ---
CONSULTATION REPORT: DATE OF CONSULT: 05/11/19 REQUESTING PROVIDER: ERENDIRA Bryant CONSULTING SERVICE: Infectious Disease. REASON FOR CONSULT: Abdominal abscess. IMPRESSION: 1. Third episode of large abdominal abscess in the setting of diverticulosis with diverticular rupture and recurrence of an anterior cutaneous fistula. She had apparently had a barium study at [facility] in the last week or 10 days and her symptoms recurred and had some barium in the abscess cavity. She has in the past had some resistant organisms including VRE and resistant citrobacter. There has also been pansensitive E. coli and letitia albicans. 2. Abdominal abscesses in August 2017 and June 2018 with an anterior abdominal wall sinus tract as well. She had had open drainage in June 2018 and August 2017. 3. Colonoscopy in November 2018 showed diverticulosis, no malignancy or inflammatory bowel disease. 3. Diabetes with reported good control. RECOMMENDATIONS: We will continue meropenem. I will await the microbiology studies of her Interventional Radiology guided abscess drainage. She is weighing her surgical options again and is more in favor of definitive treatment. HISTORY OF PRESENT ILLNESS: This is a 73-year-old woman, who has had her third episode of large intraabdominal abscess with anterior sinus tract formation. The last time healed up was about a year ago, had been doing well from that time. Had a colonoscopy with the results as above. Colorectal group in [place] felt she would need a partial colectomy, but wanted to wait a few more months and then 2 weeks ago it became more fatigued with diffuse abdominal pain. Had an outpatient imaging study that showed abscess and then the sinus tract opened up again. She started to have some fevers and sweats and came back to the ER yesterday after discussing with Dr. Vu further. Another CT abdomen and pelvis was done in the ER and that showed anterior and lateral to the descending colon. Has a large air fluid collection with the fistula adjacent to descending colon. Another less well- defined abscess with fistula to bowel in the right lower quadrant versus non- opacified bowel. Previously had oral contrast in a prior study. Fluid collection in the anterior abdominal wall in the right lower abdomen smaller than the prior study, thickening of the descending and sigmoid colon and an anterior abdominal wall hernia with nondistended small bowel. Today, she has no abdominal pain, fevers, chills, or sweats. She is thirsty and is n.p.o. for IR guided drainage. PAST MEDICAL HISTORY: 1. Abdominal abscess treated with open drainage in 2017 and 2018 and with colocutaneous abscess to skin fistula. 2. Undifferentiated connective tissue disease. 3. Type 2 diabetes mellitus. 4. Atrial fibrillation. 5. Chronic kidney disease. 6. Hypertension. 7. Gout while on hydrochlorothiazide. 8. Anemia. 9. Status post cholecystectomy. 10. Status post abdominal abscess drain and splenic abscess drain. 11. Status post tubal ligation. MEDICATIONS: 1. Tylenol. 2. Heparin subcutaneous injection. 3. Meropenem 1 g every 12 hours. 4. Metoprolol. 5. Morphine as needed. 6. Zofran as needed. 7. Pantoprazole. 8. Simethicone as needed. ALLERGIES: FLAGYL, PENICILLIN, and ZYVOX. FAMILY HISTORY: Father from aplastic anemia. Mother from brain and lung cancer at 72. 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 She is a nonsmoker. REVIEW OF SYSTEMS: A 14-point review is all negative except as noted above in the history of present illness. PHYSICAL EXAM: Vital Signs: Temperature is 36.6, heart rate 73, respiratory rate 14, blood pressure 116/48, oxygen saturation 97% on room air. In general, she is awake, not in distress. Neurologic: She is oriented x3. Follows all commands. HEENT: There is no conjunctival hemorrhage. Oropharynx without lesions. Neck is supple without mass. Heart is regular rate and rhythm without murmurs, rubs, or gallops. Lungs are clear to auscultation bilaterally. Abdomen: Soft, nontender, nondistended. There are bowel sounds present. There is anterior abdominal wall open area with an ostomy bag over it and some liquid brown stool present. Skin: There is no rash or splinter hemorrhage. Musculoskeletal: There is no spinal tenderness to palpation. LABORATORY DATA: Urinalysis shows no blood. There is 1+ leukocyte esterase, 3 + white cells and squamous epithelial cells. White blood count 6.4, hemoglobin 9.7, platelets 379. Creatinine 1.1. Prealbumin less than 3, ALT 8, CRP is 191. Please see impression and recommendations outlined above. Thanks for asking me to see Ms. Marshall in consultation. [id number]/[facility] #: [id number] [facility]
[2019-05-11] MEDS: Escitalopram * 10 MG TAB PO SCH (22:33)
[2019-05-12] MEDS: Acetaminophen TAB* 325 MG PO PRN (03:28)
[2019-05-12] MEDS: Meropenem 1 GM PREMIX(*) 1 GM/50 ML BAG IV SCH ×2 (03:28→16:21)
[2019-05-12 05:43] LABS: Hematocrit 27 % (35-47); Hemoglobin 9.1 g/dL (12.0-16.0); Mean Corpuscular HGB Conc 33 g/dL (31-36); Mean Corpuscular Hemoglobin 29 pg (27-31); Mean Corpuscular Volume 87 fL (80-97); Mean Platelet Volume 6.2 fL (7.4-10.4); Platelet Count 355 10^3/uL (150-450); Red Blood Count 3.16 10^6 /uL (3.70-4.87); Red Cell Distribution Width 15 % (10-15); White Blood Count 4.9 10^3/uL (3.5-10.8)
[2019-05-12 06:06] LABS: BUN/Creatinine Ratio 28.7 (8-20); C Reactive Protein 155.15 mg/L (<8.01); Calcium 8.8 mg/dL (8.6-10.3); EGFR African American 56.1 (>60); EGFR Non-African American 46.4 (>60); Magnesium 1.9 mg/dL (1.9-2.7); Phosphorus 3.4 mg/dL (2.5-5.0); Potassium 3.8 mmol/L (3.5-5.0)
[2019-05-12 07:06] LABS: ABS Eosinophils 0.1 10^3/ul (0-0.6); ABS Lymphocytes 0.7 10^3/ul (1.0-4.8); ABS Monocytes 0.8 10^3/ul (0-0.8); ABS Neutrophils 3.3 10^3/ul (1.5-7.7); Eosinophil % 1.7 %; Lymphocyte % 13.8 %; Nucleated Red Blood Cells % 0.1
[2019-05-12] MEDS: Heparin VIAL(*) 5000 UNITS/ML VIAL (FIVE THOUSAND) SUBCUT SCH ×3 (07:25→21:49)
--- NOTE | 2019-05-12 08:28 | PN ---
Subjective Date of Service: 05/12/19 Interval History: Pt feels well, less abd pain RLQ, passing a lot of gas. L sided abd drain with thick purulent appearing fluid, R colostomy bag with loose stool in it(attached to fistula site) Objective Active Medications: Acetaminophen (Tylenol Tab*) 650 mg PO Q6H PRN PRN Reason: FEVER/PAIN Last Admin: 05/12/19 03:28 Dose: 650 mg Dextrose (D50w Syringe 50 Ml*) 12.5 gm IV PUSH .FOR FS < 60 - SS PRN PRN Reason: for FS<70 Last Admin: 05/11/19 12:19 Dose: 12.5 gm Escitalopram Oxalate (Lexapro *) 10 mg PO BEDTIME [facility] Last Admin: 05/11/19 22:33 Dose: 10 mg Heparin Sodium (Porcine) (Heparin Vial(*)) 5,000 units SUBCUT Q8HR [facility] [place] Last Admin: 05/12/19 07:25 Dose: 5,000 units Meropenem (Merrem 1 Gm Premix(*)) 1 gm in 50 mls @ 100 mls/hr IV Q12H [facility] [place]; Protocol Last Admin: 05/12/19 03:28 Dose: 100 mls/hr Dextrose/Sodium Chloride (D5ns 0.9% 1000 Ml Bag*) 1,000 mls @ 75 mls/hr IV PER RATE [facility] [place] Last Admin: 05/11/19 12:18 Dose: 75 mls/hr Insulin Glargine (Lantus(*)) 5 units SUBCUT QPM [facility] [place] Insulin Human Lispro (Humalog*) 0 units SUBCUT ACHS [facility] [place]; Protocol Last Admin: 05/11/19 22:34 Dose: 8 unit Lorazepam (Ativan Tab(*)) 0.5 mg PO Q8H PRN PRN Reason: ANXIETY Metoprolol Succinate (Toprol Xl Tab*) 50 mg PO QAM [facility] [place] Last Admin: 05/11/19 08:13 Dose: 50 mg Morphine Sulfate (Morphine Inj (Syringe))*) 2 mg IV Q2H PRN PRN Reason: PAIN Last Admin: 05/11/19 22:33 Dose: 2 mg Ondansetron HCl (Zofran Inj*) 4 mg IV Q6H PRN PRN Reason: NAUSEA Pantoprazole Sodium (Protonix Tab*) 40 mg PO QAM [facility] [place] Last Admin: 05/11/19 08:13 Dose: 40 mg Simethicone (Mylicon Tab*) 80 mg PO Q4H PRN PRN Reason: DYSPEPSIA Vital Signs - 8 hr 05/12/19 05/12/19 05/12/19 03:30 03:36 07:42 Temperature 97.9 F 97.8 F Pulse Rate 78 71 Respiratory 17 18 16 Rate Blood Pressure 154/59 133/55 (mmHg) O2 Sat by Pulse 98 98 Oximetry 05/12/19 08:00 Temperature Pulse Rate Respiratory 16 Rate Blood Pressure (mmHg) O2 Sat by Pulse Oximetry Oxygen Devices in Use Now: None Appearance: 73 yo F in nAD, aAOx3 Eyes: No Scleral Icterus, PERRLA Ears/Nose/Mouth/Throat: NL Teeth, Lips, Gums, Mucous Membranes Moist Neck: NL Appearance and Movements; NL JVP Respiratory: Symmetrical Chest Expansion and Respiratory Effort, Clear to Auscultation Cardiovascular: NL Sounds; No Murmurs; No JVD, RRR Abdominal: - - soft, minimally tendrer in RLQ fuitula site. R abd fistula with colostomy bag attached, LLQ pigtail drain in place, BS+ Lymphatic: No Cervical Adenopathy Extremities: No Clubbing, Cyanosis, - - trace pedal edema b/l Skin: No Rash or Ulcers, No Nodules or Sclerosis Neurological: Alert and Oriented x 3, NL Muscle Strength and Tone Result Diagrams: 05/12/19 05:29 05/12/19 05:29 Microbiology and Other Data: Microbiology 05/11/19 15:55 Gram Stain - Final Body Fluid - Abscess Skin and Soft Tissue MRSA/MSSA (PCR - Final Mrsa Negative S.aureus Negative 05/10/19 15:34 Urine Culture - Preliminary Urine Escherichia Coli 05/10/19 18:58 Aerobic Blood Culture - Preliminary Blood Venous No Growth Day 1 Anaerobic Blood Culture - Preliminary No Growth Day 1 05/10/19 18:58 Aerobic Blood Culture - Preliminary Blood Venous No Growth Day 1 Anaerobic Blood Culture - Preliminary No Growth Day 1 Assess/Plan/Problems-Billing Assessment: 73 yo F with h/o HTN, DM, CKD stage 3 with multiple intraabd. abscesses in the past and surgeries for it (last one 06/2018 ) presents with R enterocutaneus fistula and LLQ abd abscess - Patient Problems (1) Intra-abdominal abscess Comment: - Afebrile and no leukocytosis, but 18% bands at admission - Management per surgery - ID consult appreciated -IR placed drain in LLQ abscess on 05/11/19 - Continue Meropenem (2) GERD (gastroesophageal reflux disease) Comment: - Continue PPI coverage (3) Atrial fibrillation Comment: - PAF (in setting of infection in 2017 ), NSR now on exam - Continue Metoprolol (4) CKD (chronic kidney disease) Comment: - Creatinine has been elevated since 10/2017 - Suspect stage 3 at baseline - Creatinine appears to be near baseline, continue to monitor (5) Diabetes Comment: - Continue Lispro per SS -lantus started -holding metformin (6) Anemia Comment: - Chronic, consistent with ACD (7) DVT prophylaxis Comment: - SQ heparin Status and Disposition: inpatient
[2019-05-12] MEDS: Metoprolol Succinate XL TAB* 50 MG PO SCH (09:04)
[2019-05-12] MEDS: Insulin LISPRO* 1 UNITS UNIT SUBCUT SCH ×4 (09:04→21:48)
[2019-05-12] MEDS: Pantoprazole TAB * 40 MG TAB PO SCH (09:04)
[2019-05-12] MEDS: oxyCODONE/Acetamin 5/325 MG* TAB PO PRN ×3 (09:36→23:41)
--- NOTE | 2019-05-12 10:07 | PN ---
Progress Note - Progress Note Date of Service: 05/12/19 SOAP: Subjective: Pt seen and examined. Pt feels "much better" s/p perc drainage- purulent, not stool appreciate ID note positive appetite Objective: Temp Pulse Resp BP Pulse Ox 97.8 F 71 18 133/55 98 05/12/19 07:42 05/12/19 07:42 05/12/19 09:36 05/12/19 07:42 05/12/19 07:42 a and o x3, nad abdo: soft/ obese/ decreased tenderness pigtail- purulent drainage fistula- stool labs noted BlCx pending Assessment: diverticular abscess and fistula- will need OR Plan non-operative for the short term with abx, drainage, nutrition this was d/w pt- will follow closely
[2019-05-12] MEDS: Insulin GLARGINE(*) 1 UNITS UNIT SUBCUT SCH (17:38)
[2019-05-12] MEDS: Escitalopram * 10 MG TAB PO SCH (21:50)
[2019-05-13] MEDS: Meropenem 1 GM PREMIX(*) 1 GM/50 ML BAG IV SCH ×2 (04:08→16:10)
[2019-05-13] MEDS: D5NS 0.9% 1000 ML BAG* 1,000 ML IV SCH ×2 (04:30→20:34)
[2019-05-13] MEDS: Heparin VIAL(*) 5000 UNITS/ML VIAL (FIVE THOUSAND) SUBCUT SCH ×3 (05:53→20:14)
[2019-05-13] MEDS: Acetaminophen TAB* 325 MG PO PRN (06:03)
[2019-05-13 07:55] LABS: Hematocrit 29 % (35-47); Hemoglobin 9.7 g/dL (12.0-16.0); Mean Corpuscular HGB Conc 33 g/dL (31-36); Mean Corpuscular Hemoglobin 29 pg (27-31); Mean Corpuscular Volume 88 fL (80-97); Mean Platelet Volume 6.6 fL (7.4-10.4); Platelet Count 392 10^3/uL (150-450); Red Blood Count 3.32 10^6 /uL (3.70-4.87); Red Cell Distribution Width 14 % (10-15); White Blood Count 4.9 10^3/uL (3.5-10.8)
[2019-05-13 08:07] LABS: BUN/Creatinine Ratio 28.2 (8-20); EGFR Non-African American 45.5 (>60); Magnesium 1.6 mg/dL (1.9-2.7); Potassium 3.8 mmol/L (3.5-5.0)
[2019-05-13] MEDS: Insulin LISPRO* 1 UNITS UNIT SUBCUT SCH ×4 (08:46→20:16)
[2019-05-13] MEDS: Metoprolol Succinate XL TAB* 50 MG PO SCH (08:46)
[2019-05-13] MEDS: Pantoprazole TAB * 40 MG TAB PO SCH (08:46)
[2019-05-13 08:49] LABS: ABS Eosinophils 0.1 10^3/ul (0-0.6); ABS Lymphocytes 1.3 10^3/ul (1.0-4.8); ABS Monocytes 0.9 10^3/ul (0-0.8); ABS Neutrophils 2.7 10^3/ul (1.5-7.7); Eosinophil % 2.2 %; Lymphocyte % 25.9 %
[2019-05-13] MEDS ORDERED: Magnesium Sulfate 2 GM IV* 2 GM/50 ML BAG IVPB ONE (09:15)
--- NOTE | 2019-05-13 09:17 | PN ---
Subjective Date of Service: 05/13/19 Interval History: Pt feels well. Minimal pain at the fistula site Objective Active Medications: Acetaminophen (Tylenol Tab*) 650 mg PO Q6H PRN PRN Reason: FEVER/PAIN Last Admin: 05/13/19 06:03 Dose: 650 mg Dextrose (D50w Syringe 50 Ml*) 12.5 gm IV PUSH .FOR FS < 60 - SS PRN PRN Reason: for FS<70 Last Admin: 05/11/19 12:19 Dose: 12.5 gm Escitalopram Oxalate (Lexapro *) 10 mg PO BEDTIME [facility] Last Admin: 05/12/19 21:50 Dose: 10 mg Heparin Sodium (Porcine) (Heparin Vial(*)) 5,000 units SUBCUT Q8HR [facility] Last Admin: 05/13/19 05:53 Dose: 5,000 units Meropenem (Merrem 1 Gm Premix(*)) 1 gm in 50 mls @ 100 mls/hr IV Q12H [facility]; Protocol Last Admin: 05/13/19 04:08 Dose: 100 mls/hr Dextrose/Sodium Chloride (D5ns 0.9% 1000 Ml Bag*) 1,000 mls @ 75 mls/hr IV PER RATE [facility] Last Admin: 05/13/19 04:30 Dose: 75 mls/hr Insulin Glargine (Lantus(*)) 5 units SUBCUT QPM [facility] Last Admin: 05/12/19 17:38 Dose: 5 unit Insulin Human Lispro (Humalog*) 0 units SUBCUT ACHS [facility]; Protocol Last Admin: 05/13/19 08:46 Dose: 1 unit Lorazepam (Ativan Tab(*)) 0.5 mg PO Q8H PRN PRN Reason: ANXIETY Metoprolol Succinate (Toprol Xl Tab*) 50 mg PO QAM [facility] Last Admin: 05/13/19 08:46 Dose: 50 mg Morphine Sulfate (Morphine Inj (Syringe))*) 2 mg IV Q2H PRN PRN Reason: PAIN Last Admin: 05/11/19 22:33 Dose: 2 mg Ondansetron HCl (Zofran Inj*) 4 mg IV Q6H PRN PRN Reason: NAUSEA Oxycodone/Acetaminophen (Percocet 5/325 Tab*) 1 tab PO Q4H PRN PRN Reason: PAIN Last Admin: 05/12/19 23:41 Dose: 1 tab Pantoprazole Sodium (Protonix Tab*) 40 mg PO QAM [facility] Last Admin: 05/13/19 08:46 Dose: 40 mg Simethicone (Mylicon Tab*) 80 mg PO Q4H PRN PRN Reason: DYSPEPSIA Vital Signs - 8 hr 05/13/19 05/13/19 01:40 03:10 Temperature 97.8 F Pulse Rate 70 Respiratory 16 16 Rate Blood Pressure 143/59 (mmHg) O2 Sat by Pulse 99 Oximetry Oxygen Devices in Use Now: None Appearance: 73 yo F in nAD, aAOx3 Eyes: No Scleral Icterus, PERRLA Ears/Nose/Mouth/Throat: NL Teeth, Lips, Gums, Mucous Membranes Moist Neck: NL Appearance and Movements; NL JVP, Trachea Midline Respiratory: Symmetrical Chest Expansion and Respiratory Effort, Clear to Auscultation Cardiovascular: NL Sounds; No Murmurs; No JVD, RRR Abdominal: - - soft, NT, RLQ fistula with colostomy bag attached with liquid stool in bag. LLQ drain draining purulent liquid Extremities: No Edema Skin: No Rash or Ulcers, No Nodules or Sclerosis Neurological: Alert and Oriented x 3, NL Muscle Strength and Tone Result Diagrams: 05/13/19 06:37 05/13/19 06:37 Microbiology and Other Data: Microbiology 05/11/19 15:55 Gram Stain - Final Body Fluid - Abscess Skin and Soft Tissue MRSA/MSSA (PCR - Final Mrsa Negative S.aureus Negative 05/10/19 15:34 Urine Culture - Preliminary Urine Escherichia Coli 05/10/19 18:58 Aerobic Blood Culture - Preliminary Blood Venous No Growth Day 1 Anaerobic Blood Culture - Preliminary No Growth Day 1 05/10/19 18:58 Aerobic Blood Culture - Preliminary Blood Venous No Growth Day 1 Anaerobic Blood Culture - Preliminary No Growth Day 1 Assess/Plan/Problems-Billing Assessment: 73 yo F with h/o HTN, DM, CKD stage 3 with multiple intraabd. abscesses in the past and surgeries for it (last one 06/2018 ) presents with R enterocutaneus fistula and LLQ abd abscess - Patient Problems (1) Intra-abdominal abscess Comment: - Afebrile and no leukocytosis, but 18% bands at admission - Management per surgery - ID consult appreciated. Fisula site + e. coli, perc drain in LLQ+ Strep mitis -IR placed drain in LLQ abscess on 05/11/19 - Continue Meropenem (2) GERD (gastroesophageal reflux disease) Comment: - Continue PPI coverage (3) Atrial fibrillation Comment: - PAF (in setting of infection in 2017 ), NSR now on exam - Continue Metoprolol (4) CKD (chronic kidney disease) Comment: - Creatinine has been elevated since 10/2017 - Suspect stage 3 at baseline - Creatinine appears to be near baseline, continue to monitor (5) Diabetes Comment: - Continue Lispro per SS -lantus started -holding metformin (6) Anemia Comment: - Chronic, consistent with ACD (7) DVT prophylaxis Comment: - SQ heparin Status and Disposition: inpatient
--- NOTE | 2019-05-13 10:56 | PN ---
Progress Note - Progress Note Date of Service: 05/13/19 SOAP: Subjective: CC: Abdominal abscess HPI: Ms. Marshall is a 73 yo female with PMH significant for connective tissue disease , DM2, A fib, CKD, HTN, GOUT, Anemia, and abdominal abscess. Denies fever, chills, shortness of breath, nausea, vomiting, or diarrhea. She reports purulent drainage from her fistula and pigtail drain. She states that that fistula is starting to get granulation tissue. She is using an ostomy appliance over the fistula. She is tolerating a low residue diet without difficulty. She states that Dr. Russell is considering surgery in September. Objective: Vital Signs - 8 hr 05/13/19 05/13/19 03:10 07:15 Temperature 97.8 F 97.3 F Pulse Rate 70 71 Respiratory 16 18 Rate Blood Pressure 143/59 144/61 (mmHg) O2 Sat by Pulse 99 97 Oximetry Physical Exam: General: NAD, sitting up in bed Neurological: Alert and Oriented x4 HEENT: No thrush, moist MM Cardiovascular: Heart rate regular, no murmur Respiratory: Lung sounds clear bilateral Abdominal: Bowel sounds present; ABD soft, non tender and non distended Skin: Ostomy appliance to fisula on the right side of the ABD intact, draining purulent drainage. Pig tail drain to the left side of the ABD with purulent drainage. Laboratory Results - last 24 hr 05/12/19 05/13/19 05/13/19 21:32 06:37 06:37 WBC 4.9 RBC 3.32 L Hgb 9.7 L Hct 29 L MCV 88 MCH 29 MCHC 33 RDW 14 Plt Count 392 MPV 6.6 L Neut % (Auto) 54.0 Lymph % (Auto) 25.9 [place] % (Auto) 17.5 Eos % (Auto) 2.2 Baso % (Auto) 0.4 Absolute Neuts (auto) 2.7 Absolute Lymphs (auto) 1.3 Absolute Monos (auto) 0.9 H Absolute Eos (auto) 0.1 Absolute Basos (auto) 0.0 Absolute Nucleated RBC 0.0 Immature Gran % 6.0 Neutrophils % 55.0 Band Neutrophils % 1.0 Lymphocytes % 26.0 Monocytes % 12.0 Eosinophils % 1.0 Metamyelocytes % 3.0 H Myelocytes % 2.0 H Nucleated RBC % 0.0 Normal RBC Morphology Normal Hem Pathologist Commnt Sodium 137 Potassium 3.8 Chloride 105 Carbon Dioxide 25 Anion Gap 7 BUN 33 H Creatinine 1.17 H Est GFR ( Amer) 55.0 Est GFR (Non-Af Amer) 45.5 BUN/Creatinine Ratio 28.2 H Glucose 127 H POC Glucose (mg/dL) 181 H Calcium 9.0 Magnesium 1.6 L Microbiology 05/11/19 15:55 Gram Stain - Final Body Fluid - Abscess Body Fluid Culture - Preliminary Strep Mitis/Strep Oralis Skin and Soft Tissue MRSA/MSSA (PCR - Final Mrsa Negative S.aureus Negative 05/10/19 18:58 Aerobic Blood Culture - Preliminary Blood Venous No Growth Day 2 Anaerobic Blood Culture - Preliminary No Growth Day 2 05/10/19 18:58 Aerobic Blood Culture - Preliminary Blood Venous No Growth Day 2 Anaerobic Blood Culture - Preliminary No Growth Day 2 05/10/19 15:34 Urine Culture - Final Urine Escherichia Coli Aerococcus Species Normal Staci Assessment: 1. Recurrent abdominal abscess. In the setting of diverticulosis and diverticular rupture and anterior cutaneous fistula. Barium study earlier this month showed barium in the abscess cavity. Afebrile and no leukocytosis. CRP has started to trend down. 2. DM2. Plan: Continue meropenum. Further recommendations based on final culture results. Discussed with the patient that she may require a prolonged course of IV ABX and she states understanding.
[2019-05-13] MEDS: oxyCODONE/Acetamin 5/325 MG* TAB PO PRN (13:11)
--- NOTE | 2019-05-13 16:04 | PN ---
Progress Note - Progress Note Date of Service: 05/13/19 SOAP: Subjective:tolerating low residue diet;ambulating;less abd discomfort [] Objective: Vital Signs Temp 97 F 05/13/19 12:08 Pulse 64 05/13/19 12:08 Resp 18 05/13/19 13:11 BP 144/57 05/13/19 12:08 Pulse Ox 99 05/13/19 12:08 Intake & Output 05/12/19 05/13/19 05/13/19 18:59 06:59 18:59 Intake Total 915 174 360 Output Total 670 570 0 Balance 245 -396 360 Intake: IV Fluids 20 111 D5NS 111 NS 20 IVPB 63 D5NS 63 Medicated IV 55 Meperidine 55 Oral 830 0 360 Pigtail Drain 10 Output: Pigtail Drain 70 70 Urine 500 500 0 Other 100 Other: # Voids 0 Laboratory Last Values WBC 4.9 10^3/uL (3.5-10.8) 05/13/19 06:37 RBC 3.32 10^6 /uL (3.70-4.87) L 05/13/19 06:37 Hgb 9.7 g/dL (12.0-16.0) L 05/13/19 06:37 Hct 29 % (35-47) L 05/13/19 06:37 MCV 88 fL (80-97) 05/13/19 06:37 MCH 29 pg (27-31) 05/13/19 06:37 MCHC 33 g/dL (31-36) 05/13/19 06:37 RDW 14 % (10-15) 05/13/19 06:37 Plt Count 392 10^3/uL (150-450) 05/13/19 06:37 MPV 6.6 fL (7.4-10.4) L 05/13/19 06:37 Neut % (Auto) 54.0 % 05/13/19 06:37 Lymph % (Auto) 25.9 % 05/13/19 06:37 Wirt % (Auto) 17.5 % 05/13/19 06:37 Eos % (Auto) 2.2 % 05/13/19 06:37 Baso % (Auto) 0.4 % 05/13/19 06:37 Absolute Neuts (auto) 2.7 10^3/ul (1.5-7.7) 05/13/19 06:37 Absolute Lymphs (auto) 1.3 10^3/ul (1.0-4.8) 05/13/19 06:37 Absolute Monos (auto) 0.9 10^3/ul (0-0.8) H 05/13/19 06:37 Absolute Eos (auto) 0.1 10^3/ul (0-0.6) 05/13/19 06:37 Absolute Basos (auto) 0.0 10^3/ul (0-0.2) 05/13/19 06:37 Absolute Nucleated RBC 0.0 10^3/ul 05/13/19 06:37 Immature Gran % 6.0 % (0-9) 05/13/19 06:37 Neutrophils % 55.0 % 05/13/19 06:37 Band Neutrophils % 1.0 % (0-8) 05/13/19 06:37 Lymphocytes % 26.0 % 05/13/19 06:37 Monocytes % 12.0 % 05/13/19 06:37 Eosinophils % 1.0 % 05/13/19 06:37 Metamyelocytes % 3.0 % (0-2) H 05/13/19 06:37 Myelocytes % 2.0 % (0-1) H 05/13/19 06:37 Nucleated RBC % 0.0 05/13/19 06:37 Normal RBC Morphology Normal (Normal) 05/13/19 06:37 Hem Pathologist Commnt 05/12/19 05:29 INR (Anticoag Therapy) 1.20 (0.82-1.09) H 05/11/19 12:49 Sodium 137 mmol/L (135-145) 05/13/19 06:37 Potassium 3.8 mmol/L (3.5-5.0) 05/13/19 06:37 Chloride 105 mmol/L (101-111) 05/13/19 06:37 Carbon Dioxide 25 mmol/L (22-32) 05/13/19 06:37 Anion Gap 7 mmol/L (2-11) 05/13/19 06:37 BUN 33 mg/dL (6-24) H 05/13/19 06:37 Creatinine 1.17 mg/dL (0.51-0.95) H 05/13/19 06:37 Est GFR ( Amer) 55.0 (>60) 05/13/19 06:37 Est GFR (Non-Af Amer) 45.5 (>60) 05/13/19 06:37 BUN/Creatinine Ratio 28.2 (8-20) H 05/13/19 06:37 Glucose 127 mg/dL (70-100) H 05/13/19 06:37 POC Glucose (mg/dL) 186 mg/dL (70-100) H 05/13/19 11:48 Lactic Acid 1.3 mmol/L (0.5-2.0) 05/10/19 11:37 Calcium 9.0 mg/dL (8.6-10.3) 05/13/19 06:37 Phosphorus 3.4 mg/dL (2.5-5.0) 05/12/19 05:29 Magnesium 1.6 mg/dL (1.9-2.7) L 05/13/19 06:37 Total Bilirubin 0.60 mg/dL (0.2-1.0) 05/10/19 11:37 AST 17 U/L (13-39) 05/10/19 11:37 ALT 8 U/L (7-52) 05/10/19 11:37 Alkaline Phosphatase 68 U/L (34-104) 05/10/19 11:37 C-Reactive Protein 155.15 mg/L (<8.01) H 05/12/19 05:29 Total Protein 6.2 g/dL (6.4-8.9) L 05/10/19 11:37 Albumin 2.5 g/dL (3.2-5.2) L 05/10/19 11:37 Globulin 3.7 g/dL (2-4) 05/10/19 11:37 Albumin/Globulin Ratio 0.7 (1-3) L 05/10/19 11:37 Prealbumin < 3 mg/dL (18-38) L 05/11/19 06:37 Lipase < 10 U/L (11.0-82.0) L 05/10/19 11:37 Urine Color Sandra 05/10/19 15:34 Urine Appearance Cloudy 05/10/19 15:34 Urine pH 5.0 (5-9) 05/10/19 15:34 Ur Specific [place] 1.026 (1.010-1.030) 05/10/19 15:34 Urine Protein 1+(30 mg/dl) (Negative) A 05/10/19 15:34 Urine Ketones Negative (Negative) 05/10/19 15:34 Urine Blood Negative (Negative) 05/10/19 15:34 Urine Nitrate Negative (Negative) 05/10/19 15:34 Urine Bilirubin Negative (Negative) 05/10/19 15:34 Urine Urobilinogen Negative (Negative) 05/10/19 15:34 Ur Leukocyte Esterase 1+ (Negative) A 05/10/19 15:34 Urine WBC (Auto) 3+(>20/hpf) (Absent) A 05/10/19 15:34 Urine RBC (Auto) 1+(3-5/hpf) (Absent) A 05/10/19 15:34 Ur Squamous Epith Cells Present (Absent) A 05/10/19 15:34 Urine Bacteria 2+ (Absent) A 05/10/19 15:34 Hyaline Casts Present (Absent) A 05/10/19 15:34 Urine Glucose Negative (Negative) 05/10/19 15:34 abd:obese,+bs;soft,nondistended;RLQ fistula with ostomy bag with liquid stool; LLQ pigtail with purulent drainage [] Assessment:Hospital Day #4,diverticular abscess and enterocutaneous fistula [] Plan:cont IV abx per ID;pigtail drainage;nutrition;surgical plan per Dr Russell []
[2019-05-13] MEDS: LORazepam TAB(*) 0.5 MG PO PRN (17:58)
[2019-05-13] MEDS: Insulin GLARGINE(*) 1 UNITS UNIT SUBCUT SCH (17:59)
[2019-05-13] MEDS: Escitalopram * 10 MG TAB PO SCH (20:17)
[2019-05-14] MEDS: Meropenem 1 GM PREMIX(*) 1 GM/50 ML BAG IV SCH ×2 (03:23→16:44)
[2019-05-14] MEDS: Heparin VIAL(*) 5000 UNITS/ML VIAL (FIVE THOUSAND) SUBCUT SCH ×3 (06:00→20:59)
[2019-05-14 08:06] LABS: ABS Eosinophils 0.1 10^3/ul (0-0.6); ABS Monocytes 0.7 10^3/ul (0-0.8); ABS Neutrophils 2.9 10^3/ul (1.5-7.7); Eosinophil % 1.9 %; Hematocrit 28 % (35-47); Hemoglobin 9.4 g/dL (12.0-16.0); Lymphocyte % 21.8 %; Mean Corpuscular HGB Conc 34 g/dL (31-36); Mean Corpuscular Hemoglobin 29 pg (27-31); Mean Corpuscular Volume 87 fL (80-97); Mean Platelet Volume 6.4 fL (7.4-10.4); Nucleated Red Blood Cells % 0.1; Platelet Count 353 10^3/uL (150-450); Red Blood Count 3.24 10^6 /uL (3.70-4.87); Red Cell Distribution Width 14 % (10-15); White Blood Count 4.7 10^3/uL (3.5-10.8)
[2019-05-14 08:23] LABS: BUN/Creatinine Ratio 24.8 (8-20); Calcium 8.3 mg/dL (8.6-10.3); EGFR African American 62.3 (>60); EGFR Non-African American 51.5 (>60); Magnesium 1.6 mg/dL (1.9-2.7)
--- NOTE | 2019-05-14 08:55 | PN ---
Subjective Date of Service: 05/14/19 Interval History: Pt feels well today. No bad pain reported, but had a significant pain yesterday and Ativan helped. Passes lots of gas via the fistula Objective Active Medications: Acetaminophen (Tylenol Tab*) 650 mg PO Q6H PRN PRN Reason: FEVER/PAIN Last Admin: 05/13/19 06:03 Dose: 650 mg Dextrose (D50w Syringe 50 Ml*) 12.5 gm IV PUSH .FOR FS < 60 - SS PRN PRN Reason: for FS<70 Last Admin: 05/11/19 12:19 Dose: 12.5 gm Escitalopram Oxalate (Lexapro *) 10 mg PO BEDTIME [facility] Last Admin: 05/13/19 20:17 Dose: 10 mg Heparin Sodium (Porcine) (Heparin Vial(*)) 5,000 units SUBCUT Q8HR [facility] Last Admin: 05/14/19 06:00 Dose: 5,000 units Meropenem (Merrem 1 Gm Premix(*)) 1 gm in 50 mls @ 100 mls/hr IV Q12H [facility]; Protocol Last Admin: 05/14/19 03:23 Dose: 100 mls/hr Dextrose/Sodium Chloride (D5ns 0.9% 1000 Ml Bag*) 1,000 mls @ 75 mls/hr IV PER RATE [facility] Last Admin: 05/13/19 20:34 Dose: 75 mls/hr Insulin Glargine (Lantus(*)) 5 units SUBCUT QPM [facility] Last Admin: 05/13/19 17:59 Dose: 5 unit Insulin Human Lispro (Humalog*) 0 units SUBCUT ACHS [facility]; Protocol Last Admin: 05/13/19 20:16 Dose: 2 unit Lorazepam (Ativan Tab(*)) 0.5 mg PO Q8H PRN PRN Reason: ANXIETY Last Admin: 05/13/19 17:58 Dose: 0.5 mg Magnesium Oxide (Magox 400 Tab*) 400 mg PO DAILY [facility] Metoprolol Succinate (Toprol Xl Tab*) 50 mg PO QAM [facility] Last Admin: 05/13/19 08:46 Dose: 50 mg Morphine Sulfate (Morphine Inj (Syringe))*) 2 mg IV Q2H PRN PRN Reason: PAIN Last Admin: 05/11/19 22:33 Dose: 2 mg Ondansetron HCl (Zofran Inj*) 4 mg IV Q6H PRN PRN Reason: NAUSEA Oxycodone/Acetaminophen (Percocet 5/325 Tab*) 1 tab PO Q4H PRN PRN Reason: PAIN Last Admin: 05/13/19 13:11 Dose: 1 tab Pantoprazole Sodium (Protonix Tab*) 40 mg PO QAM [facility] Last Admin: 05/13/19 08:46 Dose: 40 mg Simethicone (Mylicon Tab*) 80 mg PO Q4H PRN PRN Reason: DYSPEPSIA Vital Signs - 8 hr 05/14/19 05/14/19 03:00 08:12 Temperature 97.5 F 97.9 F Pulse Rate 72 71 Respiratory 18 12 Rate Blood Pressure 153/66 139/61 (mmHg) O2 Sat by Pulse 99 100 Oximetry Oxygen Devices in Use Now: None Appearance: 73 yo F in NAD, aAOx3 Eyes: No Scleral Icterus, PERRLA Ears/Nose/Mouth/Throat: NL Teeth, Lips, Gums, Mucous Membranes Moist Neck: NL Appearance and Movements; NL JVP, Trachea Midline Respiratory: Symmetrical Chest Expansion and Respiratory Effort, Clear to Auscultation Cardiovascular: NL Sounds; No Murmurs; No JVD Abdominal: NL Sounds; No Tenderness; No Distention, - - R LQ fistula with colostomy bad over it and brown/pinkish liquid in it. L sided pigtail still with purulent drainage Extremities: - - +1 nonpitting ankle edema b/l Skin: No Nodules or Sclerosis Neurological: Alert and Oriented x 3, NL Muscle Strength and Tone Result Diagrams: 05/14/19 07:25 05/14/19 07:25 Microbiology and Other Data: Microbiology 05/11/19 15:55 Gram Stain - Final Body Fluid - Abscess Skin and Soft Tissue MRSA/MSSA (PCR - Final Mrsa Negative S.aureus Negative 05/10/19 15:34 Urine Culture - Preliminary Urine Escherichia Coli 05/10/19 18:58 Aerobic Blood Culture - Preliminary Blood Venous No Growth Day 1 Anaerobic Blood Culture - Preliminary No Growth Day 1 05/10/19 18:58 Aerobic Blood Culture - Preliminary Blood Venous No Growth Day 1 Anaerobic Blood Culture - Preliminary No Growth Day 1 Assess/Plan/Problems-Billing Assessment: 73 yo F with h/o HTN, DM, CKD stage 3 with multiple intraabd. abscesses in the past and surgeries for it (last one 06/2018 ) presents with R enterocutaneus fistula and LLQ abd abscess - Patient Problems (1) Intra-abdominal abscess Comment: - Afebrile and no leukocytosis, but 18% bands at admission - Management per surgery - ID consult appreciated. Fisula site + e. coli, perc drain in LLQ+ Strep mitis -IR placed drain in LLQ abscess on 05/11/19 - Continue Meropenem (2) GERD (gastroesophageal reflux disease) Comment: - Continue PPI coverage (3) Atrial fibrillation Comment: - PAF (in setting of infection in 2017 ), NSR now on exam - Continue Metoprolol (4) CKD (chronic kidney disease) Comment: - Creatinine has been elevated since 10/2017 - Suspect stage 3 at baseline - Creatinine appears to be near baseline, continue to monitor (5) Diabetes Comment: - Continue Lispro per SS -lantus started 05/12/19 -holding metformin (6) Anemia Comment: - Chronic, consistent with ACD (7) Urine culture positive Comment: positive for E.coli and aeromonas Pt asymptomatic-suspect bacteriuria. (8) DVT prophylaxis Comment: - SQ heparin Status and Disposition: inpatient
[2019-05-14] MEDS: Insulin LISPRO* 1 UNITS UNIT SUBCUT SCH ×4 (08:59→21:08)
[2019-05-14] MEDS: Magnesium Oxide TAB* 400 MG PO SCH (09:00)
[2019-05-14] MEDS: Metoprolol Succinate XL TAB* 50 MG PO SCH (09:01)
[2019-05-14] MEDS: Acetaminophen TAB* 325 MG PO PRN ×2 (09:01→17:30)
[2019-05-14] MEDS: Pantoprazole TAB * 40 MG TAB PO SCH (09:01)
[2019-05-14] MEDS: LORazepam TAB(*) 0.5 MG PO PRN ×2 (09:02→17:29)
[2019-05-14] MEDS: Insulin GLARGINE(*) 1 UNITS UNIT SUBCUT SCH (17:32)
--- NOTE | 2019-05-14 17:44 | PN ---
Progress Note - Progress Note Date of Service: 05/14/19 SOAP: Subjective: Pt seen and examined. Chart reviewed. positive BM, appetite improving ; less abdo pain Objective: Temp Pulse Resp BP Pulse Ox 98.2 F 76 16 144/60 100 05/14/19 15:14 05/14/19 15:14 05/14/19 17:29 05/14/19 15:14 05/14/19 15:14 a and o x3, nad abdo: soft/ obese/ NT fistula: gas and enteric contents, skin unchanged pigtail: gas and pus crp lower Assessment: complicated diverticulitis with abscess and fistula- HD stable Plan: abx- possibly with PICC line cont pigtail for now ostomy nurse consult-done will follow
[2019-05-14] MEDS: Escitalopram * 10 MG TAB PO SCH (20:58)
[2019-05-15] MEDS: Meropenem 1 GM PREMIX(*) 1 GM/50 ML BAG IV SCH ×2 (03:05→16:01)
[2019-05-15] MEDS: Heparin VIAL(*) 5000 UNITS/ML VIAL (FIVE THOUSAND) SUBCUT SCH ×3 (05:28→21:36)
[2019-05-15] MEDS: Insulin LISPRO* 1 UNITS UNIT SUBCUT SCH ×4 (08:18→21:35)
--- NOTE | 2019-05-15 09:36 | PN ---
Subjective Date of Service: 05/15/19 Interval History: pt states she had multiple loose BM's yesterday. RLQ abd pain near the fistula happens when pt has flatulence in this are, then resolves. good appetite. Still draining a significant amount of purulent liquid from pigtail cath in LLQ Objective Active Medications: Acetaminophen (Tylenol Tab*) 650 mg PO Q6H PRN PRN Reason: FEVER/PAIN Last Admin: 05/14/19 17:30 Dose: 650 mg Dextrose (D50w Syringe 50 Ml*) 12.5 gm IV PUSH .FOR FS < 60 - SS PRN PRN Reason: for FS<70 Last Admin: 05/11/19 12:19 Dose: 12.5 gm Escitalopram Oxalate (Lexapro *) 10 mg PO BEDTIME CHERRY Last Admin: 05/14/19 20:58 Dose: 10 mg Heparin Sodium (Porcine) (Heparin Vial(*)) 5,000 units SUBCUT Q8HR CHERRY Last Admin: 05/15/19 05:28 Dose: 5,000 units Meropenem (Merrem 1 Gm Premix(*)) 1 gm in 50 mls @ 100 mls/hr IV Q12H CHERRY; Protocol Last Admin: 05/15/19 03:05 Dose: 100 mls/hr Insulin Glargine (Lantus(*)) 5 units SUBCUT QPM CHERRY Last Admin: 05/14/19 17:32 Dose: 5 unit Insulin Human Lispro (Humalog*) 0 units SUBCUT ACHS CHERRY; Protocol Last Admin: 05/15/19 08:18 Dose: Not Given Lorazepam (Ativan Tab(*)) 0.5 mg PO Q8H PRN PRN Reason: ANXIETY Last Admin: 05/14/19 17:29 Dose: 0.5 mg Magnesium Oxide (Magox 400 Tab*) 400 mg PO DAILY CHERRY Last Admin: 05/14/19 09:00 Dose: 400 mg Metoprolol Succinate (Toprol Xl Tab*) 50 mg PO QAM CHERRY Last Admin: 05/14/19 09:01 Dose: 50 mg Morphine Sulfate (Morphine Inj (Syringe))*) 2 mg IV Q2H PRN PRN Reason: PAIN Last Admin: 05/11/19 22:33 Dose: 2 mg Ondansetron HCl (Zofran Inj*) 4 mg IV Q6H PRN PRN Reason: NAUSEA Oxycodone/Acetaminophen (Percocet 5/325 Tab*) 1 tab PO Q4H PRN PRN Reason: PAIN Last Admin: 05/13/19 13:11 Dose: 1 tab Pantoprazole Sodium (Protonix Tab*) 40 mg PO QAM CHERRY Last Admin: 05/14/19 09:01 Dose: 40 mg Simethicone (Mylicon Tab*) 80 mg PO Q4H PRN PRN Reason: DYSPEPSIA Vital Signs - 8 hr 05/15/19 04:10 Temperature 97.3 F Pulse Rate 76 Respiratory 20 Rate Blood Pressure 150/65 (mmHg) O2 Sat by Pulse 99 Oximetry Oxygen Devices in Use Now: None Appearance: 73 yo F in nAD, aAOx3 Eyes: No Scleral Icterus, PERRLA Ears/Nose/Mouth/Throat: NL Teeth, Lips, Gums, Mucous Membranes Moist Neck: NL Appearance and Movements; NL JVP, Trachea Midline Respiratory: Symmetrical Chest Expansion and Respiratory Effort, Clear to Auscultation Cardiovascular: NL Sounds; No Murmurs; No JVD, RRR Abdominal: NL Sounds; No Tenderness; No Distention, No Hepatosplenomegaly, - - RLQ abd fistula with loose stool in colostomy bad, LLQ pigtail drain with purulent drainage noted Lymphatic: No Cervical Adenopathy Extremities: No Clubbing, Cyanosis, - - +1 nonpitting ankle edema b/l Skin: No Nodules or Sclerosis Neurological: Alert and Oriented x 3, NL Muscle Strength and Tone Result Diagrams: 05/14/19 07:25 05/14/19 07:25 Microbiology and Other Data: Microbiology 05/11/19 15:55 Gram Stain - Final Body Fluid - Abscess Skin and Soft Tissue MRSA/MSSA (PCR - Final Mrsa Negative S.aureus Negative 05/10/19 15:34 Urine Culture - Preliminary Urine Escherichia Coli 05/10/19 18:58 Aerobic Blood Culture - Preliminary Blood Venous No Growth Day 1 Anaerobic Blood Culture - Preliminary No Growth Day 1 05/10/19 18:58 Aerobic Blood Culture - Preliminary Blood Venous No Growth Day 1 Anaerobic Blood Culture - Preliminary No Growth Day 1 Assess/Plan/Problems-Billing Assessment: 73 yo F with h/o HTN, DM, CKD stage 3 with multiple intraabd. abscesses in the past and surgeries for it (last one 06/2018 ) presents with R enterocutaneus fistula and LLQ abd abscess - Patient Problems (1) Intra-abdominal abscess Comment: - Afebrile and no leukocytosis, but 18% bands at admission - Management per surgery - ID consult appreciated. Fistula site + e. coli+ aerococcus, perc drain in LLQ + Strep mitis and multiple other pathogens -IR placed drain in LLQ abscess on 05/11/19-still with significant daily output - Continue Meropenem (2) GERD (gastroesophageal reflux disease) Comment: - Continue PPI coverage (3) Atrial fibrillation Comment: - PAF (in setting of infection in 2017 ), NSR now on exam - Continue Metoprolol (4) CKD (chronic kidney disease) Comment: - Creatinine has been elevated since 10/2017 - Suspect stage 3 at baseline - Creatinine appears to be near baseline, continue to monitor (5) Diabetes Comment: - Continue Lispro per SS -lantus started 05/12/19 -holding metformin (6) Anemia Comment: - Chronic, consistent with ACD (7) Urine culture positive Comment: positive for E.coli and aeromonas Pt asymptomatic-suspect bacteriuria. (8) DVT prophylaxis Comment: - SQ heparin Status and Disposition: inpatient
[2019-05-15] MEDS: Metoprolol Succinate XL TAB* 50 MG PO SCH (09:44)
[2019-05-15] MEDS: Magnesium Oxide TAB* 400 MG PO SCH (09:44)
[2019-05-15] MEDS: Pantoprazole TAB * 40 MG TAB PO SCH (09:45)
--- NOTE | 2019-05-15 11:21 | PN ---
Progress Note - Progress Note Date of Service: 05/15/19 SOAP: Subjective: Pt seen and examined. less abdo pain Objective: a and o x3, nad abdo: soft/ obese/ NT fistula: gas and enteric contents, skin unchanged pigtail: gas and pus Assessment: complicated diverticulitis with abscess and fistula- HD stable Plan: abx- possibly with PICC line cont pigtail for now ostomy nurse consult-done will follow
[2019-05-15] MEDS: Acetaminophen TAB* 325 MG PO PRN (14:22)
[2019-05-15] MEDS: Insulin GLARGINE(*) 1 UNITS UNIT SUBCUT SCH (16:59)
[2019-05-15] MEDS: Escitalopram * 10 MG TAB PO SCH (21:34)
[2019-05-16] MEDS: Meropenem 1 GM PREMIX(*) 1 GM/50 ML BAG IV SCH ×2 (04:43→15:43)
[2019-05-16 06:25] LABS: Hematocrit 29 % (35-47); Hemoglobin 9.8 g/dL (12.0-16.0); Mean Corpuscular HGB Conc 34 g/dL (31-36); Mean Corpuscular Hemoglobin 29 pg (27-31); Mean Corpuscular Volume 86 fL (80-97); Mean Platelet Volume 6.2 fL (7.4-10.4); Platelet Count 359 10^3/uL (150-450); Red Blood Count 3.36 10^6 /uL (3.70-4.87); Red Cell Distribution Width 14 % (10-15); White Blood Count 4.3 10^3/uL (3.5-10.8)
[2019-05-16 06:45] LABS: BUN/Creatinine Ratio 21.9 (8-20); Calcium 8.8 mg/dL (8.6-10.3); EGFR African American 69.1 (>60); EGFR Non-African American 57.1 (>60); Magnesium 1.4 mg/dL (1.9-2.7)
[2019-05-16 07:29] LABS: ABS Eosinophils 0.1 10^3/ul (0-0.6); ABS Lymphocytes 1.4 10^3/ul (1.0-4.8); ABS Monocytes 0.5 10^3/ul (0-0.8); ABS Neutrophils 2.2 10^3/ul (1.5-7.7)
[2019-05-16] MEDS: Insulin LISPRO* 1 UNITS UNIT SUBCUT SCH ×4 (08:13→21:57)
[2019-05-16] MEDS: Pantoprazole TAB * 40 MG TAB PO SCH (09:50)
[2019-05-16] MEDS: Metoprolol Succinate XL TAB* 50 MG PO SCH (09:50)
[2019-05-16] MEDS: Magnesium Oxide TAB* 400 MG PO SCH (09:50)
[2019-05-16] MEDS: Acetaminophen TAB* 325 MG PO PRN (10:40)
[2019-05-16] MEDS: Heparin VIAL(*) 5000 UNITS/ML VIAL (FIVE THOUSAND) SUBCUT SCH ×3 (11:13→21:21)
--- NOTE | 2019-05-16 11:40 | PN ---
Progress Note - Progress Note Date of Service: 05/16/19 SOAP: Subjective: [] no change/complaints Objective: [] Temp Pulse Resp BP Pulse Ox 98.6 F 71 18 137/60 100 05/16/19 08:00 05/16/19 08:00 05/16/19 08:00 05/16/19 08:00 05/16/19 08:00 drainage continues Assessment: []stable Plan: []cont same, picc tomorrow?
[2019-05-16] MEDS ORDERED: oxyCODONE/Acetamin 10/325(NF) TAB PO PRN (11:55)
--- NOTE | 2019-05-16 16:54 | PN ---
Subjective Date of Service: 05/16/19 Interval History: Chrissie is feeling good today. She is resting in the recliner and has no complaints. Her pain is well controlled, appetite is good, and she has been having normal bowel movements. She has been afebrile. Objective Active Medications: Acetaminophen (Tylenol Tab*) 650 mg PO Q6H PRN PRN Reason: FEVER/PAIN Last Admin: 05/16/19 10:40 Dose: 650 mg Dextrose (D50w Syringe 50 Ml*) 12.5 gm IV PUSH .FOR FS < 60 - SS PRN PRN Reason: for FS<70 Last Admin: 05/11/19 12:19 Dose: 12.5 gm Escitalopram Oxalate (Lexapro *) 10 mg PO BEDTIME CHERRY Last Admin: 05/15/19 21:34 Dose: 10 mg Heparin Sodium (Porcine) (Heparin Vial(*)) 5,000 units SUBCUT Q8HR CHERRY Last Admin: 05/16/19 13:27 Dose: 5,000 units Meropenem (Merrem 1 Gm Premix(*)) 1 gm in 50 mls @ 100 mls/hr IV Q12H CHERRY; Protocol Last Admin: 05/16/19 15:43 Dose: 100 mls/hr Insulin Glargine (Lantus(*)) 5 units SUBCUT QPM CHERRY Last Admin: 05/15/19 16:59 Dose: 5 unit Insulin Human Lispro (Humalog*) 0 units SUBCUT ACHS CHERRY; Protocol Last Admin: 05/16/19 12:35 Dose: 2 unit Lorazepam (Ativan Tab(*)) 0.5 mg PO Q8H PRN PRN Reason: ANXIETY Last Admin: 05/14/19 17:29 Dose: 0.5 mg Magnesium Oxide (Magox 400 Tab*) 400 mg PO DAILY CHERRY Last Admin: 05/16/19 09:50 Dose: 400 mg Metoprolol Succinate (Toprol Xl Tab*) 50 mg PO QAM CHERRY Last Admin: 05/16/19 09:50 Dose: 50 mg Morphine Sulfate (Morphine Inj (Syringe))*) 2 mg IV Q2H PRN PRN Reason: PAIN Last Admin: 05/11/19 22:33 Dose: 2 mg Ondansetron HCl (Zofran Inj*) 4 mg IV Q6H PRN PRN Reason: NAUSEA Oxycodone/Acetaminophen (Percocet 5/325 Tab*) 1 tab PO Q4H PRN PRN Reason: PAIN Last Admin: 05/13/19 13:11 Dose: 1 tab Oxycodone/Acetaminophen (Percocet 10/325 (Nf)) 1 tab PO Q4H PRN PRN Reason: PAIN - SEVERE Pantoprazole Sodium (Protonix Tab*) 40 mg PO QAM CHERRY Last Admin: 05/16/19 09:50 Dose: 40 mg Simethicone (Mylicon Tab*) 80 mg PO Q4H PRN PRN Reason: DYSPEPSIA Vital Signs - 8 hr 05/16/19 16:00 Temperature 97.7 F Pulse Rate 73 Respiratory 18 Rate Blood Pressure 137/52 (mmHg) O2 Sat by Pulse 99 Oximetry Oxygen Devices in Use Now: None Appearance: alert, nontoxic appearing Eyes: No Scleral Icterus Ears/Nose/Mouth/Throat: NL Teeth, Lips, Gums Neck: NL Appearance and Movements; NL JVP Respiratory: Symmetrical Chest Expansion and Respiratory Effort, Clear to Auscultation Cardiovascular: NL Sounds; No Murmurs; No JVD, RRR Abdominal: - - RLQ cutaneous fistula with ostomy bag, scant liquid stool. RUQ perc drain with purulent drainage. bowel sounds normoactive, mildly tender diffusely to palpation Lymphatic: No Cervical Adenopathy Extremities: No Edema Skin: No Rash or Ulcers Result Diagrams: 05/16/19 06:18 05/16/19 06:18 Microbiology and Other Data: Microbiology 05/11/19 15:55 Gram Stain - Final Body Fluid - Abscess Skin and Soft Tissue MRSA/MSSA (PCR - Final Mrsa Negative S.aureus Negative 05/10/19 15:34 Urine Culture - Preliminary Urine Escherichia Coli 05/10/19 18:58 Aerobic Blood Culture - Preliminary Blood Venous No Growth Day 1 Anaerobic Blood Culture - Preliminary No Growth Day 1 05/10/19 18:58 Aerobic Blood Culture - Preliminary Blood Venous No Growth Day 1 Anaerobic Blood Culture - Preliminary No Growth Day 1 Assess/Plan/Problems-Billing Assessment: 73 yo F with h/o HTN, DM, CKD stage 3 with multiple intraabd. abscesses in the past and surgeries for it (last one 06/2018 ) presents with R enterocutaneus fistula and LLQ abd abscess - Patient Problems (1) Intra-abdominal abscess Current Visit: No Status: Acute Code(s): K65.1 - PERITONEAL ABSCESS SNOMED Code(s): 98318152 Comment: - Afebrile and no leukocytosis, but 18% bands at admission - Management per surgery - ID consult appreciated. Cultures show polymicrobial abscess as would be expected. -IR placed drain in LLQ abscess on 05/11/19-still with significant daily output - Continue Meropenem (2) Asymptomatic bacteriuria Current Visit: No Status: Acute Code(s): R82.71 - BACTERIURIA SNOMED Code( s): 910454236 (3) CKD (chronic kidney disease) Current Visit: No Status: Chronic Code(s): N18.9 - CHRONIC KIDNEY DISEASE, UNSPECIFIED SNOMED Code(s): 021418212 Comment: stable and below baseline Status and Disposition: inpatient
[2019-05-16] MEDS: Insulin GLARGINE(*) 1 UNITS UNIT SUBCUT SCH (17:03)
[2019-05-16] MEDS: Escitalopram * 10 MG TAB PO SCH (21:21)
[2019-05-17] MEDS: Meropenem 1 GM PREMIX(*) 1 GM/50 ML BAG IV SCH ×2 (03:17→15:35)
[2019-05-17] MEDS: Acetaminophen TAB* 325 MG PO PRN ×2 (04:17→15:35)
[2019-05-17] MEDS: Heparin VIAL(*) 5000 UNITS/ML VIAL (FIVE THOUSAND) SUBCUT SCH (05:51)
[2019-05-17 07:01] LABS: ABS Eosinophils 0.1 10^3/ul (0-0.6); ABS Lymphocytes 1.4 10^3/ul (1.0-4.8); ABS Monocytes 0.5 10^3/ul (0-0.8); ABS Neutrophils 1.7 10^3/ul (1.5-7.7); Eosinophil % 2.5 %; Hematocrit 26 % (35-47); Hemoglobin 8.9 g/dL (12.0-16.0); Lymphocyte % 37.1 %; Mean Corpuscular HGB Conc 34 g/dL (31-36); Mean Corpuscular Hemoglobin 30 pg (27-31); Mean Corpuscular Volume 86 fL (80-97); Mean Platelet Volume 6.2 fL (7.4-10.4); Nucleated Red Blood Cells % 0.1; Platelet Count 351 10^3/uL (150-450); Red Cell Distribution Width 14 % (10-15); White Blood Count 3.7 10^3/uL (3.5-10.8)
[2019-05-17 07:18] LABS: BUN/Creatinine Ratio 24.5 (8-20); C Reactive Protein 23.65 mg/L (<8.01); Calcium 8.4 mg/dL (8.6-10.3); EGFR African American 67.5 (>60); EGFR Non-African American 55.8 (>60); Potassium 3.9 mmol/L (3.5-5.0)
[2019-05-17] MEDS: Insulin LISPRO* 1 UNITS UNIT SUBCUT SCH ×4 (07:55→21:32)
[2019-05-17] MEDS: Magnesium Oxide TAB* 400 MG PO SCH (08:01)
[2019-05-17] MEDS: Pantoprazole TAB * 40 MG TAB PO SCH (08:01)
[2019-05-17] MEDS: Metoprolol Succinate XL TAB* 50 MG PO SCH (08:01)
[2019-05-17] MEDS: Enoxaparin(*) 40 MG/0.4 ML SYR SUBCUT SCH (13:42)
--- NOTE | 2019-05-17 14:23 | PN ---
Progress Note - Progress Note Date of Service: 05/17/19 SOAP: Subjective:"having a good day";denies pain;tolerating diet;passing more formed stools [] Objective: Vital Signs Temp 97.7 F 05/17/19 11:45 Pulse 66 05/17/19 11:45 Resp 20 05/17/19 11:45 BP 144/58 05/17/19 11:45 Pulse Ox 100 05/17/19 11:45 Intake & Output 05/16/19 05/17/19 05/17/19 18:59 06:59 18:59 Intake Total 755 600 360 Output Total 360 250 Balance 755 240 110 Intake: Oral 755 590 360 Pigtail Drain 10 Output: Pigtail Drain 120 Urine 200 250 Colostomy 40 Other: Estimated Void Small # Bowel Movements 1 1 Estimated Stool Amount Small Large # Voids 1 Laboratory Results - last 24 hr 05/16/19 05/16/19 05/17/19 16:10 21:18 06:37 WBC 3.7 RBC 3.00 L Hgb 8.9 L Hct 26 L MCV 86 MCH 30 MCHC 34 RDW 14 Plt Count 351 MPV 6.2 L Neut % (Auto) 47.1 Lymph % (Auto) 37.1 [place] % (Auto) 12.6 Eos % (Auto) 2.5 Baso % (Auto) 0.7 Absolute Neuts (auto) 1.7 Absolute Lymphs (auto) 1.4 Absolute Monos (auto) 0.5 Absolute Eos (auto) 0.1 Absolute Basos (auto) 0.0 Absolute Nucleated RBC 0.0 Nucleated RBC % 0.1 Sodium Potassium Chloride Carbon Dioxide Anion Gap BUN Creatinine Est GFR ( Amer) Est GFR (Non-Af Amer) BUN/Creatinine Ratio Glucose POC Glucose (mg/dL) 168 H 214 H Calcium C-Reactive Protein 05/17/19 05/17/19 06:37 11:24 WBC RBC Hgb Hct MCV MCH MCHC RDW Plt Count MPV Neut % (Auto) Lymph % (Auto) [place] % (Auto) Eos % (Auto) Baso % (Auto) Absolute Neuts (auto) Absolute Lymphs (auto) Absolute Monos (auto) Absolute Eos (auto) Absolute Basos (auto) Absolute Nucleated RBC Nucleated RBC % Sodium 138 Potassium 3.9 Chloride 106 Carbon Dioxide 28 Anion Gap 4 BUN 24 Creatinine 0.98 H Est GFR ( Amer) 67.5 Est GFR (Non-Af Amer) 55.8 BUN/Creatinine Ratio 24.5 H Glucose 117 H POC Glucose (mg/dL) 150 H Calcium 8.4 L C-Reactive Protein 23.65 H abd:+bs;soft,nondistended,nontender;fistula with enteric contents and gas in bag ;pigtail drainage purulent [] Assessment:recurrent abdominal abscess,diverticular;anterior cutaneous fistula [] Plan:continue current treatment;further abx recommendations and possible PICC per ;patient hoping to go home tomorrow []
--- NOTE | 2019-05-17 17:21 | PN ---
Subjective Date of Service: 05/17/19 Interval History: Feeling good today. Has been afebrile. Appetite is good, having bowel movements. Gets "gas pains" after eating but they are tolerable. Objective Active Medications: Acetaminophen (Tylenol Tab*) 650 mg PO Q6H PRN PRN Reason: FEVER/PAIN Last Admin: 05/17/19 15:35 Dose: 650 mg Dextrose (D50w Syringe 50 Ml*) 12.5 gm IV PUSH .FOR FS < 60 - SS PRN PRN Reason: for FS<70 Last Admin: 05/11/19 12:19 Dose: 12.5 gm Enoxaparin Sodium (Lovenox(*)) 40 mg SUBCUT Q24H CHERRY Last Admin: 05/17/19 13:42 Dose: 40 mg Escitalopram Oxalate (Lexapro *) 10 mg PO BEDTIME CHERRY Last Admin: 05/16/19 21:21 Dose: 10 mg Meropenem (Merrem 1 Gm Premix(*)) 1 gm in 50 mls @ 100 mls/hr IV Q12H CHERRY; Protocol Last Admin: 05/17/19 15:35 Dose: 100 mls/hr Insulin Glargine (Lantus(*)) 5 units SUBCUT QPM CHERRY Last Admin: 05/16/19 17:03 Dose: 5 unit Insulin Human Lispro (Humalog*) 0 units SUBCUT ACHS CHERRY; Protocol Last Admin: 05/17/19 12:29 Dose: 1 unit Lorazepam (Ativan Tab(*)) 0.5 mg PO Q8H PRN PRN Reason: ANXIETY Last Admin: 05/14/19 17:29 Dose: 0.5 mg Magnesium Oxide (Magox 400 Tab*) 400 mg PO DAILY CHERRY Last Admin: 05/17/19 08:01 Dose: 400 mg Metoprolol Succinate (Toprol Xl Tab*) 50 mg PO QAM CHERRY Last Admin: 05/17/19 08:01 Dose: 50 mg Ondansetron HCl (Zofran Inj*) 4 mg IV Q6H PRN PRN Reason: NAUSEA Oxycodone/Acetaminophen (Percocet 5/325 Tab*) 1 tab PO Q4H PRN PRN Reason: PAIN Last Admin: 05/13/19 13:11 Dose: 1 tab Oxycodone/Acetaminophen (Percocet 10/325 (Nf)) 1 tab PO Q4H PRN PRN Reason: PAIN - SEVERE Pantoprazole Sodium (Protonix Tab*) 40 mg PO QAM CHERRY Last Admin: 05/17/19 08:01 Dose: 40 mg Simethicone (Mylicon Tab*) 80 mg PO Q4H PRN PRN Reason: DYSPEPSIA Vital Signs - 8 hr 05/17/19 05/17/19 11:45 15:25 Temperature 97.7 F 98.1 F Pulse Rate 66 75 Respiratory 20 16 Rate Blood Pressure 144/58 148/58 (mmHg) O2 Sat by Pulse 100 98 Oximetry Oxygen Devices in Use Now: None Appearance: alert, well appearing, reading in recliner Eyes: No Scleral Icterus Ears/Nose/Mouth/Throat: NL Teeth, Lips, Gums Neck: NL Appearance and Movements; NL JVP Respiratory: Symmetrical Chest Expansion and Respiratory Effort Cardiovascular: NL Sounds; No Murmurs; No JVD, RRR Abdominal: - - RLQ cutaneous fistula with an ostomy bag over it, draining thin purulent material, drain in LUQ draining purulent thin liquid also. soft, nontender to palpation Extremities: No Edema Skin: No Rash or Ulcers Neurological: Alert and Oriented x 3 Result Diagrams: 05/17/19 06:37 05/17/19 06:37 Microbiology and Other Data: Microbiology 05/11/19 15:55 Gram Stain - Final Body Fluid - Abscess Skin and Soft Tissue MRSA/MSSA (PCR - Final Mrsa Negative S.aureus Negative 05/10/19 15:34 Urine Culture - Preliminary Urine Escherichia Coli 05/10/19 18:58 Aerobic Blood Culture - Preliminary Blood Venous No Growth Day 1 Anaerobic Blood Culture - Preliminary No Growth Day 1 05/10/19 18:58 Aerobic Blood Culture - Preliminary Blood Venous No Growth Day 1 Anaerobic Blood Culture - Preliminary No Growth Day 1 Assess/Plan/Problems-Billing Assessment: 73 yo F with h/o HTN, DM, CKD stage 3 with multiple intraabd. abscesses in the past and surgeries for it (last one 06/2018 ) presents with R enterocutaneus fistula and LLQ abd abscess - Patient Problems (1) Intra-abdominal abscess Current Visit: No Status: Acute Code(s): K65.1 - PERITONEAL ABSCESS SNOMED Code(s): 76215388 Comment: Afebrile and no leukocytosis, but 18% bands at admission Management per surgery--no current surgical plans. ID consult appreciated. Cultures show polymicrobial abscess as would be expected. IR placed drain in LLQ abscess on 05/11/19-still with significant daily output Continue Meropenem--PICC ordered today (2) Asymptomatic bacteriuria Current Visit: No Status: Acute Code(s): R82.71 - BACTERIURIA SNOMED Code( s): 902920652 (3) CKD (chronic kidney disease) Current Visit: No Status: Chronic Code(s): N18.9 - CHRONIC KIDNEY DISEASE, UNSPECIFIED SNOMED Code(s): 042980032 Comment: stable and below baseline (4) DVT prophylaxis Current Visit: No Status: Acute Code(s): BIT5544 - SNOMED Code(s): 362406882 Comment: switch heparin to lovenox Status and Disposition: inpatient for iv antibiotics; needs picc placement than may be able to go home with ID recommendations/surgical recommendations for discharge
[2019-05-17] MEDS: Insulin GLARGINE(*) 1 UNITS UNIT SUBCUT SCH (18:38)
[2019-05-17] MEDS: Escitalopram * 10 MG TAB PO SCH (21:16)
[2019-05-18] MEDS: Meropenem 1 GM PREMIX(*) 1 GM/50 ML BAG IV SCH ×2 (04:47→14:41)
[2019-05-18] MEDS: Metoprolol Succinate XL TAB* 50 MG PO SCH (08:07)
[2019-05-18] MEDS: Pantoprazole TAB * 40 MG TAB PO SCH (08:07)
[2019-05-18] MEDS: Magnesium Oxide TAB* 400 MG PO SCH (08:07)
[2019-05-18] MEDS: Insulin LISPRO* 1 UNITS UNIT SUBCUT SCH ×4 (08:39→20:49)
[2019-05-18] MEDS: Acetaminophen TAB* 325 MG PO PRN (09:30)
--- NOTE | 2019-05-18 10:48 | PN ---
Subjective Date of Service: 05/18/19 Interval History: HD #8 on 05/18 73 yo F PMH HTN, IDDM, CKD stage 2, distant hx of PAF not on AC, with multiple intraabd. abscesses in the past and surgeries for it (last one 06/2018 ) presents with R enterocutaneus fistula and LLQ abd abscess s/p IR drain w. out surgical intervention Overnight no acute events, VSS PICC yesterday Labs: from yesterday, reviewed This morning seen watching TV, no complaints, pleasant and well. Objective Active Medications: Acetaminophen (Tylenol Tab*) 650 mg PO Q6H PRN PRN Reason: FEVER/PAIN Last Admin: 05/18/19 09:30 Dose: 650 mg Dextrose (D50w Syringe 50 Ml*) 12.5 gm IV PUSH .FOR FS < 60 - SS PRN PRN Reason: for FS<70 Last Admin: 05/11/19 12:19 Dose: 12.5 gm Enoxaparin Sodium (Lovenox(*)) 40 mg SUBCUT Q24H CHERRY Last Admin: 05/17/19 13:42 Dose: 40 mg Escitalopram Oxalate (Lexapro *) 10 mg PO BEDTIME CHERRY Last Admin: 05/17/19 21:16 Dose: 10 mg Meropenem (Merrem 1 Gm Premix(*)) 1 gm in 50 mls @ 100 mls/hr IV Q12H CHERRY; Protocol Last Admin: 05/18/19 04:47 Dose: 100 mls/hr Insulin Glargine (Lantus(*)) 5 units SUBCUT QPM CHERRY Last Admin: 05/17/19 18:38 Dose: 5 unit Insulin Human Lispro (Humalog*) 0 units SUBCUT ACHS CHERRY; Protocol Last Admin: 05/18/19 08:39 Dose: Not Given Lorazepam (Ativan Tab(*)) 0.5 mg PO Q8H PRN PRN Reason: ANXIETY Last Admin: 05/14/19 17:29 Dose: 0.5 mg Magnesium Oxide (Magox 400 Tab*) 400 mg PO DAILY CHERRY Last Admin: 05/18/19 08:07 Dose: 400 mg Metoprolol Succinate (Toprol Xl Tab*) 50 mg PO QAM CHERRY Last Admin: 05/18/19 08:07 Dose: 50 mg Ondansetron HCl (Zofran Inj*) 4 mg IV Q6H PRN PRN Reason: NAUSEA Oxycodone/Acetaminophen (Percocet 5/325 Tab*) 1 tab PO Q4H PRN PRN Reason: PAIN Last Admin: 05/13/19 13:11 Dose: 1 tab Oxycodone/Acetaminophen (Percocet 10/325 (Nf)) 1 tab PO Q4H PRN PRN Reason: PAIN - SEVERE Pantoprazole Sodium (Protonix Tab*) 40 mg PO QAM [facility] Last Admin: 05/18/19 08:07 Dose: 40 mg Simethicone (Mylicon Tab*) 80 mg PO Q4H PRN PRN Reason: DYSPEPSIA Vital Signs - 8 hr 05/18/19 05/18/19 05/18/19 03:54 07:44 07:53 Temperature 98.0 F Pulse Rate 76 Respiratory 14 20 20 Rate Blood Pressure 149/67 (mmHg) O2 Sat by Pulse 99 Oximetry Oxygen Devices in Use Now: None Appearance: Pleasant woman in NAD Ears/Nose/Mouth/Throat: NL Teeth, Lips, Gums Neck: NL Appearance and Movements; NL JVP, Trachea Midline Respiratory: Symmetrical Chest Expansion and Respiratory Effort, Clear to Auscultation Cardiovascular: NL Sounds; No Murmurs; No JVD, RRR Abdominal: NL Sounds; No Tenderness; No Distention, - - Drain in place with milky liquid output Lymphatic: No Cervical Adenopathy Extremities: No Edema Skin: No Rash or Ulcers Neurological: Alert and Oriented x 3 Result Diagrams: 05/17/19 06:37 05/17/19 06:37 Microbiology and Other Data: Microbiology 05/11/19 15:55 Gram Stain - Final Body Fluid - Abscess Skin and Soft Tissue MRSA/MSSA (PCR - Final Mrsa Negative S.aureus Negative 05/10/19 15:34 Urine Culture - Preliminary Urine Escherichia Coli 05/10/19 18:58 Aerobic Blood Culture - Preliminary Blood Venous No Growth Day 1 Anaerobic Blood Culture - Preliminary No Growth Day 1 05/10/19 18:58 Aerobic Blood Culture - Preliminary Blood Venous No Growth Day 1 Anaerobic Blood Culture - Preliminary No Growth Day 1 Assess/Plan/Problems-Billing Assessment: 73 yo F PMH HTN, IDDM, CKD stage 2, distant hx of PAF not on AC, with multiple intraabd. abscesses in the past and surgeries for it (last one 06/2018 ) presents with R enterocutaneus fistula and LLQ abd abscess s/p IR drain w. out surgical intervention - Patient Problems (1) Intra-abdominal abscess Current Visit: No Status: Acute Code(s): K65.1 - PERITONEAL ABSCESS SNOMED Code(s): 28568029 Comment: - ID consult appreciated. Cultures show polymicrobial abscess as would be expected. - IR placed drain in LLQ abscess on 05/11/19-still with significant daily output - Continue Meropenem--PICC line in place, to go on outpt Ertapenem Day 8/ _ on (2) GERD (gastroesophageal reflux disease) Current Visit: No Status: Acute Code(s): K21.9 - GASTRO-ESOPHAGEAL REFLUX DISEASE WITHOUT ESOPHAGITIS SNOMED Code(s): 763789462 Comment: - Continue PPI (3) HTN (hypertension) Current Visit: No Status: Acute Code(s): I10 - ESSENTIAL (PRIMARY) HYPERTENSION SNOMED Code(s): 47143517 Comment: - Metoprolol Succinate 50mg daily, resume Losartan 50mg daily (4) Atrial fibrillation Current Visit: No Status: Chronic Code(s): I48.91 - UNSPECIFIED ATRIAL FIBRILLATION SNOMED Code(s): 85348889 Comment: - PAF (in setting of infection in 2017 ), NSR now on exam - Continue Metoprolol (5) CKD (chronic kidney disease) Current Visit: No Status: Chronic Code(s): N18.9 - CHRONIC KIDNEY DISEASE, UNSPECIFIED SNOMED Code(s): 146598788 Comment: - Stable (6) Diabetes Current Visit: No Status: Chronic Code(s): E11.9 - TYPE 2 DIABETES MELLITUS WITHOUT COMPLICATIONS SNOMED Code(s): 51276958 Comment: - Continue Lispro per SS - Lantus started 05/12/19 - Holding metformin, can resume on d/c (7) DVT prophylaxis Current Visit: No Status: Acute Code(s): UEO7482 - SNOMED Code(s): 705954202 Comment: - Lovenox (8) Full code status Current Visit: No Status: Acute Code(s): Z78.9 - OTHER SPECIFIED HEALTH STATUS SNOMED Code(s): 504514379 Status and Disposition: inpatient for iv antibiotics; awaiting insurance for approval of abx
--- NOTE | 2019-05-18 14:23 | PN ---
Progress Note - Progress Note Date of Service: 05/18/19 SOAP: Subjective: CC:abdominal abscess HPI: 73 year old woman with 2nd recurrence of intra-abdominal abscess with fistula. Feels well, no fever, rash or diarrhea. Fluid in drain is thinner. Objective: Vital Signs Temp 36.7 C 05/18/19 03:54 Pulse 76 05/18/19 03:54 Resp 20 05/18/19 07:53 BP 149/67 05/18/19 03:54 Pulse Ox 99 05/18/19 03:54 Intake & Output 05/17/19 05/18/19 05/18/19 18:59 06:59 18:59 Intake Total 960 10 480 Output Total 650 725 Balance 310 -715 480 Intake: Oral 960 0 480 NG Tube Irrigate Amount 10 Output: Pigtail Drain 125 Urine 650 600 Other: # Bowel Movements 1 Estimated Stool Amount Large Gen:awake, no distress HEENT: no thrush Heart:RRR no murmur Lungs:CTA BL Abd:+BS NTND soft; Left sided drain bag thin kessler fluid Skin: no rash Laboratory Results - last 24 hr 05/17/19 05/17/19 05/18/19 16:25 21:30 07:37 POC Glucose (mg/dL) 158 H 117 H 95 05/18/19 11:39 POC Glucose (mg/dL) 114 H Assessment: 1. Abdominal abscess with cutaneous fistula s/p IR drain; ?due to underlying diverticular disease 2. PCN allergy 3. T2 Diabetes Plan: 1. ertapenem 1 gm IV daily, orders written for home w weekly cbc, cmp, crp; outpatient fu 1-2 weeks. 25 minutes floor time >50% face to face in discussion of plans for definitive treatment
[2019-05-18] MEDS: Enoxaparin(*) 40 MG/0.4 ML SYR SUBCUT SCH (14:41)
--- NOTE | 2019-05-18 15:04 | PN ---
Progress Note - Progress Note Date of Service: 05/18/19 SOAP: Subjective:feeling well;no abd pain;having formed stools;good appetite [] Objective: Vital Signs Temp 98.0 F 05/18/19 03:54 Pulse 76 05/18/19 03:54 Resp 20 05/18/19 07:53 BP 149/67 05/18/19 03:54 Pulse Ox 99 05/18/19 03:54 Intake & Output 05/17/19 05/18/19 05/18/19 18:59 06:59 18:59 Intake Total 960 10 480 Output Total 650 725 Balance 310 -715 480 Intake: Oral 960 0 480 NG Tube Irrigate Amount 10 Output: Pigtail Drain 125 Urine 650 600 Other: # Bowel Movements 1 Estimated Stool Amount Large abd:+bs,soft,nondistended,nontender;colocutaneous fistula with gas and enteric contents in bag;pigtail drain with purulent drainage [] Assessment:stable,looking forward to going home [] Plan:PICC inserted for home IV abx per Dr Draper;per Dr Russell patient should not flush pigtail or empty the bag between the time she is discharged and her followup appointment with in our office on Friday05/24/19 at 9:45am,I informed the patient and she understands. []
[2019-05-18] MEDS: Insulin GLARGINE(*) 1 UNITS UNIT SUBCUT SCH (17:31)
[2019-05-18] MEDS: Escitalopram * 10 MG TAB PO SCH (20:55)
[2019-05-19] MEDS: Acetaminophen TAB* 325 MG PO PRN (03:50)
[2019-05-19] MEDS: Meropenem 1 GM PREMIX(*) 1 GM/50 ML BAG IV SCH (03:50)
[2019-05-19 05:07] LABS: Hematocrit 25 % (35-47); Hemoglobin 8.4 g/dL (12.0-16.0); Mean Corpuscular HGB Conc 34 g/dL (31-36); Mean Corpuscular Hemoglobin 30 pg (27-31); Mean Corpuscular Volume 88 fL (80-97); Mean Platelet Volume 6.1 fL (7.4-10.4); Platelet Count 386 10^3/uL (150-450); Red Blood Count 2.82 10^6 /uL (3.70-4.87); Red Cell Distribution Width 15 % (10-15)
[2019-05-19 05:33] LABS: BUN/Creatinine Ratio 25.2 (8-20); Calcium 8.4 mg/dL (8.6-10.3); EGFR African American 60.8 (>60); EGFR Non-African American 50.3 (>60); Potassium 3.6 mmol/L (3.5-5.0)
[2019-05-19] MEDS: Insulin LISPRO* 1 UNITS UNIT SUBCUT SCH ×2 (07:43→11:40)
[2019-05-19] MEDS ORDERED: Losartan TAB* 25 MG PO SCH (09:00)
[2019-05-19] MEDS: Magnesium Oxide TAB* 400 MG PO SCH (09:05)
[2019-05-19] MEDS: Metoprolol Succinate XL TAB* 50 MG PO SCH (09:05)
[2019-05-19] MEDS: Pantoprazole TAB * 40 MG TAB PO SCH (09:05)
[2019-05-19] MEDS ORDERED: Ertapenem* 1 GM in NS 0.9% 50 ML* 50 ML IVPB ONE (10:57)
--- NOTE | 2019-05-19 13:11 | PN ---
Subjective Date of Service: 05/19/19 Interval History: HD #9 on 05/19 73 yo F PMH HTN, IDDM, CKD stage 2, distant hx of PAF not on AC, with multiple intraabd. abscesses in the past and surgeries for it (last one 06/2018 ) presents with R enterocutaneus fistula and LLQ abd abscess s/p IR drain w. out surgical intervention Overnight no acute events, VSS Labs: from yesterday, reviewed This morning seen watching TV, no complaints, pleasant and well. Awaiting d/c once she gets first dose of ertapenem Objective Active Medications: Acetaminophen (Tylenol Tab*) 650 mg PO Q6H PRN PRN Reason: FEVER/PAIN Last Admin: 05/19/19 03:50 Dose: 650 mg Dextrose (D50w Syringe 50 Ml*) 12.5 gm IV PUSH .FOR FS < 60 - SS PRN PRN Reason: for FS<70 Last Admin: 05/11/19 12:19 Dose: 12.5 gm Enoxaparin Sodium (Lovenox(*)) 40 mg SUBCUT Q24H [facility] Last Admin: 05/18/19 14:41 Dose: 40 mg Escitalopram Oxalate (Lexapro *) 10 mg PO BEDTIME CHERRY Last Admin: 05/18/19 20:55 Dose: 10 mg Heparin Sodium (Porcine) (Heparin Flush Picc/Ml/Cvc(*)) 1 - 3 ml FLUSH 0600, 1800 [facility]; Protocol Last Admin: 05/19/19 04:53 Dose: 1 ml Insulin Glargine (Lantus(*)) 5 units SUBCUT QPM [facility] Last Admin: 05/18/19 17:31 Dose: 5 unit Insulin Human Lispro (Humalog*) 0 units SUBCUT ACHS [facility]; Protocol Last Admin: 05/19/19 11:40 Dose: 1 unit Losartan Potassium (Cozaar Tab*) 50 mg PO DAILY [facility] Last Admin: 05/19/19 09:05 Dose: 50 mg Magnesium Oxide (Magox 400 Tab*) 400 mg PO DAILY CHERRY Last Admin: 05/19/19 09:05 Dose: 400 mg Metoprolol Succinate (Toprol Xl Tab*) 50 mg PO QAM [facility] Last Admin: 05/19/19 09:05 Dose: 50 mg Ondansetron HCl (Zofran Inj*) 4 mg IV Q6H PRN PRN Reason: NAUSEA Oxycodone/Acetaminophen (Percocet 10/325 (Nf)) 1 tab PO Q4H PRN PRN Reason: PAIN - SEVERE Pantoprazole Sodium (Protonix Tab*) 40 mg PO QAM [facility] Last Admin: 05/19/19 09:05 Dose: 40 mg Simethicone (Mylicon Tab*) 80 mg PO Q4H PRN PRN Reason: DYSPEPSIA Vital Signs - 8 hr 05/19/19 08:00 Respiratory 16 Rate Oxygen Devices in Use Now: None Appearance: Pleasant well appearing woman Eyes: PERRLA Ears/Nose/Mouth/Throat: NL Teeth, Lips, Gums Neck: NL Appearance and Movements; NL JVP, Trachea Midline Respiratory: Symmetrical Chest Expansion and Respiratory Effort, Clear to Auscultation Cardiovascular: NL Sounds; No Murmurs; No JVD, RRR Abdominal: NL Sounds; No Tenderness; No Distention, No Hepatosplenomegaly - L sided drain with whitish liquid output Lymphatic: No Cervical Adenopathy Extremities: No Edema Skin: No Rash or Ulcers Neurological: Alert and Oriented x 3 Result Diagrams: 05/19/19 04:50 05/19/19 04:50 Microbiology and Other Data: Microbiology 05/11/19 15:55 Gram Stain - Final Body Fluid - Abscess Skin and Soft Tissue MRSA/MSSA (PCR - Final Mrsa Negative S.aureus Negative 05/10/19 15:34 Urine Culture - Preliminary Urine Escherichia Coli 05/10/19 18:58 Aerobic Blood Culture - Preliminary Blood Venous No Growth Day 1 Anaerobic Blood Culture - Preliminary No Growth Day 1 05/10/19 18:58 Aerobic Blood Culture - Preliminary Blood Venous No Growth Day 1 Anaerobic Blood Culture - Preliminary No Growth Day 1 Assess/Plan/Problems-Billing Assessment: 73 yo F PMH HTN, IDDM, CKD stage 2, distant hx of PAF not on AC, with multiple intraabd. abscesses in the past and surgeries for it (last one 06/2018 ) presents with R enterocutaneus fistula and LLQ abd abscess s/p IR drain w. out surgical intervention - Patient Problems (1) Intra-abdominal abscess Current Visit: No Status: Acute Code(s): K65.1 - PERITONEAL ABSCESS SNOMED Code(s): 12268927 Comment: - ID consult appreciated. Cultures show polymicrobial abscess as would be expected. - IR placed drain in LLQ abscess on 05/11/19-still with significant daily output - Continue Meropenem--PICC line in place, to go on outpt Ertapenem Day 9/ _ on (2) GERD (gastroesophageal reflux disease) Current Visit: No Status: Acute Code(s): K21.9 - GASTRO-ESOPHAGEAL REFLUX DISEASE WITHOUT ESOPHAGITIS SNOMED Code(s): 864326476 Comment: - Continue PPI (3) HTN (hypertension) Current Visit: No Status: Acute Code(s): I10 - ESSENTIAL (PRIMARY) HYPERTENSION SNOMED Code(s): 66521623 Comment: - Metoprolol Succinate 50mg daily, resume Losartan 50mg daily (4) Atrial fibrillation Current Visit: No Status: Chronic Code(s): I48.91 - UNSPECIFIED ATRIAL FIBRILLATION SNOMED Code(s): 23666459 Comment: - PAF (in setting of infection in 2017 ), NSR now on exam - Continue Metoprolol (5) CKD (chronic kidney disease) Current Visit: No Status: Chronic Code(s): N18.9 - CHRONIC KIDNEY DISEASE, UNSPECIFIED SNOMED Code(s): 855039811 Comment: - Stable (6) Diabetes Current Visit: No Status: Chronic Code(s): E11.9 - TYPE 2 DIABETES MELLITUS WITHOUT COMPLICATIONS SNOMED Code(s): 21209855 Comment: - Continue Lispro per SS - Lantus started 05/12/19 - Holding metformin, can resume on d/c (7) DVT prophylaxis Current Visit: No Status: Acute Code(s): CKD0696 - SNOMED Code(s): 254853166 Comment: - Lovenox (8) Full code status Current Visit: No Status: Acute Code(s): Z78.9 - OTHER SPECIFIED HEALTH STATUS SNOMED Code(s): 060109016 Status and Disposition: d/c today after first dose ertapenem
--- NOTE | 2019-05-19 15:49 | DS ---
CC: Dr. Eliel Vu; Dr. Chip Rudolph; Dr. Zbigniew Russell DISCHARGE SUMMARY: DATE OF ADMISSION: 05/10/19 DATE OF DISCHARGE: 05/19/19 PRIMARY CARE PROVIDER: Dr. Eliel Vu. DISPOSITION AT THE TIME OF DISCHARGE: Stable to be discharged home. PRIMARY DIAGNOSIS: Abdominal abscess with colocutaneous fistula. SECONDARY DIAGNOSES: 1. Hypertension. 2. Insulin-dependent diabetes. 3. Chronic kidney disease stage 2. 4. Distant history of paroxysmal atrial fibrillation, not on anticoagulation. 5. Mild anxiety. 6. GERD. 7. Recurrent abdominal abscess with liver abscess thought to be 2/2 to diverticular dz MEDICATIONS AT TIME OF DISCHARGE: 1. Losartan 50 mg p.o. daily. 2. Escitalopram 10 mg p.o. at bedtime. 3. Insulin glargine 5 units subcutaneous q.p.m. 4. Metoprolol succinate 50 mg p.o. q.a.m. 5. Pantoprazole 40 mg p.o. q.a.m. 6. Simethicone 80 mg p.o. q.4 hours p.r.n. 7. Fenofibrate 160 mg p.o. q.a.m. 8. Probiotic 1 tab p.o. q.a.m. 9. Metformin 500 mg p.o. b.i.d. with meals. 10. Naproxen sodium 440 mg p.o. at bedtime p.r.n. 11. Sitagliptin 50 mg p.o. b.i.d. Changes to medications in this hospitalization were the dose lowering of losartan from 100 mg to 50 mg and the changing of omeprazole 20 mg to pantoprazole 40 mg per patient preference. HISTORY OF PRESENT ILLNESS AND HOSPITAL COURSE: This is a 74-year-old female with above past medical history who presented to the emergency room on 05/10/19 afternoon at the request of primary care after she had spontaneous onset of left lower quadrant abdominal pain about 10 days prior to admission. An outpatient CT abdomen was ordered, which showed intraabdominal abscess associated with ruptured diverticulum. The patient was treated conservatively without antibiotics and planned to have a drain placed with this. She did have some diarrhea, but no fevers or chills, although just 3 days coming to the hospital she developed open wound in the right side of her abdomen that was draining fecal matter at the site of a previous abdominal drain, as the patient has a history of multiple intraabdominal abscesses, thought to be secondary to diverticulitis in the past. At this point, the patient actually did have fevers and chills and some fatigue and thus, she was electively admitted to the hospital on the hospitalist service for antibiotics. Furthermore, she was evaluated by surgery, who also recommended hospitalization. Her hospital course by problem is as follows: 1. Colocutaneous fistula and intraabdominal abscess. The patient has a history of numerous abscesses, thought to be secondary to diverticula in the past. She had an IR drain placed on 05/11/19 with uncomplicated placement of 10 -Yakut pigtail in the left peritoneal abscess collection that continued to drain purulent polymicrobial matter on culture. Infectious disease was consulted who recommended meropenem and also recommended surgical options for ultimate definitive treatment.Of note, the patient has a long history of abdominal abscesses noted in August 2017, June 2018 and most recently, this third episode of large abdominal abscess in the setting of diverticulosis with diverticular rupture and recurrence of an anterior cutaneous fistula. The patient was continued on meropenem with good results. No fevers. White count, which was initially mildly elevated at 10, trended down to 4. She tolerated medication well. Ultimately, microbiology showed E. coli, Enterobacter, Bacteroides enterococcus, clostridium as well as Strep mitis and Strep oralis as suspected polymicrobial and penem was ultimately chosen for definitive management. PICC line was placed on 05/17/19 and ertapenem was ordered for outpatient home infusion with insurance finally approving on . The patient will be discharged with home care nursing for daily infusion of ertapenem with followup with primary care in 1 to 2 weeks until she ultimately undergoes definitive management with surgery. Surgery has offered surgical revision here in [place] with Dr. Zbigniew Russell, who has offered patient close followup, although patient is also awaiting her surgical options in [place]. 2. Diabetes. The patient is well controlled at baseline. Her home medications were continued. 3. Hypertension. Her home medications were continued with the exception of dose lowering of losartan to 50 mg daily. 4. GERD. The patient is on omeprazole as outpatient. The patient prefers pantoprazole and was continued here and prescribed for her on outpatient basis. 5. History of distant paroxysmal atrial fibrillation. She has been in normal sinus rhythm and remains on metoprolol. 6. CKD stage 1 to 2, mild. She had mildly elevated creatinine on admission, thought to be prerenal, which normalized by the day of discharge to 1.07. Otherwise, no acute medical problems remain during this hospitalization. The patient tolerated all procedures well and has clear outpatient followup plan as well as home infusion services who are to start infusions 05/20/19. On the day of discharge, the patient is tolerating diet, ambulating and voiding freely, vital signs and labs within normal limits. LABS AND STUDIES DONE DURING THIS HOSPITALIZATION: 05/10/19: Abdomen and pelvis CT, large air-fluid collection present anterior and lateral to the descending colon, most consistent with an abscess. A possible second less well- defined abscess with fistula to the bowel present in the right lower quadrant and there is a third collection in the anterior abdominal wall in the right lower abdomen which has decreased in size from prior study. Mild thickening of the wall of the descending and sigmoid colon suggestive of colitis. Anterior abdominal wall hernia containing nondistended small-bowel that is unchanged from prior. Abdominal ultrasound done in the context of pigtail placement on showed left abdominal abscess, where a 10-Yakut pigtail was ultimately placed, but remains with purulent drainage. Labs on day of discharge are normal BMP, with the exception of mildly elevated creatinine of 1.07 and normal CBC, with the exception of mild anemia with a hemoglobin to 10.7. A physical exam was done on day of discharge and can be seen in progress note. ITEMS TO FOLLOW UP ON STATUS POST DISCHARGE: 1. Multiple abdominal abscesses in the setting of ruptured diverticula. The patient will need ultimately definitive surgical management. Her left pigtail drain continues to have thin buck discharge and she is instructed not to flush it if she does ultimately go with surgery in [place] as they want to see how productive her current left abdominal abscess is. She is also considering following up in [place] and [place] feels to support the patient either way. 2. Hypertension. The patient's losartan was mildly decreased to 50 mg with adequate control of pressure and thus was discharged on this new home dose. 3. GERD. The patient's GERD symptoms were mildly better controlled with pantoprazole and omeprazole and thus, she was discharged on this medication change. On day of discharge, the patient is counseled on when to return to emergency room if new fevers, new abdominal pain, nausea, vomiting, or any new symptoms. She understands. She is stable to be discharged to home with her where she will have visiting nurses. TIME SPENT: Forty-five minutes were spent in the planning of this discharge with over half of that spent directly at the bedside of the patient, providing direct patient care. If there are any questions about the care provided to this patient during this hospitalization, please do not hesitate to reach out to us. [id number]/CPS #: [id number] CARLOS
[2019-05-19 17:46] VITALS: BP 157/65
== END 2019-05-19 14:08 | disposition home health service (06) | DRG 393 ==
LOC: ED 10:21 → SSU 15:25 → MEDTELE 05-12 18:08
PROVIDERS: ADMIT Internal Medicine; ATTEND Internal Medicine
PROC: 0W9G30Z Drainage of Peritoneal Cavity with Drainage Device, Percutaneous Approach (ICD-10-PCS; principal; 2019-05-11)
PROC: 02HV33Z Insertion of Infusion Device into Superior Vena Cava, Percutaneous Approach (ICD-10-PCS; 2019-05-18)
DX: K63.2 Fistula of intestine (principal); K65.1 Peritoneal abscess; K57.20 Diverticulitis of large intestine with perforation and abscess without bleeding; I12.9 Hypertensive chronic kidney disease with stage 1 through stage 4 chronic kidney disease, or unspecified chronic kidney disease; E11.22 Type 2 diabetes mellitus with diabetic chronic kidney disease; N18.2 Chronic kidney disease, stage 2 (mild); I48.0 Paroxysmal atrial fibrillation; M10.9 Gout, unspecified; I73.00 Raynaud's syndrome without gangrene; D64.9 Anemia, unspecified; M19.90 Unspecified osteoarthritis, unspecified site; F32.9 Major depressive disorder, single episode, unspecified; R82.71 Bacteriuria; F41.9 Anxiety disorder, unspecified; K21.9 Gastro-esophageal reflux disease without esophagitis; Z79.84 Long term (current) use of oral hypoglycemic drugs; Z90.49 Acquired absence of other specified parts of digestive tract; Z98.51 Tubal ligation status; Z83.2 Family history of diseases of the blood and blood-forming organs and certain disorders involving the immune mechanism; Z80.1 Family history of malignant neoplasm of trachea, bronchus and lung; Z80.8 Family history of malignant neoplasm of other organs or systems; Z80.7 Family history of other malignant neoplasms of lymphoid, hematopoietic and related tissues; Z82.0 Family history of epilepsy and other diseases of the nervous system; Z83.3 Family history of diabetes mellitus; Z88.0 Allergy status to penicillin; Z88.1 Allergy status to other antibiotic agents; Z87.891 Personal history of nicotine dependence
CPT/HCPCS: 36415; 49406; 74176; 75989; 76705; 80048; 80053; 81003; 81015; 83605; 83690; 83735; 84100; 84134; 85025; 85027; 85060; 85610; 86140; 87040; 87070; 87076; 87077; 87086; 87186; 87205; 87640; 87641; 99284; A9270-GY; C1751; J1335; J1644; J1650; J2185; J2270; J2310; J3010; J3475; J3480

== ENCOUNTER 2019-06-04 09:24 | Inpatient (IN) | payer MEDICARE, BC ==
[2019-06-04] MEDS ORDERED: Ondansetron INJ* 2 MG/ML VIAL IV ONE (10:12)
[2019-06-04] MEDS ORDERED: NS 0.9% 1000 ML** 1,000 ML IV ONE (10:12)
[2019-06-04] MEDS ORDERED: Morphine 4 MG/ML VIAL (1 ml) 4 MG/ML VIAL IV ONE (10:13)
--- NOTE | 2019-06-04 10:14 | ED ---
Abdominal Pain/Female - HPI Summary HPI Summary: Pt. is a 74 y.o female who presents to the ER for increased abd. pain and redness. Pt. has a hx of recurrent diverticulitis complicated with abscess. Pt. was admitted 05/10-05/22/19 and had drain placed. Pt. states tube was removed by Dr. Yvonne lucio pasted Friday. Pt. states that yesterday she noticed increased pain to LLQ and noticed redness to her skin. She denies fever, chills, N/V, CP, SOB. Pt. currently has a PICC line and is receiving ertapenem daily. Hx of intestinal fistula and has a stoma to RLQ that pt. states never puts out any drainage. Sxs are moderate in severity. Movement and touching area makes sxs worse. Nothing makes sxs better. - History of Current Complaint Chief Complaint: EDRashSkinAbscess Stated Complaint: LT FLANK PAIN PER PT Time Seen by Provider: 06/04/19 09:43 Hx Obtained From: Patient Pain Intensity: 4 Allergies/Adverse Reactions: Allergies Allergy/AdvReac Type Severity Reaction Status Date / Time metronidazole [From Flagyl] Allergy SEVERE GI Verified 06/04/19 09:35 UPSET Penicillins Allergy Hives Verified 06/04/19 09:35 Home Medications: Home Medications Multivitamin [Multivitamins] 1 cap PO 06/04/19 [History] PMH/Surg Hx/FS Hx/Imm Hx Previously Healthy: Yes Endocrine/Hematology History: Reports: Hx Diabetes, Hx Systemic Lupus Erythematosus, Hx Anemia - 08/2017 Denies: Hx Unexplained Bleeding Cardiovascular History: Reports: Hx Hypercholesterolemia, Hx Hypertension, Other Cardiovascular Problems/Disorders - ATRIAL FIBRILLATION- DURING SEPSIS-2017 Denies: Hx Aneurysm, Hx Angina, Hx Angioplasty, Hx Auto Implanted Cardiovert Defib, Hx Cardiac Arrest, Hx Cardiomegaly, Hx Congenital Heart Disease, Hx Congestive Heart Failure, Hx Coronary Artery Disease, Hx Deep Vein Thrombosis, Hx Embolism, Hx Hypotension, Hx Pacemaker/ICD, Hx Peripheral Vascular Disease, Hx Rheumatic Fever, Hx Syncope, Hx Valvular Heart Disease GI History: Reports: Hx Diverticulosis, Hx Gastroesophageal Reflux Disease Denies: Hx Cirrhosis, Hx Crohn's Disease, Hx Gall Bladder Disease, Hx Gastrointestinal Bleed, Hx Hiatal Hernia, Hx Irritable Bowel, Hx Jaundice, Hx Obstructive Bowel, Hx Ileostomy, Hx Pyloric Stenosis, Hx Ulcer, Other GI Disorders History: Reports: Other Problems/Disorders - Consulted with in past. Denies: Hx Renal Disease Musculoskeletal History: Reports: Hx Arthritis - Lupus Sensory History: Reports: Hx Contacts or Glasses Denies: Hx Hearing Aid Opthamlomology History: Reports: Hx Contacts or Glasses Psychiatric History: Reports: Hx Anxiety - INFREQUENT, Hx Depression - Surgical History Surgery Procedure, Year, and Place: Gall bladder removed. tubal ligation. Laparotomy with washout of intraabdominal collections, drains placed and umbilical hernia repair Hx Anesthesia Reactions: No Infectious Disease History: No Infectious Disease History: Denies: Hx Hepatitis, Hx Human Immunodeficiency Virus (HIV), Hx of Known/ Suspected MRSA, Hx Shingles, Hx Tuberculosis, History Other Infectious Disease, Traveled Outside the in Last 30 Days - Family History Known Family History: Positive: Non-Contributory Family History: neg: anaesthesia reaction - Social History Occupation: Retired Lives: With Family Alcohol Use: None Hx Substance Use: No Substance Use Type: Reports: None Hx Tobacco Use: Yes Smoking Status (MU): Former Smoker Type: Cigarettes Review of Systems Constitutional: Negative Negative: Fever, Chills Cardiovascular: Negative Respiratory: Negative Positive: Abdominal Pain. Negative: Vomiting, Diarrhea, Nausea Genitourinary: Negative Positive: Other - redness to lower abd. left Neurological: Negative All Other Systems Reviewed And Are Negative: Yes Physical Exam Triage Information Reviewed: Yes Vital Signs On Initial Exam: Initial Vitals Temp Pulse Resp BP Pulse Ox 99.5 F 93 16 140/64 97 06/04/19 09:33 06/04/19 09:33 06/04/19 09:33 06/04/19 09:33 06/04/19 09:33 Vital Signs Reviewed: Yes Appearance: Positive: Well-Appearing - Pt. sitting up in bed in NAD. Skin: Positive: Warm, Dry Head/Face: Positive: Normal Head/Face Inspection Eyes: Positive: Normal, EOMI, ANDREEA Neck: Positive: Supple Respiratory/Lung Sounds: Positive: Clear to Auscultation, Breath Sounds Present Cardiovascular: Positive: Normal, RRR Abdomen Description: Positive: Other: - Obese. Noted to left lower quadrant there is small wound where drain was present. Inferiorly there is a large area of erythema and induration. Area is very tenderness. No signs of peritonitis. Neurological: Positive: Normal, CN Intact II-III Psychiatric: Positive: Affect/Mood Appropriate Diagnostics - Vital Signs Vital Signs Temp Pulse Resp BP Pulse Ox 06/04/19 09:33 99.5 F 93 16 140/64 97 - Laboratory Result Diagrams: 06/04/19 10:27 06/04/19 10:27 Lab Statement: Any lab studies that have been ordered have been reviewed, and results considered in the medical decision making process. Abdominal Pain Fem Course/Dx - Course Course Of Treatment: Pt. presenting with concern of recurrent abdominal abscess/ cellulitis. Rectal temp. 99.8F. VS stable. Pt. started on IV fluids and morphine. Labs show leukocytosis of 13. CRP 103. Mildly increased cr. Case discussed with pt.'s surgeon, Dr. Russell, who would like CT w and wo. CT per radiology: IMPRESSION: #. At the site of the previous removed LEFT lateral abdominal drain there is a 10 cm AP by. 11 cm transverse by 12 cm cephalocaudal gas and fluid abscess collection. Suggestion of. small volume of enteric contrast within the caudal medial aspect of the collection. favoring fistulization to the descending colon. The abscess collection extends to within 1. mm of the skin surface LEFT anterolaterally. Severe diverticulosis of the distal. descending and sigmoid colon with moderate perienteric inflammatory change at the. descending sigmoid junction increased over the prior exam consistent with recurrent or. progression of diverticulitis. Pt. examined by Dr. Russell in ER and he will admitted to his service. I spoke with Dr. Payne, hospitalist, who will consult. - Diagnoses Provider Diagnoses: Abdominal abscess Discharge - Sign-Out/Discharge Documenting (check all that apply): Patient Departure Patient Received Moderate/Deep Sedation with Procedure: No - Discharge Plan Condition: Stable Disposition: ADMITTED TO [facility] - Billing Disposition and Condition Condition: STABLE Disposition: Admitted to [facility]
[2019-06-04 10:38] LABS: Hematocrit 32 % (35-47); Hemoglobin 10.5 g/dL (12.0-16.0); Mean Corpuscular HGB Conc 33 g/dL (31-36); Mean Corpuscular Hemoglobin 28 pg (27-31); Mean Corpuscular Volume 87 fL (80-97); Mean Platelet Volume 6.1 fL (7.4-10.4); Platelet Count 461 10^3/uL (150-450); Red Cell Distribution Width 15 % (10-15); White Blood Count 13.1 10^3/uL (3.5-10.8)
[2019-06-04 10:42] LABS: ABS Eosinophils 0.2 10^3/ul (0-0.6); ABS Lymphocytes 0.7 10^3/ul (1.0-4.8); ABS Monocytes 0.6 10^3/ul (0-0.8); ABS Neutrophils 11.5 10^3/ul (1.5-7.7); Eosinophil % 1.9 %; Lymphocyte % 5.5 %
[2019-06-04 10:54] LABS: Albumin 2.7 g/dL (3.2-5.2); Albumin/Globulin Ratio 0.7 (1-3); BUN/Creatinine Ratio 23.2 (8-20); C Reactive Protein 103.12 mg/L (<8.01); Calcium 9.3 mg/dL (8.6-10.3); EGFR African American 50.8 (>60); Globulin 4.1 g/dL (2-4); Potassium 3.8 mmol/L (3.5-5.0); Total Bilirubin 0.4 mg/dL (0.2-1.0); Total Protein 6.8 g/dL (6.4-8.9)
[2019-06-04] MEDS ORDERED: Iodixanol* (CONTRAST) 320 MG/ML 100 ML SDV IV ONE (11:21)
[2019-06-04] MEDS ORDERED: Ondansetron INJ* 2 MG/ML VIAL IV PRN (15:36)
[2019-06-04] MEDS ORDERED: HYDROmorphone INJ1* 1 MG/ML SYRINGE IV SLOW PU PRN (15:36)
--- NOTE | 2019-06-04 18:23 | HP ---
CC: Dr. Eliel Vu * ADMISSION HISTORY AND PHYSICAL: DATE OF ADMISSION: 06/04/19 LOCATION: This patient was seen in the [facility] Emergency Department. ATTENDING PHYSICIAN: Zbigniew Russell MD.* (DICTATED BY RYAN WISE NP) CHIEF COMPLAINT: Pain and redness over left lateral abdomen at the previous drain site. 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 She was recently hospitalized in April 2019 and discharged on daily ertapenem. She was seen in our office by Dr. Russell on 05/31/19, and at that time, he removed a pigtail drain from the left abdomen. Subsequently, she developed increasing pain over that site and noticed erythema and an area of tenderness and firmness consistent with abscess. She denied any fever or chills at home. She took only Naprosyn for discomfort. She is an insulin-dependent diabetic and states today that her fingerstick at home was 97. She denied any nausea or vomiting. Today, she underwent a CAT scan of the abdomen and pelvis, which revealed a gas and fluid collection at the site of the previous left lateral abdominal drain and this measured 10 x 11 x 12 cm, favoring fistulization to descending colon; the collection extends to within 1 mm of the skin surface; severe diverticulosis of the distal descending and sigmoid colon was noted with inflammatory change at the descending-sigmoid junction, increased over previous exam consistent with recurrence or progression of diverticulitis. Dr. Russell recommended admission and will be taking the patient to the operating room for incision and drainage of the left abdominal abscess. PAST MEDICAL HISTORY: Type 2 diabetes mellitus; undifferentiated connective- tissue disease; remote history of atrial fibrillation, not on anticoagulation; chronic kidney disease; hypertension; history of multiple liver abscesses; Raynaud phenomenon, and anemia. PAST SURGICAL HISTORY: Drainage of multiple abdominal abscesses in June [address] Moeller; cholecystectomy; multiple liver abscess drainages; splenic abscess drainage; and tubal ligation. MEDICATIONS: 1. Losartan 50 mg p.o. daily. 2. Escitalopram 10 mg p.o. at bedtime. 3. Insulin glargine 5 units subcutaneous q.p.m. 4. Metoprolol 50 mg p.o. q.a.m. 5. Pantoprazole 40 mg p.o. q.a.m. 6. Simethicone 80 mg p.o. q.4 hours p.r.n. 7. Fenofibrate 160 mg p.o. q.a.m. 8. Probiotic 1 tablet p.o. q.a.m. 9. Metformin 500 mg p.o. b.i.d. with meals. 10. Naproxen sodium 440 mg p.o. at bedtime p.r.n. 11. Sitagliptin 50 mg p.o. b.i.d. 12. Ertapenem 1 g IV daily, which she has been receiving as a home infusion and currently has a midline IV. ALLERGIES: Include PENICILLIN, FLAGYL, TAPE, and LINEZOLID. SOCIAL HISTORY: The patient is and is a retired nurse; she denies the use of tobacco, alcohol, or other substances. FAMILY HISTORY: Father with aplastic anemia. Mother with brain and lung cancer at age 72. REVIEW OF SYSTEMS: Constitutional: No fevers or chills. Respiratory: No chronic cough or dyspnea. General: No previous anesthesia complications. No personal history of deep vein thrombosis or pulmonary embolism. No bleeding tendencies. Cardiovascular: No anginal chest pain or palpitations. Gastrointestinal: No nausea or vomiting. She states that she has been routinely moving her bowels per rectum. No blood in the stool. Genitourinary: No dysuria. Musculoskeletal: Moves all 4 extremities. Neurologic: No blurred vision. No focal weakness. PHYSICAL EXAMINATION GENERAL SURVEY: The patient is a 74-year-old female who appears stated age, in no acute distress. VITAL SIGNS: Height 5 feet 5 inches, weight 179 pounds, body mass index 29.8. Blood pressure 115/68, pulse 80 and regular, respiratory rate 18, temperature 99.8, O2 saturation on room air 94%. HEENT: Benign. NECK: Supple. No cervical lymphadenopathy. LUNGS: Breath sounds bilaterally clear and equal. HEART: Regular rate and rhythm. No murmurs or rubs appreciated. ABDOMEN: Large. Active bowel sounds. Soft and nondistended. Tender to palpation over the left lateral abdomen with an area of erythema and abscess formation as described in history of present illness that is draining fecal material; there is an ostomy appliance over the right mid abdomen that the patient states has had minimal output. PELVIC: Exam deferred. RECTAL: Exam deferred. EXTREMITIES: Warm without edema or skin ulceration. NEUROLOGIC: Alert and oriented x3. DIAGNOSTIC STUDIES/LAB DATA: Laboratory Data: White blood cell count 13.1. CRP 103.12. Glucose 134, creatinine 1.25. CT of the abdomen and pelvis, results as described in history of present illness. IMPRESSION: Abscess collection, left lateral abdomen at previous pigtail drain site consistent with colocutaneous fistulization. PLAN: Ertapenem 1 g IV daily as previously recommended by Dr. Rudolph. N.p.o. , except ice chips until plan for OR has been determined. Diabetes management per the hospitalist and I have spoken with nurse practitioner, Alondra Awad , in that regard. Pain management as needed. TIME SPENT: Seventy-five minutes with greater than 50% in [id number] history taking, patient assessment, and coordination of care. RYAN WISE NP [id number]/[facility] #: [id number] CARLOS
[2019-06-04] MEDS: NS 0.9% 1000 ML** 1,000 ML IV SCH (18:32)
[2019-06-04] MEDS: Pantoprazole IV* 40 MG IV SCH (18:34)
[2019-06-04] MEDS: Ertapenem* 1 GM in NS 0.9% 50 ML* 50 ML IVPB SCH (18:40)
--- NOTE | 2019-06-05 03:30 | CONS ---
[facility] MEDICINE CONSULTATION REPORT: DATE OF CONSULT: 06/04/19 ATTENDING PHYSICIAN: Dr. Russell CONSULTING PHYSICIAN: Dr. Glendy Payne (dictated by Alondra Awad NP) REASON FOR CONSULT: Co-management of diabetes. HISTORY OF PRESENT ILLNESS: Ms. 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 The patient reports that she had a drain removed by Dr. Russell on 05/31/19. She reports that on Friday , she noticed increased redness and swelling to the left abdomen near the site where the drain was placed. She reports that this progressively got worse, so she presented to the emergency room for further evaluation. While in the emergency room, she had routine lab work and a CT of the abdomen and pelvis, which showed an abscess fluid collection in the left abdomen with fistulization into the descending colon. Due to these findings, the patient was admitted to the hospital for further management. Please see dictated H and P by Brittany Glez for complete details. Due to her history of diabetes, we were asked to help co-manage her care during this hospitalization. PAST MEDICAL HISTORY: Significant for: 1. Undifferentiated connective tissue disease, diabetes type 2. 2. Atrial fibrillation, not on anticoagulation. 3. Chronic kidney disease. 4. Hypertension. 5. Gout associated with hydrochlorothiazide use. 6. History of liver abscesses, status post multiple drains and surgeries. 7. Raynaud's. 8. Anemia. PAST SURGICAL HISTORY: 1. Cholecystectomy. 2. Multiple liver abscess drainages. 3. Splenic abscess drainage. 4. Tubal ligation. HOME MEDICATIONS: Include: 1. Lexapro 10 mg p.o. daily. 2. Lactobacillus 1 tablet p.o. daily. 3. Fenofibrate 160 mg p.o. daily. 4. Metformin 500 mg p.o. b.i.d. with meals. 5. Januvia 50 mg p.o. b.i.d. 6. Protonix 40 mg p.o. daily. 7. Losartan 50 mg p.o. daily. 8. Insulin glargine 5 units subcu q.p.m. 9. Metoprolol 50 mg p.o. q.a.m. 10. Naproxen 440 mg p.o. at bedtime as needed. ALLERGIES: FLAGYL, PENICILLIN, ZYVOX, and TAPES. FAMILY HISTORY: Father of aplastic anemia and possible transfusion reaction. The patient's mother of brain and lung cancer at the age of 72. The patient has 4 siblings, all of whom are , one of diabetes type 1, one of Hodgkin's lymphoma, and one dementia. SOCIAL HISTORY: The patient has never smoked. Denies any alcohol or illicit drug use. The patient used to work as a nurse at [employer]. The patient is . She has 2 children. Surrogate decision maker in the event she is unable to make her own decision is her , . She is a full code. REVIEW OF SYSTEMS: She denies any fever or chills. Denies any nausea or vomiting. She does report mild pain to her left abdomen. She does report loose stools. She denies any gross hematuria, dysuria, focal weakness, or sensory loss. Denies any visual complaints, dysphagia, arthralgias, or myalgias. She does have some redness and increased swelling noted to the left abdomen that is firm to touch with brownish drainage coming from the left abdomen. She denies any psychosis or anxiety. PHYSICAL EXAMINATION: General: At this time, Ms. Marshall is alert and oriented , resting on the stretcher in the emergency room. She is in no acute distress. Vital Signs: 101/43, heart rate 83, respirations 16, O2 saturation 97%, temp was 98.7. HEENT: Head is atraumatic, normocephalic. Eyes: EOMs are intact. Sclerae anicteric and not pale. Oral mucosa appeared to be moist. Neck is supple. Lungs are clear to auscultation bilaterally. No wheezes, rales, or rhonchi. Cardiac: S1, S2. Regular rate and rhythm. No murmurs, rubs, or gallops. Abdomen: She does have redness and swelling noted to the left abdomen with a small amount of brown drainage coming from the abdomen. She does have an open fistula noted to her right abdomen with a colostomy bag that is intact. Bowel sounds are present x4. Extremities: She is able to move all 4 extremities with 5/5 strength. Pedal pulses are +2. There is no clubbing or cyanosis. Skin: She does have erythema and warmth noted to her left abdomen that is firm to touch, now with small amount of brown drainage coming from the center of the area. DIAGNOSTIC STUDIES/LAB DATA: WBCs are 13.1, RBCs 3.70, hemoglobin 10.5, hematocrit of 32, platelet count 461. Sodium 139, potassium 3.8, chloride 105, carbon dioxide was 27, anion gap was 7, BUN was 29, creatinine 1.25. ASTs are 11, ALTs are 5, C- reactive protein was 103.12. CT of the abdomen and pelvis, radiologist's impression: There is a site of previously removed left lateral abdominal drain. There is a 10 cm AP x 11 cm transverse x 12 cm cephalocaudal gas and fluid abscess collection suggestive of small volume of enteric contrast within the caudomedial aspect of the collection favoring fistulization of the descending colon. The abscess collection extends to within 1 mm of the skin surface left anterolaterally. Severe diverticulosis of the distal descending and sigmoid colon with moderate perienteric inflammation changes at the descending-sigmoid junction, increased over the prior exam consistent with recurrent or progression of diverticulitis. IMPRESSION AND PLAN: Ms. Marshall is a 74-year-old female with a past medical history significant for undifferentiated connective tissue disease, diabetes type 2, atrial fibrillation, not on anticoagulation, chronic kidney disease, hypertension, gout associated with hydrochlorothiazide use, history of liver abscesses, and fistulizations of the abdomen, who presented with left abdominal swelling, now with drainage coming from the left abdomen with suspected abscess. We were asked to consult due to her history of diabetes. Our recommendations are as follows: 1. Left abdominal abscess. Management per Surgery, antibiotics per Surgery. I would recommend consultation to Infectious Disease. 2. Diabetes Type II. Patient currently takes metformin, Januvia, and Lantus insulin subcu. I am going to hold her metformin, Januvia, and Lantus as the patient is n.p.o. for possible surgery. I will order fingersticks a.c. and h.s. and place her on lispro sliding scale when she is eating and tolerating a diet likely tomorrow. 3. Hypertension. I would continue her metoprolol as previously prescribed. I would hold her Losartan for now. 4. Diet. As per Surgery. 5. DVT prophylaxis. As per Surgery. TIME SPENT: Time spent on this consultation was approximately 45 minutes. Greater than half of that time was spent at the bedside reviewing events leading thus far to her hospitalization, performing physical exam, and reviewing my plan of care. I have discussed this with my attending Dr. Glendy Payne; she is in agreement with my plan. ALONDRA AWAD, MAKAYLA [id number]/[facility] #: [id number] CARLOS
[2019-06-05] MEDS: NS 0.9% 1000 ML** 1,000 ML IV SCH (05:40)
[2019-06-05] MEDS ORDERED: Dextrose 50% Syringe 50 ML* 25 GM/50 ML SYRINGE IV PUSH PRN (07:55)
[2019-06-05] MEDS ORDERED: Alteplase (CATHFLO)* 2 MG VIAL IV ONE (09:52)
[2019-06-05] MEDS: Insulin LISPRO* 1 UNITS UNIT SUBCUT SCH ×3 (12:34→21:39)
--- NOTE | 2019-06-05 12:39 | PN ---
Progress Note - Progress Note Date of Service: 06/05/19 SOAP: Subjective: Pt seen and examined. feeling better since wound spontaneously opened. appetite good, loose BMs only Objective: Temp Pulse Resp BP Pulse Ox 97.9 F 78 16 113/44 100 06/05/19 07:26 06/05/19 07:26 06/05/19 07:26 06/05/19 07:26 06/05/19 07:26 Intake & Output 06/04/19 06/05/19 06/05/19 22:59 06:59 14:59 Intake Total 0 1381 Output Total 100 Balance 0 1281 Weight 179 lb a and o x3, nad abdo: soft/ obese/ NT ostomy appliances removed; wounds irrigated. 4x4s placed Assessment: Complicated diverticular abscess Plan: abx Po diet wound care will need OR- timing still being decided
[2019-06-05 13:23] LABS: ABS Eosinophils 0.3 10^3/ul (0-0.6); ABS Lymphocytes 0.8 10^3/ul (1.0-4.8); ABS Monocytes 0.4 10^3/ul (0-0.8); ABS Neutrophils 5.8 10^3/ul (1.5-7.7); Eosinophil % 4.6 %; Hematocrit 28 % (35-47); Hemoglobin 9.3 g/dL (12.0-16.0); Lymphocyte % 10.5 %; Mean Corpuscular HGB Conc 33 g/dL (31-36); Mean Corpuscular Hemoglobin 29 pg (27-31); Mean Corpuscular Volume 88 fL (80-97); Mean Platelet Volume 6.4 fL (7.4-10.4); Nucleated Red Blood Cells % 0.1; Platelet Count 372 10^3/uL (150-450); Red Blood Count 3.19 10^6 /uL (3.70-4.87); Red Cell Distribution Width 15 % (10-15); White Blood Count 7.4 10^3/uL (3.5-10.8)
[2019-06-05 13:34] LABS: Albumin 2.4 g/dL (3.2-5.2); Calcium 8.5 mg/dL (8.6-10.3); Potassium 3.6 mmol/L (3.5-5.0); Total Bilirubin 0.3 mg/dL (0.2-1.0)
[2019-06-05 13:40] LABS: Albumin/Globulin Ratio 0.7 (1-3); BUN/Creatinine Ratio 23.7 (8-20); C Reactive Protein 132.31 mg/L (<8.01); EGFR African American 54.3 (>60); EGFR Non-African American 44.9 (>60); Globulin 3.6 g/dL (2-4)
--- OUTSIDE RECORDS SUMMARY | 2019-06-05 14:50 | XMS REPORT | Continuity of Care Document ---
:1945 External Reference #:[id number] Author Name Ernestina Rm Care Team Providers Name Role Phone Eliel Vu D.O. Primary Care Physician Unavailable Payers Date Identification Numbers Payment Provider Subscriber Policy Number: [id number] Medicare Chrissie Packer PayID: [id number] [address] [place] [address] Policy Number: [id number] [facility] [place] Rolando PayID: [id number] [address] [place] [address] Social History Type Date Description Comments Sex Unknown Marital Status Lives With Tobacco Use Start: Unknown Patient has never smoked Smoking Status Reviewed: 06/03/19 Patient has never smoked Allergies, Adverse Reactions, Alerts Active Allergies Reaction Severity Comments Date Penicillin edema, rash 09/29/2017 Flagyl diarrhea 10/29/2017 Tape 04/06/2018 Linezolid Nausea and Vomiting 10/06/2018 Medications Active Medications SIG Qnty Indications Ordering Provider Date Metformin HCL 1 by mouth twice Unknown 500mg Tablets a day Januvia 1 by mouth twice Unknown 50mg Tablets a day Lantus 5 units q 24 hrs Unknown 100Unit/ML Solution Metoprolol Tartrate take 1 tablet by Unknown 50mg mouth once daily Tablets Lactobacillus 1 by mouth once a Unknown Acidophilus day Capsules Fenofibrate 1 by mouth every Unknown 160mg Tablets day Lexapro 1 by mouth every Unknown 10mg Tablets day at bedtime (per 10/30/17 [facility] [place] summary) Multiple Vitamin 1 by mouth every Unknown Tablets day Coq10 take 1 by mouth 3 Unknown 100mg Capsules x week Naproxen prn Unknown Ertapenem Sodium IV once daily Unknown 1gm through [facility] home infusion (end date 06/14 per [facility] orders) Losartan Potassium 1 by mouth every Unknown 50mg day (dose change Tablets per [facility] DC summary) Protonix 1 by mouth every Unknown 40mg Tablets DR day History Medications Linezolid one by mouth 42tabs Chip Delarosa 09/11/2018 - 600mg twice a day Fransisco Rudolph 09/22/2018 Tablets Moxifloxacin HCL 1 by mouth every 30tabs K65.1 Chip Delarosa 08/05/2018 - day Fransisco Rudolph 09/11/2018 400mg Tablets Meropenem IV q 8 hrs x 28 Unknown 07/17/2018 - 1gm days through 08/13/2018 [facility] Sulfamethoxazole/Tri 1 by mouth twice 30tabs L02.91 Chip Delarosa 12/02/2017 - methoprim DS daily Fransisco Rudolph 06/01/2018 800-160mg Tablets Doxycycline Hyclate 1 tab by mouth 30tabs Chip Delarosa 11/03/2017 - twice a day with Fransisco Rudolph 12/01/2017 100mg Tablets food Cephalexin take one capsule 42caps Chip Delarosa 10/03/2017 - 500mg by mouth three Fransisco Rudolph 12/01/2017 Capsules times a day Meropenem IV q 8 hrs x Unknown 09/08/2017 - 2gm through 10/19/17 10/19/2017 [facility] through [facility] Fluconazole 2 tabs by mouth 56tabs Chip Delarosa 09/08/2017 - 200mg once daily Fransisco Rudolph 12/01/2017 Tablets Pantoprazole Sodium 1 by mouth every Unknown - day (per [facility] DC Unknown 40mg Tablets DR summary) Simethicone 1 tab every 4 Unknown - 80mg hours as needed 07/27/2018 [facility] bloating Oxycodone-Acetaminop 1 tab by mouth Unknown - hen every 4 hours as 07/27/2018 5-325mg Tablets needed for pain Furosemide 1 by mouth every Unknown - 20mg day (pt taking 3 05/25/2018 Tablets times per week - Dr Vu aware) Losartan Potassium 1 by mouth every Unknown - day (per 09/22/17 05/20/2019 100mg Tablets [facility] DC summary) Omeprazole 1 by mouth every Unknown - 20mg morning (per 2019 Capsules 09/22/17 [facility] summary) Potassium Chloride 1 by mouth every Unknown - day (pt taking 3 05/25/2018 20Meq Tablets ER x per week - Dr Vu aware) Simethicone 1 po q 4 hrs prn Unknown - 80mg dyspepsia (per 10/28/2017 [facility] 09/22/17 [facility] summary) Aspirin 81 Low Dose once daily (per Unknown - 09/22/17 [facility] 06/01/2018 summary) Imodium A-D q 4 hrs prn Unknown - 2mg diarrhea (per 10/28/2017 Tablets 09/22/17 [facility] summary) Xarelto 1 by mouth every Unknown - 20mg Tablets day (per 09/22/17 10/28/2017 [facility] summary) Vital Signs Date Vital Result Comment 06/03/2019 1:34pm Height 65 inches 5'5" Weight 178.00 lb Heart Rate 74 /min BP Systolic Sitting 118 mmHg BP Diastolic Sitting 68 mmHg Respiratory Rate 14 /min Body Temperature 99.4 F O2 % BldC Oximetry 98 % BMI (Body Mass Index) 29.6 kg/m2 05/31/2019 10:37am Heart Rate 84 /min BP Systolic Sitting 120 mmHg Left arm, large cuff BP Diastolic Sitting 70 mmHg Left arm, large cuff Respiratory Rate 16 /min Body Temperature 97.6 F 05/24/2019 9:20am Heart Rate 68 /min BP Systolic 142 mmHg BP Diastolic 80 mmHg Respiratory Rate 16 /min Body Temperature 97.3 F 10/06/2018 11:21am Height 65 inches 5'5" Weight 185.25 lb Heart Rate 84 /min BP Systolic Sitting 122 mmHg BP Diastolic Sitting 64 mmHg Respiratory Rate 14 /min Body Temperature 99.3 F BMI (Body Mass Index) 30.8 kg/m2 09/14/2018 1:13pm Height 65 inches 5'5" Weight 188.00 lb Heart Rate 76 /min BP Systolic Recheck 128 mmHg BP Diastolic Recheck 82 mmHg Respiratory Rate 16 /min Body Temperature 980.0 F BMI (Body Mass Index) 31.3 kg/m2 09/08/2018 10:05am Height 65 inches 5'5" Weight 189.25 lb Heart Rate 72 /min BP Systolic Sitting 118 mmHg BP Diastolic Sitting 74 mmHg Respiratory Rate 14 /min Body Temperature 98.4 F BMI (Body Mass Index) 31.5 kg/m2 08/24/2018 1:58pm Height 65 inches 5'5" Weight 192.00 lb Heart Rate 80 /min BP Systolic Recheck 128 mmHg BP Diastolic Recheck 84 mmHg Respiratory Rate 16 /min Body Temperature 97.9 F BMI (Body Mass Index) 31.9 kg/m2 08/10/2018 1:12pm Height 65 inches 5'5" Weight 191.00 lb Heart Rate 80 /min BP Systolic Recheck 128 mmHg BP Diastolic Recheck 84 mmHg Respiratory Rate 16 /min Body Temperature 97.7 F BMI (Body Mass Index) 31.8 kg/m2 08/05/2018 10:38am Height 65 inches 5'5" Weight 190.50 lb Heart Rate 72 /min BP Systolic Sitting 134 mmHg BP Diastolic Sitting 78 mmHg Respiratory Rate 14 /min Body Temperature 98.7 F BMI (Body Mass Index) 31.7 kg/m2 08/03/2018 10:57am Heart Rate 78 /min Respiratory Rate 18 /min Body Temperature 97.4 F 07/24/2018 11:20am Heart Rate 62 /min Respiratory Rate 16 /min Body Temperature 98.0 F 07/02/2018 1:04pm Height 65 inches 5'5" Weight 200.00 lb Heart Rate 92 /min BP Systolic 152 mmHg BP Diastolic 80 mmHg Respiratory Rate 16 /min Body Temperature 96.9 F BMI (Body Mass Index) 33.3 kg/m2 06/08/2018 1:31pm Height 65 inches 5'5" Weight 197.00 lb Heart Rate 76 /min BP Systolic Recheck 132 mmHg BP Diastolic Recheck 84 mmHg Respiratory Rate 16 /min Body Temperature 97.8 F BMI (Body Mass Index) 32.8 kg/m2 04/13/2018 2:43pm Height 65 inches 5'5" Weight 205.00 lb Heart Rate 88 /min BP Systolic Recheck 134 mmHg BP Diastolic Recheck 84 mmHg Respiratory Rate 16 /min Body Temperature 97.7 F BMI (Body Mass Index) 34.1 kg/m2 04/06/2018 12:49pm Height 65 inches 5'5" Weight 205.00 lb Heart Rate 80 /min BP Systolic Recheck 130 mmHg BP Diastolic Recheck 86 mmHg Respiratory Rate 16 /min Body Temperature 98.3 F BMI (Body Mass Index) 34.1 kg/m2 12/02/2017 10:51am Height 64 inches 5'4" Weight 203.25 lb Heart Rate 60 /min BP Systolic Sitting 128 mmHg BP Diastolic Sitting 86 mmHg Respiratory Rate 14 /min Body Temperature 98.5 F BMI (Body Mass Index) 34.9 kg/m2 10/29/2017 10:59am Height 64 inches 5'4" Weight 200.25 lb Heart Rate 69 /min BP Systolic Sitting 140 mmHg BP Diastolic Sitting 86 mmHg Respiratory Rate 14 /min Body Temperature 98.0 F O2 % BldC Oximetry 97 % BMI (Body Mass Index) 34.4 kg/m2 09/29/2017 3:32pm Height 64 inches 5'4" Weight 210.00 lb Heart Rate 80 /min BP Systolic Recheck 130 mmHg BP Diastolic Recheck 84 mmHg Respiratory Rate 16 /min Body Temperature 98.4 F BMI (Body Mass Index) 36.0 kg/m2 Results Test Date Facility Test Result H/L Range Note Laboratory test 11/26/2018 [facility] Surgical SEE RESULT [address] [place] [address] [phone] Wound 09/08/2018 [facility] Wound/Misc SEE RESULT 2 Culture/Sensi [address] [place] [address] Stain [phone] Laboratory test 07/09/2018 [facility] Point of Care 216 mg/dL High 70-100 [address] Glucose [place], [place] [address] [phone] Laboratory test 07/09/2018 [facility] Fungal Cult SEE RESULT [address] [place] [address] [phone] Laboratory test 07/09/2018 [facility] Fungal Cult SEE RESULT [address] [place] [address] [phone] Laboratory test 07/09/2018 [facility] Point of Care 130 mg/dL High 70-100 [address] [place] [address] [phone] Body Fluid C&S 07/09/2018 [facility] Body Fluid Cult SEE RESULT 7, [address] [place] [place] [address] [phone] Laboratory test 07/09/2018 [facility] Fungal Cult SEE RESULT [address] [place] [address] [phone] Laboratory test 07/09/2018 [facility] Fungal Cult SEE RESULT [address] [place] [address] [phone] Laboratory test 07/09/2018 [facility] Fungal Cult SEE RESULT [address] [place] [address] [phone] Laboratory test 07/09/2018 [facility] Gram Stain SEE RESULT [address] Smear [place], [place] [id number] [phone] Body Fluid Culture Bottles SEE RESULT BELOW 13 Fungal Cult Other Sources SEE RESULT BELOW 14 Urine Culture And 07/09/2018 [facility] Urine Culture SEE RESULT [address] [place], [place] [id number] [phone] Urinalysis Profile 07/09/2018 [facility] Urine Color Yellow [address] [place], [place] [id number] [phone] Urine Appearance Cloudy Urine Specific [place] 1.039 High 1.010-1.030 Urine pH 5.0 N 5-9 Urine Urobilinogen Negative Negative Urine Ketones Negative Negative Urine Protein 1+(30 mg/dL) Abnormal Negative Urine Leukocytes 3+ Abnormal Negative Urine Blood 1+ Abnormal Negative Urine Nitrite Negative Negative Urine Bilirubin Negative Negative Urine Glucose Negative Negative Urine White Blood Cell 3+(>20/hpf) Abnormal Absent Urine Red Blood Cell 3+(>10/hpf) Abnormal Absent Urine Bacteria Absent Absent Urine Squamous Epithelial Cell Present Abnormal Absent CBC Auto 07/02/2018 [facility] White Blood 11.5 10^3/uL High 3.5-10.[address] [place] [address] [phone] Red Blood Count 3.47 10^6/uL Low 4.00-5.40 Hemoglobin 9.5 g/dL Low 12.0-16.0 Hematocrit 30 % Low 35-47 Mean Corpuscular Volume 85 fL N 80-97 Mean Corpuscular Hemoglobin 27 pg N 27-31 Mean Corpuscular HGB Conc 32 g/dL N 31-36 Red Cell Distribution Width 14 % N 10.5-15 Platelet Count 662 10^3/uL High 150-450 Mean Platelet Volume 6.2 um3 Low 7.4-10.4 Abs Neutrophils 9.3 10^3/uL High 1.5-7.7 Abs Lymphocytes 1.2 10^3/uL N 1.0-4.8 Abs Monocytes 0.9 10^3/uL High 0-0.8 Abs Eosinophils 0.1 10^3/uL N 0-0.6 Abs Basophils 0 10^3/uL N 0-0.2 Abs Nucleated RBC 0 10^3/uL Granulocyte % 80.7 % N 38-83 Lymphocyte % 10.4 % Low 25-47 Monocyte % 7.9 % High 0-7 Eosinophil % 0.7 % N 0-6 Basophil % 0.3 % N 0-2 Nucleated Red Blood Cells % 0 Type & Screen 07/02/2018 [facility] Patient Blood Type O Positive [address] [place] [address] [phone] Antibody Screen NEGATIVE Comp Metabolic Panel 07/02/2018 [facility] Sodium 139 mmol/L N 135-145 [facility] [address] [phone] Potassium 3.9 mmol/L N 3.5-5.0 Chloride 106 mmol/L N 101-111 Co2 Carbon Dioxide 24 mmol/L N 22-32 Anion Gap 9 mmol/L N 2-11 Glucose 195 mg/dL High 70-100 Blood Urea Nitrogen 28 mg/dL High 6-24 Creatinine 1.36 mg/dL High 0.51-0.95 BUN/Creatinine Ratio 20.6 High 8-20 Calcium 8.6 mg/dL N 8.6-10.3 Total Protein 6.0 g/dL Low 6.4-8.9 Albumin 2.5 g/dL Low 3.2-5.2 Globulin 3.5 g/dL N 2-4 Albumin/Globulin Ratio 0.7 Low 1-3 Total Bilirubin 0.40 mg/dL N 0.2-1.0 Alkaline Phosphatase 79 U/L N 34-104 Alt 12 U/L N 7-52 Ast 23 U/L N 13-39 Egfr Non- 38.2 >60 Egfr 46.2 >60 16 Wound 10/29/2017 [facility] Wound/Misc SEE RESULT 17 Culture/Sensi [address] [place] [address] Stain [phone] Laboratory test 10/14/2017 [facility] C Reactive 121.40 High < [address] Protein mg/L 5.00 [place] [address] [phone] Comp Metabolic 10/14/2017 [facility] Sodium 138 mmol/L N 133- Panel [address] [place] [address] [phone] Potassium 4.1 mmol/L N 3.5-5.0 Chloride 107 mmol/L N 101-111 Co2 Carbon Dioxide 26 mmol/L N 22-32 Anion Gap 5 mmol/L N 2-11 Glucose 178 mg/dL High 70-100 Blood Urea Nitrogen 23 mg/dL N 6-24 Creatinine 0.84 mg/dL N 0.51-0.95 BUN/Creatinine Ratio 27.4 High 8-20 Calcium 8.9 mg/dL N 8.6-10.3 Total Protein 5.8 g/dL Low 6.4-8.9 Albumin 2.4 g/dL Low 3.2-5.2 Globulin 3.4 g/dL N 2-4 Albumin/Globulin Ratio 0.7 Low 1-3 Total Bilirubin 0.30 mg/dL N 0.2-1.0 Alkaline Phosphatase 69 U/L N 34-104 Alt 8 U/L N 7-52 Ast 17 U/L N 13-39 Egfr Non- 66.8 >60 Egfr 86.0 >60 19 CBC Auto 10/14/2017 [facility] White Blood 13.1 10^3/uL High 3.5-10.[address] [place] [address] [phone] Red Blood Count 2.62 10^6/uL Low 4.0-5.4 Hemoglobin 7.6 g/dL Low 12.0-16.0 Hematocrit 23 % Low 35-47 Mean Corpuscular Volume 89 fL N 80-97 Mean Corpuscular Hemoglobin 29 pg N 27-31 Mean Corpuscular HGB Conc 32 g/dL N 31-36 Red Cell Distribution Width 17 % High 10.5-15 Platelet Count 532 10^3/uL High 150-450 Mean Platelet Volume 7 um3 Low 7.4-10.4 Abs Neutrophils 10.8 10^3/uL High 1.5-7.7 Abs Lymphocytes 0.9 10^3/uL Low 1.0-4.8 Abs Monocytes 0.8 10^3/uL N 0-0.8 Abs Eosinophils 0.4 10^3/uL N 0-0.6 Abs Basophils 0.1 10^3/uL N 0-0.2 Abs Nucleated RBC 0.01 10^3/uL Granulocyte % 82.7 % N 38-83 Lymphocyte % 7.2 % Low 25-47 Monocyte % 6.3 % N 1-9 Eosinophil % 3.4 % N 0-6 Basophil % 0.4 % N 0-2 Nucleated Red Blood Cells % 0.1 Comp Metabolic Panel 10/07/2017 [facility] Sodium 137 mmol/L N 133-145 [address] [place] [address] [phone] Potassium 4.2 mmol/L N 3.5-5.0 Chloride 104 mmol/L N 101-111 Co2 Carbon Dioxide 29 mmol/L N 22-32 Anion Gap 4 mmol/L N 2-11 Glucose 98 mg/dL N 70-100 Blood Urea Nitrogen 21 mg/dL N 6-24 Creatinine 1.09 mg/dL High 0.51-0.95 BUN/Creatinine Ratio 19.3 N 8-20 Calcium 9.2 mg/dL N 8.6-10.3 Total Protein 6.1 g/dL Low 6.4-8.9 Albumin 2.5 g/dL Low 3.2-5.2 Globulin 3.6 g/dL N 2-4 Albumin/Globulin Ratio 0.7 Low 1-3 Total Bilirubin 0.40 mg/dL N 0.2-1.0 Alkaline Phosphatase 60 U/L N 34-104 Alt 9 U/L N 7-52 Ast 16 U/L N 13-39 Egfr Non- 49.5 >60 Egfr 63.6 >60 20 Laboratory test 10/07/2017 [facility] C Reactive 52.14 mg/L High < 5.00 [address] [place] [address] [phone] CBC Auto Diff 10/07/2017 [facility] White Blood 9.1 N 3.5- 10.[address] Count 10^3/[place] [address] [phone] Red Blood Count 2.63 10^6/uL Low 4.0-5.4 Hemoglobin 7.9 g/dL Low 12.0-16.0 Hematocrit 23 % Low 35-47 Mean Corpuscular Volume 89 fL N 80-97 Mean Corpuscular Hemoglobin 30 pg N 27-31 Mean Corpuscular HGB Conc 34 g/dL N 31-36 Red Cell Distribution Width 17 % High 10.5-15 Platelet Count 556 10^3/uL High 150-450 Mean Platelet Volume 7 um3 Low 7.4-10.4 Abs Neutrophils 6.3 10^3/uL N 1.5-7.7 Abs Lymphocytes 1.4 10^3/uL N 1.0-4.8 Abs Monocytes 0.7 10^3/uL N 0-0.8 Abs Eosinophils 0.6 10^3/uL N 0-0.6 Abs Basophils 0.1 10^3/uL N 0-0.2 Abs Nucleated RBC 0.01 10^3/uL Granulocyte % 69.0 % N 38-83 Lymphocyte % 15.7 % Low 25-47 Monocyte % 7.7 % N 1-9 Eosinophil % 6.6 % High 0-6 Basophil % 1.0 % N 0-2 Nucleated Red Blood Cells % 0.1 CBC Auto Diff 09/30/2017 [facility] White Blood 9.8 10^3/uL N 3.5-10.[address] [place] [address] [phone] Red Blood Count 2.91 10^6/uL Low 4.0-5.4 Hemoglobin 8.6 g/dL Low 12.0-16.0 Hematocrit 26 % Low 35-47 Mean Corpuscular Volume 90 fL N 80-97 Mean Corpuscular Hemoglobin 30 pg N 27-31 Mean Corpuscular HGB Conc 33 g/dL N 31-36 Red Cell Distribution Width 17 % High 10.5-15 Platelet Count 518 10^3/uL High 150-450 Mean Platelet Volume 7 um3 Low 7.4-10.4 Abs Neutrophils 7.1 10^3/uL N 1.5-7.7 Abs Lymphocytes 1.4 10^3/uL N 1.0-4.8 Abs Monocytes 0.6 10^3/uL N 0-0.8 Abs Eosinophils 0.6 10^3/uL N 0-0.6 Abs Basophils 0.1 10^3/uL N 0-0.2 Abs Nucleated RBC 0 10^3/uL N Granulocyte % 72.7 % N 38-83 Lymphocyte % 14.3 % Low 25-47 Monocyte % 5.8 % N 1-9 Eosinophil % 6.3 % High 0-6 Basophil % 0.9 % N 0-2 Nucleated Red Blood Cells % 0 N Comp Metabolic Panel 09/30/2017 [facility] Sodium 135 mmol/L N 133-[address] [place] [address] [phone] Potassium 3.8 mmol/L N 3.5-5.0 Chloride 101 mmol/L N 101-111 Co2 Carbon Dioxide 28 mmol/L N 22-32 Anion Gap 6 mmol/L N 2-11 Glucose 146 mg/dL High 70-100 Blood Urea Nitrogen 25 mg/dL High 6-24 Creatinine 0.95 mg/dL N 0.51-0.95 BUN/Creatinine Ratio 26.3 High 8-20 Calcium 9.4 mg/dL N 8.6-10.3 Total Protein 6.6 g/dL N 6.4-8.9 Albumin 2.7 g/dL Low 3.2-5.2 Globulin 3.9 g/dL N 2-4 Albumin/Globulin Ratio 0.7 Low 1-3 Total Bilirubin 0.30 mg/dL N 0.2-1.0 Alkaline Phosphatase 69 U/L N 34-104 Alt 10 U/L N 7-52 Ast 18 U/L N 13-39 Egfr Non- 58.0 N >60 Egfr 74.6 N >60 22 Laboratory test 09/30/2017 [facility] C Reactive 29.15 mg/L High < 5.00 [address] [place] [address] [phone] 1 SEE RESULT BELOW Name: CHRISSIE PACKER : [address]: Juan A Joshi DO Acct: [id number] Unit: [id number] AGE: 73 Location: ENDO Re11/26/18 SEX: F Status: DEP REF SPEC: [id number] KIMBERLI: 11/26/[address]: Juan A Joshi DO REQ: [id number] RECD: 11/26/18 STATUS: JOSLYN PHILLIP DR: Shannen Gregorio MD _ ORDERED: LEVEL 4/3 FINAL DIAGNOSIS 1. Colon, proximal ascending, biopsy: -- Benign colonic mucosa with no significant pathologic abnormalities. -- No evidence of active or chronic colitis. -- No evidence of microscopic colitis. 2. Colon, descending, biopsy: -- Hyperplastic polyp. 3. Colon, sigmoid, biopsy: -- Hyperplastic polyp. CLINICAL HISTORY Fistula/diverticulosis PRE-OPERATIVE DIAGNOSIS 1. Rule out Crohn?s POST-OPERATIVE DIAGNOSIS Colonoscopy: fixed sigmoid/moderate sigmoid diverticulosis, small patchy non- specific erythema, ascending biopsy, biopsy descending polyp, cold snare sigmoid; grade 1 internal hemorrhoids. CONTINUED ON NEXT PAGE DEPARTMENT OF PATHOLOGY, [address] [place] [address] Krunal Fountain M.D. Director [facility] # [id number] RUN DATE: 11/27/18 [facility] LAB LIVE PAGE 2 Patient: CHRISSIE PACKER [id number] (Continued) GROSS DESCRIPTION (Continued) GROSS DESCRIPTION 1. The specimen is received in formalin labeled, Biopsy Proximal Ascending Colon Erythema, and consists of two tapia-white irregular soft tissue fragments averaging 0.4 x 0.2 x 0.1 cm which are submitted entirely in one cassette. 2. The specimen is received in formalin labeled, Biopsy Descending Colon Polyp, and consists of a 0.5 x 0.2 x 0.2 cm tapia-pink irregular soft tissue fragment which is submitted entirely in one cassette. 3. The specimen is received in formalin labeled, Sigmoid Colon Polyp, and consists of a 0.5 x 0.3 x 0.2 cm tapia-pink polypoid soft tissue fragment which is inked, bisected and submitted entirely in one cassette. Signed by and Reported on: Senia Obando MD 11/27/18 1146 END OF REPORT DEPARTMENT OF PATHOLOGY, [address] [place] [address] Krunal Fountain M.D. Director [facility] # [id number] 2 SEE RESULT BELOW Name: CHRISSIE PACKER : [address]: Chip Rudolph MD Acct: [id number] Unit: [id number] AGE: 73 Location: [facility] Re09/08/18 SEX: F Status: REG REF SPEC: [id number] KIMBERLI: 09/08/18-9 [facility] [address]: Chip Rudolph MD REQ: [id number] RECD: 09/08/182091 STATUS: COMP _ SOURCE: WOUND SPDESC: ORDERED: Culture Stain COMMENTS: [id number] Specimen Description left abdomen Procedure Result Reported Site Wound/Misc Gram Stain Final 09/09/18921 ML 2+ Neutrophils 1+ Epithelial Cells 1+ Gram Positive Cocci 2+ Gram Negative Bacilli Wound/Misc Culture Final 09/12/18822 ML Organism 1 ENTEROCOCCUS FAECALIS Quantity 2+ Organism 2 VRE ENTEROCOCCUS FAECIUM Quantity 1+ Organism 3 BACTEROIDES OVATUS Quantity 1+ Organism 4 NORMAL ARISTIDES Quantity 1+ Anaerobic sensitivities are not routinely performed. Positive isolates will be saved for one week. Please call the Microbiology Laboratory if susceptibility testing is needed. 1. ENTEROCOCCUS FAECALIS M.I.C. RX --------- ------ Ampicillin <=2 S Penicillin 4 S Ciprofloxacin >=8 R CONTINUED ON NEXT PAGE DEPARTMENT OF PATHOLOGY, [address] [place] [address] Krunal Fountain M.D. Director [facility] # [id number] Patient: CHRISSIE PACKER [id number] (Continued) Specimen: [id number] Collected: 09/08/18 Received: 09/08/18 (Continued) Procedure Result Reported Site Wound/Misc Culture Final (continued) 09/12/18822 1. ENTEROCOCCUS FAECALIS (continued) M.I.C. RX --------- ------ Erythromycin >=8 R Gentamicin High Level S Levofloxacin >=8 R Linezolid 2 S * Quinupristin/Dalfopristin 8 R * Streptomycin High Level S Tetracycline >=16 R Tigecycline <=0.12 S Vancomycin 1 S Imipenem-Deduced S * Ampicillin/Sulbactam-Deduced S 2. VRE ENTEROCOCCUS FAECIUM M.I.C. RX --------- ------ Ampicillin >=32 R Penicillin >=64 R Ciprofloxacin >=8 R Erythromycin >=8 R Gentamicin High Level S Levofloxacin >=8 R Linezolid 2 S * Quinupristin/Dalfopristin 0.5 S * Streptomycin High Level R Tetracycline >=16 R Tigecycline <=0.12 S Vancomycin >=32 R * Ampicillin/Sulbactam-Deduced R * These antibiotics are not available in the [facility] Formulary Contact the Microbiology Department for any additional antibiotic reporting. * ML - Main Lab . END OF REPORT DEPARTMENT OF PATHOLOGY, [address] [place] [address] Krunal Fountain M.D. Director [facility] # [id number] 3 Rubber Flap Cutter: [id number] 4 SEE RESULT BELOW Name: CHRISSIE PACKER : [address]: Roger Moeller MD Acct: [id number] Unit: [id number] AGE: 73 Location: [facility] 353-01 Re07/09/18 Dis: 07/17/18 SEX: F Status: DIS IN SPEC: [id number] KIMBERLI: 07/09/18-[address] [facility] [address]: Roger Moeller MD REQ: [id number] RECD: 07/09/18 STATUS: FREDY PHILLIP DR: Eliel Vu DO _ SOURCE: MISC SOURC SPDESC:PL LT LNG ORDERED: Fungal - Other COMMENTS: DAYS Procedure Result Reported Site Fungal Cult - Other Sources Final 08/10/18- 1311 ML No Growth Week 4 * ML - Main Lab . END OF REPORT DEPARTMENT OF PATHOLOGY, [address] [place] [address] Krunal Fountain M.D. Director [facility] # [id number] 5 SEE RESULT BELOW Name: CHRISSIE PACKER : [address]: Roger Moeller MD Acct: [id number] Unit: [id number] AGE: 73 Location: [facility] 353-01 Re07/09/18 Dis: 07/17/18 SEX: F Status: DIS IN SPEC: [id number] KIMBERLI: 07/09/18-1120 [facility] [address]: Roger Moeller MD REQ: [id number] RECD: 07/09/18-1321 STATUS: RES OT DR: Eliel Vu DO _ SOURCE: MISC SOURC SPDESC:PL LT LNG ORDERED: Fungal - Other COMMENTS: DAYS Procedure Result Reported Site Fungal Cult - Other Sources Preliminary 07/27/18- 1414 ML No Growth Week 2 * ML - Main Lab . END OF REPORT DEPARTMENT OF PATHOLOGY, [address] [place] [address] Krunal Fountain M.D. Director [facility] # [id number] 6 Rubber Flap Cutter: [id number] LEFT ABD FLUID ABCESS 8 SEE RESULT BELOW Name: CHRISSIE PACKER : [address]: Roger Moeller MD Acct: [id number] Unit: [id number] AGE: 73 Location: [facility] 353-01 Re07/09/18 SEX: F Status: ADM IN SPEC: [id number] KIMBERLI: 07/09/18-[address] [facility] [address]: Roger Moeller MD REQ: [id number] RECD: 07/09/18-1326 STATUS: FREDY PHILLIP DR: Eliel Vu DO _ SOURCE: MISC FLUID SPDESC:ABSCESS ORDERED: BF Cult/GS COMMENTS: LEFT ABD FLUID ABCESS Procedure Result Reported Site Body Fluid Gram Stain Final 07/09/18- 1534 ML 4+ Neutrophils 1+ Nucleated Cells 4+ Gram Positive Cocci 4+ Gram Negative Bacilli 1+ Gram Positive Bacilli Body Fluid Culture Final 07/13/18- 0934 ML Organism 1 ESCHERICHIA COLI Quantity 3+ Organism 2 PROTEUS MIRABILIS Quantity 1+ Organism 3 ENTEROCOCCUS FAECALIS Quantity 3+ Organism 4 BACTEROIDES OVATUS Quantity 3+ Anaerobic sensitivities are not routinely performed. Positive isolates will be saved for one week. Please call the Microbiology Laboratory if susceptibility testing is needed. 1. ESCHERICHIA COLI M.I.C. RX --------- ------ Ampicillin 8 S Cefazolin <=4 S Cefepime <=1 S Ceftriaxone <=1 S CONTINUED ON NEXT PAGE DEPARTMENT OF PATHOLOGY, [address] [place] [address] Krunal Fountain M.D. Director [facility] # [id number] Patient: CHRISSIE PACKER [id number] (Continued) Specimen: [id number] Collected: 07/09/18-1200 Received: 07/09/18-1325 (Continued) Procedure Result Reported Site Body Fluid Culture Final (continued) 07/13/18933 1. ESCHERICHIA COLI (continued) M.I.C. RX --------- ------ Ciprofloxacin <=0.25 S Gentamicin <=1 S Levofloxacin <=0.12 S Meropenem <=0.25 S Tetracycline <=1 S Pipercillin/Tazobactam <=4 S Trimethoprim/Sulfamethoxazole <=20 S Amoxicillin/Clavulanic Acid 4 S Aztreonam <=1 S 2. PROTEUS MIRABILIS M.I.C. RX --------- ------ Ampicillin <=2 S Cefazolin <=4 S Cefepime <=1 S Ceftriaxone <=1 S Ciprofloxacin <=0.25 S Gentamicin <=1 S Levofloxacin <=0.12 S Meropenem <=0.25 S Tetracycline >=16 R Pipercillin/Tazobactam <=4 S Trimethoprim/Sulfamethoxazole <=20 S Amoxicillin/Clavulanic Acid <=2 S Aztreonam <=1 S 3. ENTEROCOCCUS FAECALIS M.I.C. RX --------- ------ Ampicillin <=2 S Penicillin 2 S Ciprofloxacin 1 S Erythromycin 1 I CONTINUED ON NEXT PAGE DEPARTMENT OF PATHOLOGY, [address] [place] [address] Krunal Fountain M.D. Director [facility] # [id number] Patient: CHRISSIE PAKCER [id number] (Continued) Specimen: [id number] Collected: 07/09/18-1201 Received: 07/09/18-1326 (Continued) Procedure Result Reported Site Body Fluid Culture Final (continued) 07/13/18933 3. ENTEROCOCCUS FAECALIS (continued) RosauraIMelloCMello RX --------- ------ Gentamicin High Level S Levofloxacin 1 S Linezolid 2 S * Quinupristin/Dalfopristin 4 R * Streptomycin High Level S Tetracycline <=1 S Doxycycline - Deduced S * Minocycline - Deduced S Tigecycline <=0.12 S Vancomycin 1 S Imipenem-Deduced S * Ampicillin/Sulbactam-Deduced S * These antibiotics are not available in the [facility] Formulary Contact the Microbiology Department for any additional antibiotic reporting. Contact the Microbiology Department for any additional antibiotic reporting. * - [facility] . END OF REPORT DEPARTMENT OF PATHOLOGY, [address] [place] [address] Krunal Fountain M.D. Director [facility] # [id number] 9 SEE RESULT BELOW Name: CHRISSIE PCAKER : [address]: Roger Moeller MD Acct: [id number] Unit: [id number] AGE: 73 Location: [facility] 353-01 Re07/09/18 Dis: 07/17/18 SEX: F Status: DIS IN SPEC: [id number] KIMBERLI: 07/09/18-[address]: Roger Moeller MD REQ: [id number] RECD: 07/09/18-1326 STATUS: RES OTHR DR: Eliel Vu DO _ SOURCE: MISC SOURC SPDESC:ABDOMINAL ORDERED: Fungal - Other COMMENTS: LEFT ABD ABCESS Procedure Result Reported Site Fungal Cult - Other Sources Preliminary 07/20/18- 112 ML Organism 1 CHARLES ALBICANS * - [facility] . END OF REPORT DEPARTMENT OF PATHOLOGY, [address] [place] [address] Krunal Fountain M.D. Director [facility] # [id number] 10 SEE RESULT BELOW Name: CHRISSIE PACKER : [address]: Roger Moeller MD Acct: [id number] Unit: [id number] AGE: 73 Location: [facility] 353-01 Re07/09/18 Dis: 07/17/18 SEX: F Status: DIS IN SPEC: [id number] KIMBERLI: 07/09/18-12[address] [facility] [address]: Roger Moeller MD REQ: [id number] RECD: 07/09/18-1326 STATUS: RES OT DR: Eliel Vu DO _ SOURCE: MISC SOURC SPDESC:ABDOMINAL ORDERED: Fungal - Other COMMENTS: LEFT ABD ABCESS Procedure Result Reported Site Fungal Cult - Other Sources Preliminary 07/27/18- 1416 ML Organism 1 CHARLES ALBICANS * ML - Main Lab . END OF REPORT DEPARTMENT OF PATHOLOGY, [address] [place] [address] Krunal Fountain M.D. Director [facility] # [id number] 11 SEE RESULT BELOW Name: CHRISSIE PACKER : [address]: Roger Moeller MD Acct: [id number] Unit: [id number] AGE: 73 Location: [facility] 353-01 Re07/09/18 Dis: 07/17/18 SEX: F Status: DIS IN SPEC: [id number] KIMBERLI: 07/09/18-1201 [facility] [address]: Roger Moeller MD REQ: [id number] RECD: 07/09/18 STATUS: FREDY PHILLIP DR: Eliel Vu DO _ SOURCE: MISC SOURC SPDESC:ABDOMINAL ORDERED: Fungal - Other COMMENTS: LEFT ABD ABCESS Procedure Result Reported Site Fungal Cult - Other Sources Final 08/10/18- 3145 ML Organism 1 CHARLES ALBICANS * ML - Main Lab . END OF REPORT DEPARTMENT OF PATHOLOGY, [address] [place] [address] Krunal Fountain M.D. Director [facility] # [id number] 12 SEE RESULT BELOW Name: CRHISSIE PACKER : [address]: Roger Moeller MD Acct: [id number] Unit: [id number] AGE: 73 Location: [place] Re07/09/18 SEX: F Status: REG SDC SPEC: [id number] KIMBERLI: 07/09/18-1 [facility] [address]: Roger Moeller MD REQ: [id number] RECD: 07/09/182 STATUS: FREDY PHILLIP DR: Eliel Vu DO _ SOURCE: BODY FLUID SPDESC:PLEURA ORDERED: Gram Stain Procedure Result Reported Site Gram Stain Final 07/09/18- 1509 ML 4+ Neutrophils 4+ Nucleated Cells No Organisms Seen BY CENTRIFUGED SMEAR * ML - Main Lab . END OF REPORT DEPARTMENT OF PATHOLOGY, [address] [place] [address] Krunal Fountain M.D. Director [facility] # [id number] 13 SEE RESULT BELOW Name: CHRISSIE PACKER : [address]: Roger Moeller MD Acct: [id number] Unit: [id number] AGE: 73 Location: [facility] 353-01 Re07/09/18 SEX: F Status: ADM IN SPEC: [id number] KIMBERLI: 07/09/18-1121 [facility] [address]: Roger Moeller MD REQ: [id number] RECD: 07/09/18 STATUS: FREDY PHILLIP DR: Eliel Vu DO _ SOURCE: PLEURAL FL SPDESC: ORDERED: BF Cult Bottles Procedure Result Reported Site BF Aerobic Culture Bottle Final 07/14/18- 1323 ML No Growth Day 5 BF Anaerobic Culture Bottle Final 07/14/18- 1323 ML No Growth Day 5 * ML - Main Lab . END OF REPORT DEPARTMENT OF PATHOLOGY, [address] [place] [address] Krunal Fountain M.D. Director [facility] # [id number] 14 SEE RESULT BELOW Name: CHRISSIE PACKER : [address]: Roger Moeller MD Acct: [id number] Unit: [id number] AGE: 73 Location: [facility] 353-01 Re07/09/18 Dis: 07/17/18 SEX: F Status: DIS IN SPEC: [id number] KIMBERLI: 07/09/[address]: Roger Moeller MD REQ: [id number] RECD: 07/09/18 STATUS: RES [facility] DR: Eliel Vu DO _ SOURCE: MISC SOURC SPDESC:PL LT LNG ORDERED: Fungal - Other COMMENTS: DAYS Procedure Result Reported Site Fungal Cult - Other Sources Preliminary 07/20/181120 ML No Growth Week 1 * - [facility] . END OF REPORT DEPARTMENT OF PATHOLOGY, [address] [place] [address] Krunal Fountain M.D. Director [facility] # [id number] 15 SEE RESULT BELOW Name: CHRISSIE PACKER : [address]: Roger Moeller MD Acct: [id number] Unit: [id number] AGE: 73 Location: [facility] 353- Re07/09/18 SEX: F Status: ADM IN SPEC: [id number] KIMBERLI: 07/09/18-[address]35 [facility] [address]: Roger Moeller MD REQ: [id number] RECD: 07/09/18 STATUS: FREDY PHILLIP DR: Eliel Vu DO _ SOURCE: URINE SPDESC: ORDERED: Urine Culture Procedure Result Reported Site Urine Culture Final 07/11/18- 0957 ML Organism 1 ESCHERICHIA COLI [place] Count 50-75,000 (Many) CFU/ML 1. ESCHERICHIA COLI M.I.C. RX --------- ------ Ampicillin 8 S Cefazolin <=4 S Cefepime <=1 S Ceftriaxone <=1 S Ciprofloxacin <=0.25 S Gentamicin <=1 S Levofloxacin <=0.12 S Meropenem <=0.25 S Nitrofurantoin <=16 S Tetracycline <=1 S Pipercillin/Tazobactam <=4 S Trimethoprim/Sulfamethoxazole <=20 S Amoxicillin/Clavulanic Acid 4 S Aztreonam <=1 S Contact the Microbiology Department for any additional antibiotic reporting. * ML - Main Lab . END OF REPORT DEPARTMENT OF PATHOLOGY, [address] [place] [address] Krunal Fountain M.D. Director [facility] # [id number] 16 Because ethnic data is not always readily available, this report includes an eGFR for both -Americans and non- Americans. The National Kidney Disease Education Program (NKDEP) does not endorse the use of the MDRD equation for patients that are not between the ages of 18 and 70, are , have extremes of body size, muscle mass, or nutritional status, or are non- or non-. According to the National Kidney Foundation, irrespective of diagnosis, the stage of the disease is based on the level of kidney function: Stage Description GFR(mL/min/1.73 m(2)) 1 Kidney damage with normal or decreased GFR 90 2 Kidney damage with mild decrease in GFR 60-89 3 Moderate decrease in GFR 30-59 4 Severe decrease in GFR 15-29 5 Kidney failure <15 (or dialysis) 17 SEE RESULT BELOW Name: CHRISSIE PACKER : [address]: Chip Rudolph MD Acct: [id number] Unit: [id number] AGE: 72 Location: [facility] Re10/29/17 SEX: F Status: REG REF SPEC: [id number] KIMBERLI: 10/29/17-[address] [facility] [address]: Chip Rudolph MD REQ: [id number] RECD: 10/29/17015 STATUS: COMP _ SOURCE: ABDOMEN SPDESC: ORDERED: Culture Stain COMMENTS: [id number] Specimen Description abdominal wall Procedure Result Reported Site Wound/Misc Gram Stain Final 10/30/17- 23 ML 4+ Neutrophils 1+ Gram Positive Bacilli 1+ Gram Negative Bacilli Wound/Misc Culture Final 11/01/17- 1117 ML Organism 1 ESCHERICHIA COLI Quantity 1+ Organism 2 CITROBACTER FARMERI Quantity 1+ 1. ESCHERICHIA COLI M.I.C. RX --------- ------ Ampicillin <=2 S Cefazolin <=4 S Cefepime <=1 S Ceftriaxone <=1 S Ciprofloxacin <=0.25 S Gentamicin <=1 S Levofloxacin <=0.12 S Meropenem <=0.25 S Nitrofurantoin <=16 S Tetracycline <=1 S Pipercillin/Tazobactam <=4 S CONTINUED ON NEXT PAGE * ML=Testing performed at Main Lab DEPARTMENT OF PATHOLOGY, [address] [place] [address] Krunal Fountain M.D. Director [facility] # [id number] Patient: CHRISSIE PACKER [id number] (Continued) Specimen: [id number] Collected: 10/29/17-114 Received: 10/29/17 (Continued) Procedure Result Reported Site Wound/Misc Culture Final (continued) 11/01/17- 111 1. ESCHERICHIA COLI (continued) M.I.C. RX --------- ------ Trimethoprim/Sulfamethoxazole <=20 S Amoxicillin/Clavulanic Acid <=2 S Aztreonam <=1 S 2. CITROBACTER FARMERI M.I.C. RX --------- ------ Cefazolin >=64 R Cefepime <=1 S Ceftriaxone <=1 S Ciprofloxacin <=0.25 S Gentamicin <=1 S Levofloxacin <=0.12 S Meropenem <=0.25 S Nitrofurantoin 64 I Tetracycline 4 S Pipercillin/Tazobactam <=4 S Trimethoprim/Sulfamethoxazole <=20 S Amoxicillin/Clavulanic Acid 4 S Aztreonam <=1 S Contact the Microbiology Department for any additional antibiotic reporting. * ML - MAIN LAB ([facility]) . END OF REPORT * ML=Testing performed at Main Lab DEPARTMENT OF PATHOLOGY, [address] [place] [address] Krunal Fountain M.D. Director [facility] # [id number] 18 Acute inflammation: >10.00 19 Because ethnic data is not always readily available, this report includes an eGFR for both -Americans and non- Americans. The National Kidney Disease Education Program (NKDEP) does not endorse the use of the MDRD equation for patients that are not between the ages of 18 and 70, are , have extremes of body size, muscle mass, or nutritional status, or are non- or non-. According to the National Kidney Foundation, irrespective of diagnosis, the stage of the disease is based on the level of kidney function: Stage Description GFR(mL/min/1.73 m(2)) 1 Kidney damage with normal or decreased GFR 90 2 Kidney damage with mild decrease in GFR 60-89 3 Moderate decrease in GFR 30-59 4 Severe decrease in GFR 15-29 5 Kidney failure <15 (or dialysis) 20 Because ethnic data is not always readily available, this report includes an eGFR for both -Americans and non- Americans. The National Kidney Disease Education Program (NKDEP) does not endorse the use of the MDRD equation for patients that are not between the ages of 18 and 70, are , have extremes of body size, muscle mass, or nutritional status, or are non- or non-. According to the National Kidney Foundation, irrespective of diagnosis, the stage of the disease is based on the level of kidney function: Stage Description GFR(mL/min/1.73 m(2)) 1 Kidney damage with normal or decreased GFR 90 2 Kidney damage with mild decrease in GFR 60-89 3 Moderate decrease in GFR 30-59 4 Severe decrease in GFR 15-29 5 Kidney failure <15 (or dialysis) 21 Acute inflammation: >10.00 22 Because ethnic data is not always readily available, this report includes an eGFR for both -Americans and non- Americans. The National Kidney Disease Education Program (NKDEP) does not endorse the use of the MDRD equation for patients that are not between the ages of 18 and 70, are , have extremes of body size, muscle mass, or nutritional status, or are non- or non-. According to the National Kidney Foundation, irrespective of diagnosis, the stage of the disease is based on the level of kidney function: Stage Description GFR(mL/min/1.73 m(2)) 1 Kidney damage with normal or decreased GFR 90 2 Kidney damage with mild decrease in GFR 60-89 3 Moderate decrease in GFR 30-59 4 Severe decrease in GFR 15-29 5 Kidney failure <15 (or dialysis) 23 Acute inflammation: >10.00 Procedures Date Code Description Status 11/26/2018 [id number] Colonoscopy Completed 07/09/2018 08334 Drain Abscess Peritoneal Transabdominal Completed 07/09/2018 30991 Drain Abscess Peritoneal Transabdominal Completed 07/09/2018 18205 Thoracentesis Needle/Catheter Aspiration W/ Img Completed Guidance 08/28/2017 07703 Drain Abscess Peritoneal Transabdominal Completed 08/28/2017 86719 Drain Abscess Peritoneal Transabdominal Completed 08/21/2017 49999 EKG, Interpretation Only Completed 08/03/2017 65124 ECHO Transthorasic Realtime 2D W Doppler & Color Flow Completed Hosp 08/03/2017 74968 EKG, Interpretation Only Completed 08/03/2017 71575 Arterial Line Completed 08/03/2017 10142 Insert Non-Tunneled Venous Catether Completed Encounters Type Date Location Provider Dx Diagnosis Office Visit 05/31/2019 [facility] Zbigniew Russell, K57.80 Dvtrcli of 10:45a Of Estela CASTLE, FACS intest, part unsp, w perf and abscess w/o bleed 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 K65.1 Peritoneal abscess Office Visit 05/24/2019 9:45a [facility] Zbigniew Bates K57.80 Dvtrcli of [facility] MD Yvonne, intest, part FACS unsp, w perf and abscess w/o bleed 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 E11.9 Type 2 diabetes mellitus without complications Office Visit 05/18/2019 10:14a [facility] Haydee Adams, K65.1 Peritoneal Assoc,pc abscess Hospitalists E11.9 Type 2 diabetes mellitus without complications I12.9 Hypertensive chronic kidney disease w stg 1-4/unsp chr kdny N18.9 Chronic kidney disease, unspecified K21.9 Gastro-esophageal reflux disease without esophagitis Office Visit 05/18/2019 7:00a Surgical Brittany Viveros K57.80 Dvtrcli of [facility] Eckenrode, AFLOAT CRYPTOLOGIC MANAGER intest, part unsp, w perf and abscess w/o bleed 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 Office Visit 05/17/2019 10:12a [facility] Diane K65.1 Peritoneal Assoc,tutu Breaux DO abscess Hospitalists R82.71 Bacteriuria N18.9 Chronic kidney disease, unspecified Office Visit 05/17/2019 7:00a Surgical Brittany Viveros K57.80 Dvtrcli of [facility] Eckenrode, AFLOAT CRYPTOLOGIC MANAGER intest, part unsp, w perf and abscess w/o bleed 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 abscess Hospitalists B96.20 Unsp Escherichia coli as the cause of diseases classd elswhr E11.9 Type 2 diabetes mellitus without complications N18.9 Chronic kidney disease, unspecified D50.0 Iron deficiency anemia secondary to blood loss (chronic) Office Visit 05/13/2019 10:10a [facility] Glendy Payne K65.1 Peritoneal Assoc,pc M.DMello abscess Hospitalists N18.9 Chronic kidney disease, unspecified E11.9 Type 2 diabetes mellitus without complications D50.0 Iron deficiency anemia secondary to blood loss (chronic) Office Visit 05/13/2019 8:56a 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 E11.9 Type 2 diabetes mellitus without complications Office Visit 05/11/2019 7:00a Surgical Zbigniew Bates K63.1 Perforation of Associates Of Estela Russell MD, intestine FACS (nontraumatic) K65.1 Peritoneal abscess 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 Office Visit 05/10/2019 10:09a [facility] [place] K63.2 Fistula of Assoc,ERENDIRA Walters intestine Hospitalists K65.1 Peritoneal abscess 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 E11.65 Type 2 diabetes mellitus with hyperglycemia I12.9 Hypertensive chronic kidney disease w stg 1-4/unsp chr kdny N18.9 Chronic kidney disease, unspecified Office Visit 05/10/2019 7:00a Surgical Zbigniew Bates K63.2 Fistula of Associates [facility] Estela Russell MD, intestine FACS Office Visit 10/06/2018 11:30a [facility] Lili Delarosa K65.1 Peritoneal Infectious Fransisco Rudolph abscess Diseases E11.22 Type 2 diabetes mellitus w diabetic chronic kidney disease Office Visit 09/08/2018 10:10a [facility] Lili Delarosa K65.1 Peritoneal Infectious Fransisco Rudolph abscess Diseases E11.22 Type 2 diabetes mellitus w diabetic chronic kidney disease Office Visit 08/05/2018 10:30a [facility] Lili Delarosa K65.1 Peritoneal Infectious Fransisco Rudolph abscess Diseases E11.22 Type 2 diabetes mellitus w diabetic chronic kidney disease Z79.2 USP (current) use of antibiotics Office Visit 07/16/2018 9:41a [facility] Glendy Payne K65.1 Peritoneal Assoc,pc M.[place] abscess Hospitalists B96.20 Unsp Escherichia coli as the cause of diseases classd elswhr D64.9 Anemia, unspecified E11.9 Type 2 diabetes mellitus without complications I10 Essential (primary) hypertension Office Visit 07/15/2018 9:40a [facility] Glendy Payne K65.1 Peritoneal Assoc,pc Fransisco abscess Hospitalists B96.20 Unsp Escherichia coli as the cause of diseases classd elswhr E11.22 Type 2 diabetes mellitus w diabetic chronic kidney disease D64.9 Anemia, unspecified Office Visit 07/14/2018 [facility] Alexx K65.1 Peritoneal 9:40a Assoc,tutu Herndon NP abscess Hospitalists B96.20 Unsp Escherichia coli as the cause of diseases classd elswhr E11.9 Type 2 diabetes mellitus without complications I10 Essential (primary) hypertension Office Visit 07/13/2018 [facility] K65.1 Peritoneal 9:39a Assoc,tutu Herndon NP abscess Hospitalists E11.9 Type 2 diabetes mellitus without complications I10 Essential (primary) hypertension Z48.89 Encounter for other specified surgical aftercare Office Visit 07/13/2018 10:08a [facility] Lili Delarosa K65.1 Peritoneal Infectious Fransisco Rudolph abscess Diseases E11.22 Type 2 diabetes mellitus w diabetic chronic kidney disease N18.9 Chronic kidney disease, unspecified Office Visit 07/12/2018 [facility] K65.1 Peritoneal 9:39a Assoc,pc ERENDIRA Galindo abscess Hospitalists E11.9 Type 2 diabetes mellitus without complications I10 Essential (primary) hypertension Z48.89 Encounter for other specified surgical aftercare Office Visit 07/11/2018 [facility] K65.1 Peritoneal 9:38a Assoc,ERENDIRA Spangler abscess Hospitalists E11.9 Type 2 diabetes mellitus without complications I10 Essential (primary) hypertension Z48.89 Encounter for other specified surgical aftercare Office Visit 07/10/2018 [facility] K65.1 Peritoneal 9:38a Assoc,ERENDIRA Spangler abscess Hospitalists E11.9 Type 2 diabetes mellitus without complications I10 Essential (primary) hypertension Z48.89 Encounter for other specified surgical aftercare Office Visit 07/09/2018 [facility] E11.9 Type 2 diabetes 9:37a Assoc,ERENDIRA Spangler mellitus without Hospitalists complications I10 Essential (primary) hypertension Z48.89 Encounter for other specified surgical aftercare Office Visit 06/08/2018 1:15p Surgical Roger Estrella L02.211 [facility] Estela Moeller M.D. abscess of AT [place] abdominal wall K65.1 Peritoneal abscess Office Visit 04/13/2018 Surgical Roger James02.211 Cutaneous abscess 2:45p Associates Heather Moeller M.D. of abdominal wall Mold Dresser AT [place] Office Visit 04/06/2018 Surgical Roger Estrella L02.91 Cutaneous abscess, 1:00p Associates Heather Moeller M.D. unspecified Estela AT [place] Office Visit 12/02/2017 [facility] Chip Delarosa E11.8 Type 2 diabetes 10:50a For Infectious [place], mellitus with Diseases M.D. unspecified complications L02.91 Cutaneous abscess, unspecified L02.211 Cutaneous abscess of abdominal wall Office Visit 10/29/2017 11:10a [facility] Lili Delarosa K65.1 Peritoneal Infectious [place], M.D. abscess Diseases K75.0 Abscess of liver E11.8 Type 2 diabetes mellitus with unspecified complications Z79.2 intermission coordinator (current) use of antibiotics Office Visit 09/05/2017 7:23a [facility] Hima Fuller L02.91 [facility] Assoc,tutu CASTLE abscess, Hospitalists unspecified I48.91 Unspecified atrial fibrillation E11.8 Type 2 diabetes mellitus with unspecified complications B49 Unspecified mycosis Office Visit 09/04/2017 3:34p [facility] Diane L02.91 [facility]oc,pc Saeid, DO abscess, Hospitalists unspecified I48.91 Unspecified atrial fibrillation E11.8 Type 2 diabetes mellitus with unspecified complications B49 Unspecified mycosis Office Visit 09/03/2017 12:37p [facility] Lili Delarosa K75.0 Abscess of Infectious [place], M.D. liver Diseases K65.1 Peritoneal abscess Office Visit 09/03/2017 3:34p [facility] Diane L02.91 Cutaneous Assoc,pc Saeid, DO abscess, Hospitalists unspecified I48.91 Unspecified atrial fibrillation E11.8 Type 2 diabetes mellitus with unspecified complications B49 Unspecified mycosis Office Visit 09/02/2017 11:25a [facility] Lili Delarosa K75.0 Abscess of Infectious [place], M.D. liver Diseases E11.9 Type 2 diabetes mellitus without complications K65.1 Peritoneal abscess Office Visit 09/02/2017 3:33p [facility] Phong L02.91 [facility] Assoc,tutu Echeverria M.D. abscess, Hospitalists unspecified I48.91 Unspecified atrial fibrillation E11.8 Type 2 diabetes mellitus with unspecified complications B49 Unspecified mycosis Office Visit 09/01/2017 3:33p [facility] Phong L02.91 Cutaneous Assoc,tutu Echeverria M.D. abscess, Hospitalists unspecified I48.91 Unspecified atrial fibrillation E11.8 Type 2 diabetes mellitus with unspecified complications B49 Unspecified mycosis Office Visit 08/31/2017 3:32p [facility] Phong L02.91 Cutaneous Assoc,tutu Echeverria M.D. abscess, Hospitalists unspecified I48.91 Unspecified atrial fibrillation E11.8 Type 2 diabetes mellitus with unspecified complications B49 Unspecified mycosis Office Visit 08/30/2017 3:31p [facility] Phong L02.91 Cutaneous Assoc,tutu Echeverria M.D. abscess, Hospitalists unspecified I48.91 Unspecified atrial fibrillation E11.8 Type 2 diabetes mellitus with unspecified complications B49 Unspecified mycosis Office Visit 08/29/2017 10:46a [facility] Lili Delarosa K75.0 Abscess of Infectious Mac, M.D. liver Diseases K65.1 Peritoneal abscess Office Visit 08/29/2017 [facility] Archer L02.91 Cutaneous 3:31p Assoc,pc Clifford, MD abscess, Hospitalists unspecified I48.91 Unspecified atrial fibrillation E11.8 Type 2 diabetes mellitus with unspecified complications B49 Unspecified mycosis Office Visit 08/28/2017 [facility] Gianni L02. Cutaneous 3:30p tutu Cm MD abscess, Hospitalists unspecified I48.91 Unspecified atrial fibrillation E11.8 Type 2 diabetes mellitus with unspecified complications Office Visit 08/28/2017 4:03p [facility] Lili Delarosa K75.0 Abscess of Infectious Fransisco Rudolph liver Diseases K65.1 Peritoneal abscess [facility] 3:30p tutu Cm MD abscess, Hospitalists unspecified I48.91 Unspecified atrial fibrillation E11.8 Type 2 diabetes mellitus with unspecified complications Office Visit 08/27/2017 3:55p [facility] Lili Delarosa K75.0 Abscess of Infectious Fransisco Rudolph liver Diseases K65.1 Peritoneal abscess D72.829 Elevated white blood cell count, unspecified R78.81 Bacteremia Office Visit 08/27/2017 7:00a [facility]bigniew P. K66.8 Other specified [facility] Russell MD, disorders of FACS peritoneum K65.1 Peritoneal abscess Office Visit 08/26/2017 [facility] Silviano L02. Cutaneous 3:29p tutu Cm NDaniela abscess, Hospitalists unspecified E11.8 Type 2 diabetes mellitus with unspecified complications I48.91 Unspecified atrial fibrillation Office Visit 08/25/2017 3:23p [facility] Lili Delarosa K75.0 Abscess of Infectious [place]isco Rudolph liver Diseases Z79.2 USP (current) use of antibiotics D72.829 Elevated white blood cell count, unspecified Office Visit 08/21/2017 [facility] Brittany Coffey I48.91 Unspecified 10:10a Assoctutu NP atrial Hospitalists fibrillation A40.9 Streptococcal sepsis, unspecified E66.01 Morbid (severe) obesity due to excess calories E11.9 Type 2 diabetes mellitus without complications Office Visit 08/18/2017 2:20p [facility] Lili Delarosa K75.0 Abscess of Infectious Macitzelen, M.D. liver Diseases Z79.2 USP (current) use of antibiotics Office Visit 08/12/2017 1:36p [facility] Lili Delarosa K75.0 Abscess of Infectious [place], M.D. liver Diseases B95.5 Unsp streptococcus as the cause of diseases classd elswhr Z79.2 USP (current) use of antibiotics Office Visit 08/10/2017 10:47a [facility] R65.20 Severe sepsis Assoctutu M.D. without septic Hospitalists shock K75.0 Abscess of liver N17.0 Acute kidney failure with tubular necrosis A41.9 Sepsis, unspecified organism Office Visit 08/09/2017 10:47a [facility] R65.20 Severe sepsis Assoctutu M.D. without septic Hospitalists shock K75.0 Abscess of liver N17.0 Acute kidney failure with tubular necrosis A41.9 Sepsis, unspecified organism Office Visit 08/08/2017 10:46a [facility] R65.20 Severe sepsis Assoctutu M.D. without septic Hospitalists shock K75.0 Abscess of liver N17.0 Acute kidney failure with tubular necrosis A41.9 Sepsis, unspecified organism Office Visit 08/08/2017 4:36p [facility] Lili Delarosa K75.0 Abscess of Infectious [place], M.D. liver Diseases B95.4 Oth streptococcus as the cause of diseases classd elswhr E11.22 Type 2 diabetes mellitus w diabetic chronic kidney disease N18.9 Chronic kidney disease, unspecified L93.0 Discoid lupus erythematosus Office Visit 08/07/2017 4:23p [facility] Lili Delarosa K75.0 Abscess of Infectious [place], M.D. liver Diseases B95.4 Oth streptococcus as the cause of diseases classd elswhr E87.1 Hypo-osmolality and hyponatremia E87.2 Acidosis E11.22 Type 2 diabetes mellitus w diabetic chronic kidney disease N18.9 Chronic kidney disease, unspecified Office Visit 08/07/2017 10:46a [facility] R65.20 Severe sepsis Assoctutu M.D. without septic Hospitalists shock N17.0 Acute kidney failure with tubular necrosis K75.0 Abscess of liver A41.9 Sepsis, unspecified organism Office Visit 08/06/2017 10:45a [facility] Rosaura R65.20 Severe sepsis Assoc,pc Mary, D.O. without septic Hospitalists shock K75.0 Abscess of liver N17.0 Acute kidney failure with tubular necrosis A41.9 Sepsis, unspecified organism Office Visit 08/05/2017 [facility] Chip Delarosa A41.1 Sepsis due to other 4:13p For Infectious Fransisco Rudolph specified Diseases staphylococcus K75.0 Abscess of liver E11.22 Type 2 diabetes mellitus w diabetic chronic kidney disease N18.9 Chronic kidney disease, unspecified L93.0 Discoid lupus erythematosus Office Visit 08/05/2017 10:45a [facility] Aleksandr Kaplan R65.20 Severe sepsis Assoc,pc Mary, D.O. without septic Hospitalists shock K75.0 Abscess of liver N17.9 Acute kidney failure, unspecified A41.9 Sepsis, unspecified organism Office Visit 08/04/2017 10:44a [facility] Rosaura R65.20 Severe sepsis Assoc,pc Mary, D.O. without septic Hospitalists shock K75.0 Abscess of liver N17.0 Acute kidney failure with tubular necrosis A41.9 Sepsis, unspecified organism Office Visit 08/03/2017 12:03p [facility] Dean K75.0 Abscess of [place] liver I48.0 Paroxysmal atrial fibrillation R65.20 Severe sepsis without septic shock I10 Essential (primary) hypertension R78.81 Bacteremia I95.9 Hypotension, unspecified Office Visit 08/03/2017 [facility] I48.91 Unspecified atrial 8:58a Assoc,pc MD Alexsandra fibrillation Hospitalists R65.21 Severe sepsis with septic shock A41.81 Sepsis due to Enterococcus N17.8 Other acute kidney failure I12.9 Hypertensive chronic kidney disease w stg 1-4/unsp chr kdny N18.2 Chronic kidney disease, stage 2 (mild) K75.0 Abscess of liver K76.89 Other specified diseases of liver E11.65 Type 2 diabetes mellitus with hyperglycemia Z79.4 intermission coordinator (current) use of insulin Office Visit 08/02/2017 8:53a [facility] K75.0 Abscess of Assoc,tutu Upton MD liver Hospitalists K76.89 Other specified diseases of liver J90 Pleural effusion, not elsewhere classified A41.9 Sepsis, unspecified organism N17.8 Other acute kidney failure I12.9 Hypertensive chronic kidney disease w stg 1-4/unsp chr kdny N18.2 Chronic kidney disease, stage 2 (mild) Z79.4 USP (current) use of insulin E11.65 Type 2 diabetes mellitus with hyperglycemia Office Visit 08/01/2017 8:43a [facility] K75.0 Abscess of Assoc,tutu Upton MD liver Hospitalists E11.65 Type 2 diabetes mellitus with hyperglycemia I12.9 Hypertensive chronic kidney disease w stg 1-4/unsp chr kdny N18.2 Chronic kidney disease, stage 2 (mild) N17.8 Other acute kidney failure R60.9 Edema, unspecified Plan of Treatment Future Appointment(s):06/23/2019 1:30 pm - Brittany Herndon NP at [facility]/29/2019 11:30 am - Zbigniew Russell MD, FACS at [facility]06/03/2019 - Brittany Herndon, MAKAYLAK65.1 Peritoneal abscessNew Medication: -Follow up:3 dshroH78.2 Fistula of spcqtghagF95.80 Dvtrcli of intest, part unsp, w perf and abscess w/o bleed
--- OUTSIDE RECORDS SUMMARY | 2019-06-05 14:51 | XMS REPORT | Continuity of Care Document ---
:1945 External Reference #:[id number] Author Name TrevonPatricia brooke Care Team Providers Name Role Phone Eliel Vu D.O. Primary Care Physician Unavailable Payers Date Identification Numbers Payment Provider Subscriber Policy Number: [id number] Medicare Chrissie Packer PayID: [id number] [address] [place] [address] Policy Number: [id number] [facility] Rolando PayID: [id number] [address] [place] [address] Social History Type Date Description Comments Sex Unknown Tobacco Use Start: Unknown Patient has never smoked Smoking Status Reviewed: 05/24/19 Patient has never smoked Allergies, Adverse Reactions, Alerts Active Allergies Reaction Severity Comments Date Penicillin edema, rash 09/29/2017 Flagyl diarrhea 10/29/2017 Tape 04/06/2018 Linezolid Nausea and Vomiting 10/06/2018 Medications Active Medications SIG Qnty Indications Ordering Provider Date Metformin HCL 1 by mouth twice Unknown 500mg Tablets a day (per 09/22/17 [facility] summary) Januvia 1 by mouth twice Unknown 50mg Tablets a day (per 09/22/17 [facility] summary) Lantus 5 units q 24 hrs Unknown 100Unit/ML Solution (per 09/22/17 [facility] DC summary) Metoprolol Tartrate take 1 tablet by Unknown 50mg mouth once daily Tablets Lactobacillus 1 by mouth once a Unknown Acidophilus day (per 10/30/17 Capsules [facility] DC summary) Fenofibrate 1 by mouth every Unknown 160mg Tablets day (per 09/22/17 [facility] DC summary) Lexapro 1 by mouth every Unknown 10mg Tablets day at bedtime (per 09/22/17 [facility] DC summary) Multiple Vitamin 1 by mouth every Unknown Tablets day Coq10 take 1 by mouth 3 Unknown 100mg Capsules x week Naproxen prn Unknown Ertapenem Sodium IV once daily Unknown 1gm through [facility] home infusion (end date 06/14 per [facility] orders) Losartan Potassium 1 by mouth every Unknown 50mg day (dose change Tablets per [facility] DC summary) Protonix 1 by mouth every [...] 200mg once daily Fransisco Rudolph 12/01/2017 Tablets Xarelto 1 by mouth every Unknown - 20mg Tablets day (per 09/22/17 10/28/2017 [facility] summary) Imodium A-D q 4 hrs prn Unknown - 2mg diarrhea (per 10/28/2017 Tablets 09/22/17 [facility] summary) Aspirin 81 Low Dose once daily (per Unknown - 09/22/17 [facility] 06/01/2018 summary) Simethicone 1 po q 4 hrs prn Unknown - 80mg dyspepsia (per 10/28/2017 Che[facility] 09/22/17 [facility] DC summary) Potassium Chloride 1 by mouth every Unknown - day (pt taking 3 05/25/2018 20Meq Tablets ER x per week - Dr Vu aware) Omeprazole 1 by mouth every Unknown - 20mg morning (per 2019 Capsules 09/22/17 [facility] summary) Losartan Potassium 1 by mouth every Unknown - day (per 09/22/17 05/20/2019 100mg Tablets [facility] summary) Furosemide 1 by mouth every Unknown - 20mg day (pt taking 3 05/25/2018 Tablets times per week - Dr Vu aware) Oxycodone-Acetaminop 1 tab by mouth Unknown - hen every 4 hours as 07/27/2018 5-325mg Tablets needed for pain Simethicone 1 tab every 4 Unknown - 80mg hours as needed 07/27/2018 [facility] bloating Pantoprazole Sodium 1 by mouth every Unknown - day (per [facility] Unknown 40mg Tablets DR summary) Vital Signs Date Vital Result Comment 05/24/2019 9:20am Heart Rate 68 /min BP [...] Result H/L Range Note Laboratory test 11/26/2018 [facility] Surgical SEE RESULT [address] Interface Order BELOW [place], [place] [id number] [phone] Wound 09/08/2018 [facility] Wound/Misc SEE RESULT 2 Culture/Sensi [address] [place] [address] Stain [phone] Laboratory test 07/09/2018 [facility] Point of Care 216 mg/dL High 70-100 [address] [place] [address] [phone] Laboratory test 07/09/2018 [facility] Fungal Cult SEE RESULT [address] [place] [address] [phone] Laboratory test 07/09/2018 [facility] Fungal Cult SEE RESULT [address] Other Sources BELOW [place], [place] [address] [phone] Laboratory test 07/09/2018 [facility] Gram Stain SEE RESULT [address] [address] [phone] Body Fluid Culture Bottles SEE RESULT BELOW 7 Fungal Cult Other Sources SEE RESULT BELOW 8 Laboratory test 07/09/2018 [facility] Point of 130 mg/dL High 70-100 [address] [place] [address] Glucose [phone] Body Fluid C&S 07/09/2018 [facility] Body Fluid SEE RESULT 10, [address] [place] [address] Stain [phone] Laboratory test 07/09/2018 [facility] Fungal Cult SEE RESULT [address] [place] [address] Sources [phone] Urine Culture And 07/09/2018 [facility] Urine SEE RESULT [address] [place] [address] [phone] Urinalysis 07/09/2018 [facility] Urine Color Yellow Profile [address] [place] [address] [phone] Urine Appearance Cloudy Urine Specific [place] 1.039 High 1.010-1.030 Urine pH 5.0 N [...] Urine Squamous Epithelial Cell Present Abnormal Absent Laboratory test 07/09/2018 [facility] Fungal Cult SEE RESULT [address] [place] [address] [phone] Laboratory test 07/09/2018 [facility] Fungal Cult SEE RESULT [address] [place] [address] [phone] Comp Metabolic 07/02/2018 [facility] Sodium 139 mmol/L N 135- [address] 5 [place], [place] [address] [phone] Potassium 3.9 mmol/L N 3.5-5.0 Chloride 106 [...] Non- 38.2 >60 Egfr 46.2 >60 16 Type & Screen 07/02/2018 [facility] Patient Blood Type O Positive [address] [place] [address] [phone] Antibody Screen NEGATIVE CBC Auto 07/02/2018 [facility] White Blood 11.5 10^3/uL High 3.5-10.[address] [place] [address] [phone] Red Blood Count 3.47 10^6/uL Low 4.00-5.40 [...] 0-2 Nucleated Red Blood Cells % 0 Wound 10/29/2017 [facility] Wound/Misc SEE RESULT 17 Culture/Sensi [address] [place] [address] Stain [phone] CBC Auto Diff 10/14/2017 [facility] White Blood 13.1 High 3.5 - [address] Count 10^3/uL 10.8 [place] [address] [phone] Red Blood Count 2.62 10^6/uL Low 4.0-5.4 [...] Blood Cells % 0.1 Comp Metabolic Panel 10/14/2017 [facility] Sodium 138 mmol/L N 133-[address] [place], [place] [address] [phone] Potassium 4.1 mmol/L N 3.5-5.0 Chloride 107 [...] Egfr Non- 66.8 >60 Egfr 86.0 >60 18 Laboratory test 10/14/2017 [facility] C Reactive 121.40 mg/L High < 5.00 [address] [place] [address] [phone] CBC Auto Diff 10/07/2017 [facility] White Blood 9.1 10^3/uL N 3.5-10.[address] [place] [address] [phone] Red Blood Count 2.63 10^6/uL Low 4.0-5.4 [...] Cells % 0.1 Comp Metabolic Panel 10/07/2017 [facility] Sodium 137 mmol/L N 133-[address] [place] [address] [phone] Potassium 4.2 mmol/L N 3.5-5.0 Chloride 104 [...] Egfr 63.6 >60 20 Laboratory test 10/07/2017 [facility] C Reactive 52.14 mg/L High < 5.[address] [place] [address] [phone] CBC Auto Diff 09/30/2017 [facility] White Blood 9.8 N 3.5- 10.[address] Count 10^3/[place] [address] [phone] Red Blood Count 2.91 10^6/uL Low 4.0-5.4 [...] % 0 N Comp Metabolic Panel 09/30/2017 [facility] Sodium 135 mmol/L N 133-[address] [place] [address] [phone] Potassium 3.8 mmol/L N 3.5-5.0 Chloride 101 [...] 74.6 N >60 22 Laboratory test 09/30/2017 [facility] C Reactive 29.15 mg/L High < 5.00 [address] [place] [address] [phone] 1 SEE RESULT BELOW Name: CHRISSIE PACKER : [address]: Juan A Joshi DO Acct: [id number] Unit: [id number] AGE: 73 Location: ENDO Re11/26/18 SEX: F Status: DEP REF SPEC: [id number] KIMBERLI: 11/26/[address] [facility] [address]: Juan A Joshi DO REQ: [id number] RECD: 11/26/18 STATUS: JOSLYN PHILLIP DR: Shannen [...] CONTINUED ON NEXT PAGE DEPARTMENT OF PATHOLOGY, [address] [place] [address] Krunal Fountain M.D. Director [facility] # [id number] RUN DATE: 11/27/18 [facility] LAB LIVE PAGE 2 Patient: CHRISSIE PACKER [id number] (Continued) GROSS DESCRIPTION (Continued) GROSS DESCRIPTION 1. [...] 1146 END OF REPORT DEPARTMENT OF PATHOLOGY, [address] [place] [address] Krunal Fountain M.D. Director [facility] # [id number] 2 SEE RESULT BELOW Name: CHRISSIE PACKER : [address]: Chip Rudolph MD Acct: [id number] Unit: [id number] AGE: 73 Location: [facility] Re09/08/18 SEX: F Status: REG REF SPEC: [id number] KIMBERLI: 09/08/[address] [facility] [address]: Chip Rudolph MD REQ: [id number] RECD: 09/08/18 STATUS: COMP _ SOURCE: WOUND SPDESC: ORDERED: Culture Stain COMMENTS: [id number] Specimen Description left abdomen Procedure Result Reported [...] CONTINUED ON NEXT PAGE DEPARTMENT OF PATHOLOGY, [address] [place] [address] Krunal Fountain M.D. Director [facility] # [id number] Patient: CHRISSIE PACKER [id number] (Continued) Specimen: [id number] Collected: 09/08/18 Received: 09/08/18 (Continued) Procedure Result [...] These antibiotics are not available in the [facility] Formulary Contact the Microbiology Department for any additional antibiotic reporting. * ML - Main Lab . END OF REPORT DEPARTMENT OF PATHOLOGY, [address] [place] [address] Krunal Fountain M.D. Director [facility] # [id number] 3 Md Pediatric Allergist: [id number] 4 SEE RESULT BELOW Name: CHRISSIE PACKER : [address]: Roger Moeller MD Acct: [id number] Unit: [id number] AGE: 73 Location: [facility] 353-01 Re07/09/18 Dis: 07/17/18 SEX: F Status: DIS IN SPEC: [id number] KIMBERLI: 07/09/18-[address] [facility] [address]: Roger Moeller MD REQ: [id number] RECD: 07/09/182 STATUS: COMP DOUG DR: Eliel Vu DO _ SOURCE: MISC SOURC SPDESC:PL LT LNG ORDERED: Fungal - Other COMMENTS: DAYS Procedure Result Reported Site Fungal Cult - Other Sources Final 08/10/18- 1 ML No Growth Week 4 * ML - Main Lab . END OF REPORT DEPARTMENT OF PATHOLOGY, [address] [place] [address] Krunal Fountain M.D. Director [facility] # [id number] 5 SEE RESULT BELOW Name: CHRISSIE PACKER : [address]: Roger Moeller MD Acct: [id number] Unit: [id number] AGE: 73 Location: [facility] 353-01 Re07/09/18 Dis: 07/17/18 SEX: F Status: DIS IN SPEC: [id number] KIMBERLI: 07/09/18-[address] [facility] [address]: Roger Moeller MD REQ: [id number] RECD: 07/09/18 STATUS: RES OTHR DR: Eliel Vu DO _ SOURCE: MISC SOURC SPDESC:PL LT LNG ORDERED: Fungal - Other COMMENTS: DAYS Procedure Result Reported Site Fungal Cult - Other Sources Preliminary 07/27/18- 141 ML No Growth Week 2 * - Main Lab . END OF REPORT DEPARTMENT OF PATHOLOGY, [address] [place] [address] Krunal Fountain M.D. Director [facility] # [id number] 6 SEE RESULT BELOW Name: CHRISSIE PACKER : [address]: Roger Moeller MD Acct: [id number] Unit: [id number] AGE: 73 Location: [place] Re07/09/18 SEX: F Status: REG SDC SPEC: [id number] KIMBERLI: 07/09/18-[address] [facility] [address]: Roger Moeller MD REQ: [id number] RECD: 07/09/182 STATUS: FREDY PHILLIP DR: Eliel Vu DO _ SOURCE: BODY FLUID SPDESC:PLEURA ORDERED: Gram Stain Procedure Result Reported Site Gram Stain Final 07/09/18- 1509 ML 4+ Neutrophils 4+ Nucleated Cells No Organisms Seen BY CENTRIFUGED SMEAR * ML - Main Lab . END OF REPORT DEPARTMENT OF PATHOLOGY, [address] [place] [address] Krunal Fountain M.D. Director [facility] # [id number] 7 SEE RESULT BELOW Name: CHRISSIE PACKER : [address]: Roger Moeller MD Acct: [id number] Unit: [id number] AGE: 73 Location: [facility] 353-01 Re07/09/18 SEX: F Status: ADM IN SPEC: [id number] KIMBERLI: 07/09/[address] [facility] [address]: Roger Moeller MD REQ: [id number] RECD: 07/09/18 STATUS: FREDY PHILLIP DR: Eliel Vu DO _ SOURCE: PLEURAL FL SPDESC: ORDERED: BF Cult Bottles Procedure Result Reported Site BF Aerobic Culture Bottle Final 07/14/18- 1323 ML No Growth Day 5 BF Anaerobic Culture Bottle Final 07/14/18- 1323 ML No Growth Day 5 * ML - Main Lab . END OF REPORT DEPARTMENT OF PATHOLOGY, [address] [place] [address] Krunal Fountain M.D. Director [facility] # [id number] 8 SEE RESULT BELOW Name: CHRISSIE PACKER : [address]: Roger Moeller MD Acct: [id number] Unit: [id number] AGE: 73 Location: [facility] 353-01 Re07/09/18 Dis: 07/17/18 SEX: F Status: DIS IN SPEC: [id number] KIMBERLI: 07/09/18-[address]: Roger Moeller MD REQ: [id number] RECD: 07/09/182 STATUS: RES OTHR DR: Eliel Vu DO _ SOURCE: MISC SOURC SPDESC:PL LT LNG ORDERED: Fungal - Other COMMENTS: DAYS Procedure Result Reported Site Fungal Cult - Other Sources Preliminary 07/20/18- 1121 ML No Growth Week 1 * ML - Main Lab . END OF REPORT DEPARTMENT OF PATHOLOGY, [address] [place] [address] Krunal Fountain M.D. Director [facility] # [id number] 9 Md Pediatric Allergist: [id number] LEFT ABD FLUID ABCESS 11 SEE RESULT BELOW Name: CHRISSIE PACKER : [address]: Roger Moeller MD Acct: [id number] Unit: [id number] AGE: 73 Location: [facility] 353- Re07/09/18 SEX: F Status: ADM IN SPEC: [id number] KIMBERLI: 07/09/18-[address] [facility] [address]: Roger Moeller MD REQ: [id number] RECD: 07/09/186 STATUS: COMP MARJAN DR: Eliel Vu DO _ SOURCE: MISC [...] CONTINUED ON NEXT PAGE DEPARTMENT OF PATHOLOGY, [address] [place] [address] Krunal Fountain M.D. Director [facility] # [id number] Patient: CHRISSIE PACKER [id number] (Continued) Specimen: [id number] Collected: 07/09/18120 Received: 07/09/18 (Continued) Procedure Result Reported Site Body Fluid Culture Final (continued) 07/13/18- 933 1. ESCHERICHIA COLI (continued) M.I.C. RX --------- [...] CONTINUED ON NEXT PAGE DEPARTMENT OF PATHOLOGY, [address] [place] [address] Krunal Fountain M.D. Director [facility] # [id number] Patient: CHRISSIE PACKER [id number] (Continued) Specimen: [id number] Collected: 07/09/18-1201 Received: 07/09/18-6 (Continued) Procedure Result Reported Site Body Fluid Culture Final (continued) 07/13/18933 3. ENTEROCOCCUS FAECALIS (continued) M.I.C. RX --------- ------ Gentamicin High Level S Levofloxacin 1 S Linezolid 2 S * Quinupristin/Dalfopristin 4 R * Streptomycin High Level S Tetracycline <=1 S Doxycycline - Deduced S * Minocycline - Deduced S Tigecycline <=0.12 S Vancomycin 1 S Imipenem-Deduced S * Ampicillin/Sulbactam-Deduced S * These antibiotics are not available in the [facility] Formulary Contact the Microbiology Department for any additional antibiotic reporting. Contact the Microbiology Department for any additional antibiotic reporting. * ML - Main Lab . END OF REPORT DEPARTMENT OF PATHOLOGY, [address] [place] [address] Krunal Fountain M.D. Director [facility] # [id number] 12 SEE RESULT BELOW Name: CHRISSIE PACKER : [address]: Roger Moeller MD Acct: [id number] Unit: [id number] AGE: 73 Location: [facility] 353-01 Re07/09/18 Dis: 07/17/18 SEX: F Status: DIS IN SPEC: [id number] KIMBERLI: 07/09/18-[address] [facility] [address]: Roger Moeller MD REQ: [id number] RECD: 07/09/18 STATUS: RES [facility] DR: Eliel Vu DO _ SOURCE: MISC SOURC SPDESC:ABDOMINAL ORDERED: Fungal - Other COMMENTS: LEFT ABD ABCESS Procedure Result Reported Site Fungal Cult - Other Sources Preliminary 07/20/18- 112 ML Organism 1 CHARLES ALBICANS * ML - Main Lab . END OF REPORT DEPARTMENT OF PATHOLOGY, [address] [place] [address] Krunal Fountain M.D. Director [facility] # [id number] 13 SEE RESULT BELOW Name: CHRISSIE PACKER : [address]: Roger Moeller MD Acct: [id number] Unit: [id number] AGE: 73 Location: [place] [address] Re07/09/18 SEX: F Status: ADM IN SPEC: [id number] KIMBERLI: 07/09/18-[address] [facility] [address]: Roger Moeller MD REQ: [id number] RECD: 07/09/180 STATUS: FREDY PHILLIP DR: Eliel Vu DO _ SOURCE: URINE SPDESC: ORDERED: Urine Culture Procedure Result Reported Site Urine Culture Final 07/11/18- 0957 ML Organism 1 ESCHERICHIA COLI [place] Count 50-75,000 (Many) CFU/ML 1. ESCHERICHIA COLI [...] . END OF REPORT DEPARTMENT OF PATHOLOGY, [address] [place] [address] Krunal Fountain M.D. Director [facility] # [id number] 14 SEE RESULT BELOW Name: CHRISSIE PACKER : [address]: Roger Moeller MD Acct: [id number] Unit: [id number] AGE: 73 Location: [facility] 353-01 Re07/09/18 Dis: 07/17/18 SEX: F Status: DIS IN SPEC: [id number] KIMBERLI: 07/09/18-[address]: Roger Moeller MD REQ: [id number] RECD: 07/09/18-6 STATUS: RES OT DR: Eliel Vu DO _ SOURCE: MISC SOURC SPDESC:ABDOMINAL ORDERED: Fungal - Other COMMENTS: LEFT ABD ABCESS Procedure Result Reported Site Fungal Cult - Other Sources Preliminary 07/27/18- 141 ML Organism 1 CHARLES ALBICANS * ML - Main Lab . END OF REPORT DEPARTMENT OF PATHOLOGY, [address] [place] [address] Krunal Fountain M.D. Director [facility] # [id number] 15 SEE RESULT BELOW Name: CHRISSIE PACKER : [address]: Roger Moeller MD Acct: [id number] Unit: [id number] AGE: 73 Location: [facility] [address] Re07/09/18 Dis: 07/17/18 SEX: F Status: DIS IN SPEC: [id number] KIMBERLI: 07/09/18-[address] [facility] [address]: Roger Moeller MD REQ: [id number] RECD: 07/09/18-1326 STATUS: COMP [facility] DR: Eliel Vu DO _ SOURCE: MISC SOURC SPDESC:ABDOMINAL ORDERED: Fungal - Other COMMENTS: LEFT ABD ABCESS Procedure Result Reported Site Fungal Cult - Other Sources Final 08/10/18- 1311 ML Organism 1 CHARLES ALBICANS * ML - Main Lab . END OF REPORT DEPARTMENT OF PATHOLOGY, [address] [place] [address] Krunal Fountain M.D. Director [facility] # [id number] 16 Because ethnic data is not always [...] [address]: Chip Rudolph MD Acct: [id number] Unit: [id number] AGE: 72 Location: [facility] Re10/29/17 SEX: F Status: REG REF SPEC: [id number] KIMBERLI: 10/29/17-[address] [facility] [address]: Chip Rudolph MD REQ: [id number] RECD: 10/29/17 STATUS: COMP _ SOURCE: ABDOMEN SPDESC: ORDERED: Culture Stain COMMENTS: [id number] Specimen Description abdominal wall Procedure Result Reported Site Wound/Misc Gram Stain Final 10/30/17- 0723 ML 4+ Neutrophils 1+ Gram Positive Bacilli [...] performed at Main Lab DEPARTMENT OF PATHOLOGY, [address] [place] [address] Krunal Fountain M.D. Director [facility] # [id number] Patient: CHRISSIE PACKER [id number] (Continued) Specimen: [id number] Collected: 10/29/17-114 Received: 10/29/17 (Continued) Procedure Result Reported Site Wound/Misc Culture Final (continued) 11/01/17- 1116 1. ESCHERICHIA COLI (continued) M.I.C. RX --------- [...] antibiotic reporting. * ML - MAIN LAB ([facility]) . END OF REPORT * ML=Testing performed at Main Lab DEPARTMENT OF PATHOLOGY, [address] [place] [address] Krunal Fountain M.D. Director [facility] # [id number] 18 Because ethnic data is not always readily [...] 15-29 5 Kidney failure <15 (or dialysis) 19 Acute inflammation: >10.00 20 Because ethnic data is not always [...] >10.00 Procedures Date Code Description Status 11/26/2018 [id number] Colonoscopy Completed 07/09/2018 25566 Drain Abscess Peritoneal Transabdominal Completed 07/09/2018 04594 Drain Abscess Peritoneal Transabdominal Completed 07/09/2018 90336 Thoracentesis Needle/Catheter Aspiration W/ Img Completed Guidance 08/28/2017 49380 Drain Abscess Peritoneal Transabdominal Completed 08/28/2017 50007 Drain Abscess Peritoneal Transabdominal Completed 08/21/2017 08070 EKG, Interpretation Only Completed 08/03/2017 12013 ECHO Transthorasic Realtime 2D W Doppler & Color Flow Completed Hosp 08/03/2017 72458 EKG, Interpretation Only Completed 08/03/2017 02501 Arterial Line Completed 08/03/2017 13268 Insert Non-Tunneled Venous Catether Completed Encounters Type Date Location Provider Dx Diagnosis Office Visit 05/18/2019 Jeremy Viveros K57.80 [facility], [employer] intest, part unsp, w perf and abscess w/o bleed 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 Office Visit 05/13/2019 7:00a Jeremy Viveros K57.80 [facility] G[facility] NP intest, part unsp, w perf and abscess w/o bleed 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 Office Visit 05/12/2019 7:00a Jeremy Bates K57.80 [facility] MD, intest, part FACS unsp, w perf and abscess w/o bleed 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 Office Visit 05/11/2019 1:12p [facility] Lili Delarosa K65.1 Peritoneal Infectious Fransisco Rudolph abscess Diseases K57.80 Dvtrcli of intest, part unsp, w perf and abscess w/o bleed 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 E11.9 Type 2 diabetes mellitus without complications Office Visit 05/11/2019 7:00a Surgical Zbigniew Bates K63.1 Perforation of [facility] MD, intestine FACS (nontraumatic) K65.1 Peritoneal abscess 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 Office Visit 05/10/2019 7:00a Surgical Zbigniew Bates K63.2 Fistula of [facility] MD, intestine FACS Office Visit 10/06/2018 11:30a [facility] Lili Delarosa K65.1 Peritoneal Infectious Fransisco Rudolph abscess Diseases E11.22 Type 2 diabetes mellitus w diabetic chronic kidney disease Office Visit 09/08/2018 10:10a [facility] Lili Delarosa K65.1 Peritoneal Infectious Fransisco Rudolph abscess Diseases E11.22 Type 2 diabetes mellitus w diabetic chronic kidney disease Office Visit 08/05/2018 10:30a [facility] Lili Delarosa K65.1 Peritoneal Infectious Fransisco Rudolph abscess Diseases E11.22 Type 2 diabetes mellitus w diabetic chronic kidney disease Z79.2 [facility]FP (current) use of antibiotics Office Visit 07/16/2018 9:41a [facility] Glendy Payne, K65.1 Peritoneal Assoc,tutu Moody abscess Hospitalists B96.20 Unsp Escherichia coli as the cause of diseases classd elswhr D64.9 Anemia, unspecified E11.9 Type 2 diabetes mellitus without complications I10 Essential (primary) hypertension Office Visit 07/15/2018 9:40a [facility] Glendy Payne K65.1 Peritoneal Assoc,tutu Moody abscess Hospitalists B96.20 Unsp Escherichia coli as the cause of diseases classd elswhr E11.22 Type 2 diabetes mellitus w diabetic chronic kidney disease D64.9 Anemia, unspecified Office Visit 07/14/2018 [facility] K65.1 Peritoneal 9:40a Assoc,tutu [place] NP abscess Hospitalists B96.20 Unsp Escherichia coli as the cause of diseases classd elswhr E11.9 Type 2 diabetes mellitus without complications I10 Essential (primary) hypertension Office Visit 07/13/2018 [facility] K65.1 Peritoneal 9:39a Assoc,tutu Herndon NP abscess Hospitalists E11.9 Type 2 diabetes mellitus without complications I10 Essential (primary) hypertension Z48.89 Encounter for other specified surgical aftercare Office Visit 07/13/2018 10:08a [facility] Lili Delarosa K65.1 Peritoneal Infectious Fransisco Rudolph abscess Diseases E11.22 Type 2 diabetes mellitus w diabetic chronic kidney disease N18.9 Chronic kidney disease, unspecified Office Visit 07/12/2018 [facility] K65.1 Peritoneal 9:39a Assoc,ERENDIRA Spangler abscess Hospitalists E11.9 Type 2 diabetes mellitus without complications I10 Essential (primary) hypertension Z48.89 Encounter for other specified surgical aftercare Office Visit 07/11/2018 [facility] K65.1 Peritoneal 9:38a Assoc,ERENDIRA Spangler abscess Hospitalists E11.9 Type 2 diabetes mellitus without complications I10 Essential (primary) hypertension Z48.89 Encounter for other specified surgical aftercare Office Visit 07/10/2018 [facility] K65.1 Peritoneal 9:38a Assoctutu PA abscess Hospitalists E11.9 Type 2 diabetes mellitus without complications I10 Essential (primary) hypertension Z48.89 Encounter for other specified surgical aftercare Office Visit 07/09/2018 [facility] E11.9 Type 2 diabetes 9:37a Assoc,ERENDIRA Spangler mellitus without Hospitalists complications I10 Essential (primary) hypertension Z48.89 Encounter for other specified surgical aftercare Office Visit 06/08/2018 1:15p Surgical Roger Estrella L02.211 [facility] Mo[facility] M.D. abscess of AT [place] abdominal wall K65.1 Peritoneal abscess Office Visit 04/13/2018 Jeremy James02.211 Cutaneous abscess 2:45p Associates Heather Moeller M.D. of abdominal wall [employer] Machine Operator AT [place] Office Visit 04/06/2018 Surgical Roger Estrella L02.91 Cutaneous abscess, 1:00p Associates Heather Moeller M.D. unspecified Estela AT [place] Office Visit 12/02/2017 [facility] Chip Delarosa E11.8 Type 2 diabetes 10:50a For Infectious [place], mellitus with Diseases M.D. unspecified complications L02.91 Cutaneous abscess, unspecified L02.211 Cutaneous abscess of abdominal wall Office Visit 10/29/2017 11:10a [facility] Chip Delarosa K65.1 Peritoneal Infectious [place], MMelloD. abscess Diseases K75.0 Abscess of liver E11.8 Type 2 diabetes mellitus with unspecified complications Z79.2 [facility] (current) use of antibiotics Office Visit 09/05/2017 7:23a [facility] Hima Fuller L02.91 Cutaneous Assoctutu MD abscess, Hospitalists unspecified I48.91 Unspecified atrial fibrillation E11.8 Type 2 diabetes mellitus with unspecified complications B49 Unspecified mycosis Office Visit 09/04/2017 3:34p [facility] Diane L02.91 Cutaneous Assoc,tutu Breaux DO abscess, Hospitalists unspecified I48.91 Unspecified atrial fibrillation E11.8 Type 2 diabetes mellitus with unspecified complications B49 Unspecified mycosis Office Visit 09/03/2017 12:37p [facility] Lili Delarosa K75.0 Abscess of Infectious [place], M.D. liver Diseases K65.1 Peritoneal abscess Office Visit 09/03/2017 3:34p [facility] Diane L02.91 Cutaneous Assoc,pc DO Saeid abscess, Hospitalists unspecified I48.91 Unspecified atrial fibrillation E11.8 Type 2 diabetes mellitus with unspecified complications B49 Unspecified mycosis Office Visit 09/02/2017 11:25a [facility] Lili Delarosa K75.0 Abscess of Infectious [place], M.D. liver Diseases E11.9 Type 2 diabetes mellitus without complications K65.1 Peritoneal abscess Office Visit 09/02/2017 3:33p [facility] Phong L02.91 Cutaneous Assoc,tutu Echeverria M.D. abscess, Hospitalists unspecified I48.91 Unspecified atrial fibrillation E11.8 Type 2 diabetes mellitus with unspecified complications B49 Unspecified mycosis Office Visit 09/01/2017 3:33p [facility] Phong L02.91 Cutaneous Assoc,tutu Echeverria M.D. abscess, Hospitalists unspecified I48.91 Unspecified atrial fibrillation E11.8 Type 2 diabetes mellitus with unspecified complications B49 Unspecified mycosis Office Visit 08/31/2017 3:32p [facility] Phong L02.91 Cutaneous Assoc,tutu Echeverria M.D. abscess, Hospitalists unspecified I48.91 Unspecified atrial fibrillation E11.8 Type 2 diabetes mellitus with unspecified complications B49 Unspecified mycosis Office Visit 08/30/2017 3:31p [facility] Phong L02.91 Cutaneous Assoc,tutu Echeverria M.D. abscess, Hospitalists unspecified I48.91 Unspecified atrial fibrillation E11.8 Type 2 diabetes mellitus with unspecified complications B49 Unspecified mycosis Office Visit 08/29/2017 10:46a [facility] Lili Delarosa K75.0 Abscess of Infectious Mac, M.D. liver Diseases K65.1 Peritoneal abscess Office Visit 08/29/2017 [facility] Gianni L02.91 Cutaneous 3:31p Assoc,pc MD Clifford abscess, Hospitalists unspecified I48.91 Unspecified atrial fibrillation E11.8 Type 2 diabetes mellitus with unspecified complications B49 Unspecified mycosis Office Visit 08/28/2017 [facility] Gianni L02.91 Cutaneous 3:30p tutu Cm MD abscess, Hospitalists unspecified I48.91 Unspecified atrial fibrillation E11.8 Type 2 diabetes mellitus with unspecified complications Office Visit 08/28/2017 4:03p [facility] Lili Delarosa K75.0 Abscess of Infectious [place] MMelloD. liver Diseases K65.1 Peritoneal abscess Office Visit 08/27/2017 7:00a Surgical Zbigniew P. K66.8 Other specified [facility] Russell MD, disorders of FACS peritoneum K65.1 Peritoneal abscess Office Visit 08/27/2017 3:55p [facility] Lili Delarosa K75.0 Abscess of Infectious [place] MMelloD. liver Diseases K65.1 Peritoneal abscess D72.829 Elevated white blood cell count, unspecified R78.81 Bacteremia [facility] 3:30p tutu Cm MD abscess, Hospitalists unspecified I48.91 Unspecified atrial fibrillation E11.8 Type 2 diabetes mellitus with unspecified complications Office Visit 08/26/2017 [facility] Silviano L02.91 Cutaneous 3:29p tutu Cm NToña. abscess, Hospitalists unspecified E11.8 Type 2 diabetes mellitus with unspecified complications I48.91 Unspecified atrial fibrillation Office Visit 08/25/2017 3:23p [facility] Lili Delarosa K75.0 Abscess of Infectious Rosaura RudolphD. 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 liver Diseases Z79.2 [facility]FP (current) use of antibiotics Office Visit 08/12/2017 1:36p [facility] iLli Delarosa K75.0 Abscess of Infectious Bonny MMelloD. liver Diseases B95.5 Unsp streptococcus as the cause of diseases classd elswhr Z79.2 [facility]FP (current) use of antibiotics Office Visit 08/10/2017 10:47a [facility] R65.20 Severe sepsis Assoc,tutu Quintana M.D. without septic Hospitalists shock K75.0 Abscess of liver N17.0 Acute kidney failure with tubular necrosis A41.9 Sepsis, unspecified organism Office Visit 08/09/2017 10:47a [facility] R65.20 Severe sepsis Assoc,tutu Quintana M.D. without septic Hospitalists shock K75.0 Abscess of liver N17.0 Acute kidney failure with tubular necrosis A41.9 Sepsis, unspecified organism Office Visit 08/08/2017 4:36p [facility] Lili Delarosa K75.0 Abscess of Infectious Bonny MMelloD. liver Diseases B95.4 Oth streptococcus as the cause of diseases classd elswhr E11.22 Type 2 diabetes mellitus w diabetic chronic kidney disease N18.9 Chronic kidney disease, unspecified L93.0 Discoid lupus erythematosus Office Visit 08/08/2017 10:46a [facility] R65.20 Severe sepsis Assoc,tutu Quintana M.D. without septic Hospitalists shock K75.0 Abscess of liver N17.0 Acute kidney failure with tubular necrosis A41.9 Sepsis, unspecified organism Office Visit 08/07/2017 4:23p [facility] Lili Delarosa K75.0 Abscess of Infectious Macitzelen, M.D. liver Diseases B95.4 Oth streptococcus as the cause of diseases classd elswhr E87.1 Hypo-osmolality and hyponatremia E87.2 Acidosis E11.22 Type 2 diabetes mellitus w diabetic chronic kidney disease N18.9 Chronic kidney disease, unspecified Office Visit 08/07/2017 10:46a [facility] R65.20 Severe sepsis Assoc,tutu Quintana M.D. without septic Hospitalists shock N17.0 Acute kidney failure with tubular necrosis K75.0 Abscess of liver A41.9 Sepsis, unspecified organism Office Visit 08/06/2017 10:45a [facility] DaniellaMello R65.20 Severe sepsis Assoc,pc Mary D.O. without septic Hospitalists shock K75.0 Abscess of liver N17.0 Acute kidney failure with tubular necrosis A41.9 Sepsis, unspecified organism Office Visit 08/05/2017 [facility] Chip Washington A41.1 Sepsis due to other 4:13p For Infectious Fransisco Rudolph specified Diseases staphylococcus K75.0 Abscess of liver E11.22 Type 2 diabetes mellitus w diabetic chronic kidney disease N18.9 Chronic kidney disease, unspecified L93.0 Discoid lupus erythematosus Office Visit 08/05/2017 10:45a [facility] DaniellaMello R65.20 Severe sepsis Assoc,pc Mary D.O. without septic Hospitalists shock K75.0 Abscess of liver N17.9 Acute kidney failure, unspecified A41.9 Sepsis, unspecified organism Office Visit 08/04/2017 10:44a [facility] DaniellaMello R65.20 Severe sepsis Assoc,tutu Hernandez D.O. without septic Hospitalists shock K75.0 Abscess of liver N17.0 Acute kidney failure with tubular necrosis A41.9 Sepsis, unspecified organism Office Visit 08/03/2017 12:03p [facility] SM[facility] K75.0 Abscess of [place] liver I48.0 Paroxysmal atrial fibrillation R65.20 Severe sepsis without septic shock I10 Essential (primary) hypertension R78.81 Bacteremia I95.9 Hypotension, unspecified Office Visit 08/03/2017 [facility] I48.91 Unspecified atrial 8:58a Asstutu varma MD fibrillation Hospitalists R65.21 Severe sepsis with septic shock A41.81 Sepsis due to Enterococcus N17.8 Other acute kidney failure I12.9 Hypertensive chronic kidney disease w stg 1-4/unsp chr kdny N18.2 Chronic kidney disease, stage 2 (mild) K75.0 Abscess of liver K76.89 Other specified diseases of liver E11.65 Type 2 diabetes mellitus with hyperglycemia Z79.4 [facility]FP (current) use of insulin Office Visit 08/02/2017 8:53a [facility] K75.0 Abscess of tutu Cm MD liver Hospitalists K76.89 Other specified diseases of liver J90 Pleural effusion, not elsewhere classified A41.9 Sepsis, unspecified organism N17.8 Other acute kidney failure I12.9 Hypertensive chronic kidney disease w stg 1-4/unsp chr kdny N18.2 Chronic kidney disease, stage 2 (mild) Z79.4 [facility]FP (current) use of insulin E11.65 Type 2 diabetes mellitus with hyperglycemia Office Visit 08/01/2017 8:43a [facility] K75.0 Abscess of Assoc,tutu Upton MD liver Hospitalists E11.65 Type 2 diabetes mellitus with hyperglycemia I12.9 Hypertensive chronic kidney disease w stg 1-4/unsp chr kdny N18.2 Chronic kidney disease, stage 2 (mild) N17.8 Other acute kidney failure R60.9 Edema, unspecified Plan of Treatment Future Appointment(s):05/31/2019 10:45 am - Zbigniew Russell MD, [facility] at [facility]06/03/2019 1:30 pm - Brittany Herndon NP at [facility]sv[facility]/01/2019 - Zbigniew Russell MD, FACSK57.80 Diverticulitis of intestine, part unspecified, with perforatFollow up :After CAT scanK63.2 Fistula of tumwpmgsfU23.1 Peritoneal abscess
--- OUTSIDE RECORDS SUMMARY | 2019-06-05 14:51 | XMS REPORT | Continuity of Care Document ---
:1945 External Reference #:[id number] Author Name TrevonPatricia brooke Care Team Providers Name Role Phone Eliel Vu D.O. Primary Care Physician Unavailable Payers Date Identification Numbers Payment Provider Subscriber Policy Number: [id number] Medicare Chrissie Packer PayID: [id number] [address] [place] [address] Policy Number: [id number] [facility] King Rolando PayID: [id number] [address] [place] [address] Social History Type Date Description Comments Sex Unknown Marital Status Lives With Tobacco Use Start: Unknown Patient has never smoked Smoking Status Reviewed: 05/31/19 Patient has never smoked Allergies, Adverse Reactions, [...] 24 hrs Unknown 100Unit/ML Solution (per 09/22/17 [facility] [place] Metoprolol Tartrate take 1 tablet by Unknown 50mg mouth once daily Tablets Lactobacillus 1 by mouth once a Unknown Acidophilus day (per 09/22/17 Capsules [facility] [place] summary) Fenofibrate 1 by mouth every Unknown 160mg Tablets day (per 09/22/17 [facility] [place]) Lexapro 1 by mouth every Unknown 10mg Tablets day at bedtime (per 09/22/17 [facility] [place] summary) Multiple Vitamin 1 by mouth every Unknown Tablets day Coq10 take 1 by mouth 3 Unknown 100mg Capsules x week Naproxen prn Unknown Ertapenem Sodium IV once daily Unknown 1gm through [facility] home infusion (end date 06/14 per [facility] orders) Losartan Potassium 1 by mouth every Unknown 50mg day (dose change Tablets per [facility] [place] summary) Protonix 1 by [...] - 80mg dyspepsia (per 10/28/2017 [facility] 09/22/17 [facility] summary) Potassium Chloride 1 by mouth every Unknown - day (pt taking 3 05/25/2018 20Meq Tablets ER x per week - Dr Vu aware) Omeprazole 1 by mouth every Unknown - 20mg morning (per [address] 09/22/17 [facility] summary) Losartan Potassium 1 by mouth every Unknown - day (per 09/22/17 05/20/2019 100mg Tablets [facility] [place] summary) Furosemide 1 by mouth every [...] by mouth every Unknown - day (per [employer] Unknown 40mg Tablets DR summary) Vital Signs Date Vital Result Comment 05/31/2019 10:37am Heart Rate 84 /min BP [...] Result H/L Range Note Laboratory test 11/26/2018 [facility] Surgical SEE RESULT [address] [place] [address] [phone] Wound 09/08/2018 [facility] Wound/Misc SEE RESULT 2 Culture/Sensi [address] [place] [address] Stain [phone] Laboratory test 07/09/2018 [facility] Point of Care 216 mg/dL High 70-100 [address] Glucose [place], [place] [address] [phone] Laboratory test 07/09/2018 [facility] Fungal Cult SEE RESULT [address] Other Sources BELOW [place], [place] [address]13340 [phone] Laboratory test 07/09/2018 [facility] Fungal Cult SEE RESULT [address] [place] [address] [phone] Laboratory test 07/09/2018 [facility] Point of Care 130 mg/dL High 70-100 [address] [place] [address] [phone] Body Fluid C&S 07/09/2018 [facility] Body Fluid Cult SEE RESULT 7, [address] [place] [address] [phone] Laboratory test 07/09/2018 [facility] Fungal Cult SEE RESULT [address] Other Sources BELOW [place], [place] [address] [phone] Laboratory test 07/09/2018 [facility] Fungal Cult SEE RESULT [address] [place] [address] [phone] Laboratory test 07/09/2018 [facility] Fungal Cult SEE RESULT [address] Other Sources BELOW [place], [place] [address] [phone] Laboratory test 07/09/2018 [facility] Gram Stain SEE RESULT [address] Smear BELOW [place], [place] [address]486[address] [phone] Body Fluid Culture Bottles SEE RESULT BELOW 13 Fungal Cult Other Sources SEE RESULT BELOW 14 Urine Culture And 07/09/2018 [facility] Urine Culture SEE RESULT [address] [place], [place] [address] [phone] Urinalysis Profile 07/09/2018 [facility] Urine Color Yellow [address] [place] [address] [phone] Urine Appearance Cloudy Urine Specific Neche 1.039 High 1.010-1.030 Urine pH 5.0 N [...] Cell Present Abnormal Absent CBC Auto 07/02/2018 [facility] White Blood 11.5 10^3/uL High 3.5-10.[address] Count [place], [place] [address] [phone] Red Blood Count 3.47 10^6/uL Low 4.00-5.40 [...] Cells % 0 Type & Screen 07/02/2018 [facility] Patient Blood Type O Positive [address] [place] [address] [phone] Antibody Screen NEGATIVE Comp Metabolic Panel 07/02/2018 [facility] Sodium 139 mmol/L N 135-145 [address] [place] [address] [phone] Potassium 3.9 mmol/L N 3.5-5.0 Chloride 106 [...] >60 Egfr 46.2 >60 16 Wound 10/29/2017 [facility] Wound/Misc SEE RESULT 17 Culture/Sensi [address] [place] [address] Stain [phone] Laboratory test 10/14/2017 [facility] C Reactive 121.40 High < [address] Protein mg/L 5.00 [place] [address] [phone] Comp Metabolic 10/14/2017 [facility] Sodium 138 mmol/L N 133- Panel [address] [place] [address] [phone] Potassium 4.1 mmol/L N 3.5-5.0 Chloride 107 [...] Egfr 86.0 >60 19 CBC Auto 10/14/2017 [facility] White Blood 13.1 10^3/uL High 3.5-10.[address] [place] [address] [phone] Red Blood Count 2.62 10^6/uL Low 4.0-5.4 [...] Cells % 0.1 Comp Metabolic Panel 10/07/2017 [facility] Sodium 137 mmol/L N 133-[address] [place] [address] [phone] Potassium 4.2 mmol/L N 3.5-5.0 Chloride 104 [...] Egfr 63.6 >60 20 Laboratory test 10/07/2017 [facility] C Reactive 52.14 mg/L High < 5.00 [address] [place] [address] [phone] CBC Auto Diff 10/07/2017 [facility] White Blood 9.1 N 3.5- 10.[address] Count 10^3/[place] [address] [phone] Red Blood Count 2.63 10^6/uL Low 4.0-5.4 [...] Cells % 0.1 CBC Auto Diff 09/30/2017 [facility] White Blood 9.8 10^3/uL N 3.5-10.[address] [place] [address] [phone] Red Blood Count 2.91 10^6/uL Low 4.0-5.4 [...] % 0 N Comp Metabolic Panel 09/30/2017 [facility] Sodium 135 mmol/L N 133-[address] [place] [address] [phone] Potassium 3.8 mmol/L N 3.5-5.0 Chloride 101 [...] 74.6 N >60 22 Laboratory test 09/30/2017 [facility] C Reactive 29.15 mg/L High < 5.00 [address] [place] [address] [phone] 1 SEE RESULT BELOW Name: CHRISSIE PACKER : [address]: Juan A Joshi DO Acct: [id number] Unit: [id number] AGE: 73 Location: ENDO Re11/26/18 SEX: F Status: DEP REF SPEC: [id number] KIMBERLI: 11/26/[address] [facility] [address]: Juan A Joshi DO REQ: [id number] RECD: 11/26/18 STATUS: JOSLYN PHILLIP DR: Shannen [...] CONTINUED ON NEXT PAGE DEPARTMENT OF PATHOLOGY, [address] [place] [address] Krunal Fountain M.D. Director [facility] # [id number] RUN DATE: 11/27/18 [facility] LAB LIVE PAGE 2 Patient: CHRISSIE PACKER [id number] (Continued) GROSS DESCRIPTION (Continued) GROSS DESCRIPTION 1. [...] 1146 END OF REPORT DEPARTMENT OF PATHOLOGY, [address] [place] [address] Krunal Fountain M.D. Director [facility] # [id number] 2 SEE RESULT BELOW Name: CHRISSIE PACKER : [address]: Chip Rudolph MD Acct: [id number] Unit: [id number] AGE: 73 Location: [facility] Re09/08/18 SEX: F Status: REG REF SPEC: [id number] KIMBERLI: 09/08/[address] [facility] [address]: Chip Rudolph MD REQ: [id number] RECD: 09/08/18 STATUS: COMP _ SOURCE: WOUND SPDESC: ORDERED: Culture Stain COMMENTS: [id number] Specimen Description left abdomen Procedure Result Reported [...] CONTINUED ON NEXT PAGE DEPARTMENT OF PATHOLOGY, [address] [place] [address] Krunal Fountain M.D. Director [facility] # [id number] Patient: CHRISSIE PACKER [id number] (Continued) Specimen: [id number] Collected: 09/08/18-1038 Received: 09/08/18 (Continued) Procedure Result Reported Site [...] These antibiotics are not available in the [facility] Formulary Contact the Microbiology Department for any additional antibiotic reporting. * - Main Lab . END OF REPORT DEPARTMENT OF PATHOLOGY, [address] [place] [address] Krunal Fountain M.D. Director [facility] # [id number] 3 Insect Control Inspector: [id number] 4 SEE RESULT BELOW Name: CHRISSIE PACKER : [address]: Roger Moeller MD Acct: [id number] Unit: [id number] AGE: 73 Location: [facility] 353-01 Re07/09/18 Dis: 07/17/18 SEX: F Status: DIS IN SPEC: [id number] KIMBERLI: 07/09/18-[address]: Roger Moeller MD REQ: [id number] RECD: 07/09/18 STATUS: FREDY PHILLIP DR: Eliel Vu DO _ SOURCE: MISC SOURC SPDESC:PL LT LNG ORDERED: Fungal - Other COMMENTS: DAYS Procedure Result Reported Site Fungal Cult - Other Sources Final 08/10/18- 1 ML No Growth Week 4 * ML - Main Lab . END OF REPORT DEPARTMENT OF PATHOLOGY, [address] [place] [address] Krunal Fountain M.D. Director [facility] # [id number] 5 SEE RESULT BELOW Name: CHRISSIE PACKER : [address]: Roger Moeller MD Acct: [id number] Unit: [id number] AGE: 73 Location: [facility] 353-01 Re07/09/18 Dis: 07/17/18 SEX: F Status: DIS IN SPEC: [id number] KIMBERLI: 07/09/18-[address] [facility] [address]: Roger Moeller MD REQ: [id number] RECD: 07/09/18 STATUS: RES OT DR: Eliel Vu DO _ SOURCE: MISC SOURC SPDESC:PL LT LNG ORDERED: Fungal - Other COMMENTS: DAYS Procedure Result Reported Site Fungal Cult - Other Sources Preliminary 07/27/18- 1414 ML No Growth Week 2 * ML - Main Lab . END OF REPORT DEPARTMENT OF PATHOLOGY, [address] [place] [address] Krunal Fountain M.D. Director [facility] # [id number] 6 Insect Control Inspector: [id number] LEFT ABD FLUID ABCESS 8 SEE RESULT BELOW Name: CHRISSIE PACKER : [address]: Roger Moeller MD Acct: [id number] Unit: [id number] AGE: 73 Location: [facility] 353- Re07/09/18 SEX: F Status: ADM IN SPEC: [id number] KIMBERLI: 07/09/18-[address] [facility] [address]: Roger Moeller MD REQ: [id number] RECD: 07/09/18 STATUS: FREDY PHILLIP DR: Eliel [...] CONTINUED ON NEXT PAGE DEPARTMENT OF PATHOLOGY, [address] [place] [address] Krunal Fountain M.D. Director [facility] # [id number] Patient: CHRISSIE PACKER [id number] (Continued) Specimen: [id number] Collected: 07/09/18-1201 Received: 07/09/18-1325 (Continued) Procedure Result Reported Site [...] CONTINUED ON NEXT PAGE DEPARTMENT OF PATHOLOGY, [address] [place] [address] Krunal Fountain M.D. Director [facility] # [id number] Patient: CHRISSIE PACKER [id number] (Continued) Specimen: [id number] Collected: 07/09/18-1201 Received: 07/09/18-1326 (Continued) Procedure Result [...] These antibiotics are not available in the [facility] Formulary Contact the Microbiology Department for any additional antibiotic reporting. Contact the Microbiology Department for any additional antibiotic reporting. * ML - Main Lab . END OF REPORT DEPARTMENT OF PATHOLOGY, [address] [place] [address] Krunal Fountain M.D. Director [facility] # [id number] 9 SEE RESULT BELOW Name: CHRISSIE PACKER : [address]: Roger Moeller MD Acct: [id number] Unit: [id number] AGE: 73 Location: [facility] 353-01 Re07/09/18 Dis: 07/17/18 SEX: F Status: DIS IN SPEC: [id number] KIMBERLI: 07/09/18-[address] [facility] [address]: Roger Moeller MD REQ: [id number] RECD: 07/09/18-1325 STATUS: RES OTHR DR: Eliel Vu DO _ SOURCE: MISC SOURC SPDESC:ABDOMINAL ORDERED: Fungal - Other COMMENTS: LEFT ABD ABCESS Procedure Result Reported Site Fungal Cult - Other Sources Preliminary 07/20/18- 112 ML Organism 1 CHARLES ALBICANS * - [facility] Lab . END OF REPORT DEPARTMENT OF PATHOLOGY, [address] [place] [address] Krunal Fountain M.D. Director [facility] # [id number] 10 SEE RESULT BELOW Name: CHRISSIE PACKER : [address]: Roger Moeller MD Acct: [id number] Unit: [id number] AGE: 73 Location: [facility] 353-01 Re07/09/18 Dis: 07/17/18 SEX: F Status: DIS IN SPEC: [id number] KIMBERLI: 07/09/18-[address] [facility] [address]: Roger Moeller MD REQ: [id number] RECD: 07/09/18 STATUS: RES [facility] DR: Eliel Vu DO _ SOURCE: MISC SOURC SPDESC:ABDOMINAL ORDERED: Fungal - Other COMMENTS: LEFT ABD ABCESS Procedure Result Reported Site Fungal Cult - Other Sources Preliminary 07/27/18- 141 ML Organism 1 CHARLES ALBICANS * ML - Main Lab . END OF REPORT DEPARTMENT OF PATHOLOGY, [address] [place] [address] Krunal Fountain M.D. Director [facility] # [id number] 11 SEE RESULT BELOW Name: CHRISSIE PACKER : [address]: Roger Moeller MD Acct: [id number] Unit: [id number] AGE: 73 Location: [facility] 353-01 Re07/09/18 Dis: 07/17/18 SEX: F Status: DIS IN SPEC: [id number] KIMBERLI: 07/09/18-[address] [facility] [address]: Roger Moeller MD REQ: [id number] RECD: 07/09/186 STATUS: FREDY PHILLIP DR: Eliel Vu DO _ SOURCE: MISC SOURC SPDESC:ABDOMINAL ORDERED: Fungal - Other COMMENTS: LEFT ABD ABCESS Procedure Result Reported Site Fungal Cult - Other Sources Final 08/10/18- 131 ML Organism 1 CHARLES ALBICANS * ML - Main Lab . END OF REPORT DEPARTMENT OF PATHOLOGY, [address] [place] [address] Krunal Fountain M.D. Director [facility] # [id number] 12 SEE RESULT BELOW Name: CHRISSIE PACKER : [address]: Roger Moeller MD Acct: [id number] Unit: [id number] AGE: 73 Location: [place] Re07/09/18 SEX: F Status: REG SDC SPEC: [id number] KIMBERLI: 07/09/18-[address] [facility] [address]: Roger Moeller MD REQ: [id number] RECD: 07/09/182 STATUS: FREDY PHILLIP DR: Eliel Vu DO _ SOURCE: BODY FLUID SPDESC:PLEURA ORDERED: Gram Stain Procedure Result Reported Site Gram Stain Final 07/09/18- 1509 ML 4+ Neutrophils 4+ Nucleated Cells No Organisms Seen BY CENTRIFUGED SMEAR * ML - Main Lab . END OF REPORT DEPARTMENT OF PATHOLOGY, [address] [place] [address] Krunal Fountain M.D. Director [facility] # [id number] 13 SEE RESULT BELOW Name: CHRISSIE PACKER : [address]: Roger Moeller MD Acct: [id number] Unit: [id number] AGE: 73 Location: [facility] [address] Re07/09/18 SEX: F Status: ADM IN SPEC: [id number] KIMBERLI: 07/09/18-[address] [facility] [address]: Roger Moeller MD REQ: [id number] RECD: 07/09/182 STATUS: COMP [facility] DR: Eliel Vu DO _ SOURCE: PLEURAL FL SPDESC: ORDERED: BF Cult Bottles Procedure Result Reported Site BF Aerobic Culture Bottle Final 07/14/18- 1323 ML No Growth Day 5 BF Anaerobic Culture Bottle Final 07/14/18- 1323 ML No Growth Day 5 * ML - Main Lab . END OF REPORT DEPARTMENT OF PATHOLOGY, [address] [place] [address] Krunal Fountain M.D. Director [facility] # [id number] 14 SEE RESULT BELOW Name: CHRISSIE PACKER : [address]: Roger Moeller MD Acct: [id number] Unit: [id number] AGE: 73 Location: [facility] 353-01 Re07/09/18 Dis: 07/17/18 SEX: F Status: DIS IN SPEC: [id number] KIMBERLI: 07/09/[address]: Roger Moeller MD REQ: [id number] RECD: 07/09/18 STATUS: RES OTHR DR: Eliel Vu DO _ SOURCE: MISC SOURC SPDESC:PL LT LNG ORDERED: Fungal - Other COMMENTS: DAYS Procedure Result Reported Site Fungal Cult - Other Sources Preliminary 07/20/18- 1120 ML No Growth Week 1 * ML - Main Lab . END OF REPORT DEPARTMENT OF PATHOLOGY, [address] [place] [address] Krunal Fountain M.D. Director [facility] # [id number] 15 SEE RESULT BELOW Name: CHRISSIE PACKER : [address]: Roger Moeller MD Acct: [id number] Unit: [id number] AGE: 73 Location: [facility] 353-01 Re07/09/18 SEX: F Status: ADM IN SPEC: [id number] KIMBERLI: 07/09/181135 [facility] [address]: Roger Moeller MD REQ: [id number] RECD: 07/09/18 STATUS: FREDY CAMACHO DR: Eliel Vu DO _ SOURCE: URINE SPDESC: ORDERED: Urine Culture Procedure Result Reported Site Urine Culture Final 07/11/18- 0957 ML Organism 1 ESCHERICHIA COLI [facility] Count 50-75,000 (Many) CFU/ML 1. ESCHERICHIA COLI [...] . END OF REPORT DEPARTMENT OF PATHOLOGY, [address] [place] [address] Krunal Fountain M.D. Director [facility] # [id number] 16 Because ethnic data is not always [...] [address]: Chip Rudolph MD Acct: [id number] Unit: [id number] AGE: 72 Location: [facility] Re10/29/17 SEX: F Status: REG REF SPEC: [id number] KIMBERLI: 10/29/17-[address] [facility] [address]: Chip Rudolph MD REQ: [id number] RECD: 10/29/17507 STATUS: COMP _ SOURCE: ABDOMEN SPDESC: ORDERED: Culture Stain COMMENTS: [id number] Specimen Description abdominal wall Procedure Result Reported [...] performed at Main Lab DEPARTMENT OF PATHOLOGY, [address] [place] [address] Krunal Fountain M.D. Director [facility] # [id number] Patient: CHRISSIE PACKER [id number] (Continued) Specimen: [id number] Collected: 10/29/17 Received: 10/29/17 (Continued) Procedure Result Reported Site [...] antibiotic reporting. * ML - MAIN LAB ([facility]) . END OF REPORT * ML=Testing performed at Main Lab DEPARTMENT OF PATHOLOGY, [address] [place] [address] Krunal Fountain M.D. Director [facility] # [id number] 18 Acute inflammation: >10.00 19 Because ethnic [...] >10.00 Procedures Date Code Description Status 11/26/2018 [id number] Colonoscopy Completed 07/09/2018 71888 Drain Abscess Peritoneal Transabdominal Completed 07/09/2018 03101 Drain Abscess Peritoneal Transabdominal Completed 07/09/2018 89649 Thoracentesis Needle/Catheter Aspiration W/ Img Completed Guidance 08/28/2017 35272 Drain Abscess Peritoneal Transabdominal Completed 08/28/2017 42794 Drain Abscess Peritoneal Transabdominal Completed 08/21/2017 38371 EKG, Interpretation Only Completed 08/03/2017 66466 ECHO Transthorasic Realtime 2D W Doppler & Color Flow Completed Hosp 08/03/2017 34637 EKG, Interpretation Only Completed 08/03/2017 18930 Arterial Line Completed 08/03/2017 85068 Insert Non-Tunneled Venous Catether Completed Encounters Type Date Location Provider Dx Diagnosis Office Visit 05/[facility] Zbigniew Russell, K57.80 Dvtrcli of 9:45a Of Estela CASTLE, FACS intest, part unsp, w perf and abscess w/o bleed 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 K65.1 Peritoneal abscess Office Visit 2019 10:15a [facility] Haydee Adams, K65.1 Peritoneal Assoc,pc abscess Hospitalists 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 N18.2 Chronic kidney disease, stage 2 (mild) I12.9 Hypertensive chronic kidney disease w stg 1-4/unsp chr kdny E11.9 Type 2 diabetes mellitus without complications Office Visit 05/18/2019 10:14a [facility] Haydee Adams, K65.1 Peritoneal Assoc,pc abscess Hospitalists E11.9 Type 2 diabetes mellitus without complications I12.9 Hypertensive chronic kidney disease w stg 1-4/unsp chr kdny N18.9 Chronic kidney disease, unspecified K21.9 Gastro-esophageal reflux disease without esophagitis Office Visit 05/18/2019 7:00a Surgical Brittany Viveros K57.80 Dvtrcli of [facility] Eckenrode, SHEET METAL APPRENTICE intest, part unsp, w perf and abscess w/o bleed 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 Office Visit 05/17/2019 10:12a [facility] Diane K65.1 Peritoneal Assoc,tutu Breaux DO abscess Hospitalists R82.71 Bacteriuria N18.9 Chronic kidney disease, unspecified Office Visit 05/17/2019 7:00a Surgical Brittany Viveros K57.80 Dvtrcli of [facility] Echerverode, SHEET METAL APPRENTICE intest, part unsp, w perf and abscess w/o bleed 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 Office Visit 05/16/2019 10:11a [facility] Diane K65.1 Peritoneal Assoc,tutu Breaux DO abscess Hospitalists R82.71 Bacteriuria N18.9 Chronic kidney disease, unspecified Office Visit 05/16/2019 7:00a Surgical Scott Gonzalez K57.80 Dvtrcli of [facility] MD Harshal intest, part unsp, w perf and abscess w/o bleed 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 Office Visit 05/15/2019 10:11a [facility] Glendy Payne K65.1 Peritoneal Assoc,tutu Moody [...] Fistula of intestine Office Visit 05/14/2019 10:10a [facility] Glendy Payne, K65.1 Peritoneal Assoc,tutu Moody abscess Hospitalists B96.20 Unsp Escherichia coli as the cause of diseases classd elswhr E11.9 Type 2 diabetes mellitus without complications N18.9 Chronic kidney disease, unspecified D50.0 Iron deficiency anemia secondary to blood loss (chronic) Office Visit 05/14/2019 7:00a Surgical Zbigniew Bates K57.80 Dvtrcli of [facility] Russell MD, intest, part FACS unsp, w perf and abscess w/o bleed 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 Office Visit 05/13/2019 10:10a [facility] Glendy Payne, K65.1 Peritoneal Assoc,tutu Moody abscess Hospitalists N18.9 Chronic kidney disease, unspecified E11.9 Type 2 diabetes mellitus without complications D50.0 Iron deficiency anemia secondary to blood loss (chronic) Office Visit 05/13/2019 7:00a Surgical Brittany Viveros K57.80 Dvtrcli of [facility] Glez NP intest, part unsp, w perf and abscess w/o bleed 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80 Dvtrcli of intest, part unsp, w perf and abscess w/o bleed 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 E11.9 Type 2 diabetes mellitus without complications Office Visit 05/11/2019 10:09a [facility] Daisy Santos65.1 Peritoneal Assoc,tutu Moody abscess Hospitalists N18.9 Chronic kidney disease, unspecified E11.9 Type 2 diabetes mellitus without complications D50.0 Iron deficiency anemia secondary to blood loss (chronic) Office Visit 05/11/2019 7:00a Surgical Zbigniew Villa63.1 Perforation of [facility] MD, intestine FACS (nontraumatic) K65.1 Peritoneal abscess 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 Lili Delarosa K65.1 Peritoneal Infectious Fransisco Rudolph abscess Diseases E11.22 Type 2 diabetes mellitus w diabetic chronic kidney disease Office Visit 09/08/2018 10:10a [facility] Lili Delarosa K65.1 Peritoneal Infectious Fransisco Rudolph abscess Diseases E11.22 Type 2 diabetes mellitus w diabetic chronic kidney disease Office Visit 08/05/2018 10:30a 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 Office Visit 07/16/2018 9:41a [place] Chanda Gottlieb.1 Peritoneal Assoc,tutu Moody abscess Hospitalists B96.20 Unsp Escherichia coli as the cause of diseases classd elswhr D64.9 Anemia, unspecified E11.9 Type 2 diabetes mellitus without complications I10 Essential (primary) hypertension Office Visit 07/15/2018 9:40a [place] Daisy Gottlieb65.1 Peritoneal Assoc,tutu Moody abscess Hospitalists B96.20 Unsp Escherichia coli as the cause of diseases classd elswhr E11.22 Type 2 diabetes mellitus w diabetic chronic kidney disease D64.9 Anemia, unspecified Office Visit 07/14/2018 [facility] K65.1 Peritoneal 9:40a Assoc,tutu [place]don, SHEET METAL APPRENTICE abscess Hospitalists B96.20 Unsp Escherichia coli as the cause of diseases classd elswhr E11.9 Type 2 diabetes mellitus without complications I10 Essential (primary) hypertension Office Visit 07/13/2018 [facility] K65.1 Peritoneal 9:39a Assoc,tutu Herndon, SHEET METAL APPRENTICE abscess Hospitalists E11.9 Type 2 diabetes mellitus without complications I10 Essential (primary) hypertension Z48.89 Encounter for other specified surgical aftercare Office Visit 07/13/2018 10:08a [facility] Chip Delarosa K65.1 Peritoneal Infectious Fransisco Rudolph abscess Diseases E11.22 Type 2 diabetes mellitus w diabetic chronic kidney disease N18.9 Chronic kidney disease, unspecified Office Visit 07/12/2018 [facility] K65.1 Peritoneal 9:39a Assoc,pc ERENDIRA Galindo abscess Hospitalists E11.9 Type 2 diabetes mellitus without complications I10 Essential (primary) hypertension Z48.89 Encounter for other specified surgical aftercare Office Visit 07/11/2018 [facility] K65.1 Peritoneal 9:38a Assoc,pc Mateo PA abscess Hospitalists E11.9 Type 2 diabetes mellitus without complications I10 Essential (primary) hypertension Z48.89 Encounter for other specified surgical aftercare Office Visit 07/10/2018 [facility] K65.1 Peritoneal 9:38a Assoc,pc Mateo PA abscess Hospitalists E11.9 Type 2 diabetes mellitus without complications I10 Essential (primary) hypertension Z48.89 Encounter for other specified surgical aftercare Office Visit 07/09/2018 [facility] E11.9 Type 2 diabetes 9:37a Assoc,pc Mateo PA mellitus without Hospitalists complications I10 Essential (primary) hypertension Z48.89 Encounter for other specified surgical aftercare Office Visit 06/08/2018 1:15p Surgical Flako. L02.211 [facility] Moeller M.D. abscess of AT [place] abdominal wall K65.1 Peritoneal abscess Office Visit 04/13/2018 Surgical Roger Estrella L02.211 Cutaneous abscess 2:45p [facility] [place] Moeller of abdominal wall Last [place] AT [place] Office Visit 04/06/2018 Surgical Roger Estrella L02.91 Cutaneous abscess, 1:00p [facility] [place] Moeller unspecified Estela AT [place] Office Visit 12/02/2017 [facility] Chip Delarosa E11.8 Type 2 diabetes 10:50a For Infectious Macqueen, mellitus with Diseases M.D. unspecified complications L02.91 Cutaneous abscess, unspecified L02.211 Cutaneous abscess of abdominal wall Office Visit 10/29/2017 11:10a [facility] Lili Delarosa K65.1 Peritoneal Infectious Macitzelen, M.D. 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 Lili Delarosa K75.0 Abscess of Infectious Macqueen M.D. liver Diseases K65.1 Peritoneal abscess Office Visit 09/03/2017 3:34p [facility] Diane L02.91 Cutaneous Assoc,tutu Breaux DO abscess, Hospitalists unspecified I48.91 Unspecified atrial fibrillation E11.8 Type 2 diabetes mellitus with unspecified complications B49 Unspecified mycosis Office Visit 09/02/2017 11:25a [facility] Lili Delarosa K75.0 Abscess of Infectious Macitzelen, M.D. liver Diseases E11.9 Type 2 diabetes mellitus without complications K65.1 Peritoneal abscess Office Visit 09/02/2017 3:33p [facility] Phong L02.91 Cutaneous Assoc,tutu Echeverria M.D. abscess, Hospitalists unspecified I48.91 Unspecified atrial fibrillation E11.8 Type 2 diabetes mellitus with unspecified complications B49 Unspecified mycosis Office Visit 09/01/2017 3:33p [facility] Phong L02.91 Cutaneous Assoc,tutu Echeverria M.D. abscess, Hospitalists unspecified I48.91 Unspecified atrial fibrillation E11.8 Type 2 diabetes mellitus with unspecified complications B49 Unspecified mycosis Office Visit 08/31/2017 3:32p [facility] Phong L02.91 Cutaneous Assoc,tutu Echeverria M.D. abscess, Hospitalists unspecified I48.91 Unspecified atrial fibrillation E11.8 Type 2 diabetes mellitus with unspecified complications B49 Unspecified mycosis Office Visit 08/30/2017 3:31p [facility] Phong L02.91 Cutaneous Assoc,tutu Echeverria M.D. abscess, Hospitalists unspecified I48.91 Unspecified atrial fibrillation E11.8 Type 2 diabetes mellitus with unspecified complications B49 Unspecified mycosis Office Visit 08/29/2017 10:46a [facility] Lili Delarosa K75.0 Abscess of Infectious Fransisco Rudolph liver Diseases K65.1 Peritoneal abscess [facility] L02.91 Cutaneous 3:31p tutu Cm MD abscess, Hospitalists unspecified I48.91 Unspecified atrial fibrillation E11.8 Type 2 diabetes mellitus with unspecified complications B49 Unspecified mycosis Office [facility] L02.91 Cutaneous 3:30p tutu Cm MD abscess, Hospitalists unspecified I48.91 Unspecified atrial fibrillation E11.8 Type 2 diabetes mellitus with unspecified complications Office Visit 08/28/2017 4:03p [facility] Lili Delarosa K75.0 Abscess of Infectious Fransisco Rudolph liver Diseases K65.1 Peritoneal abscess Office Visit [facility]/27/2017 [facility] L02.91 Cutaneous 3:30p tutu Cm MD abscess, Hospitalists unspecified I48.91 Unspecified atrial fibrillation E11.8 Type 2 diabetes mellitus with unspecified complications Office Visit 08/27/2017 3:55p [facility] Lili Delarosa K75.0 Abscess of Infectious Bonny, MMelloD. liver Diseases K65.1 Peritoneal abscess D72.829 Elevated white blood cell count, unspecified R78.81 Bacteremia Office Visit 08/27/2017 7:00a Surgical Zbigniew PMello K66.8 Other specified [facility] Russell MD, disorders of FACS peritoneum K65.1 Peritoneal abscess Office Visit 08/26/2017 [facility] Silviano L02.91 Cutaneous 3:29p Assoc,tutu Mcgill NToña. abscess, Hospitalists unspecified E11.8 Type 2 diabetes mellitus with unspecified complications I48.91 Unspecified atrial fibrillation Office Visit 08/25/2017 3:23p [facility] Lili Delarosa K75.0 Abscess of Infectious [place] MMelloD. liver Diseases Z79.2 longterm (current) use of antibiotics D72.829 Elevated white blood cell count, unspecified Office Visit 08/21/2017 [facility] Brittany Coffey I48.91 Unspecified 10:10a Assoc,tutu Herndon, SHEET METAL APPRENTICE atrial Hospitalists fibrillation A40.9 Streptococcal sepsis, unspecified E66.01 Morbid (severe) obesity due to excess calories E11.9 Type 2 diabetes mellitus without complications Office Visit 08/18/2017 2:20p [facility] Lili Delarosa K75.0 Abscess of Infectious Bonny, M.D. 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 Lili Delarosa K75.0 Abscess of Infectious Mac, M.D. liver Diseases B95.5 Unsp streptococcus as the cause of diseases classd elswhr Z79.2 tank terminal gauger (current) use of antibiotics Office Visit 08/10/2017 10:47a [facility] Simone R65.20 Severe sepsis Assoc,tutu Quintana M.D. without septic Hospitalists shock K75.0 Abscess of liver N17.0 Acute kidney failure with tubular necrosis A41.9 Sepsis, unspecified organism Office Visit 08/09/2017 10:47a [facility] Simone R65.20 Severe sepsis Assoc,tutu Quintana M.D. without septic Hospitalists shock K75.0 Abscess of liver N17.0 Acute kidney failure with tubular necrosis A41.9 Sepsis, unspecified organism Office Visit 08/08/2017 10:46a [facility] R65.20 Severe sepsis Assoc,tutu Quintana M.D. without septic Hospitalists shock K75.0 Abscess of liver N17.0 Acute kidney failure with tubular necrosis A41.9 Sepsis, unspecified organism Office Visit 08/08/2017 4:36p [facility] Lili Delarosa K75.0 Abscess of Infectious Rosaura RudolphD. liver Diseases B95.4 Oth streptococcus as the cause of diseases classd elswhr E11.22 Type 2 diabetes mellitus w diabetic chronic kidney disease N18.9 Chronic kidney disease, unspecified L93.0 Discoid lupus erythematosus Office Visit 08/07/2017 4:23p [facility] Lili Delarosa K75.0 Abscess of Infectious Bonny MMelloD. liver Diseases B95.4 Oth streptococcus as the cause of diseases classd elswhr E87.1 Hypo-osmolality and hyponatremia E87.2 Acidosis E11.22 Type 2 diabetes mellitus w diabetic chronic kidney disease N18.9 Chronic kidney disease, unspecified Office Visit 08/07/2017 10:46a [facility] R65.20 Severe sepsis Assoc,tutu Quintana M.D. without septic Hospitalists shock N17.0 Acute kidney failure with tubular necrosis K75.0 Abscess of liver A41.9 Sepsis, unspecified organism Office Visit 08/06/2017 10:45a [facility] Aleksandr Kaplan R65.20 Severe sepsis Assoc,tutu Hernandez D.OMello without septic Hospitalists shock K75.0 Abscess of liver N17.0 Acute kidney failure with tubular necrosis A41.9 Sepsis, unspecified organism [facility].1 Sepsis due to other 4:13p For Infectious Fransisco Rudolph specified Diseases staphylococcus K75.0 Abscess of liver E11.22 Type 2 diabetes mellitus w diabetic chronic kidney disease N18.9 Chronic kidney disease, unspecified L93.0 Discoid lupus erythematosus Office Visit 08/05/2017 10:45a [facility] Aleksandr Kaplan R65.20 Severe sepsis Assoc,pc Mary, D.O. without septic Hospitalists shock K75.0 Abscess of liver N17.9 Acute kidney failure, unspecified A41.9 Sepsis, unspecified organism Office Visit 08/04/2017 10:44a [facility] Aleksandr BrewerMello R65.20 Severe sepsis Asstutu varma D.O. without septic Hospitalists shock K75.0 Abscess of liver N17.0 Acute kidney failure with tubular necrosis A41.9 Sepsis, unspecified organism Office Visit 08/03/2017 12:03p [facility] Qutasan carlos [facility] S. K75.0 Abscess of [place] liver I48.0 Paroxysmal atrial fibrillation R65.20 Severe sepsis without septic shock I10 Essential (primary) hypertension R78.81 Bacteremia I95.9 Hypotension, unspecified Office Visit 08/03/2017 [facility] I48.91 Unspecified atrial 8:58a tutu Cm MD fibrillation Hospitalists R65.21 Severe sepsis with septic shock A41.81 Sepsis due to Enterococcus N17.8 Other acute kidney failure I12.9 Hypertensive chronic kidney disease w stg 1-4/unsp chr kdny N18.2 Chronic kidney disease, stage 2 (mild) K75.0 Abscess of liver K76.89 Other specified diseases of liver E11.65 Type 2 diabetes mellitus with hyperglycemia Z79.4 tank terminal gauger (current) use of insulin Office Visit 08/02/2017 8:53a [facility] K75.0 Abscess of tutu Cm MD liver Hospitalists K76.89 Other specified diseases of liver J90 Pleural effusion, not elsewhere classified A41.9 Sepsis, unspecified organism N17.8 Other acute kidney failure I12.9 Hypertensive chronic kidney disease w stg 1-4/unsp chr kdny N18.2 Chronic kidney disease, stage 2 (mild) Z79.4 longterm (current) use of insulin E11.65 Type 2 diabetes mellitus with hyperglycemia Office Visit 08/01/2017 8:43a [facility] K75.0 Abscess of tutu Cm MD liver Hospitalists E11.65 Type 2 diabetes mellitus with hyperglycemia I12.9 Hypertensive chronic kidney disease w stg 1-4/unsp chr kdny N18.2 Chronic kidney disease, stage 2 (mild) N17.8 Other acute kidney failure R60.9 Edema, unspecified Plan of Treatment Future Appointment(s):06/21/2019 11:30 am - Zbigniew Russell MD, FACS at [facility]06/03/2019 1:30 pm - Brittany Herndon NP at [facility] For Infectious Vdsvsrsx66/08/2019 - Zbigniew Russell MD, FACSK57.80 Diverticulitis of intestine, part unspecified, with zwceaxiiH81.2 Fistula of godbisxhbI74.1 Peritoneal abscess
[2019-06-05] MEDS ORDERED: Acetaminophen TAB* 325 MG PO PRN (15:33)
--- NOTE | 2019-06-05 15:34 | PN ---
Subjective Date of Service: 06/05/19 Interval History: Ms. Marshall is feeling a little better today. Her pain is resolved. She has been up ambulating in her room. Continues to have a significant amount of drainage from the left abdominal site. Denies CP, SOB, N/V. She has a PICC line that was accidentally pulled out partly during a dressing change and is now considered a midline according to her. No concerns from nursing. Family History: Unchanged from Admission Social History: Unchanged from Admission Past Medical History: Unchanged from Admission Objective Active Medications: Dextrose (D50w Syringe 50 Ml*) 12.5 gm IV PUSH .FOR FS < 60 - SS PRN FS < 60 Escitalopram Oxalate (Lexapro *) 10 mg PO BEDTIME CHERRY Hydromorphone HCl (Dilaudid Inj1s*) 0.5 mg IV SLOW PU Q1H PRN PAIN - SEVERE Ertapenem 1 gm/ Sodium (Chloride) 50 mls @ 100 mls/hr IVPB Q24H CHERRY Insulin Human Lispro (Humalog*) 0 units SUBCUT ACHS CHERRY; Protocol Ondansetron HCl (Zofran Inj*) 4 mg IV Q4H PRN NAUSEA/VOMITING Pantoprazole Sodium (Protonix Iv*) 40 mg IV Q24H CHERRY Vital Signs - 8 hr 06/05/19 11:29 Temperature 98.3 F Pulse Rate 83 Respiratory 16 Rate Blood Pressure 113/45 (mmHg) O2 Sat by Pulse 100 Oximetry Oxygen Devices in Use Now: None Appearance: Elderly female sitting in bed in NAD Eyes: No Scleral Icterus Ears/Nose/Mouth/Throat: Mucous Membranes Moist Neck: NL Appearance and Movements; NL JVP, Trachea Midline Respiratory: Symmetrical Chest Expansion and Respiratory Effort, Clear to Auscultation Cardiovascular: NL Sounds; No Murmurs; No JVD, RRR Abdominal: - - Soft, diffuse tenderness Extremities: No Edema Neurological: Alert and Oriented x 3 Lines/Tubes/Other Access: Clean, Dry and Intact Peripheral IV Nutrition: Taking PO's Result Diagrams: 06/05/19 13:15 06/05/19 13:15 Assess/Plan/Problems-Billing Assessment: Ms. Marshall is a 74 yo F with PMH of DM2, CKD, HTN, and intraabdominal abscesses ; who recently had a pigtail drain removed from her LUQ and presented to the ED because of concern for abscess at the site. - Patient Problems (1) Intra-abdominal abscess Code(s): K65.1 - PERITONEAL ABSCESS Comment: - Pigtail drain recently removed from left abdomen with subsequent erythema and tenderness - Management per Surgery - Continue ertapenem (2) HTN (hypertension) Code(s): I10 - ESSENTIAL (PRIMARY) HYPERTENSION Comment: - Normotensive, SBP 100-110s - Hold metoprolol and losartan (3) Diabetes Code(s): E11.9 - TYPE 2 DIABETES MELLITUS WITHOUT COMPLICATIONS Comment: - Well controlled, recent A1c 5.7% - Hold metformin and Januvia - Continue Lispro SS; resume Lantus (4) CKD (chronic kidney disease) Code(s): N18.9 - CHRONIC KIDNEY DISEASE, UNSPECIFIED Comment: - Creatinine at baseline - Stage 3 (5) DVT prophylaxis Comment: - SCDs (6) Full code status Code(s): Z78.9 - OTHER SPECIFIED HEALTH STATUS Comment: Status and Disposition: Inpatient. Dispo per Surgery. Thank you for this consultation. We will continue to follow distantly. Attending: Amada Lake
[2019-06-05] MEDS: traMADol TAB* 50 MG PO PRN (18:42)
[2019-06-05] MEDS: Insulin GLARGINE(*) 1 UNITS UNIT SUBCUT SCH (18:50)
[2019-06-05] MEDS: Ertapenem* 1 GM in NS 0.9% 50 ML* 50 ML IVPB SCH (18:51)
[2019-06-05] MEDS: Pantoprazole IV* 40 MG IV SCH (18:51)
[2019-06-05] MEDS ORDERED: Escitalopram * 10 MG TAB PO SCH (21:00)
[2019-06-06 06:52] LABS: ABS Basophils 0.1 10^3/ul (0-0.2); ABS Eosinophils 0.4 10^3/ul (0-0.6); ABS Lymphocytes 1.2 10^3/ul (1.0-4.8); ABS Monocytes 0.5 10^3/ul (0-0.8); ABS Neutrophils 2.9 10^3/ul (1.5-7.7); Eosinophil % 7.8 %; Hematocrit 27 % (35-47); Hemoglobin 9.5 g/dL (12.0-16.0); Lymphocyte % 23.6 %; Mean Corpuscular HGB Conc 35 g/dL (31-36); Mean Corpuscular Hemoglobin 30 pg (27-31); Mean Corpuscular Volume 87 fL (80-97); Platelet Count 394 10^3/uL (150-450); Red Blood Count 3.15 10^6 /uL (3.70-4.87); Red Cell Distribution Width 15 % (10-15); White Blood Count 4.9 10^3/uL (3.5-10.8)
[2019-06-06 07:08] LABS: BUN/Creatinine Ratio 17.8 (8-20); Calcium 8.1 mg/dL (8.6-10.3); EGFR African American 46.5 (>60); EGFR Non-African American 38.4 (>60); Potassium 3.6 mmol/L (3.5-5.0)
[2019-06-06] MEDS: Insulin LISPRO* 1 UNITS UNIT SUBCUT SCH ×4 (09:21→20:30)
--- NOTE | 2019-06-06 11:27 | PN ---
Progress Note - Progress Note Date of Service: 06/06/19 SOAP: Subjective: Pt seen and examined. feeling better since wound spontaneously opened. appetite good Objective: af vss a and o x3, nad abdo: soft/ obese/ NT ostomy appliances removed;new dressing intact - placed by nursing staff Assessment: Complicated diverticular abscess Plan: abx Po diet wound care possible d/c home tomorrow with VNS
[2019-06-06] MEDS: traMADol TAB* 50 MG PO PRN (15:07)
[2019-06-06] MEDS: Insulin GLARGINE(*) 1 UNITS UNIT SUBCUT SCH (17:35)
[2019-06-06] MEDS: Ertapenem* 1 GM in NS 0.9% 50 ML* 50 ML IVPB SCH (18:11)
[2019-06-06] MEDS: Pantoprazole IV* 40 MG IV SCH (18:42)
[2019-06-07] MEDS: Insulin LISPRO* 1 UNITS UNIT SUBCUT SCH ×4 (08:51→21:06)
--- NOTE | 2019-06-07 10:06 | PN ---
Progress Note - Progress Note Date of Service: 06/07/19 SOAP: Subjective: Pt seen and examined. upset that additional stool from Left sided open wound. Good appetite. pos flatus and small BMs Objective: Temp Pulse Resp BP Pulse Ox 98.2 F 75 16 141/59 97 06/07/19 03:20 06/07/19 03:20 06/07/19 03:20 06/07/19 03:20 06/07/19 03:20 Intake & Output 06/06/19 06/07/19 06/07/19 22:59 06:59 14:59 Intake Total 440 Balance 440 abdo: soft/ obese/ NT stool egress from Left open wound (fistula); R open wound with scant drainage. Assessment: Diverticular fistula Plan: abx wound care; colostomy bag to L pO diet
[2019-06-07] MEDS: traMADol TAB* 50 MG PO PRN (11:13)
[2019-06-07] MEDS: Escitalopram * 10 MG TAB PO SCH (15:08)
--- NOTE | 2019-06-07 17:06 | PN ---
Subjective Date of Service: 06/07/19 Family History: Unchanged from Admission Social History: Unchanged from Admission Past Medical History: Unchanged from Admission Objective Active Medications: Acetaminophen (Tylenol Tab*) 650 mg PO Q4H PRN PRN Reason: Pain -04/02 Last Admin: 06/06/19 13:42 Dose: 650 mg Dextrose (D50w Syringe 50 Ml*) 12.5 gm IV PUSH .FOR FS < 60 - SS PRN PRN Reason: FS < 60 Escitalopram Oxalate (Lexapro *) 10 mg PO DAILY [facility] Last Admin: 06/07/19 15:08 Dose: 10 mg Hydromorphone HCl (Dilaudid Inj1s*) 0.5 mg IV SLOW PU Q1H PRN PRN Reason: PAIN - SEVERE Ertapenem 1 gm/ Sodium (Chloride) 50 mls @ 100 mls/hr IVPB Q24H [facility] Last Admin: 06/06/19 18:11 Dose: 100 mls/hr Insulin Glargine (Lantus(*)) 5 units SUBCUT QPM [facility] Last Admin: 06/06/19 17:35 Dose: 5 units Insulin Human Lispro (Humalog*) 0 units SUBCUT ACHS [facility]; Protocol Last Admin: 06/07/19 12:32 Dose: 1 unit Ondansetron HCl (Zofran Inj*) 4 mg IV Q4H PRN PRN Reason: NAUSEA/VOMITING Pantoprazole Sodium (Protonix Iv*) 40 mg IV Q24H [facility] Last Admin: 06/06/19 18:42 Dose: 40 mg Tramadol HCl (Ultram*) 25 mg PO Q6H PRN PRN Reason: PAIN Last Admin: 06/07/19 11:13 Dose: 25 mg Vital Signs - 8 hr 06/07/19 06/07/19 11:13 11:33 Temperature 98.4 F Pulse Rate 75 Respiratory 18 20 Rate Blood Pressure 123/55 (mmHg) O2 Sat by Pulse 98 Oximetry Oxygen Devices in Use Now: None Result Diagrams: 06/06/19 06:43 06/06/19 06:43 Microbiology and Other Data: Microbiology 06/04/19 12:56 Aerobic Blood Culture - Preliminary Blood Venous No Growth Day 1 Anaerobic Blood Culture - Preliminary No Growth Day 1 06/04/19 10:27 Aerobic Blood Culture - Preliminary Blood Venous No Growth Day 1 Anaerobic Blood Culture - Preliminary No Growth Day 1 Assess/Plan/Problems-Billing Assessment: Ms. Marshall is a 74 yo F with PMH of DM2, CKD, HTN, and intraabdominal abscesses ; who recently had a pigtail drain removed from her LUQ and presented to the ED because of concern for abscess at the site. - Patient Problems (1) Intra-abdominal abscess Code(s): K65.1 - PERITONEAL ABSCESS SNOMED Code(s): 25041344 Comment: - With diverticular fistula and stool draining from left side wound - Management per Surgery - Continue ertapenem (2) Anemia Code(s): D64.9 - ANEMIA, UNSPECIFIED SNOMED Code(s): 449514472 Comment: - Chronic, stable, ACD (3) GERD (gastroesophageal reflux disease) Code(s): K21.9 - GASTRO-ESOPHAGEAL REFLUX DISEASE WITHOUT ESOPHAGITIS SNOMED Code(s): 134671066 Comment: - Continue PPI (4) HTN (hypertension) Code(s): I10 - ESSENTIAL (PRIMARY) HYPERTENSION SNOMED Code(s): 88760025 Comment: - Normotensive, SBP 100-110s - hold losartan, restart metoprolol in AM (hx of PAF) (5) Anxiety Code(s): F41.9 - ANXIETY DISORDER, UNSPECIFIED SNOMED Code(s): 82636747 Comment: - Restarted patient's lexapro today, very tearful during exam (6) Atrial fibrillation Code(s): I48.91 - UNSPECIFIED ATRIAL FIBRILLATION SNOMED Code(s): 86552920 Comment: - PAF (in setting of infection in 2017 ), NSR now on exam - Restart Metoprolol in AM (7) CKD (chronic kidney disease) Code(s): N18.9 - CHRONIC KIDNEY DISEASE, UNSPECIFIED SNOMED Code(s): 273134602 Comment: - St 3, creatinine at baseline (8) Diabetes Code(s): E11.9 - TYPE 2 DIABETES MELLITUS WITHOUT COMPLICATIONS SNOMED Code(s) : 45813814 Comment: - Well controlled, recent A1c 5.7% - Hold metformin and Januvia - Continue Lispro SS; resume Lantus (9) DVT prophylaxis Code(s): [id number] - SNOMED Code(s): 943615129 Comment: - SCDs (10) Full code status Code(s): Z78.9 - OTHER SPECIFIED HEALTH STATUS SNOMED Code(s): 356163402 Comment: Status and Disposition: Inpatient. Dispo per Surgery.
[2019-06-07] MEDS: Insulin GLARGINE(*) 1 UNITS UNIT SUBCUT SCH (18:30)
[2019-06-07] MEDS: Ertapenem* 1 GM in NS 0.9% 50 ML* 50 ML IVPB SCH (18:32)
[2019-06-07] MEDS: Pantoprazole IV* 40 MG IV SCH (18:55)
[2019-06-08] MEDS: traMADol TAB* 50 MG PO PRN (00:48)
[2019-06-08 07:06] LABS: BUN/Creatinine Ratio 17.2 (8-20); C Reactive Protein 39.79 mg/L (<8.01); Calcium 8.3 mg/dL (8.6-10.3); EGFR African American 55.4 (>60); EGFR Non-African American 45.8 (>60); Magnesium 1.4 mg/dL (1.9-2.7); Phosphorus 3.3 mg/dL (2.5-5.0); Potassium 3.7 mmol/L (3.5-5.0)
[2019-06-08] MEDS: Insulin LISPRO* 1 UNITS UNIT SUBCUT SCH ×4 (08:20→21:51)
[2019-06-08] MEDS: Escitalopram * 10 MG TAB PO SCH (08:51)
[2019-06-08] MEDS: Metoprolol Succinate XL TAB* 50 MG PO SCH (08:51)
--- NOTE | 2019-06-08 15:21 | PN ---
Progress Note - Progress Note Date of Service: 06/08/19 SOAP: Subjective: Pt seen and examined. Ostomy at L abdo. Good appetite. pos flatus and small BMs Objective: Temp Pulse Resp BP Pulse Ox 98.0 F 71 16 134/52 100 06/08/19 11:00 06/08/19 11:00 06/08/19 11:00 06/08/19 11:00 06/08/19 11:00 abdo: soft/ obese/ NT pus from Left open wound (fistula); R open wound with scant drainage. Assessment: Diverticular fistula Plan: abx wound care; colostomy bag to L pO diet d/c planning
[2019-06-08] MEDS: Insulin GLARGINE(*) 1 UNITS UNIT SUBCUT SCH (17:22)
[2019-06-08] MEDS: Ertapenem* 1 GM in NS 0.9% 50 ML* 50 ML IVPB SCH (17:22)
[2019-06-08] MEDS: Pantoprazole IV* 40 MG IV SCH (17:22)
--- NOTE | 2019-06-08 17:37 | PN ---
Subjective Date of Service: 06/08/19 Interval History: Patient seen and examined. Feeling better today, had ostomy nurse change her bag and she is more comfortable now. Her mood is feeling better too since restarting lexapro. Denies abdominal pain, no n/v. No BM yet but stoma has output per RN. No fevers or chills. Family History: Unchanged from Admission Social History: Unchanged from Admission Past Medical History: Unchanged from Admission Objective Active Medications: Acetaminophen (Tylenol Tab*) 650 mg PO Q4H PRN PRN Reason: Pain 1-04/02 Last Admin: 06/06/19 13:42 Dose: 650 mg Dextrose (D50w Syringe 50 Ml*) 12.5 gm IV PUSH .FOR FS < 60 - SS PRN PRN Reason: FS < 60 Escitalopram Oxalate (Lexapro *) 10 mg PO DAILY [facility] Last Admin: 06/08/19 08:51 Dose: 10 mg Hydromorphone HCl (Dilaudid Inj1s*) 0.5 mg IV SLOW PU Q1H PRN PRN Reason: PAIN - SEVERE Ertapenem 1 gm/ Sodium (Chloride) 50 mls @ 100 mls/hr IVPB Q24H [facility] Last Admin: 06/08/19 17:22 Dose: 100 mls/hr Insulin Glargine (Lantus(*)) 5 units SUBCUT QPM [facility] Last Admin: 06/08/19 17:22 Dose: 5 units Insulin Human Lispro (Humalog*) 0 units SUBCUT ACHS [facility]; Protocol Last Admin: 06/08/19 17:15 Dose: Not Given Metoprolol Succinate (Toprol Xl Tab*) 50 mg PO DAILY [facility] Last Admin: 06/08/19 08:51 Dose: 50 mg Ondansetron HCl (Zofran Inj*) 4 mg IV Q4H PRN PRN Reason: NAUSEA/VOMITING Pantoprazole Sodium (Protonix Iv*) 40 mg IV Q24H [facility] Last Admin: 06/08/19 17:22 Dose: 40 mg Tramadol HCl (Ultram*) 25 mg PO Q6H PRN PRN Reason: PAIN Last Admin: 06/08/19 00:48 Dose: 25 mg Vital Signs - 8 hr 06/08/19 06/08/19 11:00 15:00 Temperature 98.0 F 98.5 F Pulse Rate 71 67 Respiratory 16 16 Rate Blood Pressure 134/52 125/51 (mmHg) O2 Sat by Pulse 100 99 Oximetry Oxygen Devices in Use Now: None Appearance: alert, NAD Eyes: No Scleral Icterus, PERRLA Ears/Nose/Mouth/Throat: NL Teeth, Lips, Gums, Mucous Membranes Moist Neck: NL Appearance and Movements; NL JVP, Trachea Midline Respiratory: Symmetrical Chest Expansion and Respiratory Effort, Clear to Auscultation Cardiovascular: NL Sounds; No Murmurs; No JVD, RRR, - - trace bipedal edema Abdominal: - - mild tenderness, hyperactive BS, dressings CDI, stoma bag noted Skin: No Rash or Ulcers Neurological: Alert and Oriented x 3, NL Gait Nutrition: Taking PO's Result Diagrams: 06/06/19 06:43 06/08/19 06:09 Microbiology and Other Data: Microbiology 06/04/19 12:56 Aerobic Blood Culture - Preliminary Blood Venous No Growth Day 1 Anaerobic Blood Culture - Preliminary No Growth Day 1 06/04/19 10:27 Aerobic Blood Culture - Preliminary Blood Venous No Growth Day 1 Anaerobic Blood Culture - Preliminary No Growth Day 1 Assess/Plan/Problems-Billing Assessment: Ms. Marshall is a 74 yo F with PMH of DM2, CKD, HTN, and intraabdominal abscesses ; who recently had a pigtail drain removed from her LUQ and presented to the ED because of concern for abscess at the site. - Patient Problems (1) Intra-abdominal abscess Code(s): K65.1 - PERITONEAL ABSCESS SNOMED Code(s): 83294248 Comment: - With diverticular fistula and stool draining from left side wound - Management per Surgery - Continue ertapenem - Ostomy nurse changed drainage/ostomy on left side providing patient with more comfort (2) Anemia Code(s): D64.9 - ANEMIA, UNSPECIFIED SNOMED Code(s): 785785771 Comment: - Chronic, stable, ACD (3) GERD (gastroesophageal reflux disease) Code(s): K21.9 - GASTRO-ESOPHAGEAL REFLUX DISEASE WITHOUT ESOPHAGITIS SNOMED Code(s): 856564544 Comment: - Continue PPI (4) HTN (hypertension) Code(s): I10 - ESSENTIAL (PRIMARY) HYPERTENSION SNOMED Code(s): 72236677 Comment: - Normotensive, SBP 100-110s - hold losartan, restarted metoprolol today (also hx of PAF) (5) Anxiety Code(s): F41.9 - ANXIETY DISORDER, UNSPECIFIED SNOMED Code(s): 23149815 Comment: - Restarted patient's lexapro today, very tearful during exam (6) Atrial fibrillation Code(s): I48.91 - UNSPECIFIED ATRIAL FIBRILLATION SNOMED Code(s): 86882245 Comment: - PAF (in setting of infection in 2017 ), NSR now on exam - Restarted Metoprolol today (7) CKD (chronic kidney disease) Code(s): N18.9 - CHRONIC KIDNEY DISEASE, UNSPECIFIED SNOMED Code(s): 178178771 Comment: - St 3, creatinine at baseline at 1.16 today (8) Diabetes Code(s): E11.9 - TYPE 2 DIABETES MELLITUS WITHOUT COMPLICATIONS SNOMED Code(s) : 74826393 Comment: - Well controlled, recent A1c 5.7% - Hold metformin and Januvia - Continue Lispro SS; resume Lantus (9) DVT prophylaxis Code(s): TKU5405 - SNOMED Code(s): 020138687 Comment: - SCDs and ambulate (10) Full code status Code(s): Z78.9 - OTHER SPECIFIED HEALTH STATUS SNOMED Code(s): 855286280 Comment: Status and Disposition: Inpatient. Dispo per Surgery, likely DC tomorrow.
[2019-06-09] MEDS: Escitalopram * 10 MG TAB PO SCH (08:02)
[2019-06-09] MEDS: Metoprolol Succinate XL TAB* 50 MG PO SCH (08:02)
[2019-06-09] MEDS: Insulin LISPRO* 1 UNITS UNIT SUBCUT SCH ×2 (08:18→13:44)
[2019-06-09 16:56] VITALS: BP 152/65
== END 2019-06-09 16:40 | disposition home or self-care (01) | DRG 394 ==
LOC: ED 09:24 → UNDOADMIN 15:36 → MEDTELE 15:36 → MED 06-05 17:52
PROVIDERS: ADMIT Surgery; ATTEND Surgery
DX: K63.2 Fistula of intestine (principal); K56.1 Intussusception; E11.22 Type 2 diabetes mellitus with diabetic chronic kidney disease; I48.91 Unspecified atrial fibrillation; I12.9 Hypertensive chronic kidney disease with stage 1 through stage 4 chronic kidney disease, or unspecified chronic kidney disease; D64.9 Anemia, unspecified; M32.9 Systemic lupus erythematosus, unspecified; E78.00 Pure hypercholesterolemia, unspecified; K21.9 Gastro-esophageal reflux disease without esophagitis; K57.90 Diverticulosis of intestine, part unspecified, without perforation or abscess without bleeding; F41.9 Anxiety disorder, unspecified; F32.9 Major depressive disorder, single episode, unspecified; M10.20 Drug-induced gout, unspecified site; K57.30 Diverticulosis of large intestine without perforation or abscess without bleeding; N18.3 Chronic kidney disease, stage 3 (moderate); Z90.49 Acquired absence of other specified parts of digestive tract; Z98.51 Tubal ligation status; Z88.0 Allergy status to penicillin; Z88.1 Allergy status to other antibiotic agents; Z91.048 Other nonmedicinal substance allergy status; Z80.1 Family history of malignant neoplasm of trachea, bronchus and lung; Z80.8 Family history of malignant neoplasm of other organs or systems; Z83.2 Family history of diseases of the blood and blood-forming organs and certain disorders involving the immune mechanism; Z87.891 Personal history of nicotine dependence; Z80.7 Family history of other malignant neoplasms of lymphoid, hematopoietic and related tissues; Z82.0 Family history of epilepsy and other diseases of the nervous system
CPT/HCPCS: 36415; 74177; 80048; 80053; 83735; 84100; 85025; 86140; 87040; 99284; A9270-GY; J1335; J2270; J2405; J2997; Q9967